=== PATIENT | male | born 1940 | race Caucasian/White ===

== ENCOUNTER 2017-07-02 15:21 | Emergency (ER) | payer MEDICARE, OTHER ==
[2017-04-26 16:37] VITALS: Ht 180.3 cm; Wt 115.0 kg
[~2017-07-02] VITALS: Ht 180.3 cm; Wt 115.0 kg
[~2017-07-02 15:21] MED LIST: ALB18R INH; ALBU2.5V36 INH; APIX5TAB PO; ASPI-1471 PO; ATOR40TA24 PO; CAR3.125 PO; CAR6.25 PO; CIPR-344 PO; CLOP75TA PO; DULO30CA35 PO; FURO-45 PO; FURO20TA19 PO; FURO40TA35 PO; GABA-549 PO; HYDR-4309 PO; IPRA0.2S8 IH; LEVE250T42 PO; LEVO-3 PO; LEVO-85 PO; LISI5TAB25 PO; METR-1 PO; METR-160 PO; NOR25 PO; OXYGENHOME INH; PANT40TA65 PO; POTA-1 PO; POTA-53 PO; PREG150C33 PO; PREG300C14 PO; TAMS0.4C25 PO; TIO18R INH
[2017-07-02] MEDS ORDERED: OXYGENHOME INH (15:34)
[2017-07-02] MEDS ORDERED: NS(*) 0.9% 500 ML BAG 500 ML IV ONE (15:44)
--- NOTE | 2017-07-02 15:58 | ER Report ---
History and Physical Time Seen By MD: 15:30 Hx. of Stated Complaint: pt reports a headcold for the past 3 weeks, congestion, reports he does not want it to turn into pneumonia HPI/ROS CHIEF COMPLAINT: Shortness of breath HISTORY OF PRESENT ILLNESS: 77-year-old male patient presents to emergency room with complaint of shortness of breath. Patient states that he's had a head cold for the past 3 weeks. He states that he has been having significant amounts of coughing. He states that he is feeling like he is hard time breathing because the congestion. He denies having any fevers, chills, nausea, vomiting or diarrhea. He states that he's been taking [id number] medication with no improvement. Patient states that he is had a rough few months, he is needing to use oxygen 24 hours today. Patient states that he is falling apart. He has not taken anything other than [id number] cold medicines which have not seemed to help. REVIEW OF SYSTEMS: Respiratory: As noted above Cardiovascular: No chest pain, no palpitations. Gastrointestinal: No vomiting, no abdominal pain. Musculoskeletal: No back pain. Allergies: Coded Allergies: Penicillins (Verified Allergy, Severe, 07/02/17) tramadol (Verified Allergy, Severe, seizure, 07/02/17) pt reported ibuprofen (Verified Allergy, Unknown, 07/02/17) STOMACH BLEEDING Home Meds Active Scripts Furosemide (LASIX) 40 Mg Tablet, 1 TAB PO BID, #60 TAB Prov:FLORINDA KAY 07/02/17 Furosemide (LASIX) 40 Mg Tablet, 1 TAB PO BID, #60 TAB Prov:PATRICIA HENRY DO 04/27/17 Reported Medications Oxygen (OXYGEN) Inha, 3 L INH QDAY, L 07/02/17 Clopidogrel Bisulfate (CLOPIDOGREL) 75 Mg Tablet, 1 TAB PO QDAY, TAB 04/26/17 Atorvastatin Calcium (LIPITOR) 40 Mg Tablet, 1 TAB PO QDAY, TAB 04/26/17 Pregabalin (LYRICA) 150 Mg Capsule, 150 MG PO TID, CAPSULE 03/24/17 Carvedilol (CARVEDILOL) 6.25 Mg Tab, 3.125 MG PO BID, TAB 03/17/17 Aspirin (ASPIR 81) 81 Mg Tablet.dr, 81 MG PO QDAY, TAB 03/17/17 Apixaban (ELIQUIS) 5 Mg Tablet, 5 MG PO BID 03/17/17 Tiotropium [place] (SPIRIVA) 18 Mcg/Cap Inh, 18 MCG INH QDAY, INH 12/30/16 Levetiracetam (LEVETIRACETAM) 250 Mg Tablet, 500 MG PO BID, TAB 12/30/16 Tamsulosin Hcl (FLOMAX) 0.4 Mg Cap.er.24h, 0.4 MG PO QDAY, CAP 12/30/16 Levothyroxine Sodium (LEVOTHYROXINE SODIUM) 100 Mcg Tablet, 100 MCG PO QDAY, TAB 12/30/16 Potassium Chloride (POTASSIUM CHLORIDE) 10 Meq Tab.er.prt, 10 MEQ PO QDAY 12/30/16 Discontinued Reported Medications Oxygen (OXYGEN) Inha, 2 L INH QHS, L 03/17/17 Discontinued Scripts Ciprofloxacin Hcl (CIPRO) 500 Mg Tablet, 500 MG PO BID, #14 TAB 0 Refills Prov:ENRIQUE WEST MD 04/28/17 Past Medical/Surgical History Patient has a past medical history of neuropathy in hands and feet, seizures, NH , A. fib, hypertension, COPD, prostate problems, eye cancer, brain cancer. Patient has a surgical history of coronary stent, appendectomy, cholecystectomy , abscess drained, C5-7 diffuse, tonsillectomy, eye surgery. Reviewed Nurses Notes: Yes Hx Smoking: Yes Smoking Status: Current: Every Day Smoker, Current: Some Days Smoker Exposure to Second Hand Smoke?: No Hx Substance Use Disorder: No Hx Alcohol Use: Yes Constitutional Vital Sign - Last 24 Hours 07/02/17 07/02/17 07/02/17 07/02/17 15:28 15:28 15:28 15:51 Temp 97.4 Pulse 92 104 Resp 16 24 B/P (MAP) 128/92 (104) 128/92 Pulse Ox 97 82 O2 Delivery Nasal Cannula O2 Flow Rate 3.0 07/02/17 07/02/17 07/02/17 07/02/17 16:00 16:11 16:21 16:30 Pulse 93 Resp 26 B/P (MAP) 128/86 (100) 114/99 (104) 101/81 (88) Pulse Ox 98 07/02/17 07/02/17 07/02/17 07/02/17 17:00 17:30 18:00 18:23 B/P (MAP) 113/84 (94) 109/78 (88) 114/95 (101) 114/95 (101) Pulse Ox 93 O2 Flow Rate 3 Intake and Output 07/02/17 07/02/17 07/03/17 15:00 23:00 07:00 Intake Total 500 ml Balance 500 ml Physical Exam General Appearance: The patient is alert, has no immediate need for airway protection and no current signs of toxicity. ENT: Tympanic membranes are pearly-temple, auditory canals are patent, mucous membranes are dry. Respiratory: Chest is non tender, lungs are clear to auscultation. Cardiac: regular rate and rhythm Gastrointestinal: Abdomen is soft and non tender, no masses, bowel sounds normal. Musculoskeletal: Neck: Neck is supple and non tender. Extremities have full range of motion and are non tender. Skin: No rashes or lesions. DIFFERENTIAL DIAGNOSIS: After history and physical exam differential diagnosis was considered for COPD exacerbation, pneumonia, bronchitis, sinusitis. Medical Decision Making Data Points Result Diagram: 07/02/17 1610 07/02/17 1610 Laboratory Hematology Test 07/02/17 16:02 07/02/17 16:10 Urine Color Yellow Urine Clarity Clear Urine pH 5.0 pH (4.8-9.5) Urine Specific [place] 1.012 Urine Protein Negative mg/dL (NEGATIVE) Urine Glucose (UA) Negative mg/dL (NEGATIVE) Urine Ketones Negative mg/dL (NEGATIVE) Urine Blood Negative (NEGATIVE) Urine Nitrite Negative (NEGATIVE) Urine Bilirubin Negative (NEGATIVE) Urine Urobilinogen 2.0 mg/dL (0.2-1.9) Urine Leukocyte Esterase Negative (NEGATIVE) Urine RBC 1 /HPF (0-2/HPF) Urine WBC 2 /HPF (0-5/HPF) Urine Squamous Epithelial Cells None /LPF (</=FEW) Urine Bacteria Few /HPF (NONE-FEW) Urine Hyaline Casts Few /LPF (NONE-FEW) Urine Mucus Few /HPF (NONE-FEW) Red Blood Count 3.98 M/uL (4.00-5.60) Mean Corpuscular Volume 100.5 fL (80.0-96.0) Mean Corpuscular Hemoglobin 33.6 pg (26.0-33.0) Mean Corpuscular Hemoglobin Concent 33.5 g/dL (32.0-36.0) Red Cell Distribution Width 16.8 % (11.5-14.5) Mean Platelet Volume 8.4 fL (7.2-11.1) Neutrophils (%) (Auto) % (39.4-72.5) Lymphocytes (%) (Auto) % (17.6-49.6) Monocytes (%) (Auto) % (4.1-12.4) Eosinophils (%) (Auto) % (0.4-6.7) Basophils (%) (Auto) % (0.3-1.4) Nucleated RBC Relative Count (auto) /100WBC Neutrophils # (Auto) K/uL (2.0-7.4) Lymphocytes # (Auto) K/uL (1.3-3.6) Monocytes # (Auto) K/uL (0.3-1.0) Eosinophils # (Auto) K/uL (0.0-0.5) Basophils # (Auto) K/uL (0.0-0.1) Nucleated RBC Absolute Count (auto) K/uL Neutrophils % (Manual) 45 % (39.4-72.5) Band Neutrophils % 6 % Lymphocytes % (Manual) 33 % (17.6-49.6) Monocytes % (Manual) 12 % (4.1-12.4) Eosinophils % (Manual) 1 % (0.4-6.7) Basophils % (Manual) 0 % (0.3-1.4) Metamyelocytes % 3 % Sodium Level 145 mmol/L (137-145) Potassium Level 3.5 mmol/L (3.5-5.0) Chloride Level 100 mmol/L (98-107) Carbon Dioxide Level 33 mmol/L (22-30) Blood Urea Nitrogen 12 mg/dl (9-21) Creatinine 0.80 mg/dl (0.66-1.25) Glomerular Filtration Rate Calc > 60.0 Random Glucose 88 mg/dl (75-110) Calcium Level 9.1 mg/dl (8.4-10.2) Total Bilirubin 3.7 mg/dl (0.2-1.3) Aspartate Amino Transf (AST/SGOT) 23 U/L (0-35) Alanine Aminotransferase (ALT/SGPT) 25 U/L (0-56) Alkaline Phosphatase 69 U/L (0-126) Troponin I 0.013 ng/ml B-Type Natriuretic Peptide 863 pg/ml (0-100) Total Protein 6.8 gm/dl (6.3-8.2) Albumin 3.7 g/dl (3.5-5.0) Chemistry Test 07/02/17 16:02 07/02/17 16:10 Urine Color Yellow Urine Clarity Clear Urine pH 5.0 pH (4.8-9.5) Urine Specific [place] 1.012 Urine Protein Negative mg/dL (NEGATIVE) Urine Glucose (UA) Negative mg/dL (NEGATIVE) Urine Ketones Negative mg/dL (NEGATIVE) Urine Blood Negative (NEGATIVE) Urine Nitrite Negative (NEGATIVE) Urine Bilirubin Negative (NEGATIVE) Urine Urobilinogen 2.0 mg/dL (0.2-1.9) Urine Leukocyte Esterase Negative (NEGATIVE) Urine RBC 1 /HPF (0-2/HPF) Urine WBC 2 /HPF (0-5/HPF) Urine Squamous Epithelial Cells None /LPF (</=FEW) Urine Bacteria Few /HPF (NONE-FEW) Urine Hyaline Casts Few /LPF (NONE-FEW) Urine Mucus Few /HPF (NONE-FEW) White Blood Count 4.0 k/uL (4.5-11.0) Red Blood Count 3.98 M/uL (4.00-5.60) Hemoglobin 13.4 g/dL (14.0-18.0) Hematocrit 40.0 % (42.0-52.0) Mean Corpuscular Volume 100.5 fL (80.0-96.0) Mean Corpuscular Hemoglobin 33.6 pg (26.0-33.0) Mean Corpuscular Hemoglobin Concent 33.5 g/dL (32.0-36.0) Red Cell Distribution Width 16.8 % (11.5-14.5) Platelet Count 306 K/uL (150-450) Mean Platelet Volume 8.4 fL (7.2-11.1) Neutrophils (%) (Auto) % (39.4-72.5) Lymphocytes (%) (Auto) % (17.6-49.6) Monocytes (%) (Auto) % (4.1-12.4) Eosinophils (%) (Auto) % (0.4-6.7) Basophils (%) (Auto) % (0.3-1.4) Nucleated RBC Relative Count (auto) /100WBC Neutrophils # (Auto) K/uL (2.0-7.4) Lymphocytes # (Auto) K/uL (1.3-3.6) Monocytes # (Auto) K/uL (0.3-1.0) Eosinophils # (Auto) K/uL (0.0-0.5) Basophils # (Auto) K/uL (0.0-0.1) Nucleated RBC Absolute Count (auto) K/uL Neutrophils % (Manual) 45 % (39.4-72.5) Band Neutrophils % 6 % Lymphocytes % (Manual) 33 % (17.6-49.6) Monocytes % (Manual) 12 % (4.1-12.4) Eosinophils % (Manual) 1 % (0.4-6.7) Basophils % (Manual) 0 % (0.3-1.4) Metamyelocytes % 3 % Glomerular Filtration Rate Calc > 60.0 Calcium Level 9.1 mg/dl (8.4-10.2) Total Bilirubin 3.7 mg/dl (0.2-1.3) Aspartate Amino Transf (AST/SGOT) 23 U/L (0-35) Alanine Aminotransferase (ALT/SGPT) 25 U/L (0-56) Alkaline Phosphatase 69 U/L (0-126) Troponin I 0.013 ng/ml B-Type Natriuretic Peptide 863 pg/ml (0-100) Total Protein 6.8 gm/dl (6.3-8.2) Albumin 3.7 g/dl (3.5-5.0) Urinalysis Test 07/02/17 16:02 Urine Color Yellow Urine Clarity Clear Urine pH 5.0 pH (4.8-9.5) Urine Specific [place] 1.012 Urine Protein Negative mg/dL (NEGATIVE) Urine Glucose (UA) Negative mg/dL (NEGATIVE) Urine Ketones Negative mg/dL (NEGATIVE) Urine Blood Negative (NEGATIVE) Urine Nitrite Negative (NEGATIVE) Urine Bilirubin Negative (NEGATIVE) Urine Urobilinogen 2.0 mg/dL (0.2-1.9) Urine Leukocyte Esterase Negative (NEGATIVE) Urine RBC 1 /HPF (0-2/HPF) Urine WBC 2 /HPF (0-5/HPF) Urine Squamous Epithelial Cells None /LPF (</=FEW) Urine Bacteria Few /HPF (NONE-FEW) Urine Hyaline Casts Few /LPF (NONE-FEW) Urine Mucus Few /HPF (NONE-FEW) EKG/Imaging EKG Interpretation 12 lead EKG: Rhythm: normal sinus rhythm [place]: Left axis deviation QRS: normal ST segments: normal Imaging INDICATION: . Respiratory distress DATE: 07/02/2017 4:54 PM. TECHNIQUE: CHEST PA AND LAT COMPARISON: April 28, 2017 FINDINGS: The cardiac silhouette remains enlarged. The interstitium remains prominent. Normal expansion. No effusion or pneumothorax. There are likely calcified granulomas at the hilum. Faint left retrocardiac opacity is noted. Anterior cervical fusion hardware is noted. IMPRESSION: Bilateral interstitial suggests chronic airways disease. Faint left retrocardiac opacity may reflect atelectasis and/or chronic interstitial findings, but mild aspiration or developing infection is not entirely excluded. This is similar to the comparison study however. Report Dictated By: Hawa Fontana MD at 07/02/2017 4:54 PM Report E-Signed By: Hawa Fontana MD at 07/02/2017 4:56 PM ED Course/Re-evaluation ED Course Patient was admitted to exam room, history and physical were obtained. Differential diagnoses were considered. On examination lungs are clear, mucus mucous membranes were incredibly dry. A CBC, CMP, BNP, troponin, EKG and chest x -ray were done. The lab results were unremarkable except for the patient's BNP which was elevated at 800. Patient last had a BNP of 400 last month. I believe that this is likely the cause of his shortness of breath. We will go ahead and give the patient 40 mg of Lasix here in the emergency room. We will then have him increase his Lasix to 40 mg twice a day. I will like him follow-up with his primary care provider in the next week. He is to get plenty of rest, limit his activity by pain. I discussed with the patient who verbalized understanding and agreement with plan. Decision to Disposition Date: Jul 02, 2017 Decision to Disposition Time: 17:49 Depart Departure Latest Vital Signs Vital Signs Date Time Temp Pulse Resp B/P (MAP) Pulse Ox O2 Delivery O2 Flow Rate FiO2 07/02/17 18:23 114/95 (101) 93 3 07/02/17 16:21 93 26 07/02/17 15:28 97.4 Nasal Cannula Impression: Primary Impression: CHF exacerbation Condition: Improved Disposition: HOME OR SELF-CARE New Scripts Furosemide (LASIX) 40 Mg Tablet 1 TAB PO BID, #60 TAB Prov: FLORINDA KAY 07/02/17 Patient Instructions: Heart Failure (ED) Additional Instructions: Follow up with Dr. Harrell in the next week, it sounds like you already have an appointment. Get plenty of rest. We are going to increase you Lasix to 40mg twice a day. Sleep with the head of your bed elevated. Return to the ER if condition worsens. Problem Qualifiers Primary Impression: CHF exacerbation Congestive heart failure type: unspecified congestive heart failure type Qualified Codes: I50.9 - Heart failure, unspecified FLORINDA KAY Jul 02, 2017 15:58
--- NOTE | 2017-07-02 15:59 | EKG ---
FACILITY: [facility] - [place] PATIENT NAME: TONY NGO : [id number] MR: [id number]: [id number] EXAM DATE: ORDERING PHYSICIAN: FLORINDA KAY TECHNOLOGIST: CARMEN Test Reason : SOB Blood Pressure : / mmHG Vent. Rate : 094 BPM Atrial Rate : 094 BPM P-R Int : 000 ms QRS Dur : 124 ms QT Int : 396 ms P-R-T Axes : 000 -49 092 degrees QTc Int : 495 ms Sinus rhythm with 1st degree AV block premature ventricular complexes Left axis deviation Inferior infarct , age undetermined Anterolateral infarct , age undetermined Abnormal ECG Confirmed by PATRICIA HENRY ([id number]) on 07/03/2017 12:34:50 AM Referred By: RAVI Confirmed By:PATRICIA HENRY
[2017-07-02 16:28] LABS: PLATELET COUNT, AUTOMATED 306 K/uL (150-450)
--- NOTE | 2017-07-02 17:00 | RADIOLOGY IMAGING REPORT ---
FACILITY: [facility] - [place] PATIENT NAME: Obey Asencio : 1940 MR: [id number] V: [id number] EXAM DATE: ORDERING PHYSICIAN: FLORINDA KAY TECHNOLOGIST: Location: [facility] Patient: Obey Asencio : 1940 Visit/Account:[id number] Date of Sevice: 07/02/2017 INDICATION: . Respiratory distress DATE: 07/02/2017 4:54 PM. TECHNIQUE: CHEST PA AND LAT COMPARISON: April 28, 2017 FINDINGS: The cardiac silhouette remains enlarged. The interstitium remains prominent. Normal expansi on. No effusion or pneumothorax. There are likely calcified granulomas at the hilum. Faint left retro cardiac opacity is noted. Anterior cervical fusion hardware is noted. IMPRESSION: Bilateral interstitial suggests chronic airways disease. Faint left retrocardiac opacity may reflect atelectasis and/or chronic interstitial findings, but mil d aspiration or developing infection is not entirely excluded. This is similar to the comparison stud y however. Report Dictated By: Hawa Fontana MD at 07/02/2017 4:54 PM Report E-Signed By: Hawa Fontana MD at 07/02/2017 4:56 PM WSN:[id number]
[2017-07-02] MEDS ORDERED: FURO40TA35 PO (17:44)
[2017-07-02] MEDS ORDERED: FUROSEMIDE 40 MG/4 ML VIAL IVP ONE (17:45)
[2017-07-02 18:23] VITALS: BP 114/95
== END 2017-07-02 18:20 | disposition home or self-care (01) ==
LOC: ER 15:28
DX: I50.9 Heart failure, unspecified (principal)
CPT/HCPCS: 71020; 81001; 83880; 84484; 85025; 93005; 96361; 96374; 99284; J1940; J7040; 82040; 82247; 82310; 82374; 82435; 82565; 82947; 84075; 84132; 84155; 84295; 84450; 84460; 84520

== ENCOUNTER 2017-07-03 10:24 | Inpatient (IN) | payer MEDICARE, OTHER ==
[~2017-07-03] VITALS: Ht 154.9 cm; Wt 116.1 kg
--- NOTE | 2017-07-03 10:37 | ER Report ---
History and Physical Time Seen By MD: 10:35 Hx. of Stated Complaint: pt has burning chest pain and difficulty breathing, in ER yesterday for concern for pneumonia, put on lasix but minimal output and nasty taste in mouth HPI/ROS CHIEF COMPLAINT: Shortness of breath and chest pain HISTORY OF PRESENT ILLNESS: 71 facial male COPD CHF comes emergency Department today with worsening shortness of breath was seen here yesterday diagnosed with CHF exacerbation increase his Lasix dose and gave him a increase home use workup was comprehensive with determined he was safe to go home however when he got home several hours later started getting worsening shortness of breath and chest discomfort orthopnea mild PND came back to the emergency room less than 24 hours later otherwise unremarkable said he has a bad taste in his mouth think she may have progressive pneumonia REVIEW OF SYSTEMS: Respiratory: No productive cough but has shortness of breath Cardiovascular: Has chest pain or palpitation Gastrointestinal: No vomiting, no abdominal pain. Musculoskeletal: No back pain. Remainder of the 14 system rev: Yes Allergies: Coded Allergies: Penicillins (Verified Allergy, Severe, 07/02/17) tramadol (Verified Allergy, Severe, seizure, 07/02/17) pt reported ibuprofen (Verified Allergy, Unknown, 07/02/17) STOMACH BLEEDING Home Meds Active Scripts Furosemide (LASIX) 40 Mg Tablet, 1 TAB PO BID, #60 TAB Prov:FLORINDA KAY 07/02/17 Furosemide (LASIX) 40 Mg Tablet, 1 TAB PO BID, #60 TAB Prov:PATRICIA HENRY DO 04/27/17 Reported Medications Oxygen (OXYGEN) Inha, 3 L INH QDAY, L 07/02/17 Clopidogrel Bisulfate (CLOPIDOGREL) 75 Mg Tablet, 1 TAB PO QDAY, TAB 04/26/17 Atorvastatin Calcium (LIPITOR) 40 Mg Tablet, 1 TAB PO QDAY, TAB 04/26/17 Pregabalin (LYRICA) 150 Mg Capsule, 150 MG PO TID, CAPSULE 03/24/17 Carvedilol (CARVEDILOL) 6.25 Mg Tab, 3.125 MG PO BID, TAB 03/17/17 Aspirin (ASPIR 81) 81 Mg Tablet.dr, 81 MG PO QDAY, TAB 03/17/17 Apixaban (ELIQUIS) 5 Mg Tablet, 5 MG PO BID 03/17/[address] [place] (SPIRIVA) 18 Mcg/Cap Inh, 18 MCG INH QDAY, INH 12/30/16 Levetiracetam (LEVETIRACETAM) 250 Mg Tablet, 500 MG PO BID, TAB 12/30/16 Tamsulosin Hcl (FLOMAX) 0.4 Mg Cap.er.24h, 0.4 MG PO QDAY, CAP 12/30/16 Levothyroxine Sodium (LEVOTHYROXINE SODIUM) 100 Mcg Tablet, 100 MCG PO QDAY, TAB 12/30/16 Potassium Chloride (POTASSIUM CHLORIDE) 10 Meq Tab.er.prt, 10 MEQ PO QDAY 12/30/16 Discontinued Reported Medications Oxygen (OXYGEN) Inha, 2 L INH QHS, L 03/17/17 Discontinued Scripts Ciprofloxacin Hcl (CIPRO) 500 Mg Tablet, 500 MG PO BID, #14 TAB 0 Refills Prov:ENRIQUE WEST MD 04/28/17 Reviewed Nurses Notes: Yes Old Medical Records Reviewed: Yes Hx Smoking: Yes Smoking Status: Current: Every Day Smoker, Current: Some Days Smoker Exposure to Second Hand Smoke?: No Hx Substance Use Disorder: No Hx Alcohol Use: Yes Constitutional Vital Sign - Last 24 Hours 07/03/17 07/03/17 10:29 10:44 Temp 97.9 Pulse 113 Resp 22 B/P (MAP) 104/89 Pulse Ox 85 O2 Delivery Room Air O2 Flow Rate 5.0 Physical Exam General Appearance: The patient is alert, has no immediate need for airway protection and no current signs of toxicity. On supplemental O2 no apparent distress Eyes: Pupils equal and round no injection. Respiratory: Distant breath sounds bibasilar crackles Cardiac: regular rate and rhythm [ ] Gastrointestinal: Abdomen is soft and non tender, no masses, bowel sounds normal. Musculoskeletal: Neck: Neck is supple and non tender. Extremities have full range of motion and are non tender. Skin: No rashes or lesions. [ ] DIFFERENTIAL DIAGNOSIS: After history and physical exam differential diagnosis was considered for CHF COPD dissection pulmonary edema aortic aneurysm myocardial infarction excessive Fluid overload pulmonary congestion Medical Decision Making Data Points Result Diagram: 07/03/17 1104 07/03/17 1104 Laboratory Hematology Test 07/03/17 11:04 07/03/17 11:10 07/03/17 11:35 Red Blood Count 4.06 M/uL (4.00-5.60) Mean Corpuscular Volume 100.1 fL (80.0-96.0) Mean Corpuscular Hemoglobin 33.6 pg (26.0-33.0) Mean Corpuscular Hemoglobin Concent 33.6 g/dL (32.0-36.0) Red Cell Distribution Width 16.6 % (11.5-14.5) Mean Platelet Volume 8.4 fL (7.2-11.1) Neutrophils (%) (Auto) 62.2 % (39.4-72.5) Lymphocytes (%) (Auto) 25.4 % (17.6-49.6) Monocytes (%) (Auto) 9.0 % (4.1-12.4) Eosinophils (%) (Auto) 2.0 % (0.4-6.7) Basophils (%) (Auto) 1.4 % (0.3-1.4) Nucleated RBC Relative Count (auto) 0.2 /100WBC Neutrophils # (Auto) 2.8 K/uL (2.0-7.4) Lymphocytes # (Auto) 1.1 K/uL (1.3-3.6) Monocytes # (Auto) 0.4 K/uL (0.3-1.0) Eosinophils # (Auto) 0.1 K/uL (0.0-0.5) Basophils # (Auto) 0.1 K/uL (0.0-0.1) Nucleated RBC Absolute Count (auto) 0.01 K/uL Peripheral Blood Smear Yes Y/N D-Dimer Quantitative (PE/DVT) 1.16 ug/ml (0-0.50) Sodium Level 142 mmol/L (137-145) Potassium Level 3.3 mmol/L (3.5-5.0) Chloride Level 102 mmol/L (98-107) Carbon Dioxide Level 28 mmol/L (22-30) Blood Urea Nitrogen 21 mg/dl (9-21) Creatinine 0.80 mg/dl (0.66-1.25) Glomerular Filtration Rate Calc > 60.0 Random Glucose 100 mg/dl (75-110) Calcium Level 9.1 mg/dl (8.4-10.2) Total Bilirubin 4.4 mg/dl (0.2-1.3) Aspartate Amino Transf (AST/SGOT) 26 U/L (0-35) Alanine Aminotransferase (ALT/SGPT) 28 U/L (0-56) Alkaline Phosphatase 76 U/L (0-126) Troponin I 0.017 ng/ml B-Type Natriuretic Peptide 904 pg/ml (0-100) Total Protein 6.8 gm/dl (6.3-8.2) Albumin 3.8 g/dl (3.5-5.0) Blood Gas Puncture Site Right radial Blood Gas Patient Temperature 97.9 DEGREES Arterial Blood pH 7.47 (7.35-7.45) Arterial Blood Partial Pressure CO2 35 mmHg (32-37) Arterial Blood Partial Pressure O2 44 mmHg (60-80) Arterial Blood HCO3 25 mmol/L (20-26) Arterial Blood Oxygen Saturation 84 % (92-100) Arterial Blood Base Excess 2.0 mmol/L Jermaine Test Acceptable Oxygen Liters/Minute 5l Urine Color Yellow Urine Clarity Clear Urine pH 5.0 pH (4.8-9.5) Urine Specific [place] 1.013 Urine Protein Negative mg/dL (NEGATIVE) Urine Glucose (UA) Negative mg/dL (NEGATIVE) Urine Ketones Negative mg/dL (NEGATIVE) Urine Blood Negative (NEGATIVE) Urine Nitrite Negative (NEGATIVE) Urine Bilirubin Negative (NEGATIVE) Urine Urobilinogen Negative mg/dL (0.2-1.9) Urine Leukocyte Esterase Negative (NEGATIVE) Urine RBC 1 /HPF (0-2/HPF) Urine WBC 2 /HPF (0-5/HPF) Urine Squamous Epithelial Cells None /LPF (</=FEW) Urine Bacteria Negative /HPF (NONE-FEW) Urine Mucus None /HPF (NONE-FEW) Chemistry Test 07/03/17 11:04 07/03/17 11:10 07/03/17 11:35 White Blood Count 4.4 k/uL (4.5-11.0) Red Blood Count 4.06 M/uL (4.00-5.60) Hemoglobin 13.6 g/dL (14.0-18.0) Hematocrit 40.6 % (42.0-52.0) Mean Corpuscular Volume 100.1 fL (80.0-96.0) Mean Corpuscular Hemoglobin 33.6 pg (26.0-33.0) Mean Corpuscular Hemoglobin Concent 33.6 g/dL (32.0-36.0) Red Cell Distribution Width 16.6 % (11.5-14.5) Platelet Count 357 K/uL (150-450) Mean Platelet Volume 8.4 fL (7.2-11.1) Neutrophils (%) (Auto) 62.2 % (39.4-72.5) Lymphocytes (%) (Auto) 25.4 % (17.6-49.6) Monocytes (%) (Auto) 9.0 % (4.1-12.4) Eosinophils (%) (Auto) 2.0 % (0.4-6.7) Basophils (%) (Auto) 1.4 % (0.3-1.4) Nucleated RBC Relative Count (auto) 0.2 /100WBC Neutrophils # (Auto) 2.8 K/uL (2.0-7.4) Lymphocytes # (Auto) 1.1 K/uL (1.3-3.6) Monocytes # (Auto) 0.4 K/uL (0.3-1.0) Eosinophils # (Auto) 0.1 K/uL (0.0-0.5) Basophils # (Auto) 0.1 K/uL (0.0-0.1) Nucleated RBC Absolute Count (auto) 0.01 K/uL Peripheral Blood Smear Yes Y/N D-Dimer Quantitative (PE/DVT) 1.16 ug/ml (0-0.50) Glomerular Filtration Rate Calc > 60.0 Calcium Level 9.1 mg/dl (8.4-10.2) Total Bilirubin 4.4 mg/dl (0.2-1.3) Aspartate Amino Transf (AST/SGOT) 26 U/L (0-35) Alanine Aminotransferase (ALT/SGPT) 28 U/L (0-56) Alkaline Phosphatase 76 U/L (0-126) Troponin I 0.017 ng/ml B-Type Natriuretic Peptide 904 pg/ml (0-100) Total Protein 6.8 gm/dl (6.3-8.2) Albumin 3.8 g/dl (3.5-5.0) Blood Gas Puncture Site Right radial Blood Gas Patient Temperature 97.9 DEGREES Arterial Blood pH 7.47 (7.35-7.45) Arterial Blood Partial Pressure CO2 35 mmHg (32-37) Arterial Blood Partial Pressure O2 44 mmHg (60-80) Arterial Blood HCO3 25 mmol/L (20-26) Arterial Blood Oxygen Saturation 84 % (92-100) Arterial Blood Base Excess 2.0 mmol/L Jermaine Test Acceptable Oxygen Liters/Minute 5l Urine Color Yellow Urine Clarity Clear Urine pH 5.0 pH (4.8-9.5) Urine Specific [place] 1.013 Urine Protein Negative mg/dL (NEGATIVE) Urine Glucose (UA) Negative mg/dL (NEGATIVE) Urine Ketones Negative mg/dL (NEGATIVE) Urine Blood Negative (NEGATIVE) Urine Nitrite Negative (NEGATIVE) Urine Bilirubin Negative (NEGATIVE) Urine Urobilinogen Negative mg/dL (0.2-1.9) Urine Leukocyte Esterase Negative (NEGATIVE) Urine RBC 1 /HPF (0-2/HPF) Urine WBC 2 /HPF (0-5/HPF) Urine Squamous Epithelial Cells None /LPF (</=FEW) Urine Bacteria Negative /HPF (NONE-FEW) Urine Mucus None /HPF (NONE-FEW) Coagulation Test 07/03/17 11:04 D-Dimer Quantitative (PE/DVT) 1.16 ug/ml Urinalysis Test 07/03/17 11:35 Urine Color Yellow Urine Clarity Clear Urine pH 5.0 pH (4.8-9.5) Urine Specific [place] 1.013 Urine Protein Negative mg/dL (NEGATIVE) Urine Glucose (UA) Negative mg/dL (NEGATIVE) Urine Ketones Negative mg/dL (NEGATIVE) Urine Blood Negative (NEGATIVE) Urine Nitrite Negative (NEGATIVE) Urine Bilirubin Negative (NEGATIVE) Urine Urobilinogen Negative mg/dL (0.2-1.9) Urine Leukocyte Esterase Negative (NEGATIVE) Urine RBC 1 /HPF (0-2/HPF) Urine WBC 2 /HPF (0-5/HPF) Urine Squamous Epithelial Cells None /LPF (</=FEW) Urine Bacteria Negative /HPF (NONE-FEW) Urine Mucus None /HPF (NONE-FEW) ED Course/Re-evaluation ED Course ED clinical course interstitial mild worsening shortness of breath seen here yesterday is supple neurovascular congestion he's got pulmonary vascular dilatation arterial consistent with pulmonary arterial hypertension COPD and CHF CHF exacerbation his BNP is down to over 900 pulmonary effusions bilaterally on his cheeks CT of his chest no obvious sign of PE. Recent double his Lasix dose did not increase his dose in the ED will be admitting him for CHF COPD and pulmonary arterial hypertension with pulmonary effusion Decision to Disposition Date: Jul 03, 2017 Decision to Disposition Time: 13:42 Depart Departure Latest Vital Signs Vital Signs Date Time Temp Pulse Resp B/P (MAP) Pulse Ox O2 Delivery O2 Flow Rate FiO2 07/03/17 10:44 5.0 07/03/17 10:29 97.9 113 22 104/89 85 Room Air Impression: Primary Impression: Pulmonary arterial hypertension Additional Impressions: Congestive heart failure Hypoxia Condition: Improved Disposition: Admitted from ER Problem Qualifiers AYO KERN MD Jul 03, 2017 10:37
--- NOTE | 2017-07-03 10:55 | EKG ---
FACILITY: [facility] - [place], [place] PATIENT NAME: TONY NGO : [id number] MR: [id number] V: [id number] EXAM DATE: ORDERING PHYSICIAN: AYO KERN TECHNOLOGIST: Test Reason : Blood Pressure : / mmHG Vent. Rate : 102 BPM Atrial Rate : 102 BPM P-R Int : 000 ms QRS Dur : 124 ms QT Int : 394 ms P-R-T Axes : 000 -33 115 degrees QTc Int : 513 ms Atrial fib/flutter with premature ventricular contractions Left axis deviation Inferior infarct (cited on or before 30-DEC-2016) Anterior infarct (cited on or before 30-DEC-2016) Abnormal ECG Confirmed by ZENY PATTON ([id number]) on 07/03/2017 1:36:04 PM Referred By: Confirmed By:ZENY PATTON
[2017-07-03 11:40] LABS: PLATELET COUNT, AUTOMATED 357 K/uL (150-450)
--- NOTE | 2017-07-03 12:16 | RADIOLOGY IMAGING REPORT ---
FACILITY: [facility] - [place] PATIENT NAME: Obey Asencio : 1940 MR: [id number] V: [id number] EXAM DATE: ORDERING PHYSICIAN: AYO KERN TECHNOLOGIST: Location: [facility] - [place] Patient: Obey Asencio : 1940 Visit/Account:[id number] Date of Sevice: 07/03/2017 EXAMINATION: Chest radiographs 2 views HISTORY: Shortness of breath. COMPARISON: 07/02/2017. FINDINGS: PA and lateral views of the chest are submitted. Lines/tubes: None. Lungs/pleura: Stable prominent interstitial markings and vasculature. No focal consolidation or pneu mothorax. Small pleural effusions. No significant change. Heart: Stable mild enlargement cardiac silhouette. Mediastinum: Negative. Bony structures/body wall: Negative. IMPRESSION: Stable cardiomegaly with small pleural effusions and possible mild interstitial edema. No significant change compared with 07/02/2017. Report Dictated By: Rajeev Tena MD at 07/03/2017 12:03 PM Report E-Signed By: Rajeev Tena MD at 07/03/2017 12:14 PM WSN:[id number]
[2017-07-03] MEDS ORDERED: NS 0.9% 50 ML VIAL 50 ML ONE (12:47)
[2017-07-03] MEDS ORDERED: NS 0.9% 50 ML VIAL 100 ML ONE (12:47)
[2017-07-03] MEDS ORDERED: IOPAMIDOL 76% 100 ML INFUS BTL 100 ML ONE (12:47)
--- NOTE | 2017-07-03 13:36 | RADIOLOGY IMAGING REPORT ---
FACILITY: [facility] - [place], [place] PATIENT NAME: Obey Asencio : 1940 MR: [id number] V: [id number] EXAM DATE: ORDERING PHYSICIAN: AYO KERN TECHNOLOGIST: [place] [facility] [place] bOey Asencio : 1940 Visit/Account:[id number] Date of Sevice: 07/03/2017 EXAMINATION: CTA of the chest with IV contrast HISTORY: Shortness of breath. COMPARISON: Chest radiograph from the same day. CTA of the chest from 03/24/2017. TECHNIQUE: Pulmonary embolus protocol - Thin-slice axial imaging of the chest was performed during maximal pulmonary arterial opacification with intravenous nonionic iodinated contrast. 3D coronal sla b MIPs and 2D reconstructions in the coronal and sagittal planes were performed to aid in pulmonary e mbolus detection. Sample Body Builder images have been stored on PACS. CONTRAST: 100 mL of IV Isovue-370 One of the following dose optimization techniques was utilized in the performance of this exam: Autom ated exposure control; adjustment of the mA and/or kV according to the patient's size; or use of an i terative reconstruction technique. Specific details can be referenced in the facility's radiology C T exam operational policy. FINDINGS: CTA CHEST: Please note that this exam is optimized for assessment of the pulmonary arteries and is not intended as a diagnostic study of the thoracic aorta, coronary arteries or venous structures. Angiographic Findings: Pulmonary arteries: There are no definite filling defects in the main, right, left, lobar, segmental or visualized sub-segmental branches of the pulmonary arterial system. There is incomplete contrast o pacification within the segmental and subsegmental branches of the bilateral posterior lower lobe pul monary artery branches. The main pulmonary artery is enlarged measuring 3.6 cm in diameter. Other vasculature: Coronary artery calcifications. Mild calcified plaque of the thoracic aorta and at the origins of the great vessels. Additional non-angiographic findings: Lungs / Pleura: Small bilateral pleural effusions. Mild compressive atelectasis along the pleural e ffusions. Mild groundglass opacity in the lungs and intralobular septal thickening suggestive of pulm onary edema. Mediastinum / Elizabeth: Negative. Heart / Pericardium: Mild cardiomegaly. Calcifications of the left ventricular apex and fatty infil tration of the ponce of the left ventricle. Musculoskeletal / Body wall: Mild multilevel degenerative changes in the thoracic spine with anteri or osteophytes. ACDF hardware is partially visualized in the lower cervical spine. Lymph node assessment: Multiple subcentimeter mediastinal lymph nodes are stable. Upper abdomen: Negative. Lower neck: Negative. IMPRESSION: No definite evidence of pulmonary embolism. Evaluation of the peripheral pulmonary artery branches in the posterior bases of both lower lobes is limited due to incomplete contrast opacification in the d istal branches. Mild enlargement of the main pulmonary artery suggests pulmonary arterial hypertension. Small bilateral pleural effusions. Pulmonary interstitial edema. Mild cardiomegaly. Chronic infarcts left ventricular infarcts. Coronary artery calcifications. Report Dictated By: Kendall Paz MD at 07/03/2017 1:10 PM Report E-Signed By: Kendall Paz MD at 07/03/2017 1:32 PM WSN:[id number]
[2017-07-03 15:32] VITALS: BP 125/100
[2017-07-03] MEDS ORDERED: FUROSEMIDE 20 MG/2 ML VIAL IVP ONE (16:25)
[2017-07-03] MEDS ORDERED: FLUSH 10 ML SYR IVP PRN (16:55)
--- NOTE | 2017-07-03 17:06 | History & Physical ---
History Home Meds Active Scripts Furosemide (LASIX) 40 Mg Tablet, 1 TAB PO BID, #60 TAB Prov:PATRICIA HENRY DO 04/27/17 Reported Medications Oxygen (OXYGEN) Inha, 3 L INH QDAY, L 07/02/17 Clopidogrel Bisulfate (CLOPIDOGREL) 75 Mg Tablet, 1 TAB PO QDAY, TAB 04/26/17 Atorvastatin Calcium (LIPITOR) 40 Mg Tablet, 1 TAB PO QDAY, TAB 04/26/17 Pregabalin (LYRICA) 150 Mg Capsule, 150 MG PO TID, CAPSULE 03/24/17 Carvedilol (CARVEDILOL) 6.25 Mg Tab, 3.125 MG PO BID, TAB 03/17/17 Aspirin (ASPIR 81) 81 Mg Tablet.dr, 81 MG PO QDAY, TAB 03/17/17 Apixaban (ELIQUIS) 5 Mg Tablet, 5 MG PO BID 03/17/17 Tiotropium [place] (SPIRIVA) 18 Mcg/Cap Inh, 18 MCG INH QDAY, INH 12/30/16 Levetiracetam (LEVETIRACETAM) 250 Mg Tablet, 500 MG PO BID, TAB 12/30/16 Tamsulosin Hcl (FLOMAX) 0.4 Mg Cap.er.24h, 0.4 MG PO QDAY, CAP 12/30/16 Levothyroxine Sodium (LEVOTHYROXINE SODIUM) 100 Mcg Tablet, 100 MCG PO QDAY, TAB 12/30/16 Potassium Chloride (POTASSIUM CHLORIDE) 10 Meq Tab.er.prt, 10 MEQ PO QDAY 12/30/16 Discontinued Reported Medications Oxygen (OXYGEN) Inha, 2 L INH QHS, L 03/17/17 Discontinued Scripts Ciprofloxacin Hcl (CIPRO) 500 Mg Tablet, 500 MG PO BID, #14 TAB 0 Refills Prov:ENRIQUE WEST MD 04/28/17 Allergies: Coded Allergies: Penicillins (Verified Allergy, Severe, 07/02/17) tramadol (Verified Allergy, Severe, seizure, 07/02/17) pt reported ibuprofen (Verified Allergy, Unknown, 07/02/17) STOMACH BLEEDING Patient History: FH: cancer MOTHER, BROTHER OR SISTER, FH: myocardial infarction FATHER, FHx: multiple sclerosis BROTHER OR SISTER Hx Smoking: Yes Smoking Status: Current: Every Day Smoker, Former Smoker, Current: Some Days Smoker Exposure to Second Hand Smoke?: No When Quit Tobacco?: 6 Months ago Caffeine Intake: Coffee, Tea Caffeine/Cups Per Day: 4 cups/day Hx Alcohol Use: Yes Hx Substance Use Disorder: No Exam Vital Signs Vital Signs Date Time Temp Pulse Resp B/P (MAP) Pulse Ox O2 Delivery O2 Flow Rate FiO2 07/04/17 10:56 97.0 93 20 97/70 (79) 99 High-Flow Nasal Cannula 5.0 Medical Decision Making Data Points Result Diagram: 07/04/17 0558 07/04/17 0558 Assessment and Plan Problems: (1) CHF exacerbation Status: Acute (2) Conjunctivitis Status: Acute (3) Pulmonary arterial hypertension Status: Chronic (4) BPH (benign prostatic hyperplasia) Status: Chronic (5) Hypothyroid Status: Chronic (6) COPD (chronic obstructive pulmonary disease) Status: Chronic (7) Essential hypertension Status: Chronic (8) Intermittent atrial fibrillation Status: Chronic (9) CAD (coronary artery disease) Status: Chronic (10) Hypercholesterolemia Status: Chronic Venous Thromboembolism VTE Risk Physician Assess for VTE Risk: Yes Patient's VTE Risk: Low VTE Diagnostic Test 2 Days Prior to Admit: No Antithrombotics Is Pt On Any Antithrombotics?: Yes Heart Failure Ejection Fraction %: 46 NYHA Class: II Is Patient on CHUCKY Inhibitor?: Yes Is Patient on Beta María?: Yes Exam Sepsis Risk: No Definite Risk Problem Qualifiers (1) CHF exacerbation: Congestive heart failure type: systolic Qualified Codes: I50.23 - Acute on chronic systolic (congestive) heart failure (2) Conjunctivitis: Conjunctivitis type: acute ZENY LOVELL MD Jul 03, 2017 17:06
[2017-07-03] MEDS: POTASSIUM CHL 20 MEQ TABCR PO SCH (17:34)
[2017-07-03] MEDS: TOBRAMYCIN 0.3% OP SOLN 5 ML OD SCH ×2 (17:35→20:17)
[2017-07-03 19:36] VITALS: BP 99/85
[2017-07-03] MEDS: PREGABALIN 50 MG CAP PO SCH (20:17)
[2017-07-03] MEDS: APIXABAN 2.5 MG TABLET PO SCH (20:17)
[2017-07-03] MEDS: CARVEDILOL 3.125 MG TAB PO SCH (20:17)
[2017-07-03] MEDS: ATORVASTATIN 40 MG TAB PO SCH (20:17)
[2017-07-03] MEDS: levETIRAcetam 500 MG TAB PO SCH (20:17)
--- NOTE | 2017-07-03 21:34 | History & Physical ---
History of Present Illness Chief Complaint Shortness of breath, worsening over the past month. History of Present Illness The patient is a 77 year old male with PMH significant for COPD, CHF and CAD who states that for the past month to month and a half, he has been more short of breath, particularly when lying in bed. For this reason, he has elevated the head of his bed about 6 inches. This has given him some relief. He has not had PND. The patient denies chest pain or diaphoresis. He does wear oxygen at home and has been chronically on 3L per [place]. The patient states that last night his symptoms were worse so he slept in his recliner. He had been in [facility] earlier in the evening and was instructed to increase his Lasix to 40mg daily. This am he did increase his Lasix but then presented once again to [facility] ER with ongoing shortness of breath shortly after taking the increased dose. He was given no treatment in the ER since he had already taken his increased dose of Lasix at home. At the time of my interview, the patient noted he was feeling much better. The patient also notes that he has had redness, swelling of his eyelids and drainage of his right eye since yesterday morning. He noted some irritation and admits that he rubbed his eye a lot prior to developing the drainage. He denies fever or chills. 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 The patient recently had surgery for gangrenous appendicitis () and had abscess formation postoperatively which was drained. He has recovered but states he has not felt well since the surgery. History Problems: (1) Pulmonary arterial hypertension Status: Chronic (2) BPH (benign prostatic hyperplasia) Status: Chronic (3) Intermittent atrial fibrillation Status: Chronic (4) Hypothyroid Status: Chronic (5) Hypercholesterolemia Status: Chronic (6) CAD (coronary artery disease) Status: Chronic (7) Essential hypertension Status: Chronic (8) COPD (chronic obstructive pulmonary disease) Status: Chronic (9) Congestive heart failure Status: Chronic (10) Atrial fibrillation Status: Chronic (11) Seizure Status: Chronic Home Meds Active Scripts Furosemide (LASIX) 40 Mg Tablet, 1 TAB PO BID, #60 TAB Prov:PATRICIA HENRY DO 04/27/17 Reported Medications Oxygen (OXYGEN) Inha, 3 L INH QDAY, L 07/02/17 Clopidogrel Bisulfate (CLOPIDOGREL) 75 Mg Tablet, 1 TAB PO QDAY, TAB 04/26/17 Atorvastatin Calcium (LIPITOR) 40 Mg Tablet, 1 TAB PO QDAY, TAB 04/26/17 Pregabalin (LYRICA) 150 Mg Capsule, 150 MG PO TID, CAPSULE 03/24/17 Carvedilol (CARVEDILOL) 6.25 Mg Tab, 3.125 MG PO BID, TAB 03/17/17 Aspirin (ASPIR 81) 81 Mg Tablet.dr, 81 MG PO QDAY, TAB 03/17/17 Apixaban (ELIQUIS) 5 Mg Tablet, 5 MG PO BID 03/17/17 Tiotropium [place] (SPIRIVA) 18 Mcg/Cap Inh, 18 MCG INH QDAY, INH 12/30/16 Levetiracetam (LEVETIRACETAM) 250 Mg Tablet, 500 MG PO BID, TAB 12/30/16 Tamsulosin Hcl (FLOMAX) 0.4 Mg Cap.er.24h, 0.4 MG PO QDAY, CAP 12/30/16 Levothyroxine Sodium (LEVOTHYROXINE SODIUM) 100 Mcg Tablet, 100 MCG PO QDAY, TAB 12/30/16 Potassium Chloride (POTASSIUM CHLORIDE) 10 Meq Tab.er.prt, 10 MEQ PO QDAY 12/30/16 Discontinued Reported Medications Oxygen (OXYGEN) Inha, 2 L INH QHS, L 03/17/17 Discontinued Scripts Ciprofloxacin Hcl (CIPRO) 500 Mg Tablet, 500 MG PO BID, #14 TAB 0 Refills Prov:ENRIQUE WEST MD 04/28/17 Allergies: Coded Allergies: Penicillins (Verified Allergy, Severe, 07/02/17) tramadol (Verified Allergy, Severe, seizure, 07/02/17) pt reported ibuprofen (Verified Allergy, Unknown, 07/02/17) STOMACH BLEEDING Patient History: FH: cancer MOTHER, BROTHER OR SISTER, FH: myocardial infarction FATHER, FHx: multiple sclerosis BROTHER OR SISTER Other Social/Family Hx . The patient lives alone and is retired. Hx Smoking: Yes Smoking Status: Former Smoker Exposure to Second Hand Smoke?: No When Quit Tobacco?: 6 Months ago Caffeine Intake: Coffee, Tea Caffeine/Cups Per Day: 4 cups/day Hx Alcohol Use: Yes Alcohol Use: Occassional Hx Substance Use Disorder: No History of IV Drug Use: No Review of Systems All Systems Reviewed/Normal: Yes, Except as Noted Constitutional: No Fever, No Chills Neurological: Weakness Eyes: Other (R eye swollen, red, draining.) Cardiovascular: No Chest Pain Respiratory: Shortness of Breath, No Cough Gastrointestinal: No Nausea, No Vomiting, No Diarrhea Genitourinary: No Dysuria Exam Vital Signs Vital Signs Date Time Temp Pulse Resp B/P (MAP) Pulse Ox O2 Delivery O2 Flow Rate FiO2 07/03/17 19:41 90 Nasal Cannula 5.0 07/03/17 19:36 97.6 89 22 99/85 (90) General Appearance: Alert, Awake, No Acute Distress Eyes: Other (L eye strabismus.) Cardiovascular: Other (Irregular. ) Respiratory: Other (Decreased BS throughout with bibasilar rales.) GI: Abd Soft and Non-Tender Extremities: Warm, Perfused, Edema Integumentary: Skin Intact without Lesion / Mass Psych: Alert & Oriented X3, Appropriate Mood & Affect Medical Decision Making Data Points Result Diagram: 07/03/17 1104 07/03/17 1104 Item Value Date Time Blood Gas Puncture Site Right radial 07/03/17 1110 Blood Gas Patient Temperature 97.9 DEGREES 07/03/17 1110 Arterial Blood pH 7.47 H 07/03/17 1110 Arterial Blood Partial Pressure CO2 35 mmHg 07/03/17 1110 Arterial Blood Partial Pressure O2 44 mmHg *L 07/03/17 1110 Arterial Blood HCO3 25 mmol/L 07/03/17 1110 Arterial Blood Oxygen Saturation 84 % L 07/03/17 1110 Arterial Blood Base Excess 2.0 mmol/L 07/03/17 1110 Jermaine Test Acceptable 07/03/17 1110 Oxygen Liters/Minute 5l 07/03/17 1110 Calcium Level 9.1 mg/dl 07/03/17 1104 Total Bilirubin 4.4 mg/dl H 07/03/17 1104 Aspartate Amino Transf (AST/SGOT) 26 U/L 07/03/17 1104 Alanine Aminotransferase (ALT/SGPT) 28 U/L 07/03/17 1104 Alkaline Phosphatase 76 U/L 07/03/17 1104 Total Protein 6.8 gm/dl 07/03/17 1104 Albumin 3.8 g/dl 07/03/17 1104 Troponin I 0.017 ng/ml 07/03/17 1104 B-Type Natriuretic Peptide 904 pg/ml H 07/03/17 1104 D-Dimer Quantitative (PE/DVT) 1.16 ug/ml H 07/03/17 1104 Urine Color Yellow 07/03/17 1135 Urine Clarity Clear 07/03/17 1135 Urine pH 5.0 pH 07/03/17 1135 Urine Specific [place] 1.013 07/03/17 1135 Urine Protein Negative mg/dL 07/03/17 1135 Urine Glucose (UA) Negative mg/dL 07/03/17 1135 Urine Ketones Negative mg/dL 07/03/17 1135 Urine Blood Negative 07/03/17 1135 Urine Nitrite Negative 07/03/17 1135 Urine Bilirubin Negative 07/03/17 1135 Urine Urobilinogen Negative mg/dL 07/03/17 1135 Urine Leukocyte Esterase Negative 07/03/17 1135 Urine RBC 1 /HPF 07/03/17 1135 Urine WBC 2 /HPF 07/03/17 1135 Urine Squamous Epithelial Cells None /LPF 07/03/17 1135 Urine Bacteria Negative /HPF 07/03/17 1135 Urine Mucus None /HPF 07/03/17 1135 EKG / Imaging EKG Interpretation FACILITY: [facility] [place] PATIENT NAME: TONY ASENCIO : [id number] MR: [id number] V: [id number] EXAM DATE: ORDERING PHYSICIAN: AYO KERN TECHNOLOGIST: Test Reason : Blood Pressure : / mmHG Vent. Rate : 102 BPM Atrial Rate : 102 BPM P-R Int : 000 ms QRS Dur : 124 ms QT Int : 394 ms P-R-T Axes : 000 -33 115 degrees QTc Int : 513 ms Atrial fib/flutter with premature ventricular contractions Left axis deviation Inferior infarct (cited on or before 30-DEC-2016) Anterior infarct (cited on or before 30-DEC-2016) Abnormal ECG Confirmed by ZENY PATTON ([id number]) on 07/03/2017 1:36:04 PM Referred By: Confirmed By:ZENY PATTON [id number] T: LAWANDA/ Imaging TECHNIQUE: Pulmonary embolus protocol - Thin-slice axial imaging of the chest was performed during maximal pulmonary arterial opacification with intravenous nonionic iodinated contrast. 3D coronal slab MIPs and 2D reconstructions in the coronal and sagittal planes were performed to aid in pulmonary embolus detection. Clinical Education Academic Coordinator images have been stored on PACS. CONTRAST: 100 mL of IV Isovue-370 One of the following dose optimization techniques was utilized in the performance of this exam: Automated exposure control; adjustment of the mA and/ or kV according to the patient's size; or use of an iterative reconstruction technique. Specific details can be referenced in the facility's radiology CT exam operational policy. FINDINGS: CTA CHEST: Please note that this exam is optimized for assessment of the pulmonary arteries and is not intended as a diagnostic study of the thoracic aorta, coronary arteries or venous structures. Angiographic Findings: Pulmonary arteries: There are no definite filling defects in the main, right, left, lobar, segmental or visualized sub-segmental branches of the pulmonary arterial system. There is incomplete contrast opacification within the segmental and subsegmental branches of the bilateral posterior lower lobe pulmonary artery branches. The main pulmonary artery is enlarged measuring 3.6 cm in diameter. Other vasculature: Coronary artery calcifications. Mild calcified plaque of the thoracic aorta and at the origins of the great vessels. Additional non-angiographic findings: Lungs / Pleura: Small bilateral pleural effusions. Mild compressive atelectasis along the pleural effusions. Mild groundglass opacity in the lungs and intralobular septal thickening suggestive of pulmonary edema. Mediastinum / Elizabeth: Negative. Heart / Pericardium: Mild cardiomegaly. Calcifications of the left ventricular apex and fatty infiltration of the ponce of the left ventricle. Musculoskeletal / Body wall: Mild multilevel degenerative changes in the thoracic spine with anterior osteophytes. ACDF hardware is partially visualized in the lower cervical spine. Lymph node assessment: Multiple subcentimeter mediastinal lymph nodes are stable. Upper abdomen: Negative. Lower neck: Negative. IMPRESSION: No definite evidence of pulmonary embolism. Evaluation of the peripheral pulmonary artery branches in the posterior bases of both lower lobes is limited due to incomplete contrast opacification in the distal branches. Mild enlargement of the main pulmonary artery suggests pulmonary arterial hypertension. Small bilateral pleural effusions. Pulmonary interstitial edema. Mild cardiomegaly. Chronic infarcts left ventricular infarcts. Coronary artery calcifications. Report Dictated By: Kendall Paz MD at 07/03/2017 1:10 PM Report E-Signed By: Kendall Paz MD at 07/03/2017 1:32 PM [id number] Patient: Tony Asencio : 1940 Visit/Account:[id number] Date of Sevice: 07/03/2017 EXAMINATION: Chest radiographs 2 views HISTORY: Shortness of breath. COMPARISON: 07/02/2017. FINDINGS: PA and lateral views of the chest are submitted. Lines/tubes: None. Lungs/pleura: Stable prominent interstitial markings and vasculature. No focal consolidation or pneumothorax. Small pleural effusions. No significant change. Heart: Stable mild enlargement cardiac silhouette. Mediastinum: Negative. Bony structures/body wall: Negative. IMPRESSION: Stable cardiomegaly with small pleural effusions and possible mild interstitial edema. No significant change compared with 07/02/2017. Report Dictated By: Rajeev Tena MD at 07/03/2017 12:03 PM Report E-Signed By: Rajeev Tena MD at 07/03/2017 12:14 PM WSN:[id number] Pre-Admit Course Medical Record Review: Yes Assessment and Plan Problems: (1) CHF exacerbation Status: Acute Assessment & Plan: Will admit and place on telemetry. Monitor daily weights. Continue Lasix at 40mg bid. Place on heart failure diet. Last echo done in October of this year shows an estimated EF of 48%. Consider repeating. (2) Conjunctivitis Status: Acute Assessment & Plan: Will place on tobramycin ophthalmic gtts. Monitor closely. (3) Intermittent atrial fibrillation Status: Chronic Assessment & Plan: He appears to be in atrial fib/flutter on EKG. Rate is controlled. He has a history of intermittent a fib and is on Eliquis. Will continue. (4) Hypothyroid Status: Chronic Assessment & Plan: Will continue levothyroxine and check a TSH. (5) Hypercholesterolemia Status: Chronic Assessment & Plan: Continue atorvastatin. (6) CAD (coronary artery disease) Status: Chronic Assessment & Plan: Continue ASA 81mg, Plavix and Eliquis. Continue carvedilol. (7) BPH (benign prostatic hyperplasia) Status: Chronic Assessment & Plan: Continue tamsulosin. (8) Essential hypertension Status: Chronic Assessment & Plan: Continue carvedilol and furosemide. (9) COPD (chronic obstructive pulmonary disease) Status: Chronic Assessment & Plan: Continue oxygen and Spiriva. (10) Seizure Status: Chronic Assessment & Plan: Continue Keppra. Time Spent on Plan of Care: < 30 min Copies to: PATRICIA STANTON MD Venous Thromboembolism VTE Risk Physician Assess for VTE Risk: Yes Patient's VTE Risk: Low VTE Diagnostic Test 2 Days Prior to Admit: No Antithrombotics Is Pt On Any Antithrombotics?: Yes Heart Failure Ejection Fraction %: 46 NYHA Class: II Is Patient on CHUCKY Inhibitor?: Yes Is Patient on Beta María?: Yes Exam Sepsis Risk: No Definite Risk Problem Qualifiers (1) CHF exacerbation: Congestive heart failure type: systolic Qualified Codes: I50.23 - Acute on chronic systolic (congestive) heart failure (2) Conjunctivitis: Conjunctivitis type: acute ZENY LOVELL MD Jul 03, 2017 21:34
[2017-07-03 23:14] VITALS: BP 100/84
[2017-07-04] MEDS: TOBRAMYCIN 0.3% OP SOLN 5 ML OD SCH ×6 (00:35→20:49)
[2017-07-04 04:19] VITALS: BP 116/89
[2017-07-04] MEDS: LEVOTHYROXINE SOD 0.1 MG TAB PO SCH (05:24)
[2017-07-04] MEDS: TIOTROPIUM BROM INH 18 MCG/CAP INH SCH (05:36)
[2017-07-04 06:37] LABS: PLATELET COUNT, AUTOMATED 337 K/uL (150-450)
[2017-07-04 07:04] VITALS: BP 118/89
[2017-07-04] MEDS: POTASSIUM CHL 20 MEQ TABCR PO SCH ×2 (08:12→16:57)
[2017-07-04] MEDS: CARVEDILOL 3.125 MG TAB PO SCH ×2 (08:15→20:46)
[2017-07-04] MEDS: PREGABALIN 50 MG CAP PO SCH ×3 (08:15→20:46)
[2017-07-04] MEDS: levETIRAcetam 500 MG TAB PO SCH ×2 (08:15→20:46)
[2017-07-04] MEDS: TAMSULOSIN HCL 0.4 MG CAP PO SCH (08:15)
[2017-07-04] MEDS: APIXABAN 2.5 MG TABLET PO SCH ×2 (08:16→20:46)
[2017-07-04] MEDS: ASPIRIN 81 MG ENTERIC COATED PO SCH (08:16)
[2017-07-04] MEDS: CLOPIDOGREL BISULFATE 75MG TAB PO SCH (08:16)
[2017-07-04] MEDS: FUROSEMIDE 40 MG TAB PO SCH ×2 (09:49→13:20)
[2017-07-04 10:10] VITALS: Ht 154.9 cm; Wt 116.1 kg
[2017-07-04 10:56] VITALS: BP 97/70
--- NOTE | 2017-07-04 12:32 | Hospitalist Progress Note ---
Subjective Progress Notes Subjective Still short of breath. Denies chest pain. Physical Exam Vital Signs Date Time Temp Pulse Resp B/P (MAP) Pulse Ox O2 Delivery O2 Flow Rate FiO2 07/04/17 10:56 97.0 93 20 97/70 (79) 99 High-Flow Nasal Cannula 5.0 Intake and Output 07/05/17 07:00 Intake Total 240 ml Balance 240 ml Intake Oral 240 ml General Appearance: Alert, Awake, Other (Mild increased work of breathing.) Neuro: No Gross deficits Eyes: PERRLA Cardiovascular: Other (Irregularly irregular.) Respiratory: Other (Decreased BS. Bibasilar rales.) GI: Soft and Non-Tender Extremities: Warm, Perfused Integumentary: Generalized Fragile Skin Psych: Appropriate Mood & Affect Result Diagram: 07/04/1755707/04/17557 Assessment and Plan Problems: (1) CHF exacerbation Status: Acute Assessment & Plan: The patient was admitted and placed on telemetry. Daily weights are ordered. Will continue Lasix at 40mg bid. He has been placed on heart failure diet. Last echo done in October of this year shows an estimated EF of 48%. Consider repeating. (2) Conjunctivitis Status: Acute Assessment & Plan: Placed on tobramycin ophthalmic gtts. Less redness, swelling and drainage today. (3) Intermittent atrial fibrillation Status: Chronic Assessment & Plan: He appears to be in atrial fib/flutter on EKG and exam. Rate is controlled. He has a history of intermittent a fib and is on Eliquis. Will continue. (4) Hypothyroid Status: Chronic Assessment & Plan: Will continue levothyroxine. TSH is 1.52. (5) Hypercholesterolemia Status: Chronic Assessment & Plan: Continue atorvastatin. (6) CAD (coronary artery disease) Status: Chronic Assessment & Plan: Continue ASA 81mg, Plavix and Eliquis. Continue carvedilol. (7) BPH (benign prostatic hyperplasia) Status: Chronic Assessment & Plan: Continue tamsulosin. (8) Essential hypertension Status: Chronic Assessment & Plan: Continue carvedilol and furosemide. (9) COPD (chronic obstructive pulmonary disease) Status: Chronic Assessment & Plan: Continue oxygen and Spiriva. (10) Seizure Status: Chronic Assessment & Plan: Continue Keppra. Time Spent on Plan of Care: < 30 min Heart Failure Ejection Fraction %: 46 NYHA Class: II Is Patient on CHUCKY Inhibitor?: Yes Is Patient on Beta María?: Yes Exam Sepsis Risk: No Definite Risk Problem Qualifiers (1) CHF exacerbation: Congestive heart failure type: systolic Qualified Codes: I50.23 - Acute on chronic systolic (congestive) heart failure (2) Conjunctivitis: Conjunctivitis type: acute ZENY LOVELL MD Jul 04, 2017 12:32
[2017-07-04 15:05] VITALS: BP 115/92
[2017-07-04 18:32] VITALS: BP 109/82
[2017-07-04] MEDS: ATORVASTATIN 40 MG TAB PO SCH (20:46)
[2017-07-05 00:11] VITALS: BP 116/80
[2017-07-05] MEDS: TOBRAMYCIN 0.3% OP SOLN 5 ML OD SCH ×4 (00:17→13:08)
[2017-07-05 05:23] VITALS: BP 110/79
[2017-07-05] MEDS: LEVOTHYROXINE SOD 0.1 MG TAB PO SCH (05:43)
[2017-07-05] MEDS: TIOTROPIUM BROM INH 18 MCG/CAP INH SCH (05:45)
[2017-07-05 06:48] LABS: PLATELET COUNT, AUTOMATED 338 K/uL (150-450)
[2017-07-05 07:35] VITALS: BP 103/83
[2017-07-05] MEDS: POTASSIUM CHL 20 MEQ TABCR PO SCH (08:37)
[2017-07-05] MEDS: PREGABALIN 50 MG CAP PO SCH ×2 (08:40→13:26)
[2017-07-05] MEDS: CARVEDILOL 3.125 MG TAB PO SCH (08:41)
[2017-07-05] MEDS: levETIRAcetam 500 MG TAB PO SCH (08:41)
[2017-07-05] MEDS: ASPIRIN 81 MG ENTERIC COATED PO SCH (08:41)
[2017-07-05] MEDS: APIXABAN 2.5 MG TABLET PO SCH (08:42)
[2017-07-05] MEDS: CLOPIDOGREL BISULFATE 75MG TAB PO SCH (08:42)
[2017-07-05] MEDS: TAMSULOSIN HCL 0.4 MG CAP PO SCH (08:42)
[2017-07-05] MEDS: FUROSEMIDE 40 MG TAB PO SCH ×2 (08:55→13:27)
[2017-07-05] MEDS ORDERED: INFLUENZA VIRUS VAC 0.5 ML SYR IM ONLY ONE (09:00)
[2017-07-05 11:23] VITALS: BP 106/76
[2017-07-05 13:28] VITALS: BP 105/85
[2017-07-05] MEDS ORDERED: POTA-53 PO (14:10)
[2017-07-05] MEDS ORDERED: TOBR5DRO OD (14:10)
--- NOTE | 2017-07-05 14:24 | Hospitalist Depart ---
Discharge Summary Reason for Hosp/Final Diag: (1) CHF exacerbation Status: Acute Hospital Course & Plan: The patient was admitted and placed on telemetry. He was initially given IV Lasix and then transitioned to Lasix 40mg PO BID. He was placed on heart failure diet and daily weights were monitored. Last echocardiogram was done in October 2016 showed an estimated EF of 48%. He was continued on his carvedilol. Clinically, he improved significantly over the first 24 hours. We did increase his potassium supplement slightly, but otherwise did not make any medication changes. He will follow up closely with Dr. Stanton. (2) Conjunctivitis Status: Acute Hospital Course & Plan: Placed on tobramycin ophthalmic drops. Less redness, swelling and drainage. He will complete a course as an outpatient. (3) Intermittent atrial fibrillation Status: Chronic Hospital Course & Plan: He is in atrial fib/flutter on EKG and exam. Rate has been controlled. He has a history of intermittent a-fib and is on Eliquis and low dose carvedilol. No changes. (4) Hypothyroid Status: Chronic Hospital Course & Plan: Will continue levothyroxine. TSH is 1.52. (5) Hypercholesterolemia Status: Chronic Hospital Course & Plan: Continue atorvastatin. (6) CAD (coronary artery disease) Status: Chronic Hospital Course & Plan: Continue ASA 81mg, Plavix and Eliquis. Continue carvedilol as well. (7) BPH (benign prostatic hyperplasia) Status: Chronic Hospital Course & Plan: Unfortunately, he had significant urinary retention and required Price catheter placement. We will continue his tamsulosin. He will be discharged with the Price catheter in place. He is comfortable with managing it himself. He will follow up with Dr. Edwards as an outpatient in approximately 7 days. (8) Essential hypertension Status: Chronic Hospital Course & Plan: Continue carvedilol and furosemide. (9) COPD (chronic obstructive pulmonary disease) Status: Chronic Hospital Course & Plan: Continue oxygen and Spiriva. (10) Seizure Status: Chronic Hospital Course & Plan: Continue Keppra. Departure Weight (Pounds): 256 Weight (Ounces): 1.0 Result Diagram: 07/05/17 0607/05/17 06 Item Value Date Time Sodium Level 142 mmol/L 07/03/17 1104 Potassium Level 3.3 mmol/L L 07/03/17 1104 Chloride Level 102 mmol/L 07/03/17 1104 Carbon Dioxide Level 28 mmol/L 07/03/17 1104 Blood Urea Nitrogen 21 mg/dl 07/03/17 1104 Creatinine 0.80 mg/dl 07/03/17 1104 Glomerular Filtration Rate Calc > 60.0 07/03/17 1104 Random Glucose 100 mg/dl 07/03/17 1104 Calcium Level 9.1 mg/dl 07/03/17 1104 Total Bilirubin 4.4 mg/dl H 07/03/17 1104 Aspartate Amino Transf (AST/SGOT) 26 U/L 07/03/17 1104 Alanine Aminotransferase (ALT/SGPT) 28 U/L 07/03/17 1104 Alkaline Phosphatase 76 U/L 07/03/17 1104 Troponin I 0.017 ng/ml 07/03/17 1104 Total Protein 6.8 gm/dl 07/03/17 1104 Albumin 3.8 g/dl 07/03/17 1104 B-Type Natriuretic Peptide 904 pg/ml H 07/03/17 1104 Thyroid Stimulating Hormone (TSH) 1.52 uIU/ml 07/04/17 0558 D-Dimer Quantitative (PE/DVT) 1.16 ug/ml H 07/03/17 1104 Oxygen Liters/Minute 5l 07/03/17 1110 Jermaine Test Acceptable 07/03/17 1110 Arterial Blood Base Excess 2.0 mmol/L 07/03/17 1110 Arterial Blood Oxygen Saturation 84 % L 07/03/17 1110 Arterial Blood HCO3 25 mmol/L 07/03/17 1110 Arterial Blood Partial Pressure O2 44 mmHg *L 07/03/17 1110 Arterial Blood Partial Pressure CO2 35 mmHg 07/03/17 1110 Arterial Blood pH 7.47 H 07/03/17 1110 Blood Gas Patient Temperature 97.9 DEGREES 07/03/17 1110 Blood Gas Puncture Site Right radial 07/03/17 1110 White Blood Count 4.4 k/uL L 07/03/17 1104 Hemoglobin 13.6 g/dL L 07/03/17 1104 Hematocrit 40.6 % L 07/03/17 1104 Platelet Count 357 K/uL 07/03/17 1104 Platelet Count 337 K/uL 07/04/17 0558 Hematocrit 40.1 % L 07/04/17 0558 Hemoglobin 13.4 g/dL L 07/04/17 0558 White Blood Count 4.6 k/uL 07/04/17 0558 Urine Mucus None /HPF 07/03/17 1135 Urine Bacteria Negative /HPF 07/03/17 1135 Urine Squamous Epithelial Cells None /LPF 07/03/17 1135 Urine WBC 2 /HPF 07/03/17 1135 Urine RBC 1 /HPF 07/03/17 1135 Urine Leukocyte Esterase Negative 07/03/17 1135 Urine Urobilinogen Negative mg/dL 07/03/17 1135 Urine Bilirubin Negative 07/03/17 1135 Urine Nitrite Negative 07/03/17 1135 Urine Blood Negative 07/03/17 1135 Urine Ketones Negative mg/dL 07/03/17 1135 Urine Glucose (UA) Negative mg/dL 07/03/17 1135 Urine Protein Negative mg/dL 07/03/17 1135 Urine Specific [place] 1.013 07/03/17 1135 Urine pH 5.0 pH 07/03/17 1135 Urine Clarity Clear 07/03/17 1135 Urine Color Yellow 07/03/17 1135 Imaging PATIENT NAME: Tony Asencio : 1940 MR: [id number] V: [id number] EXAM DATE: ORDERING PHYSICIAN: AYO KERN TECHNOLOGIST: Location: [facility] [place] Patient: Tony Asencio : 1940 Visit/Account:[id number] Date of Sevice: 07/03/2017 EXAMINATION: CTA of the chest with IV contrast HISTORY: Shortness of breath. COMPARISON: Chest radiograph from the same day. CTA of the chest from 2016. TECHNIQUE: Pulmonary embolus protocol - Thin-slice axial imaging of the chest was performed during maximal pulmonary arterial opacification with intravenous nonionic iodinated contrast. 3D coronal slab MIPs and 2D reconstructions in the coronal and sagittal planes were performed to aid in pulmonary embolus detection. [employer] images have been stored on PACS. CONTRAST: 100 mL of IV [id number] One of the following dose optimization techniques was utilized in the performance of this exam: Automated exposure control; adjustment of the mA and/ or kV according to the patient's size; or use of an iterative reconstruction technique. Specific details can be referenced in the facility's radiology CT exam operational policy. FINDINGS: CTA CHEST: Please note that this exam is optimized for assessment of the pulmonary arteries and is not intended as a diagnostic study of the thoracic aorta, coronary arteries or venous structures. Angiographic Findings: Pulmonary arteries: There are no definite filling defects in the main, right, left, lobar, segmental or visualized sub-segmental branches of the pulmonary arterial system. There is incomplete contrast opacification within the segmental and subsegmental branches of the bilateral posterior lower lobe pulmonary artery branches. The main pulmonary artery is enlarged measuring 3.6 cm in diameter. Other vasculature: Coronary artery calcifications. Mild calcified plaque of the thoracic aorta and at the origins of the great vessels. Additional non-angiographic findings: Lungs / Pleura: Small bilateral pleural effusions. Mild compressive atelectasis along the pleural effusions. Mild groundglass opacity in the lungs and intralobular septal thickening suggestive of pulmonary edema. Mediastinum / Elizabeth: Negative. Heart / Pericardium: Mild cardiomegaly. Calcifications of the left ventricular apex and fatty infiltration of the ponce of the left ventricle. Musculoskeletal / Body wall: Mild multilevel degenerative changes in the thoracic spine with anterior osteophytes. ACDF hardware is partially visualized in the lower cervical spine. Lymph node assessment: Multiple subcentimeter mediastinal lymph nodes are stable. Upper abdomen: Negative. Lower neck: Negative. IMPRESSION: No definite evidence of pulmonary embolism. Evaluation of the peripheral pulmonary artery branches in the posterior bases of both lower lobes is limited due to incomplete contrast opacification in the distal branches. Mild enlargement of the main pulmonary artery suggests pulmonary arterial hypertension. Small bilateral pleural effusions. Pulmonary interstitial edema. Mild cardiomegaly. Chronic infarcts left ventricular infarcts. Coronary artery calcifications. Report Dictated By: Kendall Paz MD at 07/03/2017 1:10 PM Report E-Signed By: Kendall Paz MD at 07/03/2017 1:32 PM WSN:[id number] PATIENT NAME: Tony Asencio : 1940 MR: [id number] V: [id number] EXAM DATE: ORDERING PHYSICIAN: AYO KERN TECHNOLOGIST: Location: [facility] [place] Patient: Tony Asencio : 1940 Visit/Account:[id number] Date of : 07/03/2017 EXAMINATION: Chest radiographs 2 views HISTORY: Shortness of breath. COMPARISON: 07/02/2017. FINDINGS: PA and lateral views of the chest are submitted. Lines/tubes: None. Lungs/pleura: Stable prominent interstitial markings and vasculature. No focal consolidation or pneumothorax. Small pleural effusions. No significant change. Heart: Stable mild enlargement cardiac silhouette. Mediastinum: Negative. Bony structures/body wall: Negative. IMPRESSION: Stable cardiomegaly with small pleural effusions and possible mild interstitial edema. No significant change compared with 07/02/2017. Report Dictated By: Rajeev Tena MD at 07/03/2017 12:03 PM Report E-Signed By: Rajeev Tena MD at 07/03/2017 12:14 PM WSN:[id number] EKG PATIENT NAME: TONY ASENCIO : [id number] MR: [id number] V: [id number] EXAM DATE: ORDERING PHYSICIAN: AYO KERN TECHNOLOGIST: Test Reason : Blood Pressure : / mmHG Vent. Rate : 102 BPM Atrial Rate : 102 BPM P-R Int : 000 ms QRS Dur : 124 ms QT Int : 394 ms P-R-T Axes : 000 -33 115 degrees QTc Int : 513 ms Atrial fib/flutter with premature ventricular contractions Left axis deviation Inferior infarct (cited on or before 30-DEC-2016) Anterior infarct (cited on or before 30-DEC-2016) Abnormal ECG Confirmed by ZENY PATTON ([id number]) on 07/03/2017 1:36:04 PM Referred By: Confirmed By:ZENY PATTON Condition: Improved Discharge: Home, Self Care Follow-Up Labs: Other (CBC, BMP with Dr. Stanton in approximately one week.) Time Spent: > 30 min Discharge Instructions Home Meds Active Scripts Tobramycin (TOBRAMYCIN) 5 Ml Drops, 0 ML OD Q4H for 5 Days, #1 BOT 0 Refills Prov:MATEO LOVELL MD 07/05/17 Potassium Chloride (POTASSIUM CHLORIDE) 10 Meq Tab.er.prt, 10 MEQ PO BID, #60 TAB 1 Refill Prov:MATEO LOVELL MD 07/05/17 Furosemide (LASIX) 40 Mg Tablet, 1 TAB PO BID, #60 TAB Prov:ELAINEPATRICIA 04/27/17 Reported Medications Oxygen (OXYGEN) Inha, 3 L INH QDAY, L 07/02/17 Clopidogrel Bisulfate (CLOPIDOGREL) 75 Mg Tablet, 1 TAB PO QDAY, TAB 04/26/17 Atorvastatin Calcium (LIPITOR) 40 Mg Tablet, 1 TAB PO QDAY, TAB 04/26/17 Pregabalin (LYRICA) 150 Mg Capsule, 150 MG PO TID, CAPSULE 03/24/17 Carvedilol (CARVEDILOL) 6.25 Mg Tab, 3.125 MG PO BID, TAB 03/17/17 Aspirin (ASPIR 81) 81 Mg Tablet.dr, 81 MG PO QDAY, TAB 03/17/17 Apixaban (ELIQUIS) 5 Mg Tablet, 5 MG PO BID 03/17/17 Tiotropium [place] (SPIRIVA) 18 Mcg/Cap Inh, 18 MCG INH QDAY, INH 12/30/16 Levetiracetam (LEVETIRACETAM) 250 Mg Tablet, 500 MG PO BID, TAB 12/30/16 Tamsulosin Hcl (FLOMAX) 0.4 Mg Cap.er.24h, 0.4 MG PO QDAY, CAP 12/30/16 Levothyroxine Sodium (LEVOTHYROXINE SODIUM) 100 Mcg Tablet, 100 MCG PO QDAY, TAB 12/30/16 Discontinued Reported Medications Oxygen (OXYGEN) Inha, 2 L INH QHS, L 03/17/17 Discontinued Scripts Ciprofloxacin Hcl (CIPRO) 500 Mg Tablet, 500 MG PO BID, #14 TAB 0 Refills Prov:ENRIQUE WEST MD 04/28/17 Follow up Referrals: Family Practice @ [facility] with Patricia Stanton Md Urology @ Urology with Darrian Edwards Md Diet: Regular, No Added Salt (EDWARD) Activity: As Tolerated, No Exertion Special Instructions: Keep follow up with Dr. Edwards - Urology on 07/12/17. Follow up with Dr. Stanton in 7-10 days or sooner if any problems. Copies to: PATRICIA STANTON MD; DARRIAN EDWARDS MD Venous Thromboembolism Antithrombotics Is Pt On Any Antithrombotics?: Yes Heart Failure Ejection Fraction %: 46 NYHA Class: II Is Patient on CHUCKY Inhibitor?: Yes Is Patient on Beta María?: Yes Problem Qualifiers (1) CHF exacerbation: Congestive heart failure type: systolic Qualified Codes: I50.23 - Acute on chronic systolic (congestive) heart failure (2) Conjunctivitis: Conjunctivitis type: acute MATEO LOVELL MD Jul 05, 2017 14:24
[2017-07-05 15:15] VITALS: BP 105/79
--- NOTE | 2017-07-05 17:13 | CONSULTATION ---
EVENT DATE: July 05, 2017 REASON FOR CONSULTATION Elevated postvoid residuals. HISTORY OF PRESENT ILLNESS Patient is a 77-year-old white male who has been followed in the Urology Clinic for the past six months for elevated postvoid residuals and elevated PSA secondary to BPH. [place] [facility] [place] a congestive heart failure exacerbation. During hospitalization he was noted to have elevated postvoid residuals and had a Price catheter placed. The patient is currently on his Flomax medicine which he had been started on in the past. CURRENT MEDICATIONS 1. Eliquis. 2. Aspirin. 3. Coreg. 4. Plavix. 5. Lasix. 6. Keppra. 7. Synthroid. 8. Lyrica. 9. Tamsulosin. 10. Tobrex. 11. Spiriva. 12. Potassium. ALLERGIES 1. PENICILLIN. 2. IBUPROFEN. 3. TRAMADOL. PAST MEDICAL HISTORY 1. Coronary artery disease. 2. COPD. 3. Hypertension. 4. Congestive heart failure. 5. Pulmonary hypertension. 6. Seizure disorder questionable secondary to a meningioma. 7. Intermittent AFib. 8. Hypothyroidism. 9. Hypercholesterolemia. 10. BPH. PAST SURGICAL HISTORY 1. Neck surgery. 2. Left eye extraction. 3. Hernia operation. 4. Bilateral vasectomy. 5. Cardiac stenting. 6. Right inguinal hernia. 7. Bilateral knee surgery. PERSONAL AND SOCIAL HISTORY Patient is a and lives in [place], [place]. FAMILY HISTORY Noncontributory. REVIEW OF SYSTEMS Patient denies current nausea and vomiting, fevers, chills, flank or abdominal pain, gross hematuria, dysuria or lower extremity weakness or paresthesias. PHYSICAL EXAMINATION GENERAL: Patient is an elderly white male in no acute distress. HEENT: Normocephalic, atraumatic, except for left eye prosthesis. CHEST: Clear to auscultation bilaterally. CARDIOVASCULAR: Regular rate and rhythm. ABDOMEN: Soft, nontender. No masses are palpated. GENITOURINARY: Exam revealed a Price catheter draining clear urine. His testes are descended bilaterally. RECTAL: Deferred. EXTREMITIES: 1+ pitting edema. NEUROLOGIC: Exam is nonfocal. IMPRESSION A 76-year-old white male with a history of elevated PSA, BPH and elevated postvoid residuals. His residuals in the office have ranged from approximately 200-600 mL, and his most recent PSAs have been in the 6-8 range. He is currently scheduled to see us in the office next week. He recently had a PSA which was 10.0. Given the fact of his ongoing diuresis and elevated postvoid residuals, agree with current Price catheter placement. RECOMMENDATIONS I would continue the patient's Price catheter at discharge. We will see him in the Urology Clinic in one week to perform a voiding trial and proceed from that result. Would continue his Flomax daily. MTDD
--- NOTE | 2017-07-06 08:47 | Medical Nutrition Therapy ---
Nutrition Anthropometrics Height (Inches): 61.00 Height (Calculated Centimeters: 154.198092 Weight (Pounds): 256 Weight (Calculated Kilograms): 116.120 BMI Calculated: 47.99 Mirza Nutrition Score: Adequate Mirza Nutrition Risk Score: 18 Dietary Referral Nutrition Risk Factors: Nutrition Risk Comment: n/a Physical Findings Physical Appearance: Morbidly Obese 40+ Skin Appearance Skin Appearance: Edema Edema Location Modifier: Both Edema Location: Lower Extremity Type of Edema: Degree of Edema: Gastrointestinal Symptoms GI Symtoms: Tube Present: Bowel Sounds: Recent Bowel Pattern: Stool Characteristics: Nutritional Diagnosis Nutritional Risk Acuity 2: CHF w/Complication Nutritional Risk Acuity 3: Morbid Obesity Nutritional Risk Acuity 4: Good Appetite Past Medical History: COPD, CHF, CAD, pulmonary arterial HTN, essential HTN, BPH, a-fib, hypothyroidism, hypercholesterolemia, seizures Nutritional Acuity: 2-Moderate Nutrition Diagnosis: Decreased Nutrient Needs Nutrition Etiology: Physiological Causes Nutrition Problem/Etiology/Sym: Decreased sodium and fluid needs r/t dx CHF AEB non-pitting lower extremity edema. Adjusted Energy Requirement Re: 2079 (Sula Paz Adj.) Protein Requirement: 93 (0.8 g/kg) Fluid Requirement: 2320 (20 ml/kg) Diet Type: CHF Diet, Fluid Restricted Nutrition Intervention: Cont diet as ordered, Encourage intake Drug: Diuretics Drug/Nutrition Recommendations: Patient Taking K+, Check Serum K+ Nutrition Monitoring & Eval Nutrition Goals: Fluid Restrictions Nutrition Follow-Up: Good Intake RD Patient Assessment Time: [address] Assessment Type: RD Assessment Patient Nutrition Acuity: 2-Moderate Follow Up Date: Jul 08, 2017 Nutritional Comment: 1/2 Pt admitted for CHF complication. Pt taking K depleting diuretic but was prescribed KCl and K+ is WNL. Other notable labs include low H/H and alb 3.4. Intake 100% of regular portion this morning at breakfast. Pt is morbidly obese at BMI 48. Will continue to monitor and encourage healthy choices. 1/3 Pt continues on CHF diet with fluid restriction. Pt averaging 100% intake of meals since admission. H/H cont low, no new alb lab available. Pt continues on K+ depleting diuretic. K+ WNL. Will continue to monitor. CHICO CAZARES Jul 05, 2017 11:21
== END 2017-07-05 17:00 | disposition home or self-care (01) | DRG 293 ==
LOC: ER 10:41 → MED 13:58 → CMPBEDREQ 14:03
PROVIDERS: ADMIT Internal Medicine; ATTEND Internal Medicine
DX: I11.0 Hypertensive heart disease with heart failure (principal); I50.23 Acute on chronic systolic (congestive) heart failure; H10.31 Unspecified acute conjunctivitis, right eye; I48.0 Paroxysmal atrial fibrillation; E03.9 Hypothyroidism, unspecified; E78.00 Pure hypercholesterolemia, unspecified; I25.10 Atherosclerotic heart disease of native coronary artery without angina pectoris; N40.1 Benign prostatic hyperplasia with lower urinary tract symptoms; R33.8 Other retention of urine; J44.9 Chronic obstructive pulmonary disease, unspecified; G40.909 Epilepsy, unspecified, not intractable, without status epilepticus; F17.210 Nicotine dependence, cigarettes, uncomplicated; R09.02 Hypoxemia; H54.62 Unqualified visual loss, left eye, normal vision right eye; I27.20 Pulmonary hypertension, unspecified; Z88.0 Allergy status to penicillin; Z79.01 Long term (current) use of anticoagulants; Z88.8 Allergy status to other drugs, medicaments and biological substances; Z95.5 Presence of coronary angioplasty implant and graft; Z99.81 Dependence on supplemental oxygen; Z90.01 Acquired absence of eye; I25.2 Old myocardial infarction; Z90.49 Acquired absence of other specified parts of digestive tract; Z98.1 Arthrodesis status
CPT/HCPCS: 36415; 36600; 71020; 71046; 71275; 81001; 82040; 82247; 82310; 82374; 82435; 82565; 82803; 82947; 83735; 83880; 84075; 84132; 84155; 84295; 84443; 84450; 84460; 84484; 84520; 85025; 85379; 93005; 94640; 96361; 96374; 99284; 99285; J1940; J3535; J7040; J7050; Q9967

== ENCOUNTER 2017-07-05 15:50 | Outpatient (RCR) | payer MEDICARE, OTHER ==
[2017-07-04 10:10] VITALS: BMI 48.0
[~2017-07-05 15:50] MED LIST changes: +TOBR5DRO OD
--- NOTE | 2017-07-06 15:43 | Transitional Care Management ---
Assessment Visit Type: Telephone Visit Spoke with: Obey Cardiac: WNL Respiratory: WNL Except Respiratory Comment: 07/06 On baseline O2 at 3L, he gets short of breath with talking. GI: Nutrition: WNL Wt Gain/Loss: WNL Except Weight Comment: 07/06 he has not weighed today. I reinforced the importance of daily weights. Constipation?: No : WNL Except Comment: 07/[address] We discussed gomez care. Musculoskeletal, Exercise: WNL Except Musculoskeletal, Excercise Com: 07/06 Activity limited by SOB. Mobility/Falls: WNL Mobility Comment: 07/06 Feels safe around the house. Integumentary: WNL Feeling of Well Being: WNL Except Feeling of Well Being Comment: 07/06 "How well can I feel with my breathing and a catheter?" Socialization: WNL Pain/Management: WNL Scheduled Follow-Up with [facility]: Yes (07/06 F/U with Jerry , Charles 07/17, area field manager 07/21) Following Discharge Instructio: Yes TCM Discharge Criteria Transitional Care Comment: 07/06 He filled his prescriptions, and is taking meds as ordered. Managing gomez well, gomez care. I will do a home visit on Monday at 1100. KHOI LYNCH Jul 06, 2017 15:43
--- NOTE | 2017-07-11 09:37 | Transitional Care Management ---
Assessment Visit Type: Home Visit Cardiac: WNL Respiratory: WNL Except Respiratory Comment: 07/06 On baseline O2 at 3L, he gets short of breath with talking. 07/10 Observing him in his home, he does not wear his O2 all the time. He decided not to wear O2 during the home visit. He can't find his oxymeter. I encouraged him to wear the O2, he didn't. He denied SOB for about 40 min. At this point his lips and fingers were pale. I pointed these out to him, but he dismissed it. GI: Nutrition: WNL Wt Gain/Loss: WNL Except Weight Comment: 07/06 he has not weighed today. I reinforced the importance of daily weights. 07/10 He has not weighed, but the edema in his legs has increased. We discussed his fluid restriction of 2L per day. He says the Dr told him to drink at least 64 oz a day. I explained how fluid works against him in regaurds to CHF. Constipation?: No : WNL Except Comment: 07/[address] We discussed gomez care. 07/10 He is not using the leg bag, he had the full size drain bag in his pant leg, with the tubing tied around his thigh. The weight of the bag was making the tubing very tight around his thigh. I suggested loosening the tubing, but he refused, because the bag will fall down. I encouraged using the leg bag, but he won't, because it fills to fast. Musculoskeletal, Exercise: WNL Except Musculoskeletal, Excercise Com: 07/06 Activity limited by SOB. Mobility/Falls: WNL Mobility Comment: 07/06 Feels safe around the house. Integumentary: WNL Feeling of Well Being: WNL Except Feeling of Well Being Comment: 07/06 "How well can I feel with my breathing and a catheter?" 07/10 He wants the catheter out, feels that it limits him more than the O2. Socialization: WNL Socialization Comment: 07/10 lives with his son. Pain/Management: WNL Scheduled Follow-Up with [facility]: Yes (07/06 F/U with Jerry 07/12, Charles 07/17, brass pourer 07/21) Questions for Future PCP Visit: 07/10 Gomez removal, clearify fluid intake intake. Following Discharge Instructio: No (07/10 goes without O2, fluid limits? Gomez use?) TCM Discharge Criteria Transitional Care Comment: 07/06 He filled his prescriptions, and is taking meds as ordered. Managing gomez well, gomez care. I will do a home visit on Monday at 1100. 07/10 Home visit, he insisted on not wearing O2, had his gomez tied by the tubing around his leg, and is making sure to drink at least 2L of fluid a day. I tried to clearify these with him, but did not make much progress. I explained the 2L restriction for CHF, but he states he should be drinking a lot to keep the gomez flushed out. He is more edematus than while in the hospital. Copies to: PATRICIA STANTON MD; NARENDRA ISAAC MD, MICHAEL K Jul 11, 2017 09:37
[2017-07-18] MEDS ORDERED: FURO80TA70 PO (13:07)
--- NOTE | 2017-07-22 15:18 | Transitional Care Management ---
Assessment Visit Type: Telephone Visit Cardiac: WNL Respiratory: WNL Except Respiratory Comment: 07/06 On baseline O2 at 3L, he gets short of breath with talking. 07/10 Observing him in his home, he does not wear his O2 all the time. He decided not to wear O2 during the home visit. He can't find his oxymeter. I encouraged him to wear the O2, he didn't. He denied SOB for about 40 min. At this point his lips and fingers were pale. I pointed these out to him, but he dismissed it. 07/22 He states that he is wearing his oxygen all of the time, denies SOB with rest, but gets winded with activity. GI: Nutrition: WNL Wt Gain/Loss: WNL Except Weight Comment: 07/06 he has not weighed today. I reinforced the importance of daily weights. 07/10 He has not weighed, but the edema in his legs has increased. We discussed his fluid restriction of 2L per day. He says the Dr told him to drink at least 64 oz a day. I explained how fluid works against him in regaurds to CHF. 07/22 250 today, 248.5 yesterday. Says he has a little swelling in his legs, but not bad. Constipation?: No : WNL Except Comment: 07/[address] We discussed gomez care. 07/10 He is not using the leg bag, he had the full size drain bag in his pant leg, with the tubing tied around his thigh. The weight of the bag was making the tubing very tight around his thigh. I suggested loosening the tubing, but he refused, because the bag will fall down. I encouraged using the leg bag, but he won't, because it fills to fast. 07/22 Taking lasix 80 mg BID, he feels as though he is urinating effectively, does not feel he is retaining urine. Musculoskeletal, Exercise: WNL Except Musculoskeletal, Excercise Com: 07/06 Activity limited by SOB. Mobility/Falls: WNL Mobility Comment: 07/06 Feels safe around the house. Integumentary: WNL Feeling of Well Being: WNL Except Feeling of Well Being Comment: 07/06 "How well can I feel with my breathing and a catheter?" 07/10 He wants the catheter out, feels that it limits him more than the O2. 07/22 Feels well, within the limits of his health. Socialization: WN Socialization Comment: 07/10 lives with his son. Pain/Management: WN Scheduled Follow-Up with Provi: Yes (07/22 Cardiology is scheduling a 24hr halter monitor.) Questions for Future PCP Visit: 07/10 Gomez removal, clearify fluid intake intake. Following Discharge Instructio: Yes (07/22 States he is following DC instructions.) TCM Discharge Criteria Medication Knowledge: 07/22 He read his medication list to me. Transitional Care Comment: 07/06 He filled his prescriptions, and is taking meds as ordered. Managing gomez well, gomez care. I will do a home visit on Monday at 1100. 07/10 Home visit, he insisted on not wearing O2, had his gomez tied by the tubing around his leg, and is making sure to drink at least 2L of fluid a day. I tried to clearify these with him, but did not make much progress. I explained the 2L restriction for CHF, but he states he should be drinking a lot to keep the gomez flushed out. He is more edematus than while in the hospital. 07/22 He feels good, wearing his O2 all the time, taking meds as ordered. He had no changes in his regimen after seeing his primary and cardiology. A 24 halter monitor is being scheduled. Copies to: PATRICIA STANTON MD, MICHAEL K Jul 22, 2017 15:18
--- NOTE | 2017-07-27 15:42 | Transitional Care Management ---
Assessment Visit Type: Telephone Visit Spoke with: Obey Cardiac: WNL Cardiac Comment: 07/27 He is in the Cardiologists office during the call. Respiratory: WNL Except Respiratory Comment: 07/06 On baseline O2 at 3L, he gets short of breath with talking. 07/10 Observing him in his home, he does not wear his O2 all the time. He decided not to wear O2 during the home visit. He can't find his oxymeter. I encouraged him to wear the O2, he didn't. He denied SOB for about 40 min. At this point his lips and fingers were pale. I pointed these out to him, but he dismissed it. 07/22 He states that he is wearing his oxygen all of the time, denies SOB with rest, but gets winded with activity. 07/27He is wearing 3-4l O2 all the time, denies SOB at rest, and only mild with activity. GI: Nutrition: WNL Wt Gain/Loss: WNL Except Weight Comment: 07/06 he has not weighed today. I reinforced the importance of daily weights. 07/10 He has not weighed, but the edema in his legs has increased. We discussed his fluid restriction of 2L per day. He says the Dr told him to drink at least 64 oz a day. I explained how fluid works against him in regaurds to CHF. 07/22 250 today, 248.5 yesterday. Says he has a little swelling in his legs, but not bad. 07/27 His weights have fluctuated some, but trending down. Constipation?: No : WNL Except Comment: 07/[address] We discussed gomez care. 07/10 He is not using the leg bag, he had the full size drain bag in his pant leg, with the tubing tied around his thigh. The weight of the bag was making the tubing very tight around his thigh. I suggested loosening the tubing, but he refused, because the bag will fall down. I encouraged using the leg bag, but he won't, because it fills to fast. 07/22 Taking lasix 80 mg BID, he feels as though he is urinating effectively, does not feel he is retaining urine. Musculoskeletal, Exercise: WNL Except Musculoskeletal, Excercise Com: 07/06 Activity limited by SOB. Mobility/Falls: WNL Mobility Comment: 07/06 Feels safe around the house. Integumentary: WNL Feeling of Well Being: WNL Except Feeling of Well Being Comment: 07/06 "How well can I feel with my breathing and a catheter?" 07/10 He wants the catheter out, feels that it limits him more than the O2. 07/22 Feels well, within the limits of his health. 07/27 He seems in high spirits. Socialization: WNL Socialization Comment: 07/10 lives with his son. Pain/Management: WNL Scheduled Follow-Up with Provi: Yes (07/22 Cardiology is scheduling a 24hr halter monitor.) Questions for Future PCP Visit: 07/10 Gomez removal, clearify fluid intake intake. Following Discharge Instructio: Yes (07/22 States he is following DC instructions.) TCM Discharge Criteria Medication Knowledge: 07/22 He read his medication list to me. Transitional Care Comment: 07/06 He filled his prescriptions, and is taking meds as ordered. Managing gomez well, gomez care. I will do a home visit on Monday at 1100. 07/10 Home visit, he insisted on not wearing O2, had his gomez tied by the tubing around his leg, and is making sure to drink at least 2L of fluid a day. I tried to clearify these with him, but did not make much progress. I explained the 2L restriction for CHF, but he states he should be drinking a lot to keep the gomez flushed out. He is more edematus than while in the hospital. 07/22 He feels good, wearing his O2 all the time, taking meds as ordered. He had no changes in his regimen after seeing his primary and cardiology. A 24 halter monitor is being scheduled. 07/27 He is in the cardiologists office during the call, so it was brief. He is feeling well, understands his fluid restriction, has reduced edema, wearing 3-4L o2. KHOI LYNCH Jul 27, 2017 15:42
--- NOTE | 2017-08-04 17:57 | Transitional Care Management ---
Assessment Visit Type: Telephone Visit Cardiac: WAGNER Cardiac Comment: 07/27 He is in the Cardiologists office during the call. 08/04 had Holter monitor and will call Monday to schedule appt with Dr Taveras to review the findings (multiple vent ectopy). States swelling is "real bad today". Lasix ordered 40 bid but he breaks up the pills to 1/2's taking the last at bedtime. REivew he could take it at 8a and 2p so he could sleep. Respiratory: WNShonda Except Respiratory Comment: 07/06 On baseline O2 at 3L, he gets short of breath with talking. 07/10 Observing him in his home, he does not wear his O2 all the time. He decided not to wear O2 during the home visit. He can't find his oxymeter. I encouraged him to wear the O2, he didn't. He denied SOB for about 40 min. At this point his lips and fingers were pale. I pointed these out to him, but he dismissed it. 07/22 He states that he is wearing his oxygen all of the time, denies SOB with rest, but gets winded with activity. 07/27He is wearing 3-4l O2 all the time, denies SOB at rest, and only mild with activity. 08/04 denies SOB, cough wheezing. Wear O2 all the time. Told him without the O2 his heart has to work harder and causes damage with se of confuse, weak and tired GI: Nutrition: WAGNER GI Comment: 08/04 states he wants to eat all the time but try to avoid NA and limit fluids Wt Gain/Loss: WNShonda Except Weight Comment: 07/06 he has not weighed today. I reinforced the importance of daily weights. 07/10 He has not weighed, but the edema in his legs has increased. We discussed his fluid restriction of 2L per day. He says the Dr told him to drink at least 64 oz a day. I explained how fluid works against him in regaurds to CHF. 07/22 250 today, 248.5 yesterday. Says he has a little swelling in his legs, but not bad. 07/27 His weights have fluctuated some, but trending down. 08/04 248# to 251#. Will call if over 3# in a day or 5# a week Constipation?: No : WAGNER Except Comment: 07/[address] We discussed gomez care. 07/10 He is not using the leg bag, he had the full size drain bag in his pant leg, with the tubing tied around his thigh. The weight of the bag was making the tubing very tight around his thigh. I suggested loosening the tubing, but he refused, because the bag will fall down. I encouraged using the leg bag, but he won't, because it fills to fast. 07/22 Taking lasix 80 mg BID, he feels as though he is urinating effectively, does not feel he is retaining urine. Musculoskeletal, Exercise: WN Except Musculoskeletal, Excercise Com: 07/06 Activity limited by SOB. 08/04 decreased mobility due to SOB Mobility/Falls: WN Mobility Comment: 07/06 Feels safe around the house. Integumentary: [facility] Integumentary Comment: 08/04 reports persistent epistaxis. review using kleenex and leaving it. not blowing, pinch nose, using ice pack. has bubbler on O2. use saline spray from [employer] Feeling of Well Being: WN Except Feeling of Well Being Comment: 07/06 "How well can I feel with my breathing and a catheter?" 07/10 He wants the catheter out, feels that it limits him more than the O2. 07/22 Feels well, within the limits of his health. 07/27 He seems in high spirits. Socialization: [facility] Socialization Comment: 07/10 lives with his son. Pain/Management: [facility] Scheduled Follow-Up with Provi: Yes (2/2 needs f/u for review of Holter results ) Personal Health Record Updated: No (2/2 will make list of all meds for dil and his wallett) Following Discharge Instructio: Yes (07/22 States he is following DC instructions.) TCM Discharge Criteria Medication Knowledge: 07/22 He read his medication list to me. 2/2 states new lasix dose. staes hes on a nebulizer bid since the fall but its not on his list, nor is his "puffers" prn. Enc him to make one with his dil or with Dr Salinas nurse next visit and ask for a copy. Disease Management/Concern/Wha: 08/04 CHF Transitional Care Comment: 07/06 He filled his prescriptions, and is taking meds as ordered. Managing gomez well, gomez care. I will do a home visit on Monday at 1100. 07/10 Home visit, he insisted on not wearing O2, had his gomez tied by the tubing around his leg, and is making sure to drink at least 2L of fluid a day. I tried to clearify these with him, but did not make much progress. I explained the 2L restriction for CHF, but he states he should be drinking a lot to keep the gomez flushed out. He is more edematus than while in the hospital. 07/22 He feels good, wearing his O2 all the time, taking meds as ordered. He had no changes in his regimen after seeing his primary and cardiology. A 24 halter monitor is being scheduled. 07/27 He is in the cardiologists office during the call, so it was brief. He is feeling well, understands his fluid restriction, has reduced edema, wearing 3-4L o2. 08/04 no SOB at rest. reports this limits his mobility. has nose bleeding presently off and on. more swelling but wt is same DAVI ZUNIGA Aug 04, 2017 17:57
--- NOTE | 2017-08-12 13:24 | Transitional Care Management ---
Assessment Cardiac: WAGNER Cardiac Comment: 07/27 He is in the Cardiologists office during the call. 08/04 had Holter monitor and will call Monday to schedule appt with Dr Taveras to review the findings (multiple vent ectopy). States swelling is "real bad today". Lasix ordered 40 bid but he breaks up the pills to 1/2's taking the last at bedtime. REivew he could take it at 8a and 2p so he could sleep. Respiratory: WNL Except Respiratory Comment: 07/06 On baseline O2 at 3L, he gets short of breath with talking. 07/10 Observing him in his home, he does not wear his O2 all the time. He decided not to wear O2 during the home visit. He can't find his oxymeter. I encouraged him to wear the O2, he didn't. He denied SOB for about 40 min. At this point his lips and fingers were pale. I pointed these out to him, but he dismissed it. 07/22 He states that he is wearing his oxygen all of the time, denies SOB with rest, but gets winded with activity. 07/27He is wearing 3-4l O2 all the time, denies SOB at rest, and only mild with activity. 08/04 denies SOB, cough wheezing. Wear O2 all the time. Told him without the O2 his heart has to work harder and causes damage with se of confuse, weak and tired GI: Nutrition: WNShonda GI Comment: 08/04 states he wants to eat all the time but try to avoid NA and limit fluids Wt Gain/Loss: WN Except Weight Comment: 07/06 he has not weighed today. I reinforced the importance of daily weights. 07/10 He has not weighed, but the edema in his legs has increased. We discussed his fluid restriction of 2L per day. He says the Dr told him to drink at least 64 oz a day. I explained how fluid works against him in regaurds to CHF. 07/22 250 today, 248.5 yesterday. Says he has a little swelling in his legs, but not bad. 07/27 His weights have fluctuated some, but trending down. 08/04 248# to 251#. Will call if over 3# in a day or 5# a week Constipation?: No : WNL Except Comment: 07/[address] We discussed gomez care. 07/10 He is not using the leg bag, he had the full size drain bag in his pant leg, with the tubing tied around his thigh. The weight of the bag was making the tubing very tight around his thigh. I suggested loosening the tubing, but he refused, because the bag will fall down. I encouraged using the leg bag, but he won't, because it fills to fast. 07/22 Taking lasix 80 mg BID, he feels as though he is urinating effectively, does not feel he is retaining urine. Musculoskeletal, Exercise: WN Except Musculoskeletal, Excercise Com: 07/06 Activity limited by SOB. 08/04 decreased mobility due to SOB Mobility/Falls: WN Mobility Comment: 07/06 Feels safe around the house. Integumentary: [facility] Integumentary Comment: 08/04 reports persistent epistaxis. review using kleenex and leaving it. not blowing, pinch nose, using ice pack. has bubbler on O2. use saline spray from [employer] Feeling of Well Being: WN Except Feeling of Well Being Comment: 07/06 "How well can I feel with my breathing and a catheter?" 07/10 He wants the catheter out, feels that it limits him more than the O2. 07/22 Feels well, within the limits of his health. 07/27 He seems in high spirits. Socialization: [facility] Socialization Comment: 07/10 lives with his son. Pain/Management: [facility] Scheduled Follow-Up with Provi: Yes (2/2 needs f/u for review of Holter results ) Personal Health Record Updated: No (2/2 will make list of all meds for dil and his wallett) Following Discharge Instructio: Yes (07/22 States he is following DC instructions.) TCM Discharge Criteria Medication Knowledge: 07/22 He read his medication list to me. 2/2 states new lasix dose. staes hes on a nebulizer bid since the fall but its not on his list, nor is his "puffers" prn. Enc him to make one with his dil or with Dr Salinas nurse next visit and ask for a copy. Disease Management/Concern/Wha: 08/04 CHF Transitional Care Comment: 07/06 He filled his prescriptions, and is taking meds as ordered. Managing gomez well, gomez care. I will do a home visit on Monday at 1100. 07/10 Home visit, he insisted on not wearing O2, had his gomez tied by the tubing around his leg, and is making sure to drink at least 2L of fluid a day. I tried to clearify these with him, but did not make much progress. I explained the 2L restriction for CHF, but he states he should be drinking a lot to keep the gomez flushed out. He is more edematus than while in the hospital. 07/22 He feels good, wearing his O2 all the time, taking meds as ordered. He had no changes in his regimen after seeing his primary and cardiology. A 24 halter monitor is being scheduled. 07/27 He is in the cardiologists office during the call, so it was brief. He is feeling well, understands his fluid restriction, has reduced edema, wearing 3-4L o2. 08/04 no SOB at rest. reports this limits his mobility. has nose bleeding presently off and on. more swelling but wt is same 08/11 Left message. 08/12 Left message. KHOI LYNCH Aug 12, 2017 13:23
--- NOTE | 2017-08-14 13:43 | Transitional Care Management ---
Assessment Cardiac: WAGNER Cardiac Comment: 07/27 He is in the Cardiologists office during the call. 08/04 had Holter monitor and will call Monday to schedule appt with Dr Taveras to review the findings (multiple vent ectopy). States swelling is "real bad today". Lasix ordered 40 bid but he breaks up the pills to 1/2's taking the last at bedtime. REivew he could take it at 8a and 2p so he could sleep. Respiratory: WNL Except Respiratory Comment: 07/06 On baseline O2 at 3L, he gets short of breath with talking. 07/10 Observing him in his home, he does not wear his O2 all the time. He decided not to wear O2 during the home visit. He can't find his oxymeter. I encouraged him to wear the O2, he didn't. He denied SOB for about 40 min. At this point his lips and fingers were pale. I pointed these out to him, but he dismissed it. 07/22 He states that he is wearing his oxygen all of the time, denies SOB with rest, but gets winded with activity. 07/27He is wearing 3-4l O2 all the time, denies SOB at rest, and only mild with activity. 08/04 denies SOB, cough wheezing. Wear O2 all the time. Told him without the O2 his heart has to work harder and causes damage with se of confuse, weak and tired GI: Nutrition: WNShonda GI Comment: 08/04 states he wants to eat all the time but try to avoid NA and limit fluids Wt Gain/Loss: WN Except Weight Comment: 07/06 he has not weighed today. I reinforced the importance of daily weights. 07/10 He has not weighed, but the edema in his legs has increased. We discussed his fluid restriction of 2L per day. He says the Dr told him to drink at least 64 oz a day. I explained how fluid works against him in regaurds to CHF. 07/22 250 today, 248.5 yesterday. Says he has a little swelling in his legs, but not bad. 07/27 His weights have fluctuated some, but trending down. 08/04 248# to 251#. Will call if over 3# in a day or 5# a week Constipation?: No : WNL Except Comment: 07/[address] We discussed gomez care. 07/10 He is not using the leg bag, he had the full size drain bag in his pant leg, with the tubing tied around his thigh. The weight of the bag was making the tubing very tight around his thigh. I suggested loosening the tubing, but he refused, because the bag will fall down. I encouraged using the leg bag, but he won't, because it fills to fast. 07/22 Taking lasix 80 mg BID, he feels as though he is urinating effectively, does not feel he is retaining urine. Musculoskeletal, Exercise: WN Except Musculoskeletal, Excercise Com: 07/06 Activity limited by SOB. 08/04 decreased mobility due to SOB Mobility/Falls: WN Mobility Comment: 07/06 Feels safe around the house. Integumentary: [facility] Integumentary Comment: 08/04 reports persistent epistaxis. review using kleenex and leaving it. not blowing, pinch nose, using ice pack. has bubbler on O2. use saline spray from [employer] Feeling of Well Being: WN Except Feeling of Well Being Comment: 07/06 "How well can I feel with my breathing and a catheter?" 07/10 He wants the catheter out, feels that it limits him more than the O2. 07/22 Feels well, within the limits of his health. 07/27 He seems in high spirits. Socialization: [facility] Socialization Comment: 07/10 lives with his son. Pain/Management: [facility] Scheduled Follow-Up with Provi: Yes (2/2 needs f/u for review of Holter results ) Personal Health Record Updated: No (2/2 will make list of all meds for dil and his wallett) Following Discharge Instructio: Yes (07/22 States he is following DC instructions.) TCM Discharge Criteria Medication Knowledge: 07/22 He read his medication list to me. 2/2 states new lasix dose. staes hes on a nebulizer bid since the fall but its not on his list, nor is his "puffers" prn. Enc him to make one with his dil or with Dr Salinas nurse next visit and ask for a copy. Disease Management/Concern/Wha: 08/04 CHF Transitional Care Comment: 07/06 He filled his prescriptions, and is taking meds as ordered. Managing gomez well, gomez care. I will do a home visit on Monday at 1100. 07/10 Home visit, he insisted on not wearing O2, had his gomez tied by the tubing around his leg, and is making sure to drink at least 2L of fluid a day. I tried to clearify these with him, but did not make much progress. I explained the 2L restriction for CHF, but he states he should be drinking a lot to keep the gomez flushed out. He is more edematus than while in the hospital. 07/22 He feels good, wearing his O2 all the time, taking meds as ordered. He had no changes in his regimen after seeing his primary and cardiology. A 24 halter monitor is being scheduled. 07/27 He is in the cardiologists office during the call, so it was brief. He is feeling well, understands his fluid restriction, has reduced edema, wearing 3-4L o2. 08/04 no SOB at rest. reports this limits his mobility. has nose bleeding presently off and on. more swelling but wt is same 08/11 Left message. 08/12 Left message. 08/14 Left message, phone went straight to voicemail. KHOI LYNCH Aug 14, 2017 13:43
[2017-08-16] MEDS ORDERED: FINA5TAB67 PO ×2 (10:15→11:14)
[2017-08-16] MEDS ORDERED: DULO60CA7 PO (10:15)
[2017-08-16] MEDS ORDERED: FURO-47 PO (10:16)
--- NOTE | 2017-08-19 11:34 | Transitional Care Management ---
Assessment Visit Type: Telephone Visit (08/19 Obey) Cardiac: WNL Cardiac Comment: 07/27 He is in the Cardiologists office during the call. 08/04 had Holter monitor and will call Monday to schedule appt with Dr Taveras to review the findings (multiple vent ectopy). States swelling is "real bad today". Lasix ordered 40 bid but he breaks up the pills to 1/2's taking the last at bedtime. REivew he could take it at 8a and 2p so he could sleep. 08/19 Denies CP Respiratory: WNL Except Respiratory Comment: 07/06 On baseline O2 at 3L, he gets short of breath with talking. 07/10 Observing him in his home, he does not wear his O2 all the time. He decided not to wear O2 during the home visit. He can't find his oxymeter. I encouraged him to wear the O2, he didn't. He denied SOB for about 40 min. At this point his lips and fingers were pale. I pointed these out to him, but he dismissed it. 07/22 He states that he is wearing his oxygen all of the time, denies SOB with rest, but gets winded with activity. 07/27He is wearing 3-4l O2 all the time, denies SOB at rest, and only mild with activity. 08/04 denies SOB, cough wheezing. Wear O2 all the time. Told him without the O2 his heart has to work harder and causes damage with se of confuse, weak and tired 08/19 using O2/4L GI: Nutrition: WNL GI Comment: 08/04 states he wants to eat all the time but try to avoid NA and limit fluids Wt Gain/Loss: WNL Except Weight Comment: 07/06 he has not weighed today. I reinforced the importance of daily weights. 07/10 He has not weighed, but the edema in his legs has increased. We discussed his fluid restriction of 2L per day. He says the Dr told him to drink at least 64 oz a day. I explained how fluid works against him in regaurds to CHF. 07/22 250 today, 248.5 yesterday. Says he has a little swelling in his legs, but not bad. 07/27 His weights have fluctuated some, but trending down. 08/04 248# to 251#. Will call if over 3# in a day or 5# a week 08/19 Wt his AM is 245# Constipation?: No : WNL Except Comment: 07/[address] We discussed gomez care. 07/10 He is not using the leg bag, he had the full size drain bag in his pant leg, with the tubing tied around his thigh. The weight of the bag was making the tubing very tight around his thigh. I suggested loosening the tubing, but he refused, because the bag will fall down. I encouraged using the leg bag, but he won't, because it fills to fast. 07/22 Taking lasix 80 mg BID, he feels as though he is urinating effectively, does not feel he is retaining urine. Musculoskeletal, Exercise: WNL Except Musculoskeletal, Excercise Com: 07/06 Activity limited by SOB. 08/04 decreased mobility due to SOB 08/19 Has been staying in room. Enc him to get out of room and go to [employer] or find a friend and go to coffee and visit. It will help him w activity and strengthening. Mobility/Falls: WNShonda Mobility Comment: 07/06 Feels safe around the house. Enc him st go out to the rest of the house when son and [id number] at work and move around. Integumentary: WNL Integumentary Comment: 08/04 reports persistent epistaxis. review using kleenex and leaving it. not blowing, pinch nose, using ice pack. has bubbler on O2. use saline spray from [employer] store Feeling of Well Being: WNShonda Except Feeling of Well Being Comment: 07/06 "How well can I feel with my breathing and a catheter?" 07/10 He wants the catheter out, feels that it limits him more than the O2. 07/22 Feels well, within the limits of his health. 07/27 He seems in high spirits. Socialization: WNL Socialization Comment: 07/10 lives with his son. Pain/Management: [facility] Scheduled Follow-Up with Provi: Yes (2/2 needs f/u for review of Holter results ) Personal Health Record Updated: No (2/2 will make list of all meds for dil and his wallett) Following Discharge Instructio: Yes (07/22 States he is following DC instructions.) TCM Discharge Criteria Medication Knowledge: 07/22 He read his medication list to me. 08/04 states new lasix dose. staes hes on a nebulizer bid since the fall but its not on his list, nor is his "puffers" prn. Enc him to make one with his dil or with Dr Salinas nurse next visit and ask for a copy. Disease Management/Concern/Wha: 08/04 CHF Transitional Care Comment: 07/06 He filled his prescriptions, and is taking meds as ordered. Managing gomez well, gomez care. I will do a home visit on Monday at 1100. 07/10 Home visit, he insisted on not wearing O2, had his gomez tied by the tubing around his leg, and is making sure to drink at least 2L of fluid a day. I tried to clearify these with him, but did not make much progress. I explained the 2L restriction for CHF, but he states he should be drinking a lot to keep the gomez flushed out. He is more edematus than while in the hospital. 07/22 He feels good, wearing his O2 all the time, taking meds as ordered. He had no changes in his regimen after seeing his primary and cardiology. A 24 halter monitor is being scheduled. 07/27 He is in the cardiologists office during the call, so it was brief. He is feeling well, understands his fluid restriction, has reduced edema, wearing 3-4L o2. 08/04 no SOB at rest. reports this limits his mobility. has nose bleeding presently off and on. more swelling but wt is same 08/11 Left message. 08/12 Left message. 08/14 Left message, phone went straight to [id number] Enc him to increase activity and move around more, increase activity. Monitor diet and wt. He has an appt on Monday. Agrees to another visit. Seems upbeat and doing ok today. AGA WINSTON Aug 19, 2017 11:34
--- NOTE | 2017-08-22 10:27 | Transitional Care Management ---
Assessment Cardiac: WNL Cardiac Comment: 07/27 He is in the Cardiologists office during the call. 08/04 had Holter monitor and will call Monday to schedule appt with Dr Taveras to review the findings (multiple vent ectopy). States swelling is "real bad today". Lasthomas ordered 40 bid but he breaks up the pills to 1/2's taking the last at bedtime. REivew he could take it at 8a and 2p so he could sleep. 08/19 Denies CP Respiratory: WNL Except Respiratory Comment: 07/06 On baseline O2 at 3L, he gets short of breath with talking. 07/10 Observing him in his home, he does not wear his O2 all the time. He decided not to wear O2 during the home visit. He can't find his oxymeter. I encouraged him to wear the O2, he didn't. He denied SOB for about 40 min. At this point his lips and fingers were pale. I pointed these out to him, but he dismissed it. 07/22 He states that he is wearing his oxygen all of the time, denies SOB with rest, but gets winded with activity. 07/27He is wearing 3-4l O2 all the time, denies SOB at rest, and only mild with activity. 08/04 denies SOB, cough wheezing. Wear O2 all the time. Told him without the O2 his heart has to work harder and causes damage with se of confuse, weak and tired 08/19 using O2/4L GI: Nutrition: WN GI Comment: 08/04 states he wants to eat all the time but try to avoid NA and limit fluids Wt Gain/Loss: WNL Except Weight Comment: 07/06 he has not weighed today. I reinforced the importance of daily weights. 07/10 He has not weighed, but the edema in his legs has increased. We discussed his fluid restriction of 2L per day. He says the Dr told him to drink at least 64 oz a day. I explained how fluid works against him in regaurds to CHF. 07/22 250 today, 248.5 yesterday. Says he has a little swelling in his legs, but not bad. 07/27 His weights have fluctuated some, but trending down. 08/04 248# to 251#. Will call if over 3# in a day or 5# a week 08/19 Wt his AM is 245# Constipation?: No : WNL Except Comment: 07/[address] We discussed gomez care. 07/10 He is not using the leg bag, he had the full size drain bag in his pant leg, with the tubing tied around his thigh. The weight of the bag was making the tubing very tight around his thigh. I suggested loosening the tubing, but he refused, because the bag will fall down. I encouraged using the leg bag, but he won't, because it fills to fast. 07/22 Taking lasix 80 mg BID, he feels as though he is urinating effectively, does not feel he is retaining urine. Musculoskeletal, Exercise: WNL Except Musculoskeletal, Excercise Com: 07/06 Activity limited by SOB. 08/04 decreased mobility due to SOB 08/19 Has been staying in room. Enc him to get out of room and go to [employer] or find a friend and go to coffee and visit. It will help him w activity and strengthening. Mobility/Falls: WNL Mobility Comment: 07/06 Feels safe around the house. Enc him st go out to the rest of the house when son and [id number] at work and move around. Integumentary: WNL Integumentary Comment: 08/04 reports persistent epistaxis. review using kleenex and leaving it. not blowing, pinch nose, using ice pack. has bubbler on O2. use saline spray from [employer] store Feeling of Well Being: WNL Except Feeling of Well Being Comment: 07/06 "How well can I feel with my breathing and a catheter?" 07/10 He wants the catheter out, feels that it limits him more than the O2. 07/22 Feels well, within the limits of his health. 07/27 He seems in high spirits. Socialization: WN Socialization Comment: 07/10 lives with his son. Pain/Management: WNL Scheduled Follow-Up with Provi: Yes (2/2 needs f/u for review of Holter results ) Personal Health Record Updated: No (2/2 will make list of all meds for dil and his wallett) Following Discharge Instructio: Yes (07/22 States he is following DC instructions.) TCM Discharge Criteria Medication Knowledge: 07/22 He read his medication list to me. 08/04 states new lasix dose. [place] hes on a nebulizer bid since the fall but its not on his list, nor is his "puffers" prn. Enc him to make one with his dil or with Dr Salinas nurse next visit and ask for a copy. Disease Management/Concern/Wha: 08/04 CHF Transitional Care Comment: 07/06 He filled his prescriptions, and is taking meds as ordered. Managing gomez well, gomez care. I will do a home visit on Monday at 1100. 07/10 Home visit, he insisted on not wearing O2, had his gomez tied by the tubing around his leg, and is making sure to drink at least 2L of fluid a day. I tried to clearify these with him, but did not make much progress. I explained the 2L restriction for CHF, but he states he should be drinking a lot to keep the gomez flushed out. He is more edematus than while in the hospital. 07/22 He feels good, wearing his O2 all the time, taking meds as ordered. He had no changes in his regimen after seeing his primary and cardiology. A 24 halter monitor is being scheduled. 07/27 He is in the cardiologists office during the call, so it was brief. He is feeling well, understands his fluid restriction, has reduced edema, wearing 3-4L o2. 08/04 no SOB at rest. reports this limits his mobility. has nose bleeding presently off and on. more swelling but wt is same 08/11 Left message. 08/12 Left message. 08/14 Left message, phone went straight to [id number] Enc him to increase activity and move around more, increase activity. Monitor diet and wt. He has an appt on Monday. Agrees to another visit. Seems upbeat and doing ok today. 08/21 left message x2. 08/22 Unable to contact. KHOI LYNCH Aug 22, 2017 10:27
--- NOTE | 2017-08-22 13:17 | Transitional Care Management ---
Assessment Visit Type: Telephone Visit Spoke with: Obey Cardiac: WNL Cardiac Comment: 07/27 He is in the Cardiologists office during the call. 08/04 had Holter monitor and will call Monday to schedule appt with Dr Taveras to review the findings (multiple vent ectopy). States swelling is "real bad today". Lasix ordered 40 bid but he breaks up the pills to 1/2's taking the last at bedtime. REivew he could take it at 8a and 2p so he could sleep. 08/19 Denies CP 08/22 Lasix 40 BID, denies any worsening of edema. Respiratory: WNL Except Respiratory Comment: 07/06 On baseline O2 at 3L, he gets short of breath with talking. 07/10 Observing him in his home, he does not wear his O2 all the time. He decided not to wear O2 during the home visit. He can't find his oxymeter. I encouraged him to wear the O2, he didn't. He denied SOB for about 40 min. At this point his lips and fingers were pale. I pointed these out to him, but he dismissed it. 07/22 He states that he is wearing his oxygen all of the time, denies SOB with rest, but gets winded with activity. 07/27He is wearing 3-4l O2 all the time, denies SOB at rest, and only mild with activity. 08/04 denies SOB, cough wheezing. Wear O2 all the time. Told him without the O2 his heart has to work harder and causes damage with se of confuse, weak and tired 08/19 using O2/4L 08/22 4L all the time. Denies SOB at rest, and mild SOB with activity. GI: Nutrition: WNL GI Comment: 08/04 states he wants to eat all the time but try to avoid NA and limit fluids Wt Gain/Loss: WNL Except Weight Comment: 07/06 he has not weighed today. I reinforced the importance of daily weights. 07/10 He has not weighed, but the edema in his legs has increased. We discussed his fluid restriction of 2L per day. He says the Dr told him to drink at least 64 oz a day. I explained how fluid works against him in regaurds to CHF. 07/22 250 today, 248.5 yesterday. Says he has a little swelling in his legs, but not bad. 07/27 His weights have fluctuated some, but trending down. 08/04 248# to 251#. Will call if over 3# in a day or 5# a week 08/19 Wt his AM is 245# 08/22 Wt today 245.5. Constipation?: No : WN Except Comment: 07/[address] We discussed gomez care. 07/10 He is not using the leg bag, he had the full size drain bag in his pant leg, with the tubing tied around his thigh. The weight of the bag was making the tubing very tight around his thigh. I suggested loosening the tubing, but he refused, because the bag will fall down. I encouraged using the leg bag, but he won't, because it fills to fast. 07/22 Taking lasix 80 mg BID, he feels as though he is urinating effectively, does not feel he is retaining urine. Musculoskeletal, Exercise: WN Except Musculoskeletal, Excercise Com: 07/06 Activity limited by SOB. 08/04 decreased mobility due to SOB 08/19 Has been staying in room. Enc him to get out of room and go to [employer] or find a friend and go to coffee and visit. It will help him w activity and strengthening. Mobility/Falls: WN Mobility Comment: 07/06 Feels safe around the house. Enc him st go out to the rest of the house when son and [id number] at work and move around. Integumentary: [facility] Integumentary Comment: 08/04 reports persistent epistaxis. review using kleenex and leaving it. not blowing, pinch nose, using ice pack. has bubbler on O2. use saline spray from [employer] Feeling of Well Being: WN Except Feeling of Well Being Comment: 07/06 "How well can I feel with my breathing and a catheter?" 07/10 He wants the catheter out, feels that it limits him more than the O2. 07/22 Feels well, within the limits of his health. 07/27 He seems in high spirits. 08/22 Feels well. Socialization: [facility] Socialization Comment: 07/10 lives with his son. Pain/Management: [facility] Personal Health Record Updated: No (2/2 will make list of all meds for dil and his wallett) Following Discharge Instructio: Yes (08/22 States he is following DC instructions.) TCM Discharge Criteria Medication Knowledge: 07/22 He read his medication list to me. 08/04 states new lasix dose. staeboni hes on a nebulizer bid since the fall but its not on his list, nor is his "puffers" prn. Enc him to make one with his dil or with Dr Salinas nurse next visit and ask for a copy. Disease Management/Concern/Wha: 08/04 CHF Transitional Care Comment: 07/06 He filled his prescriptions, and is taking meds as ordered. Managing gomez well, gomez care. I will do a home visit on Monday at 1100. 07/10 Home visit, he insisted on not wearing O2, had his gomez tied by the tubing around his leg, and is making sure to drink at least 2L of fluid a day. I tried to clearify these with him, but did not make much progress. I explained the 2L restriction for CHF, but he states he should be drinking a lot to keep the gomez flushed out. He is more edematus than while in the hospital. 07/22 He feels good, wearing his O2 all the time, taking meds as ordered. He had no changes in his regimen after seeing his primary and cardiology. A 24 halter monitor is being scheduled. 07/27 He is in the cardiologists office during the call, so it was brief. He is feeling well, understands his fluid restriction, has reduced edema, wearing 3-4L o2. 08/04 no SOB at rest. reports this limits his mobility. has nose bleeding presently off and on. more swelling but wt is same 08/11 Left message. 08/12 Left message. 08/14 Left message, phone went straight to [id number] Enc him to increase activity and move around more, increase activity. Monitor diet and wt. He has an appt on Monday. Agrees to another visit. Seems upbeat and doing ok today. 08/21 left message x2. 08/22 Unable to contact. 08/22 He feels good. We were unable to schedule a home visit today due to the time of the call for and my limited schedule tomorrow does not work for him. We reviewed his meds, S/S of CHF, 2L Fluid restriction, and need to stay active. KHOI LYNCH Aug 22, 2017 13:17
--- NOTE | 2017-08-31 14:30 | Transitional Care Management ---
Assessment Cardiac: WNL Cardiac Comment: 07/27 He is in the Cardiologists office during the call. 08/04 had Holter monitor and will call Monday to schedule appt with Dr Taveras to review the findings (multiple vent ectopy). States swelling is "real bad today". Lasix ordered 40 bid but he breaks up the pills to 1/2's taking the last at bedtime. REivew he could take it at 8a and 2p so he could sleep. 08/19 Denies CP 08/22 Lasix 40 BID, denies any worsening of edema. 08/31 increasing exercise loni. f/u q 2 weeks to monitor edema Respiratory: WNL Except Respiratory Comment: 07/06 On baseline O2 at 3L, he gets short of breath with talking. 07/10 Observing him in his home, he does not wear his O2 all the time. He decided not to wear O2 during the home visit. He can't find his oxymeter. I encouraged him to wear the O2, he didn't. He denied SOB for about 40 min. At this point his lips and fingers were pale. I pointed these out to him, but he dismissed it. 07/22 He states that he is wearing his oxygen all of the time, denies SOB with rest, but gets winded with activity. 07/27He is wearing 3-4l O2 all the time, denies SOB at rest, and only mild with activity. 08/04 denies SOB, cough wheezing. Wear O2 all the time. Told him without the O2 his heart has to work harder and causes damage with se of confuse, weak and tired 08/19 using O2/4L 08/22 4L all the time. Denies SOB at rest, and mild SOB with activity. 08/31 states "I can't leave (the house) without it" Denies worsening sob or cough GI: Nutrition: WNL GI Comment: 08/04 states he wants to eat all the time but try to avoid NA and limit fluids Wt Gain/Loss: WNL Except Weight Comment: 07/06 he has not weighed today. I reinforced the importance of daily weights. 07/10 He has not weighed, but the edema in his legs has increased. We discussed his fluid restriction of 2L per day. He says the Dr told him to drink at least 64 oz a day. I explained how fluid works against him in regaurds to CHF. 07/22 250 today, 248.5 yesterday. Says he has a little swelling in his legs, but not bad. 07/27 His weights have fluctuated some, but trending down. 08/04 248# to 251#. Will call if over 3# in a day or 5# a week 08/19 Wt his AM is 245# 08/22 Wt today 245.5. 08/31 reports wt loss of about 1# couple of times due to exercising Constipation?: No : WNL Except Comment: 07/[address] We discussed gomez care. 07/10 He is not using the leg bag, he had the full size drain bag in his pant leg, with the tubing tied around his thigh. The weight of the bag was making the tubing very tight around his thigh. I suggested loosening the tubing, but he refused, because the bag will fall down. I encouraged using the leg bag, but he won't, because it fills to fast. 07/22 Taking lasix 80 mg BID, he feels as though he is urinating effectively, does not feel he is retaining urine. Musculoskeletal, Exercise: WNL Except Musculoskeletal, Excercise Com: 07/06 Activity limited by SOB. 08/04 decreased mobility due to SOB 08/19 Has been staying in room. Enc him to get out of room and go to [facility] or find a friend and go to coffee and visit. It will help him w activity and strengthening. 08/31 reports he joined a gym and can walk 1/4 mile to 1/2 mile on a treadmill. has poor loni on a bike. wants to increase duration gradually. states a education trainer has worked with him. wants to get exercise for his shoulder to poss avoid surgery Mobility/Falls: WNL Mobility Comment: 07/06 Feels safe around the house. Enc him st go out to the rest of the house when son and [id number] at work and move around. Integumentary: WNL Integumentary Comment: 08/04 reports persistent epistaxis. review using kleenex and leaving it. not blowing, pinch nose, using ice pack. has bubbler on O2. use saline spray from [employer] store Feeling of Well Being: WNL Except Feeling of Well Being Comment: 07/06 "How well can I feel with my breathing and a catheter?" 07/10 He wants the catheter out, feels that it limits him more than the O2. 07/22 Feels well, within the limits of his health. 07/27 He seems in high spirits. 08/22 Feels well. 08/31 proud of wt loss and compliance with meds, diet and self care Socialization: [facility] Socialization Comment: 07/10 lives with his son. 08/31 getting out to gym Pain/Management: WNL Scheduled Follow-Up with [facility]: Yes (08/31 Sharri approx q 2 week, Cardio on 09/01) Personal Health Record Updated: No (08/04 will make list of all meds for dil and his wallett) Following Discharge Instructio: Yes (08/22 States he is following DC instructions.) TCM Discharge Criteria Medication Knowledge: 07/22 He read his medication list to me. 08/04 states new lasix dose. staes hes on a nebulizer bid since the fall but its not on his list, nor is his "puffers" prn. Enc him to make one with his dil or with Dr Salinas nurse next visit and ask for a copy. Disease Management/Concern/Wha: 08/04 CHF Transitional Care Comment: 07/06 He filled his prescriptions, and is taking meds as ordered. Managing gomez well, gomez care. I will do a home visit on Monday at 1100. 07/10 Home visit, he insisted on not wearing O2, had his gomez tied by the tubing around his leg, and is making sure to drink at least 2L of fluid a day. I tried to clearify these with him, but did not make much progress. I explained the 2L restriction for CHF, but he states he should be drinking a lot to keep the gomez flushed out. He is more edematus than while in the hospital. 07/22 He feels good, wearing his O2 all the time, taking meds as ordered. He had no changes in his regimen after seeing his primary and cardiology. A 24 halter monitor is being scheduled. 07/27 He is in the cardiologists office during the call, so it was brief. He is feeling well, understands his fluid restriction, has reduced edema, wearing 3-4L o2. 08/04 no SOB at rest. reports this limits his mobility. has nose bleeding presently off and on. more swelling but wt is same 08/11 Left message. 08/12 Left message. 08/14 Left message, phone went straight to [id number] Enc him to increase activity and move around more, increase activity. Monitor diet and wt. He has an appt on Monday. Agrees to another visit. Seems upbeat and doing ok today. 08/21 left message x2. 08/22 Unable to contact. 08/22 He feels good. We were unable to schedule a home visit today due to the time of the call for and my limited schedule tomorrow does not work for him. We reviewed his meds, S/S of CHF, 2L Fluid restriction, and need to stay active. 08/31 only trouble is sleeping, reviewed s/s to report, increasing activity. wants to cont. with phone calls; agree to q 2 weeks DAVI ZUNIGA Aug 31, 2017 14:30
--- NOTE | 2017-09-13 13:12 | Transitional Care Management ---
Assessment Cardiac: WNL Cardiac Comment: 07/27 He is in the Cardiologists office during the call. 08/04 had Holter monitor and will call Monday to schedule appt with Dr Taveras to review the findings (multiple vent ectopy). States swelling is "real bad today". Lasix ordered 40 bid but he breaks up the pills to 1/2's taking the last at bedtime. REivew he could take it at 8a and 2p so he could sleep. 08/19 Denies CP 08/22 Lasix 40 BID, denies any worsening of edema. 08/31 increasing exercise loni. f/u q 2 weeks to monitor edema Respiratory: WNL Except Respiratory Comment: 07/06 On baseline O2 at 3L, he gets short of breath with talking. 07/10 Observing him in his home, he does not wear his O2 all the time. He decided not to wear O2 during the home visit. He can't find his oxymeter. I encouraged him to wear the O2, he didn't. He denied SOB for about 40 min. At this point his lips and fingers were pale. I pointed these out to him, but he dismissed it. 07/22 He states that he is wearing his oxygen all of the time, denies SOB with rest, but gets winded with activity. 07/27He is wearing 3-4l O2 all the time, denies SOB at rest, and only mild with activity. 08/04 denies SOB, cough wheezing. Wear O2 all the time. Told him without the O2 his heart has to work harder and causes damage with se of confuse, weak and tired 08/19 using O2/4L 08/22 4L all the time. Denies SOB at rest, and mild SOB with activity. 08/31 states "I can't leave (the house) without it" Denies worsening sob or cough GI: Nutrition: WNL GI Comment: 08/04 states he wants to eat all the time but try to avoid NA and limit fluids Wt Gain/Loss: WNL Except Weight Comment: 07/06 he has not weighed today. I reinforced the importance of daily weights. 07/10 He has not weighed, but the edema in his legs has increased. We discussed his fluid restriction of 2L per day. He says the Dr told him to drink at least 64 oz a day. I explained how fluid works against him in regaurds to CHF. 07/22 250 today, 248.5 yesterday. Says he has a little swelling in his legs, but not bad. 07/27 His weights have fluctuated some, but trending down. 08/04 248# to 251#. Will call if over 3# in a day or 5# a week 08/19 Wt his AM is 245# 08/22 Wt today 245.5. 08/31 reports wt loss of about 1# couple of times due to exercising Constipation?: No : WNL Except Comment: 07/[address] We discussed gomez care. 07/10 He is not using the leg bag, he had the full size drain bag in his pant leg, with the tubing tied around his thigh. The weight of the bag was making the tubing very tight around his thigh. I suggested loosening the tubing, but he refused, because the bag will fall down. I encouraged using the leg bag, but he won't, because it fills to fast. 07/22 Taking lasix 80 mg BID, he feels as though he is urinating effectively, does not feel he is retaining urine. Musculoskeletal, Exercise: WNL Except Musculoskeletal, Excercise Com: 07/06 Activity limited by SOB. 08/04 decreased mobility due to SOB 08/19 Has been staying in room. Enc him to get out of room and go to [facility] or find a friend and go to coffee and visit. It will help him w activity and strengthening. 08/31 reports he joined a gym and can walk 1/4 mile to 1/2 mile on a treadmill. has poor loni on a bike. wants to increase duration gradually. states a aed trainer has worked with him. wants to get exercise for his shoulder to poss avoid surgery Mobility/Falls: WNL Mobility Comment: 07/06 Feels safe around the house. Enc him st go out to the rest of the house when son and [id number] at work and move around. Integumentary: WNL Integumentary Comment: 08/04 reports persistent epistaxis. review using kleenex and leaving it. not blowing, pinch nose, using ice pack. has bubbler on O2. use saline spray from [facility] store Feeling of Well Being: WNL Except Feeling of Well Being Comment: 07/06 "How well can I feel with my breathing and a catheter?" 07/10 He wants the catheter out, feels that it limits him more than the O2. 07/22 Feels well, within the limits of his health. 07/27 He seems in high spirits. 08/22 Feels well. 08/31 proud of wt loss and compliance with meds, diet and self care Socialization: [facility] Socialization Comment: 07/10 lives with his son. 08/31 getting out to gym Pain/Management: WNL Scheduled Follow-Up with Provi: Yes (08/31 Sharri approx q 2 week, Cardio on 09/01) Personal Health Record Updated: No (08/04 will make list of all meds for dil and his wallett) Following Discharge Instructio: Yes (08/22 States he is following DC instructions.) TCM Discharge Criteria Medication Knowledge: 07/22 He read his medication list to me. 08/04 states new lasix dose. staes hes on a nebulizer bid since the fall but its not on his list, nor is his "puffers" prn. Enc him to make one with his dil or with Dr Salinas nurse next visit and ask for a copy. Disease Management/Concern/Wha: 08/04 CHF Transitional Care Comment: 07/06 He filled his prescriptions, and is taking meds as ordered. Managing gomez well, gomez care. I will do a home visit on Monday at 1100. 07/10 Home visit, he insisted on not wearing O2, had his gomez tied by the tubing around his leg, and is making sure to drink at least 2L of fluid a day. I tried to clearify these with him, but did not make much progress. I explained the 2L restriction for CHF, but he states he should be drinking a lot to keep the gomez flushed out. He is more edematus than while in the hospital. 07/22 He feels good, wearing his O2 all the time, taking meds as ordered. He had no changes in his regimen after seeing his primary and cardiology. A 24 halter monitor is being scheduled. 07/27 He is in the cardiologists office during the call, so it was brief. He is feeling well, understands his fluid restriction, has reduced edema, wearing 3-4L o2. 08/04 no SOB at rest. reports this limits his mobility. has nose bleeding presently off and on. more swelling but wt is same 08/11 Left message. 08/12 Left message. 08/14 Left message, phone went straight to [id number] Enc him to increase activity and move around more, increase activity. Monitor diet and wt. He has an appt on Monday. Agrees to another visit. Seems upbeat and doing ok today. 08/21 left message x2. 08/22 Unable to contact. 08/22 He feels good. We were unable to schedule a home visit today due to the time of the call for and my limited schedule tomorrow does not work for him. We reviewed his meds, S/S of CHF, 2L Fluid restriction, and need to stay active. 08/31 only trouble is sleeping, reviewed s/s to report, increasing activity. wants to cont. with phone calls; agree to q 2 weeks 09/13 To ER on 09/04 after fall at fitness center. To ER on 09/06 to r/o OR and was transferred out. Unable to contact today; left voice message. DAVI ZUNIGA Sep 13, 2017 13:12
[2017-09-15] MEDS ORDERED: ATOR10TA24 PO (05:39)
[2017-09-22] MEDS ORDERED: FURO80TA70 PO (12:21)
[2017-09-22] MEDS ORDERED: POTA-23 PO (12:23)
[2017-09-22] MEDS ORDERED: DIGO125T90 PO (12:23)
--- NOTE | 2017-09-23 12:29 | Transitional Care Management ---
Assessment Cardiac: WNL Cardiac Comment: 07/27 He is in the Cardiologists office during the call. 08/04 had Holter monitor and will call Monday to schedule appt with Dr Taveras to review the findings (multiple vent ectopy). States swelling is "real bad today". Lasix ordered 40 bid but he breaks up the pills to 1/2's taking the last at bedtime. REivew he could take it at 8a and 2p so he could sleep. 08/19 Denies CP 08/22 Lasix 40 BID, denies any worsening of edema. 08/31 increasing exercise loni. f/u q 2 weeks to monitor edema Respiratory: WN Except Respiratory Comment: 07/06 On baseline O2 at 3L, he gets short of breath with talking. 07/10 Observing him in his home, he does not wear his O2 all the time. He decided not to wear O2 during the home visit. He can't find his oxymeter. I encouraged him to wear the O2, he didn't. He denied SOB for about 40 min. At this point his lips and fingers were pale. I pointed these out to him, but he dismissed it. 07/22 He states that he is wearing his oxygen all of the time, denies SOB with rest, but gets winded with activity. 07/27He is wearing 3-4l O2 all the time, denies SOB at rest, and only mild with activity. 08/04 denies SOB, cough wheezing. Wear O2 all the time. Told him without the O2 his heart has to work harder and causes damage with se of confuse, weak and tired 08/19 using O2/4L 08/22 4L all the time. Denies SOB at rest, and mild SOB with activity. 08/31 states "I can't leave (the house) without it" Denies worsening sob or cough 09/23 states sitting at table visiting w daughter and does have his O2 on "Really not able to function without it." GI: Nutrition: WNL GI Comment: 08/04 states he wants to eat all the time but try to avoid NA and limit fluids Wt Gain/Loss: WNL Except Weight Comment: 07/06 he has not weighed today. I reinforced the importance of daily weights. 07/10 He has not weighed, but the edema in his legs has increased. We discussed his fluid restriction of 2L per day. He says the Dr told him to drink at least 64 oz a day. I explained how fluid works against him in regaurds to CHF. 07/22 250 today, 248.5 yesterday. Says he has a little swelling in his legs, but not bad. 07/27 His weights have fluctuated some, but trending down. 08/04 248# to 251#. Will call if over 3# in a day or 5# a week 08/19 Wt his AM is 245# 08/22 Wt today 245.5. 08/31 reports wt loss of about 1# couple of times due to exercising 09/23 states weighted today and wt was 271# Constipation?: No : WNL Except Comment: 07/[address] We discussed gomez care. 07/10 He is not using the leg bag, he had the full size drain bag in his pant leg, with the tubing tied around his thigh. The weight of the bag was making the tubing very tight around his thigh. I suggested loosening the tubing, but he refused, because the bag will fall down. I encouraged using the leg bag, but he won't, because it fills to fast. 07/22 Taking lasix 80 mg BID, he feels as though he is urinating effectively, does not feel he is retaining urine. Musculoskeletal, Exercise: WNL Except Musculoskeletal, Excercise Com: 07/06 Activity limited by SOB. 08/04 decreased mobility due to SOB 08/19 Has been staying in room. Enc him to get out of room and go to [facility] or find a friend and go to coffee and visit. It will help him w activity and strengthening. 08/31 reports he joined a gym and can walk 1/4 mile to 1/2 mile on a treadmill. has poor loni on a bike. wants to increase duration gradually. states a development trainer has worked with him. wants to get exercise for his shoulder to poss avoid surgery 09/23 has been moving around house and hopes to regain enough strenth to go rosangela to the gym Mobility/Falls: WNL Mobility Comment: 07/06 Feels safe around the house. Enc him st go out to the rest of the house when son and [id number] at work and move around. Integumentary: WNL Integumentary Comment: 08/04 reports persistent epistaxis. review using kleenex and leaving it. not blowing, pinch nose, using ice pack. has bubbler on O2. use saline spray from hike Feeling of Well Being: [facility] Except Feeling of Well Being Comment: 07/06 "How well can I feel with my breathing and a catheter?" 07/10 He wants the catheter out, feels that it limits him more than the O2. 07/22 Feels well, within the limits of his health. 07/27 He seems in high spirits. 08/22 Feels well. 09/23 daughter chuyita Galarzao visiting and he seemed to be in high spirits. 08/31 proud of wt loss and compliance with meds, diet and self care Socialization: [facility] Socialization Comment: 07/10 lives with his son. 08/31 getting out to gym Pain/Management: [facility] Scheduled Follow-Up with Provi: Yes (08/31 [place] approx q 2 week, Cardio on 09/01) Personal Health Record Updated: No (08/04 will make list of all meds for dil and his wallett) Following Discharge Instructio: Yes (08/22 States he is following DC instructions.) TCM Discharge Criteria Medication Knowledge: 07/22 He read his medication list to me. 08/04 states new lasix dose. staes hes on a nebulizer bid since the fall but its not on his list, nor is his "puffers" prn. Enc him to make one with his dil or with Dr Salinas nurse next visit and ask for a copy. Disease Management/Concern/Wha: 08/04 CHF went over the red/yellow flags of CHF Transitional Care Comment: 07/06 He filled his prescriptions, and is taking meds as ordered. Managing gomez well, gomez care. I will do a home visit on Monday at 1100. 07/10 Home visit, he insisted on not wearing O2, had his gomez tied by the tubing around his leg, and is making sure to drink at least 2L of fluid a day. I tried to clearify these with him, but did not make much progress. I explained the 2L restriction for CHF, but he states he should be drinking a lot to keep the gomez flushed out. He is more edematus than while in the hospital. 07/22 He feels good, wearing his O2 all the time, taking meds as ordered. He had no changes in his regimen after seeing his primary and cardiology. A 24 halter monitor is being scheduled. 07/27 He is in the cardiologists office during the call, so it was brief. He is feeling well, understands his fluid restriction, has reduced edema, wearing 3-4L o2. 08/04 no SOB at rest. reports this limits his mobility. has nose bleeding presently off and on. more swelling but wt is same 08/11 Left message. 08/12 Left message. 08/14 Left message, phone went straight to [id number]/17 Enc him to increase activity and move around more, increase activity. Monitor diet and wt. He has an appt on Monday. Agrees to another visit. Seems upbeat and doing ok today. 08/21 left message x2. 08/22 Unable to contact. 08/22 He feels good. We were unable to schedule a home visit today due to the time of the call for and my limited schedule tomorrow does not work for him. We reviewed his meds, S/S of CHF, 2L Fluid restriction, and need to stay active. 08/31 only trouble is sleeping, reviewed s/s to report, increasing activity. wants to cont. with phone calls; agree to q 2 weeks 09/13 To ER on 09/04 after fall at fitness center. To ER on 09/06 to r/o [place] and was transferred out. Unable to contact today; left voice message. 09/22 visited with [facility] about Hospice. His son was in the room and they both agreed that the family has agreed that he will go home with this hospital stay "whether be 1 day or 1 month but then when comes back to hospital will come for comfort care only" He does have a DNR/DNI onhis chart. 09/23 states doing 'OK" at [facility]. Wants to sleep most of the time. Enc him to get and move around and to take deep breaths . states "My daughter from [place] is visiting and we are sitting at the tble reminesing and talking" He states that he trys very hard to stay on a low Na+ diet Copies to: PATRICIA STANTON MD, JOAN Mar 24, 2018 12:29
[2017-09-28] MEDS ORDERED: POTA20TA94 PO (09:41)
[2017-09-28] MEDS ORDERED: GABA-547 PO (09:41)
[2017-09-28] MEDS ORDERED: SPIR25TA78 PO (09:41)
== END 2017-10-04 12:09 | disposition home or self-care (01) ==
LOC: TCM 15:50
PROVIDERS: ATTEND Nurse Practitioner
DX: Z02.9 Encounter for administrative examinations, unspecified (principal)

== ENCOUNTER 2017-07-15 08:34 | Inpatient (IN) | payer MEDICARE, OTHER ==
[~2017-07-15] VITALS: Ht 180.3 cm; Wt 112.6 kg
--- NOTE | 2017-07-15 08:40 | ER Report ---
History and Physical Time Seen By MD: 08:39 HPI/ROS CHIEF COMPLAINT: Shortness of breath HISTORY OF PRESENT ILLNESS: Patient has a known history of CHF and COPD treated with a nebulizer. Today he presented to the ED with shortness of breath and complaints of orthopnea and PND. This began on Monday evening, July 14, and the only alleviating factor stated was maintaining a seated position. The patient reports increased peripheral edema even with 40 of Lasix twice daily. Has an appointment with Dr. Stanton on July 17, but presented today due to increasing weakness and dyspnea. The electronic medical record was reviewed and the patient did have a home health visit see the incisional care, below for specifics. Essentially patient seems like he is not wearing his oxygen and may be drinking more fluids than recommended. Transitional Care Comment: 07/06 He filled his prescriptions, and is taking meds as ordered. Managing gomez well, gomez care. I will do a home visit on Monday at 1100. 07/10 Home visit, he insisted on not wearing O2, had his gomez tied by the tubing around his leg, and is making sure to drink at least 2L of fluid a day. I tried to clearify these with him, but did not make much progress. I explained the 2L restriction for CHF, but he states he should be drinking a lot to keep the gomez flushed out. He is more edematus than while in the hospital. Copies to: PATRICIA STANTON MD; NARENDRA ISAAC MD REVIEW OF SYSTEMS: Constitutional: No fever, no chills. Eyes: No discharge. ENT: No sore throat. Cardiovascular: No chest pain, no palpitations. Respiratory: Orthopnea, paroxysmal nocturnal dyspnea, subjective shortness of breath Gastrointestinal: No abdominal pain, no vomiting. Genitourinary: No hematuria. Musculoskeletal: Bilateral leg swelling Skin: No rashes. Neurological: No headache. Allergies: Coded Allergies: Penicillins (Verified Allergy, Severe, 07/02/17) tramadol (Verified Allergy, Severe, seizure, 07/02/17) pt reported ibuprofen (Verified Allergy, Unknown, 07/02/17) STOMACH BLEEDING Home Meds Active Scripts Tobramycin (TOBRAMYCIN) 5 Ml Drops, 0 ML OD Q4H for 5 Days, #1 BOT 0 Refills Prov:MATEO LOVELL MD 07/05/17 Potassium Chloride (POTASSIUM CHLORIDE) 10 Meq Tab.er.prt, 10 MEQ PO BID, #60 TAB 1 Refill Prov:MATEO LOVELL MD 07/05/17 Furosemide (LASIX) 40 Mg Tablet, 1 TAB PO BID, #60 TAB Prov:ELAINEPATRICIA DO 04/27/17 Reported Medications Oxygen (OXYGEN) Inha, 3 L INH QDAY, L 07/02/17 Clopidogrel Bisulfate (CLOPIDOGREL) 75 Mg Tablet, 1 TAB PO QDAY, TAB 04/26/17 Atorvastatin Calcium (LIPITOR) 40 Mg Tablet, 1 TAB PO QDAY, TAB 04/26/17 Pregabalin (LYRICA) 150 Mg Capsule, 150 MG PO TID, CAPSULE 03/24/17 Carvedilol (CARVEDILOL) 6.25 Mg Tab, 3.125 MG PO BID, TAB 03/17/17 Aspirin (ASPIR 81) 81 Mg Tablet.dr, 81 MG PO QDAY, TAB 03/17/17 Apixaban (ELIQUIS) 5 Mg Tablet, 5 MG PO BID 03/17/17 Tiotropium [place] (SPIRIVA) 18 Mcg/Cap Inh, 18 MCG INH QDAY, INH 12/30/16 Levetiracetam (LEVETIRACETAM) 250 Mg Tablet, 500 MG PO BID, TAB 12/30/16 Tamsulosin Hcl (FLOMAX) 0.4 Mg Cap.er.24h, 0.4 MG PO QDAY, CAP 12/30/16 Levothyroxine Sodium (LEVOTHYROXINE SODIUM) 100 Mcg Tablet, 100 MCG PO QDAY, TAB 12/30/16 Past Medical/Surgical History Past medical history for COPD paroxysmal atrial fibrillation, peripheral vascular disease peripheral neuropathy, oxygen dependent, acute congestive heart failure. Hx Smoking: Yes Smoking Status: Former Smoker Exposure to Second Hand Smoke?: No Hx Substance Use Disorder: No Hx Alcohol Use: Yes Constitutional Vital Sign - Last 24 Hours 07/15/17 07/15/17 07/15/17 07/15/17 08:43 09:00 09:15 09:59 Temp 97.5 Pulse 22 95 Resp 18 23 B/P (MAP) 137/108 136/102 (113) 118/104 (109) Pulse Ox 96 96 O2 Delivery Nasal Cannula O2 Flow Rate 4.0 07/15/17 07/15/17 10:00 10:30 Pulse 94 Resp 22 B/P (MAP) 111/96 (101) Pulse Ox 99 99 Intake and Output 07/15/17 07/15/17 07/16/17 15:00 23:00 07:00 Output Total 1410 ml Balance -1410 ml Physical Exam General/Constitutional: Patient is awake, alert, nontoxic wearing his usual 3 L nasal cannula and is at baseline sat of 91-93% Head: Normocephalic and atraumatic. Eyes: Conjunctival clear, Pupils are equal and reactive to light. Extraocular muscles are intact and symmetrical. Sclera are clear and anicteric. Ears:External canals are clear. Tympanic membranes are clear with normal landmarks and light reflex. Nares: No rhinorrhea or bleeding. Turbinates are pink and moist. Oropharyngeal: Mucous membranes are moist. There is no pharyngeal erythema or exudate. There are no palatal petechiae. Uvula is midline and symmetrical. Neck: Supple, no adenopathy. Cardiovascular: Heart is regular rate and rhythm without audible murmurs, rubs or gallops. Pulmonary: Lungs are clear to auscultation bilaterally. There are no wheezes, rales, or rhonchi. Chest rise is symmetrical Abdomen: Soft, nontender, no guarding or peritoneal signs. Extremities: No gross deformities, patient is +2 pitting edema bilateral lower extremities. Neuro: Alert and oriented X3, Skin: No rashes, skin is warm dry and well perfused. Medical Decision Making Data Points Result Diagram: 07/15/17 0910 07/15/17 0910 Laboratory Hematology Test 07/15/17 09:10 07/15/17 12:10 Red Blood Count 3.77 M/uL (4.00-5.60) Mean Corpuscular Volume 98.2 fL (80.0-96.0) Mean Corpuscular Hemoglobin 33.7 pg (26.0-33.0) Mean Corpuscular Hemoglobin Concent 34.3 g/dL (32.0-36.0) Red Cell Distribution Width 16.1 % (11.5-14.5) Mean Platelet Volume 7.9 fL (7.2-11.1) Neutrophils (%) (Auto) 67.0 % (39.4-72.5) Lymphocytes (%) (Auto) 20.9 % (17.6-49.6) Monocytes (%) (Auto) 8.8 % (4.1-12.4) Eosinophils (%) (Auto) 1.6 % (0.4-6.7) Basophils (%) (Auto) 1.7 % (0.3-1.4) Nucleated RBC Relative Count (auto) 0.1 /100WBC Neutrophils # (Auto) 2.8 K/uL (2.0-7.4) Lymphocytes # (Auto) 0.9 K/uL (1.3-3.6) Monocytes # (Auto) 0.4 K/uL (0.3-1.0) Eosinophils # (Auto) 0.1 K/uL (0.0-0.5) Basophils # (Auto) 0.1 K/uL (0.0-0.1) Nucleated RBC Absolute Count (auto) 0.01 K/uL Peripheral Blood Smear Yes Y/N Prothrombin Time 17.0 seconds (12.0-14.4) Prothromb Time International Ratio 1.37 Activated Partial Thromboplast Time 37 seconds (23-35) Sodium Level 143 mmol/L (137-145) Potassium Level 3.7 mmol/L (3.5-5.0) Chloride Level 103 mmol/L (98-107) Carbon Dioxide Level 31 mmol/L (22-30) Blood Urea Nitrogen 22 mg/dl (9-21) Creatinine 0.80 mg/dl (0.66-1.25) Glomerular Filtration Rate Calc > 60.0 Random Glucose 100 mg/dl (75-110) Calcium Level 8.9 mg/dl (8.4-10.2) Total Bilirubin 2.7 mg/dl (0.2-1.3) Aspartate Amino Transf (AST/SGOT) 22 U/L (0-35) Alanine Aminotransferase (ALT/SGPT) 29 U/L (0-56) Alkaline Phosphatase 77 U/L (0-126) B-Type Natriuretic Peptide 1080 pg/ml (0-100) Total Protein 6.6 gm/dl (6.3-8.2) Albumin 3.6 g/dl (3.5-5.0) Troponin I 0.015 ng/ml Chemistry Test 07/15/17 09:10 07/15/17 12:10 White Blood Count 4.1 k/uL (4.5-11.0) Red Blood Count 3.77 M/uL (4.00-5.60) Hemoglobin 12.7 g/dL (14.0-18.0) Hematocrit 37.0 % (42.0-52.0) Mean Corpuscular Volume 98.2 fL (80.0-96.0) Mean Corpuscular Hemoglobin 33.7 pg (26.0-33.0) Mean Corpuscular Hemoglobin Concent 34.3 g/dL (32.0-36.0) Red Cell Distribution Width 16.1 % (11.5-14.5) Platelet Count 277 K/uL (150-450) Mean Platelet Volume 7.9 fL (7.2-11.1) Neutrophils (%) (Auto) 67.0 % (39.4-72.5) Lymphocytes (%) (Auto) 20.9 % (17.6-49.6) Monocytes (%) (Auto) 8.8 % (4.1-12.4) Eosinophils (%) (Auto) 1.6 % (0.4-6.7) Basophils (%) (Auto) 1.7 % (0.3-1.4) Nucleated RBC Relative Count (auto) 0.1 /100WBC Neutrophils # (Auto) 2.8 K/uL (2.0-7.4) Lymphocytes # (Auto) 0.9 K/uL (1.3-3.6) Monocytes # (Auto) 0.4 K/uL (0.3-1.0) Eosinophils # (Auto) 0.1 K/uL (0.0-0.5) Basophils # (Auto) 0.1 K/uL (0.0-0.1) Nucleated RBC Absolute Count (auto) 0.01 K/uL Peripheral Blood Smear Yes Y/N Prothrombin Time 17.0 seconds (12.0-14.4) Prothromb Time International Ratio 1.37 Activated Partial Thromboplast Time 37 seconds (23-35) Glomerular Filtration Rate Calc > 60.0 Calcium Level 8.9 mg/dl (8.4-10.2) Total Bilirubin 2.7 mg/dl (0.2-1.3) Aspartate Amino Transf (AST/SGOT) 22 U/L (0-35) Alanine Aminotransferase (ALT/SGPT) 29 U/L (0-56) Alkaline Phosphatase 77 U/L (0-126) B-Type Natriuretic Peptide 1080 pg/ml (0-100) Total Protein 6.6 gm/dl (6.3-8.2) Albumin 3.6 g/dl (3.5-5.0) Troponin I 0.015 ng/ml Coagulation Test 07/15/17 09:10 Prothrombin Time 17.0 seconds Prothromb Time International Ratio 1.37 Activated Partial Thromboplast Time 37 seconds EKG/Imaging EKG Interpretation EKG shows sinus rhythm with first-degree AV block and occasional PVCs. Monitor Interpretation: Normal Sinus Rhythm Imaging [place] [facility] [place] NAME: Obey Asencio : 1940 MR: [id number] V: [id number] EXAM DATE: ORDERING PHYSICIAN: ENRIQUE WEST TECHNOLOGIST: [place] [facility] [place] Obey Asencio : 1940 Visit/Account:[id number] Date of Sevice: 07/15/2017 Exam type: CHEST PA AND LAT History: Respiratory distress Comparison: 07/03/2017. Findings: Lungs are hyperinflated. Heart is enlarged measures point vascular prominence and cephalization suggestive of mild fluid overload slightly improved when compared to prior examination. Trace pleural effusions are noted. No pneumothorax. Heart is enlarged. The osseous structures demonstrate postoperative changes from lower cervical fusion. Degenerative changes noted in the shoulders. IMPRESSION: 1. Radiographic features suggest mild fluid overload overall slightly improved when compared to exam from 07/03/2017. Report Dictated By: Balaji Powers MD at 07/15/2017 10:01 AM Report E-Signed By: Balaji Powers MD at 07/15/2017 10:05 AM WSN:[id number] ED Course/Re-evaluation ED Course 07/15/2017 1:09:21 pm patient with shortness of breath likely related to fluid overload. Patient's chest x-ray looks unchanged from the 1st brain atretic peptide is slightly elevated. Initial and delta troponin at 3 hours are both in the negative range. Patient however is quite symptomatic while walking at 3 L nasal cannula dropping into the 80% range. He did receive 40 mg of IV Lasix followed by approximate 1500 mL of urine output. Ice complaining of some leg cramps at this point so we will dose with by mouth potassium and given a small dose of fentanyl. We will ambulate the patient once again. Patient fails ambulation testicle admitted to the hospital. 07/15/2017 1:36:01 pm patient ambulated a 2nd time with improvement in his heaviness in his legs, over patient still dyspneic with O2 sats dropping at 80% with history liters nasal cannula. Case discussed with the hospitalist who is horizontal resaw operator who will admit the patient at this time Decision to Disposition Date: Jul 15, 2017 Decision to Disposition Time: 13:52 Depart Departure Latest Vital Signs Vital Signs Date Time Temp Pulse Resp B/P (MAP) Pulse Ox O2 Delivery O2 Flow Rate FiO2 07/15/17 10:30 111/96 (101) 99 07/15/17 10:00 94 22 07/15/17 09:15 4.0 07/15/17 08:43 97.5 Nasal Cannula Impression: Primary Impression: Hypoxia Additional Impression: Congestive cardiac failure Condition: Improved Disposition: Admitted from ER (to Dr Kirkland) Problem Qualifiers Additional Impression: Congestive cardiac failure Congestive heart failure type: systolic Congestive heart failure chronicity: acute Qualified Codes: I50.21 - Acute systolic (congestive) heart failure ENRIQUE WEST MD Jul 15, 2017 08:40
[2017-07-15 09:19] LABS: PLATELET COUNT, AUTOMATED 277 K/uL (150-450)
[2017-07-15 09:27] LABS: INR 1.37
[2017-07-15] MEDS ORDERED: NITROGLYCERIN OINT 1 GM PKT TP ONE (09:50)
[2017-07-15] MEDS ORDERED: FUROSEMIDE 40 MG/4 ML VIAL IVP ONE ×2 (09:50→18:55)
--- NOTE | 2017-07-15 09:54 | EKG ---
FACILITY: [facility] [place] PATIENT NAME: TONY NGO : [id number] MR: [id number] V: [id number] EXAM DATE: ORDERING PHYSICIAN: ENRIQUE WEST TECHNOLOGIST: Pasquale Mohamud Reason : Blood Pressure : / mmHG Vent. Rate : 097 BPM Atrial Rate : 097 BPM P-R Int : 246 ms QRS Dur : 122 ms QT Int : 386 ms P-R-T Axes : 063 -42 094 degrees QTc Int : 490 ms Sinus rhythm with 1st degree AV block with premature atrial complexes Possible Left atrial enlargement Left bundle branch block Inferior infarct (cited on or before 30-DEC-2016) Abnormal ECG When compared with ECG of 03-JUL-2017 10:47, Now in a sinus rhythm Confirmed by JOSIE BELTRAN ([id number]) on 07/15/2017 10:23:55 AM Referred By: Confirmed By:JOSIE BELTRAN
--- NOTE | 2017-07-15 10:11 | RADIOLOGY IMAGING REPORT ---
FACILITY: [facility] [place] PATIENT NAME: Obey Asencio : 1940 MR: [id number] V: [id number] EXAM DATE: ORDERING PHYSICIAN: ENRIQUE WEST TECHNOLOGIST: Location: [facility] Patient: Obey Asencio : 1940 Visit/Account:[id number] Date of Sevice: 07/15/2017 Exam type: CHEST PA AND LAT History: Respiratory distress Comparison: 07/03/2017. Findings: Lungs are hyperinflated. Heart is enlarged measures point vascular prominence and cephalization sugge stive of mild fluid overload slightly improved when compared to prior examination. Trace pleural effu sions are noted. No pneumothorax. Heart is enlarged. The osseous structures demonstrate postoperative changes from lower cervical fusion. Degenerative tahmina nges noted in the shoulders. IMPRESSION: 1. Radiographic features suggest mild fluid overload overall slightly improved when compared to exam from 07/03/2017. Report Dictated By: Balaji Powers MD at 07/15/2017 10:01 AM Report E-Signed By: Balaji Powers MD at 07/15/2017 10:05 AM WSN:[id number]
[2017-07-15] MEDS ORDERED: POTASSIUM CHL 20 MEQ TABCR PO ONE (12:45)
[2017-07-15] MEDS ORDERED: fentaNYL CITR 100 MCG/2 ML AMP IVP ONE (12:45)
--- NOTE | 2017-07-15 13:01 | EKG ---
FACILITY: [facility] PATIENT NAME: TONY NGO : [id number] MR: [id number] V: [id number] EXAM DATE: ORDERING PHYSICIAN: ENRIQUE WEST TECHNOLOGIST: Pasquale Mohamud Reason : Blood Pressure : / mmHG Vent. Rate : 093 BPM Atrial Rate : 093 BPM P-R Int : 248 ms QRS Dur : 118 ms QT Int : 390 ms P-R-T Axes : 061 -43 096 degrees QTc Int : 484 ms Sinus rhythm with 1st degree AV block with occasional premature ventricular complexes and premature a trial complexes Possible Left atrial enlargement Left bundle branch block Inferior infarct (cited on or before 30-DEC-2016) When compared with ECG of 15-JUL-2017 09:23, premature ventricular complexes are now present Confirmed by JOSIE BELTRAN ([id number]) on 07/15/2017 6:32:47 PM Referred By: Confirmed By:JOSIE BELTRAN
[2017-07-15 14:19] VITALS: BP 121/96
[2017-07-15 17:25] VITALS: BP 127/101
--- NOTE | 2017-07-15 17:26 | History & Physical ---
History of Present Illness History of Present Illness The patient is a 77 year old male with PMH significant for COPD, CHF and CAD who states that for the past few days, he has been more short of breath. He saw his PCP a couple of days ago and was doing fairly well. He thinks that Coreg was stopped and he doesn't know why. For the last 2 nights, he hasn't gotten much sleep because of orthopnea. He also is getting more winded with activity, today. He denies worsening of LE edema. He admits to not checking his weights. No cp/f/c. No reported n/v/diarrhea. In the ER, he received Lasix, nitropaste and Fentanyl. He is feeling close to his baseline currently. History Problems: (1) Hypertension Status: Chronic (2) Chronic systolic heart failure Status: Chronic (3) COPD (chronic obstructive pulmonary disease) Status: Chronic (4) Essential hypertension Status: Chronic (5) CAD (coronary artery disease) Status: Chronic (6) Hypercholesterolemia Status: Chronic (7) Hypothyroid Status: Chronic (8) Intermittent atrial fibrillation Status: Chronic (9) BPH (benign prostatic hyperplasia) Status: Chronic (10) History of appendectomy Status: Chronic (11) History of coronary artery stent placement Status: Chronic Home Meds Active Scripts Potassium Chloride (POTASSIUM CHLORIDE) 10 Meq Tab.er.prt, 10 MEQ PO BID, #60 TAB 1 Refill Prov:MATEO LOVELL MD 07/05/17 Furosemide (LASIX) 40 Mg Tablet, 1 TAB PO BID, #60 TAB Prov:PATRICIA HENRY DO 04/27/17 Reported Medications Oxygen (OXYGEN) Inha, 3 L INH QDAY, L 07/02/17 Clopidogrel Bisulfate (CLOPIDOGREL) 75 Mg Tablet, 1 TAB PO QDAY, TAB 04/26/17 Atorvastatin Calcium (LIPITOR) 40 Mg Tablet, 1 TAB PO QDAY, TAB 04/26/17 Pregabalin (LYRICA) 150 Mg Capsule, 150 MG PO TID, CAPSULE 03/24/17 Carvedilol (CARVEDILOL) 6.25 Mg Tab, 3.125 MG PO BID, TAB 03/17/17 Aspirin (ASPIR 81) 81 Mg Tablet.dr, 81 MG PO QDAY, TAB 03/17/17 Apixaban (ELIQUIS) 5 Mg Tablet, 5 MG PO BID 03/17/17 Tiotropium [place] (SPIRIVA) 18 Mcg/Cap Inh, 18 MCG INH QDAY, INH 12/30/16 Levetiracetam (LEVETIRACETAM) 250 Mg Tablet, 500 MG PO BID, TAB 12/30/16 Tamsulosin Hcl (FLOMAX) 0.4 Mg Cap.er.24h, 0.4 MG PO QDAY, CAP 12/30/16 Levothyroxine Sodium (LEVOTHYROXINE SODIUM) 100 Mcg Tablet, 100 MCG PO QDAY, TAB 12/30/16 Discontinued Scripts Tobramycin (TOBRAMYCIN) 5 Ml Drops, 0 ML OD Q4H for 5 Days, #1 BOT 0 Refills Prov:MATEO LOVELL MD 07/05/17 Allergies: Coded Allergies: Penicillins (Verified Allergy, Severe, 07/02/17) tramadol (Verified Allergy, Severe, seizure, 07/02/17) pt reported ibuprofen (Verified Allergy, Unknown, 07/02/17) STOMACH BLEEDING Patient History: FH: cancer MOTHER, BROTHER OR SISTER, FH: myocardial infarction FATHER, FHx: multiple sclerosis BROTHER OR SISTER Hx Smoking: Yes Smoking Status: Former Smoker Exposure to Second Hand Smoke?: No When Quit Tobacco?: january 2017 Caffeine Intake: Coffee, Tea Caffeine/Cups Per Day: 4 cups/day Hx Alcohol Use: Yes Hx Substance Use Disorder: No Review of Systems All Systems Reviewed/Normal: Yes, Except as Noted Exam Vital Signs Vital Signs Date Time Temp Pulse Resp B/P (MAP) Pulse Ox O2 Delivery O2 Flow Rate FiO2 07/15/17 14:19 97.6 95 20 121/96 (104) 94 Nasal Cannula 4.0 General Appearance: Alert, Awake, Other (mild work of breathing) Neuro: No Gross deficits Eyes: Other (right eye with a reactive pupil. 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 laterally) Cardiovascular: Regular Rate and Rhythm (distant), No JVD Respiratory: Clear to Auscultation GI: Abd Soft and Non-Tender (obese) Extremities: Edema (Trace to 1+ pitting in shins) Integumentary: No Jaundice, No Cyanosis Medical Decision Making Data Points Result Diagram: 07/15/17 0910 07/15/17 0910 Item Value Date Time Troponin I 0.015 ng/ml 07/15/17 1210 B-Type Natriuretic Peptide 1080 pg/ml H 07/15/17 0910 Troponin I 0.018 ng/ml 07/15/17 0910 Alkaline Phosphatase 77 U/L 07/15/17 0910 Alanine Aminotransferase (ALT/SGPT) 29 U/L 07/15/17 0910 Aspartate Amino Transf (AST/SGOT) 22 U/L 07/15/17 0910 Total Bilirubin 2.7 mg/dl H 07/15/17 0910 Total Bilirubin 4.0 mg/dl H 07/04/17 0558 Blood Urea Nitrogen 22 mg/dl H 07/15/17 0910 Creatinine 0.80 mg/dl 07/15/17 0910 Blood Urea Nitrogen 18 mg/dl 07/05/17 0626 Creatinine 0.80 mg/dl 07/05/17 0626 B-Type Natriuretic Peptide 904 pg/ml H 07/03/17 1104 B-Type Natriuretic Peptide 863 pg/ml H 07/02/17 1610 Thyroid Stimulating Hormone (TSH) 1.52 uIU/ml 07/04/17 0558 Neutrophils (%) (Auto) 67.0 % 07/15/17 0910 Hemoglobin 12.7 g/dL L 07/15/17 0910 Hemoglobin 13.1 g/dL L 07/05/17 0626 White Blood Count 4.7 k/uL 07/05/17 0626 White Blood Count 4.1 k/uL L 07/15/17 0910 Neutrophils (%) (Auto) 58.8 % 07/05/17 0626 Platelet Count 338 K/uL 07/05/17 0626 Platelet Count 277 K/uL 07/15/17 0910 EKG / Imaging EKG Interpretation Vent. Rate : 097 BPM Atrial Rate : 097 BPM P-R Int : 246 ms QRS Dur : 122 ms QT Int : 386 ms P-R-T Axes : 063 -42 094 degrees QTc Int : 490 ms Sinus rhythm with 1st degree AV block with premature atrial complexes Possible Left atrial enlargement Left bundle branch block Inferior infarct (cited on or before 30-DEC-2016) Abnormal ECG When compared with ECG of 03-JUL-2017 10:47, Now in a sinus rhythm Confirmed by JOSIE BELTRAN ([id number]) on 07/15/2017 10:23:55 AM Imaging CXR - 1. Radiographic features suggest mild fluid overload overall slightly improved when compared to exam from 07/03/2017. Assessment and Plan Problems: (1) CHF exacerbation Status: Acute Assessment & Plan: He presented with 2 nights of worsening orthopnea and CONTI. Baseline EF was 48% in October of 2016. He is feeling close to baseline after getting IV Lasix in the ER, but was still having desaturations with ambulation. The patient reports that his Coreg was stopped by his PCP a couple of days ago. Will remove nitro past, put him on scheduled IV Lasix, restart Coreg, check an echo, place on heart failure diet and check daily weights. (2) COPD (chronic obstructive pulmonary disease) Status: Chronic Assessment & Plan: Lungs are clear. Continue Spiriva. (3) CAD (coronary artery disease) Status: Chronic Assessment & Plan: Continue Atorvastatin, ASA and Plavix (4) Intermittent atrial fibrillation Status: Chronic Assessment & Plan: He is in a NSR currently. Continue Eliquis. Restarting Coreg. Will watch on telemetry. (5) BPH (benign prostatic hyperplasia) Status: Chronic Assessment & Plan: Continue Tamsulosin. (6) Seizure Status: Chronic Assessment & Plan: Continue Keppra. Copies to: PATRICIA STANTON MD Venous Thromboembolism Antithrombotics Is Pt On Any Antithrombotics?: Yes Heart Failure Ejection Fraction %: 46 NYHA Class: II Is Patient on CHUCKY Inhibitor?: Yes Is Patient on Beta María?: Yes Exam Sepsis Risk: No Definite Risk Problem Qualifiers (1) CHF exacerbation: Congestive heart failure type: systolic Qualified Codes: I50.23 - Acute on chronic systolic (congestive) heart failure JOSIE BELTRAN MD Jul 15, 2017 17:26
[2017-07-15 18:41] VITALS: BP 133/104
[2017-07-15 20:04] VITALS: BP 131/96
[2017-07-15] MEDS: levETIRAcetam 500 MG TAB PO SCH (20:28)
[2017-07-15] MEDS: APIXABAN 2.5 MG TABLET PO SCH (20:30)
[2017-07-15] MEDS: CARVEDILOL 3.125 MG TAB PO SCH (20:30)
[2017-07-15] MEDS: PREGABALIN 50 MG CAP PO SCH (20:30)
[2017-07-15] MEDS: ATORVASTATIN 40 MG TAB PO SCH (20:30)
[2017-07-15 23:50] VITALS: BP 139/97
[2017-07-16 03:13] VITALS: BP 135/98
[2017-07-16] MEDS: TIOTROPIUM BROM INH 18 MCG/CAP INH SCH (05:49)
[2017-07-16] MEDS: LEVOTHYROXINE SOD 0.1 MG TAB PO SCH (06:13)
[2017-07-16 06:20] LABS: PLATELET COUNT, AUTOMATED 314 K/uL (150-450)
[2017-07-16 08:02] VITALS: BP 133/102
[2017-07-16] MEDS: ASPIRIN 81 MG ENTERIC COATED PO SCH (08:27)
[2017-07-16] MEDS: FUROSEMIDE 40 MG/4 ML VIAL IVP SCH ×2 (08:27→13:48)
[2017-07-16] MEDS: TAMSULOSIN HCL 0.4 MG CAP PO SCH (08:27)
[2017-07-16] MEDS: PREGABALIN 50 MG CAP PO SCH ×3 (08:27→20:45)
[2017-07-16] MEDS: CLOPIDOGREL BISULFATE 75MG TAB PO SCH (08:27)
[2017-07-16] MEDS: CARVEDILOL 3.125 MG TAB PO SCH ×2 (08:27→20:45)
[2017-07-16] MEDS: APIXABAN 2.5 MG TABLET PO SCH ×2 (08:27→20:45)
[2017-07-16] MEDS: levETIRAcetam 500 MG TAB PO SCH ×2 (08:27→20:45)
--- NOTE | 2017-07-16 10:03 | Hospitalist Progress Note ---
Subjective Progress Notes Subjective Still short of breath but getting better. Wondering about CPAP. Has been told be stops breathing at times. Has not had a sleep study. Physical Exam Vital Signs Date Time Temp Pulse Resp B/P (MAP) Pulse Ox O2 Delivery O2 Flow Rate FiO2 07/16/17 09:02 72 07/16/17 08:07 Nasal Cannula 3.0 07/16/17 08:02 97.9 96 20 133/102 (112) Intake and Output 07/17/17 07:00 Intake Total 236 ml Output Total 725 ml Balance -489 ml Intake Oral 236 ml Output Urine Total 725 ml General Appearance: Alert, Awake, No Acute Distress, Afebrile Neuro: No Gross deficits Eyes: Other (L eye blind.) Neck: No Masses Cardiovascular: Regular Rate and Rhythm (With ectopy.) Respiratory: Other (Decreased BS throughout with scattered wheezes.) GI: Soft and Non-Tender, Other (Obese.) Lymph: Cervical Nodes Benign Extremities: Warm, Perfused Integumentary: Generalized Fragile Skin Psych: Appropriate Mood & Affect Result Diagram: 07/16/1745 07/16/17544 Monitor Interpretation: Normal Sinus Rhythm Assessment and Plan Problems: (1) CHF exacerbation Status: Acute Assessment & Plan: He presented with 2 nights of worsening orthopnea and CONTI. Baseline EF was 48% in October of 2016. He is feeling close to baseline after getting IV Lasix in the ER, but was still having desaturations with ambulation. The patient reports that his Coreg was stopped by his PCP a couple of days ago. Will remove nitro past, put him on scheduled IV Lasix, restart Coreg, check an echo, place on heart failure diet and check daily weights. Apparently can not do echo today due to staffing. Will place on potassium as he gets leg cramps with IV Lasix. Takes potassium at home chronically. (2) COPD (chronic obstructive pulmonary disease) Status: Chronic Assessment & Plan: Wheezing today. Continue Spiriva. Will add Xopenex qid. (3) CAD (coronary artery disease) Status: Chronic Assessment & Plan: Continue Atorvastatin, ASA and Plavix (4) Intermittent atrial fibrillation Status: Chronic Assessment & Plan: He is in a NSR currently. Continue Eliquis. Restarting Coreg. Will watch on telemetry. (5) BPH (benign prostatic hyperplasia) Status: Chronic Assessment & Plan: Continue Tamsulosin. (6) Seizure Status: Chronic Assessment & Plan: Continue Keppra. Time Spent on Plan of Care: < 30 min Heart Failure Ejection Fraction %: 46 NYHA Class: II Is Patient on CHUCKY Inhibitor?: Yes Is Patient on Beta María?: Yes Exam Sepsis Risk: No Definite Risk Problem Qualifiers (1) CHF exacerbation: Congestive heart failure type: systolic Qualified Codes: I50.23 - Acute on chronic systolic (congestive) heart failure ZENY LOVELL MD Jul 16, 2017 10:03
[2017-07-16] MEDS: POTASSIUM CHL 10 MEQ TABCR PO SCH ×2 (10:04→17:12)
[2017-07-16 10:27] VITALS: Ht 180.3 cm; Wt 112.6 kg
[2017-07-16 11:28] VITALS: BP 112/85
[2017-07-16 13:48] VITALS: BP 114/84
[2017-07-16] MEDS: LEVALBUTEROL 1.25 MG/3 ML NEB NEB SCH ×3 (14:00→17:38)
[2017-07-16] MEDS: CALCIUM CARBONATE 500 MG CHEW PO PRN ×2 (14:32→21:43)
[2017-07-16] MEDS ORDERED: INFLUENZA VIRUS VAC 0.5 ML SYR IM ONLY ONE (17:00)
[2017-07-16 19:42] VITALS: BP 127/98
[2017-07-16] MEDS: ATORVASTATIN 40 MG TAB PO SCH (20:45)
[2017-07-16 23:01] VITALS: BP 130/98
[2017-07-17 03:45] VITALS: BP 118/98
[2017-07-17] MEDS: TIOTROPIUM BROM INH 18 MCG/CAP INH SCH (05:25)
[2017-07-17] MEDS: LEVALBUTEROL 1.25 MG/3 ML NEB NEB SCH ×4 (05:25→18:00)
[2017-07-17 06:10] LABS: PLATELET COUNT, AUTOMATED 306 K/uL (150-450)
[2017-07-17] MEDS: LEVOTHYROXINE SOD 0.1 MG TAB PO SCH (06:37)
[2017-07-17 07:46] VITALS: BP 120/87
[2017-07-17] MEDS: ASPIRIN 81 MG ENTERIC COATED PO SCH (09:02)
[2017-07-17] MEDS: levETIRAcetam 500 MG TAB PO SCH ×2 (09:02→20:18)
[2017-07-17] MEDS: PREGABALIN 50 MG CAP PO SCH ×3 (09:03→20:17)
[2017-07-17] MEDS: APIXABAN 2.5 MG TABLET PO SCH ×2 (09:04→20:18)
[2017-07-17] MEDS: CLOPIDOGREL BISULFATE 75MG TAB PO SCH (09:04)
[2017-07-17] MEDS: CARVEDILOL 3.125 MG TAB PO SCH ×2 (09:04→20:18)
[2017-07-17] MEDS: FUROSEMIDE 40 MG/4 ML VIAL IVP SCH ×2 (09:05→14:51)
[2017-07-17] MEDS: POTASSIUM CHL 10 MEQ TABCR PO SCH ×2 (09:05→18:13)
[2017-07-17] MEDS: TAMSULOSIN HCL 0.4 MG CAP PO SCH (09:05)
--- NOTE | 2017-07-17 12:14 | Hospitalist Progress Note ---
Subjective Progress Notes Subjective This patient was admitted for acute heart failure. He had no acute events overnight. Patient Complains of: Cardiovascular: No: Chest Pain Respiratory: No: Shortness of Breath Physical Exam Vital Signs Date Time Temp Pulse Resp B/P (MAP) Pulse Ox O2 Delivery O2 Flow Rate FiO2 07/17/17 09:32 98 Nasal Cannula 5.0 07/17/17 09:32 96 07/17/17 09:29 20 07/17/17 08:00 30.0 07/17/17 07:46 120/87 (98) 07/17/17 03:45 98.1 Intake and Output 07/18/17 07:00 Output Total 200 ml Balance -200 ml Output Urine Total 200 ml Cardiovascular: Regular Rate and Rhythm, No JVD Respiratory: Clear to Auscultation Extremities: No Edema Result Diagram: 07/17/17 0552 07/17/17 0552 Monitor Interpretation: Normal Sinus Rhythm Assessment and Plan Problems: (1) Acute systolic heart failure Status: Acute Assessment & Plan: He did present with increased shortness of breath. His BNP was significantly elevated and his chest x-ray was consistent with CHF. He was started on IV Lasix at admission. Today his shortness of breath has improved and his weight is decreased approximately 3Kg since admission. His last echocardiogram (10/2016) showed an ejection fraction of 48%, and a repeat echocardiogram is pending. He is on chronic treatment with carvedilol and Lasix. (2) COPD with exacerbation Status: Chronic Assessment & Plan: He is on chronic treatment with Spiriva, but was having increased wheezing at admission. We did start him on Xopenex nebulizers, which have helped his breathing. (3) CAD (coronary artery disease) Status: Chronic Assessment & Plan: He is on chronic treatment with aspirin, Plavix, and atorvastatin. (4) Intermittent atrial fibrillation Status: Chronic Assessment & Plan: He is currently in sinus rhythm. He is on chronic treatment with Eliquis. (5) BPH (benign prostatic hyperplasia) Status: Chronic Assessment & Plan: He is on chronic treatment with Tamsulosin. (6) Seizure disorder Assessment & Plan: He is on chronic treatment with Keppra. Heart Failure Ejection Fraction %: 46 NYHA Class: II Is Patient on CHUCKY Inhibitor?: Yes Is Patient on Beta María?: Yes Exam Sepsis Risk: Sepsis Risk PATRICIA HENRY DO Jul 17, 2017 12:14
[2017-07-17 14:43] VITALS: BP 102/78
[2017-07-17 18:46] VITALS: BP 113/85
[2017-07-17] MEDS: ATORVASTATIN 40 MG TAB PO SCH (20:18)
[2017-07-17 23:39] VITALS: BP 114/81
[2017-07-18 02:30] VITALS: BP 116/85
[2017-07-18] MEDS: LEVALBUTEROL 1.25 MG/3 ML NEB NEB SCH ×4 (05:33→17:23)
[2017-07-18] MEDS: TIOTROPIUM BROM INH 18 MCG/CAP INH SCH (05:34)
[2017-07-18] MEDS: LEVOTHYROXINE SOD 0.1 MG TAB PO SCH (07:22)
[2017-07-18 07:25] VITALS: BP 113/83
[2017-07-18] MEDS: CLOPIDOGREL BISULFATE 75MG TAB PO SCH (09:33)
[2017-07-18] MEDS: ASPIRIN 81 MG ENTERIC COATED PO SCH (09:33)
[2017-07-18] MEDS: TAMSULOSIN HCL 0.4 MG CAP PO SCH (09:33)
[2017-07-18] MEDS: PREGABALIN 50 MG CAP PO SCH ×3 (09:33→20:27)
[2017-07-18] MEDS: levETIRAcetam 500 MG TAB PO SCH ×2 (09:33→20:27)
[2017-07-18] MEDS: CARVEDILOL 3.125 MG TAB PO SCH ×2 (09:33→20:27)
[2017-07-18] MEDS: APIXABAN 2.5 MG TABLET PO SCH ×2 (09:34→20:27)
[2017-07-18] MEDS: POTASSIUM CHL 10 MEQ TABCR PO SCH ×2 (09:34→18:32)
[2017-07-18] MEDS: FUROSEMIDE 40 MG/4 ML VIAL IVP SCH (09:37)
[2017-07-18] MEDS ORDERED: FUROSEMIDE 40 MG TAB PO ONE (09:45)
[2017-07-18 10:58] VITALS: BP 107/81
--- NOTE | 2017-07-18 12:16 | Medical Nutrition Therapy ---
Nutrition Anthropometrics Height (Inches): 71.00 Height (Calculated Centimeters: [phone] Weight (Pounds): 255 Weight (Calculated Kilograms): 115.921 BMI Calculated: 36.26 Mirza Nutrition Score: Adequate Mirza Nutrition Risk Score: 17 Dietary Referral Nutrition Risk Factors: Nutrition Risk Comment: n/a Physical Findings Physical Appearance: Obese BMI 30-39 Skin Appearance Skin Appearance: Edema Edema Location Modifier: Both Edema Location: Lower Extremity Type of Edema: Degree of Edema: 1+ Gastrointestinal Symptoms GI Symtoms: Tube Present: Bowel Sounds: Recent Bowel Pattern: Stool Characteristics: Nutritional Diagnosis Nutritional Risk Acuity 2: CHF w/Complication Nutritional Risk Acuity 3: Morbid Obesity Nutritional Risk Acuity 4: Good Appetite Past Medical History: COPD, CHF, CAD, pulmonary arterial HTN, essential HTN, BPH, a-fib, hypothyroidism, hypercholesterolemia, seizures Nutritional Acuity: 2-Moderate Nutrition Diagnosis: Decreased Nutrient Needs Nutrition Etiology: Physiological Causes Nutrition Problem/Etiology/Sym: Decreased fluid and Na needs r/t CHF exacerbation AEB 1+ pitting LE edema. Energy Requirement: 2079 (Trenton Paz Adj.) Protein Requirement: 92 (0.8 g/kg) Fluid Requirement: 2000 (CHF recommendation) Diet Type: Diet as Tolerated DYLAN/REG Nutrition Intervention: Change diet Drug: Diuretics Drug/Nutrition Recommendations: Patient Taking K+ Nutrition Monitoring & Eval Nutrition Goals: Eat 75-100% Meal Nutrition Follow-Up: Good Intake RD Patient Assessment Time: [address] Assessment Type: RD Assessment Patient Nutrition Acuity: 2-Moderate Follow Up Date: Jul 20, 2017 Nutritional Comment: 07/16 Pt admitted for CHF exacerbation. Pt is on DYLAN and eating 100%. Pt may benefit from CHF diet. Pt has 1+ pitting edema LE. Anticipate wt loss when edema resolved. ALB WNR, H/H low. Pt on K+ depeting duiretic and is receiving K+ supplment. K+ is WNR. Will cont to monitor and encourage intake. 07/17 Pt continues on DYLAN with intakes averaging 100% of reg portions. Pt has lost 5 lbs in 2 days, this is expected due to edema resolving and lasix use. Pt continues on lasix and KCl, K+ WNL. Other notable labs include low H/H and BUN 29. Will continue to monitor daily wt, labs, intakes, etc. CLAUDIA VAZQUEZ Jul 17, 2017 09:30
[2017-07-18] MEDS ORDERED: FURO80TA70 PO (13:07)
--- NOTE | 2017-07-18 13:30 | Hospitalist Depart ---
Discharge Summary Reason for Hosp/Final Diag: (1) Acute systolic heart failure Status: Acute Hospital Course & Plan: He presented with 2 nights of worsening orthopnea and CONTI. His BNP was significantly elevated. Baseline EF was 48% in October of 2016. Echo this admission showed an EF of 29% with diffuse hypokinesis. He was started on IV Lasix at admission and his weight is decreased approximately 3Kg. Overall, he is feeling better and would like to go home. He reports that his Coreg was stopped by his PCP last week, but it has been restarted and we recommend he continue it. Also, his oral Lasix will be increased to 80mg twice a day. He is to get a BMP in about a week. He sees his Deputy Program Manager at the end of the week, so will get follow up on the newly decreased EF from October. (2) COPD with exacerbation Status: Chronic Hospital Course & Plan: He is on chronic treatment with Spiriva, but was having increased wheezing at admission. We did start him on Xopenex nebulizers , which have helped his breathing. (3) CAD (coronary artery disease) Status: Chronic Hospital Course & Plan: He is on chronic treatment with aspirin, Plavix, and atorvastatin. (4) Intermittent atrial fibrillation Status: Chronic Hospital Course & Plan: He is currently in sinus rhythm. He is on chronic treatment with Eliquis and Coreg. (5) BPH (benign prostatic hyperplasia) Status: Chronic Hospital Course & Plan: He is on chronic treatment with Tamsulosin. (6) Seizure disorder Hospital Course & Plan: He is on chronic treatment with Keppra. Departure Weight (Pounds): 255 Weight (Ounces): 9.0 Result Diagram: 07/17/17 0552 07/17/17 05 Item Value Date Time B-Type Natriuretic Peptide 1080 pg/ml H 07/15/17 0910 Troponin I 0.018 ng/ml 07/15/17 09 Blood Urea Nitrogen 22 mg/dl H 07/15/17 09 Creatinine 0.80 mg/dl 07/15/17 09 Calcium Level 8.9 mg/dl 07/15/17 09 Total Bilirubin 2.7 mg/dl H 07/15/17 09 Aspartate Amino Transf (AST/SGOT) 22 U/L 07/15/17 09 Alanine Aminotransferase (ALT/SGPT) 29 U/L 07/15/17 0910 Alkaline Phosphatase 77 U/L 07/15/17 0910 Troponin I 0.023 ng/ml 07/16/17 2140 B-Type Natriuretic Peptide 1610 pg/ml H 07/16/17 0545 Troponin I 0.015 ng/ml 07/15/17 1210 Calcium Level 9.1 mg/dl 07/16/17 0545 Total Bilirubin 3.4 mg/dl H 07/16/17 0545 Aspartate Amino Transf (AST/SGOT) 21 U/L 07/16/17 0545 Alanine Aminotransferase (ALT/SGPT) 28 U/L 07/16/17 0545 Blood Urea Nitrogen 29 mg/dl H 07/17/17 0552 Creatinine 0.70 mg/dl 07/17/17 0552 Blood Urea Nitrogen 21 mg/dl 07/16/17 0545 Creatinine 0.70 mg/dl 07/16/17 0545 Potassium Level 4.0 mmol/L 07/17/17 0552 Potassium Level 3.9 mmol/L 07/16/17 0545 Sodium Level 140 mmol/L 07/16/17 0545 Sodium Level 139 mmol/L 07/17/17 0552 Sodium Level 143 mmol/L 07/15/17 0910 Potassium Level 3.7 mmol/L 07/15/17 0910 Prothromb Time International Ratio 1.37 07/15/17 0910 Activated Partial Thromboplast Time 37 seconds H 07/15/17 0910 White Blood Count 4.1 k/uL L 07/15/17 0910 White Blood Count 3.9 k/uL L 07/16/17 0545 White Blood Count 4.1 k/uL L 07/17/17 0552 Hemoglobin 13.3 g/dL L 07/17/17 0552 Hemoglobin 13.0 g/dL L 07/16/17 0545 Hemoglobin 12.7 g/dL L 07/15/17 0910 Platelet Count 277 K/uL 07/15/17 0910 Platelet Count 314 K/uL 07/16/17 0545 Platelet Count 306 K/uL 07/17/17 0552 Neutrophils (%) (Auto) 67.0 % 07/15/17 0910 Neutrophils (%) (Auto) 62.2 % 07/16/17 0545 Neutrophils % (Manual) 45 % 07/17/17 0552 Band Neutrophils % 6 % 07/17/17 0552 Monocytes % (Manual) 4 % L 07/17/17 0552 Atypical Lymphocytes % 15 % 07/17/17 0552 Eosinophils % (Manual) 3 % 07/17/17 0552 Basophils % (Manual) 0 % L 07/17/17 0552 Imaging 07/17/17 Echo - Final epic director is pending 07/15/17 CXR - 1. Radiographic features suggest mild fluid overload overall slightly improved when compared to exam from 07/03/2017. EKG Vent. Rate : 093 BPM Atrial Rate : 093 BPM P-R Int : 248 ms QRS Dur : 118 ms QT Int : 390 ms P-R-T Axes : 061 -43 096 degrees QTc Int : 484 ms Sinus rhythm with 1st degree AV block with occasional premature ventricular complexes and premature atrial complexes Possible Left atrial enlargement Left bundle branch block Inferior infarct (cited on or before 30-DEC-2016) When compared with ECG of 15-JUL-2017 09:23, premature ventricular complexes are now present Confirmed by JOSIE BELTRAN ([id number]) on 07/15/2017 6:32:47 PM Vent. Rate : 097 BPM Atrial Rate : 097 BPM P-R Int : 246 ms QRS Dur : 122 ms QT Int : 386 ms P-R-T Axes : 063 -42 094 degrees QTc Int : 490 ms Sinus rhythm with 1st degree AV block with premature atrial complexes Possible Left atrial enlargement Left bundle branch block Inferior infarct (cited on or before 30-DEC-2016) Abnormal ECG When compared with ECG of 03-JUL-2017 10:47, Now in a sinus rhythm Confirmed by JOSIE BELTRAN ([id number]) on 07/15/2017 10:23:55 AM Condition: Improved Discharge: Home Discharge Instructions Home Meds Active Scripts Furosemide (FUROSEMIDE) 80 Mg Tablet, 80 MG PO BIDD, #30 Prov:JOSIE BELTRAN MD 07/18/17 Potassium Chloride (POTASSIUM CHLORIDE) 10 Meq Tab.er.prt, 10 MEQ PO BID, #60 TAB 1 Refill Prov:MATEO LOVELL MD 07/05/17 Reported Medications Oxygen (OXYGEN) Inha, 3 L INH QDAY, L 07/02/17 Clopidogrel Bisulfate (CLOPIDOGREL) 75 Mg Tablet, 1 TAB PO QDAY, TAB 04/26/17 Atorvastatin Calcium (LIPITOR) 40 Mg Tablet, 1 TAB PO QDAY, TAB 04/26/17 Pregabalin (LYRICA) 150 Mg Capsule, 150 MG PO TID, CAPSULE 03/24/17 Carvedilol (CARVEDILOL) 6.25 Mg Tab, 3.125 MG PO BID, TAB 03/17/17 Aspirin (ASPIR 81) 81 Mg Tablet.dr, 81 MG PO QDAY, TAB 03/17/17 Apixaban (ELIQUIS) 5 Mg Tablet, 5 MG PO BID 03/17/17 Tiotropium [place] (SPIRIVA) 18 Mcg/Cap Inh, 18 MCG INH QDAY, INH 12/30/16 Levetiracetam (LEVETIRACETAM) 250 Mg Tablet, 500 MG PO BID, TAB 12/30/16 Tamsulosin Hcl (FLOMAX) 0.4 Mg Cap.er.24h, 0.4 MG PO QDAY, CAP 12/30/16 Levothyroxine Sodium (LEVOTHYROXINE SODIUM) 100 Mcg Tablet, 100 MCG PO QDAY, TAB 12/30/16 Discontinued Scripts Furosemide (LASIX) 40 Mg Tablet, 1 TAB PO BID, #60 TAB Prov:PATRCIIA HENRY DO 04/27/17 Tobramycin (TOBRAMYCIN) 5 Ml Drops, 0 ML OD Q4H for 5 Days, #1 BOT 0 Refills Prov:MATEO LOVELL MD 07/05/17 Diet: Fluid Restricted, No Added Salt (EDWARD) Activity: As Tolerated Special Instructions: Weigh yourself daily and call your PCP for an increase in weight of 5 pounds from baseline. CBC/BMP in a week Follow up with your PCP in 1-2 weeks. Fluid restrict to 2 liters of all fluid in a 24 hour period. Copies to: PATRICIA STANTON MD; ERI VAZQUEZ MD Venous Thromboembolism Antithrombotics Is Pt On Any Antithrombotics?: Yes Heart Failure Ejection Fraction %: 46 NYHA Class: II Is Patient on CHUCKY Inhibitor?: Yes Is Patient on Beta María?: Yes JOSIE BELTRAN MD Jul 18, 2017 13:29
[2017-07-18] MEDS: FUROSEMIDE 80 MG TAB PO SCH (15:08)
--- NOTE | 2017-07-18 16:39 | Miscellaneous Provider Note ---
Miscellaneous Provider Note Note The patient developed epistaxis in the R nares. The bleeding persisted despite pressure and attempts and putting tissue in the nares. The bleeding is exacerbated by ASA/Plavix/Eliquis use. A "Rapid Rhino" 5 cm was placed following the standard procedure for preparation and placement. The patient feels more comfortable being watched overnight, which is justifiable based on the his risk of bleeding with the previous medications listed. JOSIE BELTRAN MD Jul 18, 2017 16:39
--- NOTE | 2017-07-18 17:16 | RADIOLOGY IMAGING REPORT ---
FACILITY: [facility] PATIENT NAME: TONY NGO : [id number] MR: [id number] V: [id number] EXAM DATE: ORDERING PHYSICIAN: PATRICIA HENRY TECHNOLOGIST: Nathen Guerrero EXAMINATION:TWO-DIMENSIONAL ECHOCARDIOGRAPH REASON:CONGESTIVE HEART FAILURE 2D Measurements (normal values in centimeters) LV endLV endRV endVent.LV PostAorticLeftPercent DiastolicSystolicDiastolicSeptumWallRootAtriumShortening (3.5-5.7)(0.9-2.6)(0.6-1.1)(0.6-1.1)(2.0-3.7)(1.9-4.0)(25-35%) [id number]% STROKE VOLUME: 72 mL ESTIMATED EJECTION FRACTION:29% PARASTERNAL LONG AXIS: All the chambers appear to be enlarged. Left sided heart chambers are severely enlarged. There is significantly decreased left ventricular ejection fraction although the endocardium was not seen well in this view. PARASTERNAL SHORT AXIS: Again somewhat difficult echocardiograph. There is a mild to moderate amount of tricuspid insufficiency present. The aortic valve is trileaflet in configuration and appears to open normally. Color examination of the aortic valve revealed a trace of aortic insufficiency present. APICAL FOUR AND TWO CHAMBER: Again somewhat difficult echocardiograph with significantly decreased left ventricular ejection fraction. Aortic valve area was measured at 2.2 cm2, mitral valve area measured at 1.9 cm2. Tricuspid regurgitation V-max is measured at 3.03 m/sec. Estimated right atrial pressure is 15 mmHg. Left atrial and right atrial volumes are severely increased at 55.5 and 58.1 ml/m2. All the chambers are enlarged. DEFINITY contrast was used. There is akinesis at the apex and along the interventricular septum and generalized hypokinesis. The TAPSE was measured at 1.7. The only wall that appears to move fairly well is the lateral wall. SUBCOSTAL VIEW: No pericardial effusion was noted. All the chambers appear to be enlarged. IVC is enlarged. The patient appears to be in a bundle branch block. Medial and lateral E prime velocities are significantly decreased at 2.92 cm/sec and 5.76 cm/sec. Doppler examination of the mitral valve in diastole does reveal the E wave more than twice the velocity of the A wave. OVERALL IMPRESSION: 1. Severely decreased left ventricular ejection fraction at approximately 29%. There is akinesis along the septal wall of the apex and the posterior wall. The lateral wall is the only wall that appears to contract although it is hypokinetic. 2. A grade 3 to 4/4 decrease in diastolic function. 3. Severe enlargement of all four heart chambers. Left atrial and right atrial volumes were severely increased in size at 55.5 and 58 ml/m2. 4. Aortic valve area and mitral valve area both measure within normal ranges. 5. A mild to moderate amount of mitral insufficiency, 6. a mild amount of tricuspid insufficiency with estimated right ventricular systolic pressures of 52 mmHg which does include an estimated right atrial pressure of 15 mmHg indicating moderate pulmonary hypertension and increased right ventricular systolic pressures. 7. A trace of aortic insufficiency. 8. A mild to moderate amount of pulmonic insufficiency present. 9. In comparison to the examination done on 10/20/16, the estimated ejection fraction is significantly decreased from 48% to 29%. Chamber sizes have also increased somewhat. The left atrial and right atrial volumes have also significantly increased. The right ventricular systolic pressure has increased from 44 to 52 mmHg. Dictated by: Randi Saldana M.D. on 07/17/2017 at 18:59 Transcribed by: WILLIAMS on 07/18/2017 at 11:59 Approved by: Randi Saldana M.D. on 07/18/2017 at 17:15 [facility]
[2017-07-18 19:49] VITALS: BP 106/81
[2017-07-18] MEDS: ATORVASTATIN 40 MG TAB PO SCH (20:27)
[2017-07-18 22:19] VITALS: BP 115/85
[2017-07-19 04:27] VITALS: BP 111/92
[2017-07-19] MEDS: LEVALBUTEROL 1.25 MG/3 ML NEB NEB SCH ×3 (05:44→13:18)
[2017-07-19] MEDS: LEVOTHYROXINE SOD 0.1 MG TAB PO SCH (07:14)
[2017-07-19] MEDS: levETIRAcetam 500 MG TAB PO SCH (08:20)
[2017-07-19] MEDS: APIXABAN 2.5 MG TABLET PO SCH (08:20)
[2017-07-19] MEDS: CLOPIDOGREL BISULFATE 75MG TAB PO SCH (08:20)
[2017-07-19] MEDS: CARVEDILOL 3.125 MG TAB PO SCH (08:20)
[2017-07-19] MEDS: TAMSULOSIN HCL 0.4 MG CAP PO SCH (08:20)
[2017-07-19] MEDS: POTASSIUM CHL 10 MEQ TABCR PO SCH (08:21)
[2017-07-19] MEDS: FUROSEMIDE 80 MG TAB PO SCH ×2 (08:21→14:17)
[2017-07-19] MEDS: ASPIRIN 81 MG ENTERIC COATED PO SCH (08:21)
[2017-07-19] MEDS: PREGABALIN 50 MG CAP PO SCH ×2 (08:22→14:17)
[2017-07-19 08:30] VITALS: BP 101/77
[2017-07-19] MEDS: TIOTROPIUM BROM INH 18 MCG/CAP INH SCH (09:30)
[2017-07-19 15:20] VITALS: BP 138/89
== END 2017-07-19 15:45 | disposition home or self-care (01) | DRG 292 ==
LOC: ER 08:47 → MED 13:55
PROVIDERS: ADMIT Internal Medicine; ATTEND Internal Medicine
PROC: 2Y41X5Z Packing of Nasal Region using Packing Material (ICD-10-PCS; principal; 2017-07-19)
PROC: 2Y51X5Z Removal of Nasal Packing Material (ICD-10-PCS; 2017-07-19)
DX: I50.23 Acute on chronic systolic (congestive) heart failure (principal); J44.1 Chronic obstructive pulmonary disease with (acute) exacerbation; E87.70 Fluid overload, unspecified; I73.9 Peripheral vascular disease, unspecified; G62.9 Polyneuropathy, unspecified; I25.10 Atherosclerotic heart disease of native coronary artery without angina pectoris; R60.0 Localized edema; E78.00 Pure hypercholesterolemia, unspecified; E03.9 Hypothyroidism, unspecified; I48.0 Paroxysmal atrial fibrillation; N40.0 Benign prostatic hyperplasia without lower urinary tract symptoms; Z95.5 Presence of coronary angioplasty implant and graft; G40.909 Epilepsy, unspecified, not intractable, without status epilepticus; R04.0 Epistaxis; Z88.0 Allergy status to penicillin; Z88.6 Allergy status to analgesic agent; Z99.81 Dependence on supplemental oxygen; Z87.891 Personal history of nicotine dependence; Z79.82 Long term (current) use of aspirin; I11.0 Hypertensive heart disease with heart failure
CPT/HCPCS: 36415; 71046; 82040; 82247; 82310; 82374; 82435; 82565; 82947; 83880; 84075; 84132; 84155; 84295; 84450; 84460; 84484; 84520; 85025; 85610; 85730; 93005; 94640; 96374; 96375; 99285; C8929; J1940; J3010; J3535; Q9957

== ENCOUNTER → 2017-07-26 | Outpatient (CLI) | payer MEDICARE, OTHER ==
[2017-07-16 10:27] VITALS: BMI 36.3
[~2017-07-26] MED LIST changes: +FURO80TA70 PO
[2017-07-26 12:08] LABS: PLATELET COUNT, AUTOMATED 303 K/uL (150-450)
--- NOTE | 2017-07-27 20:03 | RT HOLTER TEST ---
FACILITY: [facility] PATIENT NAME: TONY NGO : [id number] MR: [id number] V: [id number] EXAM DATE: ORDERING PHYSICIAN: MARYSE EASTMAN TECHNOLOGIST: mel Hook-up date: 2017-07-26 11:54:00 Duration: 27:37:00 Test Indications: cad Medications: 959859 QRS complexes 49430 Ventricular ectopics which represent 16 % of total QRS comp. 36 Supraventricular ectopics which represent <1 % of total QRS comp. * Paced QRS complexes which represent % of total QRS comp. VENTRICULAR ECTOPY 13164 Isolated 1492 Bigeminal Cycles 1379 Couplets 110 Runs 349 Beats in Runs 9 Beats LONGEST at 109 BPM at 18:28:43 2017-07-26 3 Beats FASTEST at 154 BPM at 15:00:35 2017-07-27 SUPRAVENTRICULAR ECTOPY 34 Isolated 1 Couplets 0 Runs 0 Beats in Runs * Beats LONGEST at * BPM at :: -- * Beats FASTEST at * BPM at :: -- HEART RATES 65 MIN at 06:48:53 2017-07-27 89 AVG 114 MAX at 12:06:38 2017-07-26 LONGEST RR 1.328 secs at 07:03:11 2017-07-27 Channel 2 -12.800 mm MIN at 11:54:00 2017-07-26 -12.800 mm MAX at 11:54:00 2017-07-26 Channel 3 -12.800 mm MIN at 11:54:00 2017-07-26 -12.800 mm MAX at 11:54:00 2017-07-26 The patient had a buncle branch block throughout the test. There were no reported symptoms during th e test. There was much ventricular ectopy (i.e. 16% of the QRS complexes). There was a 9 beat run and 3 beat run of ventricular tachycardia at rate s of 109 beats per minute (bpm) and 114 bpm, respectively. Confirmed by JOSIE BELTRAN ([id number]) on 07/27/2017 8:01:57 PM Referred By: Overread By: JOSIE BELTRAN
== END ==
LOC: LAB 11:17
PROVIDERS: ATTEND Internal Medicine Cardiovascular Disease
DX: I45.4 Nonspecific intraventricular block (principal); I49.3 Ventricular premature depolarization; R00.0 Tachycardia, unspecified; I25.10 Atherosclerotic heart disease of native coronary artery without angina pectoris; D72.819 Decreased white blood cell count, unspecified
CPT/HCPCS: 36415; 82310; 82374; 82435; 82565; 82947; 84132; 84295; 84520; 85025; 93225; 93226

== ENCOUNTER 2017-08-16 06:32 | Inpatient (IN) | payer MEDICARE, OTHER ==
[~2017-08-16] VITALS: Ht 180.3 cm; Wt 111.1 kg
[2017-08-16] MEDS ORDERED: FUROSEMIDE 40 MG/4 ML VIAL IVP ONE (06:45)
[2017-08-16] MEDS ORDERED: methylPREDNIS SUCC 125 MG/2ML IVP ONE (06:45)
[2017-08-16] MEDS ORDERED: ALBUTEROL/IPRATROPIUM 3 ML NEB NEB ONE (06:45)
--- NOTE | 2017-08-16 06:56 | EKG ---
FACILITY: [facility] PATIENT NAME: TONY NGO : [id number] MR: [id number] V: [id number] EXAM DATE: ORDERING PHYSICIAN: KIRK JOSEPH TECHNOLOGIST: Pasquale Mohamud Reason : Blood Pressure : / mmHG Vent. Rate : 095 BPM Atrial Rate : 095 BPM P-R Int : 250 ms QRS Dur : 118 ms QT Int : 516 ms P-R-T Axes : 061 -49 080 degrees QTc Int : 648 ms Sinus rhythm with 1st degree AV block Left axis deviation Probable left atrial enlargement Incomplete left bundle branch block Prolonged QT Abnormal ECG Confirmed by MATEO LOVELL ([id number] on 08/16/2017 2:03:08 PM Referred By: Confirmed By:MATEO LOVELL
[2017-08-16 07:25] LABS: PLATELET COUNT, AUTOMATED 304 K/uL (150-450)
--- NOTE | 2017-08-16 07:33 | ER Report ---
History and Physical Time Seen By MD: 06:45 Hx. of Stated Complaint: PATIENT STARTED HAVING SHORTNESS OF BREATH THIS MORNING, HE JUST CAN'T CATCH BREATH. HPI/ROS CHIEF COMPLAINT: Shortness of breath HISTORY OF PRESENT ILLNESS: 77 year male history of systolic CHF secondary to an [place] back in 1998 comes emergency Department today with a complaint of progressive worsening shortness of breath orthopnea PND refuses to wear a CPAP even though is recommended. Patient states was here 4 days she's had worse exertional dyspnea without associated chest pain or discomfort. Patient denies any abdominal pain nausea vomiting diarrhea fever chills. Patient states the shortness of breath is made worse with exertion he is on 3-4 L nasal cannula 2470 is about a 50+ pack year smoker but he said he quit about 4-5 years ago. Patient arrival here is chest pain-free present able to catch his breath doing some pursed lip breathing patient does have a long history of CHF with a reported ejection fraction in the mid 20s REVIEW OF SYSTEMS: Respiratory: No cough but shortness of breath Cardiovascular: No chest pain Gastrointestinal: No vomiting, no abdominal pain. Musculoskeletal: No back pain. Allergies: Coded Allergies: Penicillins (Verified Allergy, Severe, 08/16/17) tramadol (Verified Allergy, Severe, seizure, 08/16/17) pt reported ibuprofen (Verified Allergy, Unknown, 08/16/17) STOMACH BLEEDING Home Meds Active Scripts Furosemide (FUROSEMIDE) 80 Mg Tablet, 80 MG PO BIDD, #30 Prov:JOSIE BELTRAN MD 07/18/17 Potassium Chloride (POTASSIUM CHLORIDE) 10 Meq Tab.er.prt, 10 MEQ PO BID, #60 TAB 1 Refill Prov:MATEO LOVELL MD 07/05/17 Reported Medications Oxygen (OXYGEN) Inha, 3 L INH QDAY, L 07/02/17 Clopidogrel Bisulfate (CLOPIDOGREL) 75 Mg Tablet, 1 TAB PO QDAY, TAB 04/26/17 Atorvastatin Calcium (LIPITOR) 40 Mg Tablet, 1 TAB PO QDAY, TAB 04/26/17 Pregabalin (LYRICA) 150 Mg Capsule, 150 MG PO TID, CAPSULE 03/24/17 Carvedilol (CARVEDILOL) 6.25 Mg Tab, 3.125 MG PO BID, TAB 03/17/17 Aspirin (ASPIR 81) 81 Mg Tablet.dr, 81 MG PO QDAY, TAB 03/17/17 Apixaban (ELIQUIS) 5 Mg Tablet, 5 MG PO BID 03/17/17 Tiotropium [place] (SPIRIVA) 18 Mcg/Cap Inh, 18 MCG INH QDAY, INH 12/30/16 Levetiracetam (LEVETIRACETAM) 250 Mg Tablet, 500 MG PO BID, TAB 12/30/16 Tamsulosin Hcl (FLOMAX) 0.4 Mg Cap.er.24h, 0.4 MG PO QDAY, CAP 12/30/16 Levothyroxine Sodium (LEVOTHYROXINE SODIUM) 100 Mcg Tablet, 100 MCG PO QDAY, TAB 12/30/16 Reviewed Nurses Notes: Yes Old Medical Records Reviewed: Yes Hx Smoking: Yes Smoking Status: Former Smoker Exposure to Second Hand Smoke?: No Hx Substance Use Disorder: No Hx Alcohol Use: Yes Constitutional Vital Sign - Last 24 Hours 08/16/17 08/16/17 08/16/17 08/16/17 06:35 06:36 06:43 06:45 Temp 97.4 Pulse 99 97 Resp 28 40 B/P (MAP) 132/99 132/99 (110) Pulse Ox 91 O2 Delivery Nasal Cannula O2 Flow Rate 3.0 08/16/17 08/16/17 08/16/17 08/16/17 06:45 06:47 06:54 07:00 Pulse 97 95 Resp 20 B/P (MAP) 137/98 (111) Pulse Ox 93 93 O2 Delivery Nasal Cannula O2 Flow Rate 3.0 08/16/17 08/16/17 08/16/17 08/16/17 07:02 07:07 07:30 07:42 Pulse 96 94 ??? Resp 23 32 B/P (MAP) ???/??? (7097) Pulse Ox 93 08/16/17 08/16/17 08/16/17 08/16/17 07:44 07:57 08:00 08:16 Pulse 92 Resp 17 B/P (MAP) 123/95 (104) 117/90 (99) 127/93 (104) Pulse Ox 95 08/16/17 08:30 B/P (MAP) 111/87 (95) Intake and Output 08/16/17 08/16/17 08/17/17 15:00 23:00 07:00 Output Total 1000 ml Balance -1000 ml Physical Exam General Appearance: The patient is alert, has no immediate need for airway protection and no current signs of toxicity. No apparent distress no signs of respiratory compromise Eyes: Pupils equal and round no injection. Respiratory: Bibasilar crackles noted at the lung bases no wheezing no end expiratory wheezing no rhonchi no accessory muscle utilization Cardiac: regular rate and rhythm [ ] Gastrointestinal: Abdomen is soft and non tender, no masses, bowel sounds normal. Musculoskeletal: Neck: Neck is supple and non tender. Extremities have full range of motion and are non tender. Skin: No rashes or lesions. [ ] DIFFERENTIAL DIAGNOSIS: After history and physical exam differential diagnosis was considered for CHF COPD myocardial infarction pulmonary emboli Medical Decision Making Data Points Result Diagram: 08/16/17 0713 08/16/17 0713 Laboratory Hematology Test 08/16/17 07:13 08/16/17 08:05 Red Blood Count 3.96 M/uL (4.00-5.60) Mean Corpuscular Volume 99.2 fL (80.0-96.0) Mean Corpuscular Hemoglobin 32.5 pg (26.0-33.0) Mean Corpuscular Hemoglobin Concent 32.8 g/dL (32.0-36.0) Red Cell Distribution Width 16.0 % (11.5-14.5) Mean Platelet Volume 7.7 fL (7.2-11.1) Neutrophils (%) (Auto) 75.0 % (39.4-72.5) Lymphocytes (%) (Auto) 12.5 % (17.6-49.6) Monocytes (%) (Auto) 8.9 % (4.1-12.4) Eosinophils (%) (Auto) 2.2 % (0.4-6.7) Basophils (%) (Auto) 1.4 % (0.3-1.4) Nucleated RBC Relative Count (auto) 0.0 /100WBC Neutrophils # (Auto) 4.2 K/uL (2.0-7.4) Lymphocytes # (Auto) 0.7 K/uL (1.3-3.6) Monocytes # (Auto) 0.5 K/uL (0.3-1.0) Eosinophils # (Auto) 0.1 K/uL (0.0-0.5) Basophils # (Auto) 0.1 K/uL (0.0-0.1) Nucleated RBC Absolute Count (auto) 0.00 K/uL Prothrombin Time 15.8 seconds (12.0-14.4) Prothromb Time International Ratio 1.25 Activated Partial Thromboplast Time 38 seconds (23-35) D-Dimer Quantitative (PE/DVT) < 0.27 ug/ml (0-0.50) Sodium Level 136 mmol/L (137-145) Potassium Level 4.0 mmol/L (3.5-5.0) Chloride Level 98 mmol/L (98-107) Carbon Dioxide Level 29 mmol/L (22-30) Blood Urea Nitrogen 15 mg/dl (9-21) Creatinine 0.90 mg/dl (0.66-1.25) Glomerular Filtration Rate Calc > 60.0 Random Glucose 103 mg/dl (75-110) Calcium Level 9.0 mg/dl (8.4-10.2) Total Bilirubin 1.9 mg/dl (0.2-1.3) Aspartate Amino Transf (AST/SGOT) 19 U/L (0-35) Alanine Aminotransferase (ALT/SGPT) 23 U/L (0-56) Alkaline Phosphatase 69 U/L (0-126) Troponin I 0.015 ng/ml B-Type Natriuretic Peptide 1490 pg/ml (0-100) Total Protein 6.9 gm/dl (6.3-8.2) Albumin 3.7 g/dl (3.5-5.0) Serum Alcohol < 10 mg/dl Blood Gas Puncture Site Left radial Blood Gas Patient Temperature 97.4 DEGREES Arterial Blood pH 7.49 (7.35-7.45) Arterial Blood Partial Pressure CO2 41 mmHg (32-37) Arterial Blood Partial Pressure O2 68 mmHg (60-80) Arterial Blood HCO3 31 mmol/L (20-26) Arterial Blood Oxygen Saturation 95 % (92-100) Arterial Blood Base Excess 8.0 mmol/L Jermaine Test Acceptable Oxygen Liters/Minute 3l nc Chemistry Test 08/16/17 07:13 08/16/17 08:05 White Blood Count 5.6 k/uL (4.5-11.0) Red Blood Count 3.96 M/uL (4.00-5.60) Hemoglobin 12.9 g/dL (14.0-18.0) Hematocrit 39.2 % (42.0-52.0) Mean Corpuscular Volume 99.2 fL (80.0-96.0) Mean Corpuscular Hemoglobin 32.5 pg (26.0-33.0) Mean Corpuscular Hemoglobin Concent 32.8 g/dL (32.0-36.0) Red Cell Distribution Width 16.0 % (11.5-14.5) Platelet Count 304 K/uL (150-450) Mean Platelet Volume 7.7 fL (7.2-11.1) Neutrophils (%) (Auto) 75.0 % (39.4-72.5) Lymphocytes (%) (Auto) 12.5 % (17.6-49.6) Monocytes (%) (Auto) 8.9 % (4.1-12.4) Eosinophils (%) (Auto) 2.2 % (0.4-6.7) Basophils (%) (Auto) 1.4 % (0.3-1.4) Nucleated RBC Relative Count (auto) 0.0 /100WBC Neutrophils # (Auto) 4.2 K/uL (2.0-7.4) Lymphocytes # (Auto) 0.7 K/uL (1.3-3.6) Monocytes # (Auto) 0.5 K/uL (0.3-1.0) Eosinophils # (Auto) 0.1 K/uL (0.0-0.5) Basophils # (Auto) 0.1 K/uL (0.0-0.1) Nucleated RBC Absolute Count (auto) 0.00 K/uL Prothrombin Time 15.8 seconds (12.0-14.4) Prothromb Time International Ratio 1.25 Activated Partial Thromboplast Time 38 seconds (23-35) D-Dimer Quantitative (PE/DVT) < 0.27 ug/ml (0-0.50) Glomerular Filtration Rate Calc > 60.0 Calcium Level 9.0 mg/dl (8.4-10.2) Total Bilirubin 1.9 mg/dl (0.2-1.3) Aspartate Amino Transf (AST/SGOT) 19 U/L (0-35) Alanine Aminotransferase (ALT/SGPT) 23 U/L (0-56) Alkaline Phosphatase 69 U/L (0-126) Troponin I 0.015 ng/ml B-Type Natriuretic Peptide 1490 pg/ml (0-100) Total Protein 6.9 gm/dl (6.3-8.2) Albumin 3.7 g/dl (3.5-5.0) Serum Alcohol < 10 mg/dl Blood Gas Puncture Site Left radial Blood Gas Patient Temperature 97.4 DEGREES Arterial Blood pH 7.49 (7.35-7.45) Arterial Blood Partial Pressure CO2 41 mmHg (32-37) Arterial Blood Partial Pressure O2 68 mmHg (60-80) Arterial Blood HCO3 31 mmol/L (20-26) Arterial Blood Oxygen Saturation 95 % (92-100) Arterial Blood Base Excess 8.0 mmol/L Jermaine Test Acceptable Oxygen Liters/Minute 3l nc Coagulation Test 08/16/17 07:13 Prothrombin Time 15.8 seconds Prothromb Time International Ratio 1.25 Activated Partial Thromboplast Time 38 seconds D-Dimer Quantitative (PE/DVT) < 0.27 ug/ml Toxicology Test 08/16/17 07:13 Serum Alcohol < 10 mg/dl ED Course/Re-evaluation ED Course ED clinical course medical decision-making 77-year-old male history of CHF comes back to the emergency department with a CHF exacerbation cardiomegaly passive congestion hypoxic on ambulation in the mid 50s ABG otherwise unremarkable chest x-ray shows knobby no obvious infiltrate gave Lasix prior to my presentation I gave an atrial due to decreased a Wedge pressure patient resting comfortably at time of presentation will be admitting for diagnosis of CHF worsening exacerbation Decision to Disposition Date: Aug 16, 2017 Decision to Disposition Time: 08:58 Depart Departure Latest Vital Signs Vital Signs Date Time Temp Pulse Resp B/P (MAP) Pulse Ox O2 Delivery O2 Flow Rate FiO2 08/16/17 08:30 111/87 (95) 08/16/17 07:57 92 17 95 08/16/17 06:45 Nasal Cannula 3.0 08/16/17 06:35 97.4 Impression: Primary Impression: Congestive cardiac failure Condition: Improved Disposition: Admitted from ER AYO KERN MD Aug 16, 2017 07:33
[2017-08-16 07:56] LABS: INR 1.25
--- NOTE | 2017-08-16 07:57 | RADIOLOGY IMAGING REPORT ---
FACILITY: [facility] [place] PATIENT NAME: Obey Asencio : 1940 MR: [id number] V: [id number] EXAM DATE: ORDERING PHYSICIAN: KIRK JOSEPH TECHNOLOGIST: [facility] Patient: Obey Asencio : 1940 Visit/Account:[id number] Date of Sevice: 08/16/2017 Study: Frontal and lateral views of the chest Indication: Respiratory distress Comparison study: 07/15/2017 Findings: PA and lateral views of the chest demonstrate the presence of coarsened lung markings throu ghout. This is unchanged as compared to the previous study. There are signs of mild fluid overload present. These are not significantly changed from the previous study. There is no evidence of pleural effusion. The previously identified trace pleural effusions are no lo nger visualized. There is no evidence of pneumothorax. The cardiac silhouette is enlarged. This is not significantly changed from the previous study. The visualized bony structures are unremarkable. IMPRESSION: No evidence of focal infiltrate. Mild volume overload. Cardiomegaly. Report Dictated By: Wilmar Ramírez at 08/16/2017 7:50 AM Report E-Signed By: Wilmar Ramírez at 08/16/2017 7:52 AM [id number]
[2017-08-16] MEDS ORDERED: NITROGLYCERIN 0.4 MG SUBL SL ONE (08:05)
[2017-08-16 09:56] VITALS: BP 103/77
[2017-08-16] MEDS ORDERED: FINA5TAB67 PO ×2 (10:15→11:14)
[2017-08-16] MEDS ORDERED: DULO60CA7 PO (10:15)
[2017-08-16] MEDS ORDERED: FURO-47 PO (10:16)
[2017-08-16] MEDS ORDERED: FLUSH 10 ML SYR IVP PRN (10:40)
[2017-08-16] MEDS ORDERED: ACETAMINOPHEN 325 MG TAB PO PRN (10:40)
--- NOTE | 2017-08-16 11:08 | History & Physical ---
History of Present Illness Chief Complaint Short of breath History of Present Illness 77yo male with PMHx significant for systolic heart failure, BPH, UTIs. He reports onset of acute dyspnea early this AM. He states he awoke feeling extremely short of breath "like there was no oxygen". He denied any CP or palpitations. He denies any significant cough or sputum production. He denies any fevers or chills. His appetite has been good. He states his weight has not changed much. He reports taking his medications as prescribed. He denied any increase in salt/sodium intake. He was evaluated in [facility] ER and found to have evidence of pulmonary edema on CXR and his BNP was elevated >1400. His UA also had significant pyuria. He was recommended for admission. History Problems: (1) Gangrenous appendicitis Status: Resolved (2) Postoperative intra-abdominal abscess Status: Resolved (3) Atrial fibrillation Status: Chronic (4) Hypercholesterolemia Status: Chronic (5) Hypothyroid Status: Chronic (6) Chronic systolic heart failure Status: Chronic (7) COPD (chronic obstructive pulmonary disease) Status: Chronic (8) Essential hypertension Status: Chronic (9) CAD (coronary artery disease) Status: Chronic (10) BPH (benign prostatic hyperplasia) Status: Chronic (11) Seizure disorder Status: Chronic (12) Urinary tract infection Status: Acute (13) History of appendectomy Status: Resolved (14) History of coronary artery stent placement Status: Chronic Home Meds Active Scripts Potassium Chloride (POTASSIUM CHLORIDE) 10 Meq Tab.er.prt, 10 MEQ PO BID, #60 TAB 1 Refill Prov:MATEO LOVELL MD 07/05/17 Reported Medications Furosemide (FUROSEMIDE) 40 Mg Tablet, 1 TAB PO BID, TAB 08/16/17 Finasteride (FINASTERIDE) 5 Mg Tablet, 20 MG PO QDAY 08/16/17 Duloxetine HCl (Duloxetine HCl) 60 Mg Capsule.dr, 30 MG PO BID 08/16/17 Oxygen (OXYGEN) Inha, 3 L INH QDAY, L 07/02/17 Clopidogrel Bisulfate (CLOPIDOGREL) 75 Mg Tablet, 1 TAB PO QDAY, TAB 04/26/17 Atorvastatin Calcium (LIPITOR) 40 Mg Tablet, 1 TAB PO QDAY, TAB 04/26/17 Pregabalin (LYRICA) 150 Mg Capsule, 150 MG PO TID, CAPSULE 03/24/17 Carvedilol (CARVEDILOL) 6.25 Mg Tab, 3.125 MG PO BID, TAB 03/17/17 Aspirin (ASPIR 81) 81 Mg Tablet.dr, 81 MG PO QDAY, TAB 03/17/17 Apixaban (ELIQUIS) 5 Mg Tablet, 5 MG PO BID 03/17/17 Tiotropium [place] (SPIRIVA) 18 Mcg/Cap Inh, 18 MCG INH QDAY, INH 12/30/16 Levetiracetam (LEVETIRACETAM) 250 Mg Tablet, 500 MG PO BID, TAB 12/30/16 Tamsulosin Hcl (FLOMAX) 0.4 Mg Cap.er.24h, 0.4 MG PO QDAY, CAP 12/30/16 Levothyroxine Sodium (LEVOTHYROXINE SODIUM) 100 Mcg Tablet, 100 MCG PO QDAY, TAB 12/30/16 Allergies: Coded Allergies: Penicillins (Verified Allergy, Severe, 08/16/17) tramadol (Verified Allergy, Severe, seizure, 08/16/17) pt reported ibuprofen (Verified Allergy, Unknown, 08/16/17) STOMACH BLEEDING Patient History: FH: cancer MOTHER, BROTHER OR SISTER, FH: myocardial infarction FATHER, FHx: multiple sclerosis BROTHER OR SISTER Hx Smoking: Yes Smoking Status: Former Smoker Exposure to Second Hand Smoke?: No Caffeine Intake: Coffee, Tea Caffeine/Cups Per Day: 4 cups/day Hx Alcohol Use: Yes Hx Substance Use Disorder: No Review of Systems Constitutional: No Fever, No Chills, No Night Sweats Neurological: Weakness, No Syncope, No Confusion Eyes: No Vision Change, No Loss of Vision ENT: No Hearing Loss, No Sinus Congestion, No Sore Throat Cardiovascular: No Chest Pain, No Palpitations Respiratory: Shortness of Breath, No Cough, No Wheezing Gastrointestinal: No Nausea, No Vomiting, No Diarrhea, No Hematemesis, No Hematochezia, No Melena, No Abdominal Pain Genitourinary: Other (frequency), No Dysuria, No Hematuria, No Urinary Incontinence Musculoskeletal: No Pain, No Sprain Exam Vital Signs Vital Signs Date Time Temp Pulse Resp B/P (MAP) Pulse Ox O2 Delivery O2 Flow Rate FiO2 08/16/17 10:01 91 Nasal Cannula 3.0 08/16/17 09:56 97.8 94 18 103/77 (86) General Appearance: Alert, Awake, No Acute Distress Eyes: Other (left strabismus) ENT: Oropharynx Clear Neck: No Masses Cardiovascular: Other (Fairly regular with distant tones soft systolic murmur) Respiratory: Other (fairly clear with few fine rales at bases/no wheezes) Chest: No Tenderness GI: Abd Soft and Non-Tender : No CVA Tenderness Extremities: Warm, Perfused, Edema (trace pedal edema) Psych: Alert & Oriented X3 Medical Decision Making Data Points Result Diagram: 08/16/17 0708/16/17 07 Item Value Date Time Urine Mucus Few /HPF 08/16/17722 Urine Bacteria Many /HPF H 08/16/17722 Urine Transitional Epithelial Cells Many /LPF H 08/16/17722 Urine Squamous Epithelial Cells None /LPF 08/16/17722 Urine WBC Clumps Many /HPF 08/16/17722 Urine WBC 967 /HPF 08/16/17722 Urine RBC 20 /HPF 08/16/17722 Urine Leukocyte Esterase Large H 08/16/17722 Urine Urobilinogen Negative mg/dL 08/16/17722 Urine Bilirubin Negative 08/16/17722 Urine Nitrite Positive H 08/16/17722 Urine Blood Small 08/16/17722 Urine Ketones Negative mg/dL 08/16/17722 Urine Glucose (UA) Negative mg/dL 08/16/17722 Urine Protein 30 mg/dL 08/16/17 0723 Urine Specific [place] 1.010 08/16/17722 Urine pH 7.0 pH 08/16/17 0723 Urine Clarity Turbid 08/16/17722 Urine Color Yellow 08/16/17 0723 Serum Alcohol < 10 mg/dl 08/16/17 07 B-Type Natriuretic Peptide 1490 pg/ml H 08/16/17 07 Albumin 3.7 g/dl 08/16/17 07 Total Protein 6.9 gm/dl 08/16/17 07 Troponin I 0.015 ng/ml 08/16/17 0713 Alkaline Phosphatase 69 U/L 08/16/17 0713 Alanine Aminotransferase (ALT/SGPT) 23 U/L 08/16/17 0713 Aspartate Amino Transf (AST/SGOT) 19 U/L 08/16/17 07 Total Bilirubin 1.9 mg/dl H 08/16/17 0713 Calcium Level 9.0 mg/dl 08/16/17 07 D-Dimer Quantitative (PE/DVT) < 0.27 ug/ml 08/16/17 07 Oxygen Liters/Minute 3l nc 08/16/17 08 Jermaine Test Acceptable 08/16/17 08 Arterial Blood Base Excess 8.0 mmol/L 08/16/17804 Arterial Blood Oxygen Saturation 95 % 08/16/17804 Arterial Blood HCO3 31 mmol/L H 08/16/17 08 Arterial Blood Partial Pressure O2 68 mmHg 08/16/17804 Arterial Blood Partial Pressure CO2 41 mmHg H 08/16/17 08 Arterial Blood pH 7.49 H 08/16/17 08 Blood Gas Patient Temperature 97.4 DEGREES 08/16/17804 Blood Gas Puncture Site Left radial 08/16/17 08 EKG / Imaging Imaging PATIENT NAME: Obey Asencio : 1940 MR: [id number] V: [id number] EXAM DATE: ORDERING PHYSICIAN: KIRK JOSEPH TECHNOLOGIST: Location: [facility] [place] Patient: Obey Asencio : 1940 Visit/Account:[id number] Date of Sevice: 08/16/2017 Study: Frontal and lateral views of the chest Indication: Respiratory distress Comparison study: 07/15/2017 Findings: PA and lateral views of the chest demonstrate the presence of coarsened lung markings throughout. This is unchanged as compared to the previous study. There are signs of mild fluid overload present. These are not significantly changed from the previous study. There is no evidence of pleural effusion. The previously identified trace pleural effusions are no longer visualized. There is no evidence of pneumothorax. The cardiac silhouette is enlarged. This is not significantly changed from the previous study. The visualized bony structures are unremarkable. IMPRESSION: No evidence of focal infiltrate. Mild volume overload. Cardiomegaly. Report Dictated By: Wilmar Ramírez at 08/16/2017 7:50 AM Report E-Signed By: Wilmar Ramírez at 08/16/2017 7:52 AM WSN:[id number] Assessment and Plan Problems: (1) Urinary tract infection Status: Acute Assessment & Plan: It appears he has an acute UTI. Will culture his urine. Will place on IV Levaquin. Continue his BPH meds including his Flomax and Proscar. (2) Chronic systolic heart failure Status: Chronic Assessment & Plan: It appears he may have an acute exacerbation of his underlying systolic heart failure. At a minimum, he had some significant orthopnea. His last echocardiogram was done about 3 weeks ago. His EF at that time was reported as 29%. He did receive a dose of IV Lasix 80mg in the ER. He appears to have some improvement already. Will continue with some diuresis, but he will probably not need repeat dosing until tomorrow. (3) Seizure disorder Status: Chronic Assessment & Plan: Continue Keppra 500mg BID. (4) Hypothyroid Status: Chronic Assessment & Plan: Continue L-thyroxine 100mcg daily. Check TSH. (5) Atrial fibrillation Status: Chronic Assessment & Plan: He is currently in sinus rhythm. Will monitor. He is on Eliquis for prophylaxis. Copies to: PATRICIA STANTON MD Venous Thromboembolism Antithrombotics Is Pt On Any Antithrombotics?: Yes (Eliquis) Heart Failure Ejection Fraction %: 46 NYHA Class: II Is Patient on CHUCKY Inhibitor?: Yes Is Patient on Beta María?: Yes Exam Sepsis Risk: No Definite Risk MATEO LOVELL MD Aug 16, 2017 11:08
[2017-08-16] MEDS ORDERED: NS(*) 0.9% 250 ML BAG 250 ML ONE (11:50)
[2017-08-16] MEDS: LEVOFLOXACIN/D5W*500 MG/100 ML 100 ML IVPB SCH (11:53)
[2017-08-16] MEDS: PREGABALIN 50 MG CAP PO SCH ×2 (13:17→21:08)
[2017-08-16 15:05] VITALS: BP 117/72
[2017-08-16] MEDS: POTASSIUM CHL 10 MEQ TABCR PO SCH (16:21)
[2017-08-16] MEDS: levETIRAcetam 500 MG TAB PO SCH (21:00)
[2017-08-16] MEDS: DULoxetine HCL 30 MG CAPCR PO SCH (21:07)
[2017-08-16] MEDS: APIXABAN 2.5 MG TABLET PO SCH (21:07)
[2017-08-16] MEDS: CARVEDILOL 3.125 MG TAB PO SCH (21:07)
[2017-08-16 22:00] VITALS: BP 117/80
[2017-08-17] MEDS: TIOTROPIUM BROM INH 18 MCG/CAP INH SCH (06:00)
[2017-08-17] MEDS: LEVOTHYROXINE SOD 0.1 MG TAB PO SCH (06:10)
[2017-08-17 06:18] LABS: PLATELET COUNT, AUTOMATED 329 K/uL (150-450)
[2017-08-17 07:23] VITALS: BP_SYST 117; BP_SYST 130; BP_DIAS 80; BP_DIAS 98
[2017-08-17] MEDS: ATORVASTATIN 40 MG TAB PO SCH (08:22)
[2017-08-17] MEDS: TAMSULOSIN HCL 0.4 MG CAP PO SCH (08:22)
[2017-08-17] MEDS: ASPIRIN 81 MG ENTERIC COATED PO SCH (08:22)
[2017-08-17] MEDS: DULoxetine HCL 30 MG CAPCR PO SCH ×2 (08:22→20:49)
[2017-08-17] MEDS: POTASSIUM CHL 10 MEQ TABCR PO SCH ×2 (08:22→16:35)
[2017-08-17] MEDS: CARVEDILOL 3.125 MG TAB PO SCH ×2 (08:22→20:49)
[2017-08-17] MEDS: FINASTERIDE 5 MG TAB PO SCH (08:23)
[2017-08-17] MEDS: PREGABALIN 50 MG CAP PO SCH ×3 (08:24→20:49)
[2017-08-17] MEDS: CLOPIDOGREL BISULFATE 75MG TAB PO SCH (08:24)
[2017-08-17] MEDS: APIXABAN 2.5 MG TABLET PO SCH ×2 (08:24→20:50)
[2017-08-17] MEDS: levETIRAcetam 500 MG TAB PO SCH ×2 (08:26→20:49)
[2017-08-17] MEDS: FUROSEMIDE 40 MG/4 ML VIAL IVP SCH ×2 (10:04→13:31)
[2017-08-17 10:54] VITALS: Ht 180.3 cm; Wt 111.1 kg
[2017-08-17] MEDS: LEVOFLOXACIN/D5W*500 MG/100 ML 100 ML IVPB SCH (11:07)
[2017-08-17 11:14] VITALS: BP 104/76
--- NOTE | 2017-08-17 13:12 | Hospitalist Progress Note ---
Subjective Progress Notes Subjective Overall feeling much better with the SOB. No concerns from staff. Physical Exam Vital Signs Date Time Temp Pulse Resp B/P (MAP) Pulse Ox O2 Delivery O2 Flow Rate FiO2 08/17/17 11:49 93 08/17/17 11:14 97.4 24 104/76 (85) 90 Nasal Cannula 3.0 Intake and Output 08/18/17 07:00 Intake Total 1620 ml Output Total 500 ml Balance 1120 ml Intake Oral 1520 ml IV Total 100 ml Output Urine Total 500 ml # Voids 1 General Appearance: Alert, Awake, No Acute Distress Respiratory: Other (Insp crackles in the left base. Moving air well.) Extremities: No Edema Result Diagram: 08/17/17 0550 08/17/17 0550 Assessment and Plan Problems: (1) Urinary tract infection Status: Acute Assessment & Plan: Pyuria on UA. Asymptomatic. Urine culture is pending. Normal WBC, afebrile. On IV Levaquin. Continue his BPH meds including his Flomax and Proscar. (2) Chronic systolic heart failure Status: Chronic Assessment & Plan: It appears he may have an acute exacerbation of his underlying systolic heart failure. At a minimum, he had some significant orthopnea. His last echocardiogram was done about 3 weeks ago. His EF at that time was reported as 29%. He did receive a dose of IV Lasix 80mg in the ER. He appears to have some improvement already. Will continue with some IV Lasix 40mg twice daily. Follow symptoms, exam and weights. (3) Seizure disorder Status: Chronic Assessment & Plan: Continue Keppra 500mg BID. (4) Hypothyroid Status: Chronic Assessment & Plan: Continue L-thyroxine 100mcg daily. Check TSH. (5) Atrial fibrillation Status: Chronic Assessment & Plan: He is currently in sinus rhythm. Will monitor. He is on Eliquis for prophylaxis. Heart Failure Ejection Fraction %: 46 NYHA Class: II Is Patient on CHUCKY Inhibitor?: Yes Is Patient on Beta María?: Yes Exam Sepsis Risk: No Definite Risk JOSIE BELTRAN MD Aug 17, 2017 13:11
[2017-08-17 15:01] VITALS: BP 110/79
[2017-08-17 20:52] VITALS: BP 122/89
[2017-08-17 22:50] VITALS: BP 121/101
[2017-08-18 03:12] VITALS: BP 114/91
[2017-08-18] MEDS: LEVOTHYROXINE SOD 0.1 MG TAB PO SCH (05:30)
[2017-08-18] MEDS: TIOTROPIUM BROM INH 18 MCG/CAP INH SCH (06:02)
[2017-08-18 06:04] LABS: PLATELET COUNT, AUTOMATED 331 K/uL (150-450)
[2017-08-18 07:10] VITALS: BP 107/87
[2017-08-18] MEDS: DULoxetine HCL 30 MG CAPCR PO SCH (08:23)
[2017-08-18] MEDS: POTASSIUM CHL 10 MEQ TABCR PO SCH (08:23)
[2017-08-18] MEDS: FUROSEMIDE 40 MG/4 ML VIAL IVP SCH (08:23)
[2017-08-18] MEDS: ATORVASTATIN 40 MG TAB PO SCH (08:23)
[2017-08-18] MEDS: APIXABAN 2.5 MG TABLET PO SCH (08:23)
[2017-08-18] MEDS: ASPIRIN 81 MG ENTERIC COATED PO SCH (08:24)
[2017-08-18] MEDS: CLOPIDOGREL BISULFATE 75MG TAB PO SCH (08:24)
[2017-08-18] MEDS: TAMSULOSIN HCL 0.4 MG CAP PO SCH (08:24)
[2017-08-18] MEDS: FINASTERIDE 5 MG TAB PO SCH (08:24)
[2017-08-18] MEDS: CARVEDILOL 3.125 MG TAB PO SCH (08:24)
[2017-08-18] MEDS: PREGABALIN 50 MG CAP PO SCH (08:27)
[2017-08-18] MEDS ORDERED: INFLUENZA VIRUS VAC 0.5 ML SYR IM ONLY ONE (09:00)
[2017-08-18] MEDS: levETIRAcetam 500 MG TAB PO SCH (09:12)
--- NOTE | 2017-08-18 10:17 | Hospitalist Depart ---
Discharge Summary Reason for Hosp/Final Diag: (1) Acute systolic heart failure Status: Acute Hospital Course & Plan: He did present with increased shortness of breath and weight gain. An echocardiogram from earlier this year has shown an ejection fraction of 29%. We treated him with several doses of IV Lasix to good effect. He was educated on daily weight measurement and instructed to follow up with his primary physician if there is any change. He is already on chronic treatment with carvedilol and lisinopril. (2) Urinary tract infection Status: Acute Hospital Course & Plan: His urine culture was positive for Klebsiella. However , he was asymptomatic, he remained afebrile, and his WBC was normal. He did receive several doses of levofloxacin, but this has since been discontinued. (3) Seizure disorder Status: Chronic Hospital Course & Plan: He is on chronic treatment with Keppra. (4) Hypothyroid Status: Chronic Hospital Course & Plan: He is on chronic treatment with Synthroid. (5) Atrial fibrillation Status: Chronic Hospital Course & Plan: He is on chronic treatment with Eliquis. (6) CAD (coronary artery disease) Status: Chronic Hospital Course & Plan: He does have a history of coronary stents, but none in the last year. He has been on chronic treatment with aspirin and Plavix. This was in addition to the anticoagulation with Eliquis above. We will stop the aspirin to help decrease his risk of complications. Departure Latest Vital Signs Vital Signs 08/18/17 08/18/17 07:10 07:12 Temp 97.5 Pulse 89 Resp 20 B/P (MAP) 107/87 (94) Pulse Ox 90 O2 Delivery Nasal Cannula O2 Flow Rate 4.0 Weight (Pounds): 245 Weight (Ounces): 3.0 Result Diagram: 08/18/1752508/18/17525 Condition: Improved Discharge: Home, Self Care Discharge Instructions Home Meds Active Scripts Finasteride (FINASTERIDE) 5 Mg Tablet, 5 MG PO QDAY for 30 Days, TAB Prov:MATEO LOVELL MD 08/16/17 Potassium Chloride (POTASSIUM CHLORIDE) 10 Meq Tab.er.prt, 10 MEQ PO BID, #60 TAB 1 Refill Prov:MATEO LOVELL MD 07/05/17 Reported Medications Furosemide (FUROSEMIDE) 40 Mg Tablet, 1 TAB PO BID, TAB 08/16/17 Duloxetine HCl (Duloxetine HCl) 60 Mg Capsule.dr, 30 MG PO BID 08/16/17 Oxygen (OXYGEN) Inha, 3 L INH QDAY, L 07/02/17 Clopidogrel Bisulfate (CLOPIDOGREL) 75 Mg Tablet, 1 TAB PO QDAY, TAB 04/26/17 Atorvastatin Calcium (LIPITOR) 40 Mg Tablet, 1 TAB PO QDAY, TAB 04/26/17 Pregabalin (LYRICA) 150 Mg Capsule, 150 MG PO TID, CAPSULE 03/24/17 Carvedilol (CARVEDILOL) 6.25 Mg Tab, 3.125 MG PO BID, TAB 03/17/17 Apixaban (ELIQUIS) 5 Mg Tablet, 5 MG PO BID 03/17/17 Tiotropium [place] (SPIRIVA) 18 Mcg/Cap Inh, 18 MCG INH QDAY, INH 12/30/16 Levetiracetam (LEVETIRACETAM) 250 Mg Tablet, 500 MG PO BID, TAB 12/30/16 Tamsulosin Hcl (FLOMAX) 0.4 Mg Cap.er.24h, 0.4 MG PO QDAY, CAP 12/30/16 Levothyroxine Sodium (LEVOTHYROXINE SODIUM) 100 Mcg Tablet, 100 MCG PO QDAY, TAB 12/30/16 Discontinued Reported Medications Aspirin (ASPIR 81) 81 Mg Tablet.dr, 81 MG PO QDAY, TAB 03/17/17 Diet: Regular Activity: As Tolerated Copies to: PATRICIA STANTON MD Venous Thromboembolism Antithrombotics Is Pt On Any Antithrombotics?: Yes (Eliquis) Heart Failure Ejection Fraction %: 46 NYHA Class: II Is Patient on CHUCKY Inhibitor?: Yes Is Patient on Beta María?: Yes PATRICIA HENRY DO Aug 18, 2017 10:17
[2017-08-18] MEDS: LEVOFLOXACIN/D5W*500 MG/100 ML 100 ML IVPB SCH ×2 (11:30→11:40)
== END 2017-08-18 13:30 | disposition home or self-care (01) | DRG 292 ==
LOC: ER 06:40 → MED 09:16
PROVIDERS: ADMIT Internal Medicine; ATTEND Internal Medicine
DX: I11.0 Hypertensive heart disease with heart failure (principal); N39.0 Urinary tract infection, site not specified; I50.23 Acute on chronic systolic (congestive) heart failure; I48.2 Chronic atrial fibrillation; I25.10 Atherosclerotic heart disease of native coronary artery without angina pectoris; R09.02 Hypoxemia; G40.909 Epilepsy, unspecified, not intractable, without status epilepticus; E03.9 Hypothyroidism, unspecified; B96.1 Klebsiella pneumoniae [K. pneumoniae] as the cause of diseases classified elsewhere; J44.9 Chronic obstructive pulmonary disease, unspecified; N40.0 Benign prostatic hyperplasia without lower urinary tract symptoms; Z79.01 Long term (current) use of anticoagulants; Z87.891 Personal history of nicotine dependence; Z88.0 Allergy status to penicillin; Z88.8 Allergy status to other drugs, medicaments and biological substances; Z95.5 Presence of coronary angioplasty implant and graft; Z90.49 Acquired absence of other specified parts of digestive tract
CPT/HCPCS: 36415; 36600; 71046; 80320; 81001; 82040; 82247; 82310; 82374; 82435; 82565; 82803; 82947; 83880; 84075; 84132; 84155; 84295; 84443; 84450; 84460; 84484; 84520; 85025; 85379; 85610; 85730; 87077; 87088; 87186; 93005; 94640; 96374; 96375; 99285; J1940; J1956; J2930; J3535; J7050

== ENCOUNTER 2017-09-04 14:55 | Emergency (ER) | payer MEDICARE, OTHER ==
[2017-08-17 10:54] VITALS: Wt 111.2 kg
[~2017-09-04 14:55] MED LIST changes: -ATOR10TA24 PO
[2017-09-04] MEDS ORDERED: NS(*) 0.9% 500 ML BAG 500 ML IV PRN (15:15)
--- NOTE | 2017-09-04 15:34 | EKG ---
FACILITY: [facility] - [place] PATIENT NAME: TONY NGO : [id number] MR: [id number] V: [id number] EXAM DATE: ORDERING PHYSICIAN: MEGHAN PETTIT TECHNOLOGIST: NAOMI Mohamud Reason : FALL Blood Pressure : / mmHG Vent. Rate : 085 BPM Atrial Rate : 085 BPM P-R Int : 176 ms QRS Dur : 124 ms QT Int : 432 ms P-R-T Axes : 099 -53 087 degrees QTc Int : 514 ms Sinus rhythm with sinus arrhythmia with occasional premature ventricular complexes and fusion complex es Left axis deviation Inferior infarct (cited on or before 04-SEP-2017) Anterolateral infarct (cited on or before 04-SEP-2017) Abnormal ECG When compared with ECG of 16-AUG-2017 06:46, Significant changes have occurred Confirmed by PATRICIA HENRY ([id number]) on 09/05/2017 4:13:17 AM Referred By: WILVER Confirmed By:PATRICIA HENRY
[2017-09-04 15:40] LABS: PLATELET COUNT, AUTOMATED 286 K/uL (150-450)
--- NOTE | 2017-09-04 15:42 | RADIOLOGY IMAGING REPORT ---
FAC[place] [facility] [place]IENT NAME: Obey Asencio : 1940 MR: [id number] V: [id number] EXAM DATE: ORDERING PHYSICIAN: MEGHAN PETTIT TECHNOLOGIST: Location: [facility] Patient: Obey Asencio : 1940 Visit/Account:[id number] Date of Sevice: 09/04/2017 Exam type: CHEST SINGLE AP History: wheezing, dyspnea; for edema Comparison: August 16, 2017. Findings: Cardiac silhouette is enlarged but unchanged. There is no evidence of focal infiltrates, pleural eff usions or overt pulmonary edema. Central pulmonary arteries again remain prominent. Incompletely im aged are postsurgical changes lower cervical spine.. There are severe degenerative changes of the sh oulder joints IMPRESSION: 1. Cardiomegaly unchanged although no evidence of acute pulmonary consolidation Report Dictated By: Samantha Mackey MD at 09/04/2017 3:37 PM Report E-Signed By: Samantha Mackey MD at 09/04/2017 3:38 PM WSN:[email or web address]
[2017-09-04 16:45] VITALS: BP 98/74
--- NOTE | 2017-09-04 16:48 | ER Report ---
History and Physical Time Seen By MD: 14:59 Hx. of Stated Complaint: FALL AT [employer] TRYIN TO GET OUT HYDROMASSAGE HPI/ROS CHIEF COMPLAINT: Fall HISTORY OF PRESENT ILLNESS: Fell from [employer] massage machine at [employer] paramedics were called and found to be in atrial flutter with a rate of 89 repeat EKG showed rate less than 80. Strongly encouraged to come in by paramedics due to atrial flutter. 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 Near syncope. Maintains a follows. The mechanical he fell out of a [employer] machine which was calling difficult to get out of while at [employer] today. No other concerns or complaints today. REVIEW OF SYSTEMS: Constitutional: No fever, no chills. Eyes: No discharge. ENT: No sore throat. Cardiovascular: No chest pain, no palpitations. Respiratory: No cough, no shortness of breath. Gastrointestinal: No abdominal pain, no vomiting. Genitourinary: No hematuria. Musculoskeletal: No back pain. Skin: No rashes. Neurological: No headache. Allergies: Coded Allergies: Penicillins (Verified Allergy, Severe, 08/16/17) tramadol (Verified Allergy, Severe, seizure, 08/16/17) pt reported ibuprofen (Verified Allergy, Unknown, 08/16/17) STOMACH BLEEDING Home Meds Active Scripts Finasteride (FINASTERIDE) 5 Mg Tablet, 5 MG PO QDAY for 30 Days, TAB Prov:MATEO LOVELL MD 08/16/17 Potassium Chloride (POTASSIUM CHLORIDE) 10 Meq Tab.er.prt, 10 MEQ PO BID, #60 TAB 1 Refill Prov:MATEO LOVELL MD 07/05/17 Reported Medications Furosemide (FUROSEMIDE) 40 Mg Tablet, 1 TAB PO BID, TAB 08/16/17 Duloxetine HCl (Duloxetine HCl) 60 Mg Capsule.dr, 30 MG PO BID 08/16/17 Oxygen (OXYGEN) Inha, 3 L INH QDAY, L 07/02/17 Clopidogrel Bisulfate (CLOPIDOGREL) 75 Mg Tablet, 1 TAB PO QDAY, TAB 04/26/17 Atorvastatin Calcium (LIPITOR) 40 Mg Tablet, 1 TAB PO QDAY, TAB 04/26/17 Pregabalin (LYRICA) 150 Mg Capsule, 150 MG PO TID, CAPSULE 03/24/17 Carvedilol (CARVEDILOL) 6.25 Mg Tab, 3.125 MG PO BID, TAB 03/17/17 Apixaban (ELIQUIS) 5 Mg Tablet, 5 MG PO BID 03/17/17 Tiotropium [place] (SPIRIVA) 18 Mcg/Cap Inh, 18 MCG INH QDAY, INH 12/30/16 Levetiracetam (LEVETIRACETAM) 250 Mg Tablet, 500 MG PO BID, TAB 12/30/16 Tamsulosin Hcl (FLOMAX) 0.4 Mg Cap.er.24h, 0.4 MG PO QDAY, CAP 12/30/16 Levothyroxine Sodium (LEVOTHYROXINE SODIUM) 100 Mcg Tablet, 100 MCG PO QDAY, TAB 12/30/16 Hx Smoking: Yes Smoking Status: Former Smoker Exposure to Second Hand Smoke?: No Hx Substance Use Disorder: No Hx Alcohol Use: Yes Constitutional Vital Sign - Last 24 Hours 09/04/17 09/04/17 14:59 14:59 Temp 98.7 Pulse 90 Resp 22 B/P (MAP) 97/77 Pulse Ox 93 O2 Delivery Nasal Cannula O2 Flow Rate 3.0 Physical Exam General Appearance: The patient is alert, has no immediate need for airway protection and no signs of toxicity. No acute distress Eyes: Pupils equal and round no pallor or injection. ENT, Mouth: Mucous membranes are moist. Respiratory: There are no retractions, lungs are clear to auscultation. Cardiovascular: Regular rate and rhythm. No murmurs gallops or rubs Gastrointestinal: Abdomen is soft and non tender, no masses, bowel sounds normal. Neurological: Normal neuro exam Skin: Warm and dry, no rashes. Musculoskeletal: Neck is supple non tender. Extremities are nontender, nonswollen and have full range of motion. No significant worsening of his chronic edema DIFFERENTIAL DIAGNOSIS/MDM: After history and physical exam differential diagnosis was considered for fall no signs of traumatic injury cardiac workup negative no signs of heart failure hypotension is at baseline per patient report Medical Decision Making Data Points Result Diagram: 09/04/17 1508 09/04/17 1508 Laboratory Hematology Test 09/04/17 15:08 Red Blood Count 4.06 M/uL (4.00-5.60) Mean Corpuscular Volume 99.5 fL (80.0-96.0) Mean Corpuscular Hemoglobin 32.5 pg (26.0-33.0) Mean Corpuscular Hemoglobin Concent 32.7 g/dL (32.0-36.0) Red Cell Distribution Width 16.2 % (11.5-14.5) Mean Platelet Volume 8.3 fL (7.2-11.1) Neutrophils (%) (Auto) 65.8 % (39.4-72.5) Lymphocytes (%) (Auto) 19.1 % (17.6-49.6) Monocytes (%) (Auto) 9.9 % (4.1-12.4) Eosinophils (%) (Auto) 2.9 % (0.4-6.7) Basophils (%) (Auto) 2.3 % (0.3-1.4) Nucleated RBC Relative Count (auto) 0.1 /100WBC Neutrophils # (Auto) 2.8 K/uL (2.0-7.4) Lymphocytes # (Auto) 0.8 K/uL (1.3-3.6) Monocytes # (Auto) 0.4 K/uL (0.3-1.0) Eosinophils # (Auto) 0.1 K/uL (0.0-0.5) Basophils # (Auto) 0.1 K/uL (0.0-0.1) Nucleated RBC Absolute Count (auto) 0.01 K/uL Sodium Level 140 mmol/L (137-145) Potassium Level 3.9 mmol/L (3.5-5.0) Chloride Level 98 mmol/L (98-107) Carbon Dioxide Level 31 mmol/L (22-30) Blood Urea Nitrogen 20 mg/dl (9-21) Creatinine 0.90 mg/dl (0.66-1.25) Glomerular Filtration Rate Calc > 60.0 Random Glucose 99 mg/dl (75-110) Calcium Level 8.8 mg/dl (8.4-10.2) Total Bilirubin 1.3 mg/dl (0.2-1.3) Aspartate Amino Transf (AST/SGOT) 38 U/L (0-35) Alanine Aminotransferase (ALT/SGPT) 32 U/L (0-56) Alkaline Phosphatase 69 U/L (0-126) Troponin I 0.013 ng/ml B-Type Natriuretic Peptide 779 pg/ml (0-100) Total Protein 6.8 gm/dl (6.3-8.2) Albumin 3.6 g/dl (3.5-5.0) Chemistry Test 09/04/17 15:08 White Blood Count 4.2 k/uL (4.5-11.0) Red Blood Count 4.06 M/uL (4.00-5.60) Hemoglobin 13.2 g/dL (14.0-18.0) Hematocrit 40.4 % (42.0-52.0) Mean Corpuscular Volume 99.5 fL (80.0-96.0) Mean Corpuscular Hemoglobin 32.5 pg (26.0-33.0) Mean Corpuscular Hemoglobin Concent 32.7 g/dL (32.0-36.0) Red Cell Distribution Width 16.2 % (11.5-14.5) Platelet Count 286 K/uL (150-450) Mean Platelet Volume 8.3 fL (7.2-11.1) Neutrophils (%) (Auto) 65.8 % (39.4-72.5) Lymphocytes (%) (Auto) 19.1 % (17.6-49.6) Monocytes (%) (Auto) 9.9 % (4.1-12.4) Eosinophils (%) (Auto) 2.9 % (0.4-6.7) Basophils (%) (Auto) 2.3 % (0.3-1.4) Nucleated RBC Relative Count (auto) 0.1 /100WBC Neutrophils # (Auto) 2.8 K/uL (2.0-7.4) Lymphocytes # (Auto) 0.8 K/uL (1.3-3.6) Monocytes # (Auto) 0.4 K/uL (0.3-1.0) Eosinophils # (Auto) 0.1 K/uL (0.0-0.5) Basophils # (Auto) 0.1 K/uL (0.0-0.1) Nucleated RBC Absolute Count (auto) 0.01 K/uL Glomerular Filtration Rate Calc > 60.0 Calcium Level 8.8 mg/dl (8.4-10.2) Total Bilirubin 1.3 mg/dl (0.2-1.3) Aspartate Amino Transf (AST/SGOT) 38 U/L (0-35) Alanine Aminotransferase (ALT/SGPT) 32 U/L (0-56) Alkaline Phosphatase 69 U/L (0-126) Troponin I 0.013 ng/ml B-Type Natriuretic Peptide 779 pg/ml (0-100) Total Protein 6.8 gm/dl (6.3-8.2) Albumin 3.6 g/dl (3.5-5.0) ED Course/Re-evaluation ED Course Plan of care agree upon prior to orders placed All results were discussed with the patient after review home care follow-up and reasons to return were discussed. Decision to Disposition Date: Sep 04, 2017 Decision to Disposition Time: 16:46 Depart Departure Latest Vital Signs Vital Signs Date Time Temp Pulse Resp B/P (MAP) Pulse Ox O2 Delivery O2 Flow Rate FiO2 09/04/17 14:59 98.7 90 22 97/77 93 Nasal Cannula 09/04/17 14:59 3.0 Impression: Primary Impression: Accident due to mechanical fall without injury Additional Impression: Atrial flutter Condition: Improved Disposition: HOME OR SELF-CARE Departure Forms: Medications Reconciliation, Patient Portal Information, ER Transition Record Patient Instructions: Fall Prevention (ED) Problem Qualifiers Primary Impression: Accident due to mechanical fall without injury Encounter type: initial encounter Qualified Codes: W19.XXXA - Unspecified fall, initial encounter Additional Impression: Atrial flutter Atrial flutter type: unspecified Qualified Codes: I48.92 - Unspecified atrial flutter MEGHAN PETTIT MD Sep 04, 2017 16:48
== END 2017-09-04 16:55 | disposition home or self-care (01) ==
LOC: ER 15:10
DX: I48.92 Unspecified atrial flutter (principal); R94.31 Abnormal electrocardiogram [ECG] [EKG]; I25.2 Old myocardial infarction; I49.3 Ventricular premature depolarization; I49.9 Cardiac arrhythmia, unspecified; I51.7 Cardiomegaly; W18.39XA Other fall on same level, initial encounter
CPT/HCPCS: 71045; 82040; 82247; 82310; 82374; 82435; 82565; 82947; 83880; 84075; 84132; 84155; 84295; 84450; 84460; 84484; 84520; 85025; 93005; 99283

== ENCOUNTER → 2017-09-04 | Outpatient (CLI) | payer MEDICARE, OTHER ==
[2017-08-17 10:54] VITALS: BMI 34.0
[~2017-09-04] MED LIST changes: +ATOR10TA24 PO; +DULO60CA7 PO; +FINA5TAB67 PO; +FURO-47 PO
== END ==
LOC: AMB 14:08
PROVIDERS: ATTEND Nurse Practitioner
DX: R55 Syncope and collapse (principal); I48.91 Unspecified atrial fibrillation; I49.3 Ventricular premature depolarization
CPT/HCPCS: A0425; A0427

== ENCOUNTER 2017-09-06 09:54 | Emergency (ER) | payer MEDICARE, OTHER ==
[2017-08-17 10:54] VITALS: Wt 117.5 kg
[~2017-09-06 09:54] MED LIST changes: -ATOR10TA24 PO
[2017-09-06] MEDS ORDERED: DILTIAZEM 5 MG/ML 5ML IVPUSH IVP ONE (10:15)
--- NOTE | 2017-09-06 10:15 | EKG ---
FACILITY: [facility] [place] PATIENT NAME: TONY NGO : [id number] MR: [id number] V: [id number] EXAM DATE: ORDERING PHYSICIAN: AYO KERN TECHNOLOGIST: SHIRLEY Mohamud Reason : IRREG. HR Blood Pressure : / mmHG Vent. Rate : 089 BPM Atrial Rate : 267 BPM P-R Int : 000 ms QRS Dur : 126 ms QT Int : 400 ms P-R-T Axes : 091 -30 094 degrees QTc Int : 486 ms Appears to be sinus rhythm with first degree AV block Left axis deviation Nonspecific intraventricular block Abnormal ECG Confirmed by MATEO LOVELL ([id number] on 09/07/2017 5:40:25 AM Referred By: ERLIN Confirmed By:MATEO LOVELL
[2017-09-06 10:50] LABS: PLATELET COUNT, AUTOMATED 325 K/uL (150-450)
[2017-09-06] MEDS ORDERED: ONDANSETRON 4 MG/2 ML VIAL ONE (10:52)
[2017-09-06] MEDS ORDERED: ASPIRIN 81 MG CHEW PO ONE (11:05)
[2017-09-06] MEDS ORDERED: HEPARIN (PORC) 5000 UN/ML VIAL IVP ONE (11:05)
[2017-09-06 11:20] LABS: INR 1.45
[2017-09-06] MEDS ORDERED: STEMI KIT(*) 0 EA ONE (11:27)
--- NOTE | 2017-09-06 11:31 | ER Report ---
History and Physical Time Seen By MD: 10:00 Hx. of Stated Complaint: patient reports an 8 pound weight gain in 2 days. patient has a diagnosis of chf HPI/ROS CHIEF COMPLAINT: Shortness of breath HISTORY OF PRESENT ILLNESS: 77-year-old male history of CHF COPD comes in with 3 -4 days of worsening shortness of breath no orthopnea or PND exertional dyspnea is positive patient states she also noticed 4-6 pound weight gain increasing lower some peripheral edema denies any chest pain at time of presentation but says he's been significantly more dependent on his oxygen and with exertional dyspnea. REVIEW OF SYSTEMS: Respiratory: Shortness of breath no cough Cardiovascular: No chest pain, no palpitations. Gastrointestinal: No vomiting, no abdominal pain. Musculoskeletal: No back pain. Remainder of the 14 system rev: Yes Allergies: Coded Allergies: Penicillins (Verified Allergy, Severe, 08/16/17) tramadol (Verified Allergy, Severe, seizure, 08/16/17) pt reported ibuprofen (Verified Allergy, Unknown, 08/16/17) STOMACH BLEEDING Home Meds Active Scripts Finasteride (FINASTERIDE) 5 Mg Tablet, 5 MG PO QDAY for 30 Days, TAB Prov:MATEO LOVELL MD 08/16/17 Potassium Chloride (POTASSIUM CHLORIDE) 10 Meq Tab.er.prt, 10 MEQ PO BID, #60 TAB 1 Refill Prov:MATEO LOVELL MD 07/05/17 Reported Medications Furosemide (FUROSEMIDE) 40 Mg Tablet, 1 TAB PO BID, TAB 08/16/17 Duloxetine HCl (Duloxetine HCl) 60 Mg Capsule.dr, 30 MG PO BID 08/16/17 Oxygen (OXYGEN) Inha, 3 L INH QDAY, L 07/02/17 Clopidogrel Bisulfate (CLOPIDOGREL) 75 Mg Tablet, 1 TAB PO QDAY, TAB 04/26/17 Atorvastatin Calcium (LIPITOR) 40 Mg Tablet, 1 TAB PO QDAY, TAB 04/26/17 Pregabalin (LYRICA) 150 Mg Capsule, 150 MG PO TID, CAPSULE 03/24/17 Carvedilol (CARVEDILOL) 6.25 Mg Tab, 3.125 MG PO BID, TAB 03/17/17 Apixaban (ELIQUIS) 5 Mg Tablet, 5 MG PO BID 03/17/17 Tiotropium [place] (SPIRIVA) 18 Mcg/Cap Inh, 18 MCG INH QDAY, INH 12/30/16 Levetiracetam (LEVETIRACETAM) 250 Mg Tablet, 500 MG PO BID, TAB 12/30/16 Tamsulosin Hcl (FLOMAX) 0.4 Mg Cap.er.24h, 0.4 MG PO QDAY, CAP 12/30/16 Levothyroxine Sodium (LEVOTHYROXINE SODIUM) 100 Mcg Tablet, 100 MCG PO QDAY, TAB 12/30/16 Reviewed Nurses Notes: Yes Old Medical Records Reviewed: Yes Hx Smoking: Yes Smoking Status: Former Smoker Exposure to Second Hand Smoke?: No Hx Substance Use Disorder: No Hx Alcohol Use: Yes Constitutional Vital Sign - Last 24 Hours 09/06/17 09/06/17 09/06/17 09/06/17 09:58 10:01 10:05 10:09 Pulse 110 91 Resp 24 B/P (MAP) 115/99 115/99 (104) Pulse Ox 84 100 O2 Delivery Nasal Cannula O2 Flow Rate 5.0 09/06/17 09/06/17 09/06/17 09/06/17 10:21 10:24 10:34 10:39 Pulse 93 69 Resp 13 B/P (MAP) 93/76 (82) 110/77 (88) Pulse Ox 99 93 09/06/17 09/06/17 09/06/17 10:44 10:52 10:59 Pulse 70 66 Resp 14 B/P (MAP) 94/70 (78) Pulse Ox 95 92 Physical Exam General Appearance: The patient is alert, has no immediate need for airway protection and no current signs of toxicity. No distress with cyanotic Eyes: Pupils equal and round no injection. Respiratory: Chest is non tender, lungs are clear to auscultation. Cardiac: Irregular rate and rhythm atrial flutter [ ] Gastrointestinal: Abdomen is soft and non tender, no masses, bowel sounds normal. Musculoskeletal: Neck: Neck is supple and non tender. Extremities have full range of motion and are non tender. Skin: Mildly pale cyanotic around the lips diaphoretic [ ] DIFFERENTIAL DIAGNOSIS: After history and physical exam differential diagnosis was considered for acute VA aortic dissection pulmonary emboli Medical Decision Making Data Points Result Diagram: 09/06/17 1015 Laboratory Hematology Test 09/06/17 10:15 09/06/17 10:30 Prothrombin Time 17.9 seconds (12.0-14.4) Prothromb Time International Ratio 1.45 Activated Partial Thromboplast Time 38 seconds (23-35) D-Dimer Quantitative (PE/DVT) 1.14 ug/ml (0-0.50) Sodium Level 138 mmol/L (137-145) Potassium Level 4.0 mmol/L (3.5-5.0) Chloride Level 97 mmol/L (98-107) Carbon Dioxide Level 30 mmol/L (22-30) Blood Urea Nitrogen 29 mg/dl (9-21) Creatinine 1.00 mg/dl (0.66-1.25) Glomerular Filtration Rate Calc > 60.0 Random Glucose 104 mg/dl (75-110) Calcium Level 8.7 mg/dl (8.4-10.2) Total Bilirubin 1.6 mg/dl (0.2-1.3) Aspartate Amino Transf (AST/SGOT) 31 U/L (0-35) Alanine Aminotransferase (ALT/SGPT) 35 U/L (0-56) Alkaline Phosphatase 72 U/L (0-126) Troponin I 0.013 ng/ml Total Protein 7.0 gm/dl (6.3-8.2) Albumin 3.8 g/dl (3.5-5.0) Blood Gas Puncture Site Right radial Blood Gas Patient Temperature 97.9 DEGREES Arterial Blood pH 7.40 (7.35-7.45) Arterial Blood Partial Pressure CO2 45 mmHg (32-37) Arterial Blood Partial Pressure O2 87 mmHg (60-80) Arterial Blood HCO3 28 mmol/L (20-26) Arterial Blood Oxygen Saturation 97 % (92-100) Arterial Blood Base Excess 3.0 mmol/L Jermaine Test Acceptable Oxygen Liters/Minute 3l Chemistry Test 09/06/17 10:15 09/06/17 10:30 Prothrombin Time 17.9 seconds (12.0-14.4) Prothromb Time International Ratio 1.45 Activated Partial Thromboplast Time 38 seconds (23-35) D-Dimer Quantitative (PE/DVT) 1.14 ug/ml (0-0.50) Glomerular Filtration Rate Calc > 60.0 Calcium Level 8.7 mg/dl (8.4-10.2) Total Bilirubin 1.6 mg/dl (0.2-1.3) Aspartate Amino Transf (AST/SGOT) 31 U/L (0-35) Alanine Aminotransferase (ALT/SGPT) 35 U/L (0-56) Alkaline Phosphatase 72 U/L (0-126) Troponin I 0.013 ng/ml Total Protein 7.0 gm/dl (6.3-8.2) Albumin 3.8 g/dl (3.5-5.0) Blood Gas Puncture Site Right radial Blood Gas Patient Temperature 97.9 DEGREES Arterial Blood pH 7.40 (7.35-7.45) Arterial Blood Partial Pressure CO2 45 mmHg (32-37) Arterial Blood Partial Pressure O2 87 mmHg (60-80) Arterial Blood HCO3 28 mmol/L (20-26) Arterial Blood Oxygen Saturation 97 % (92-100) Arterial Blood Base Excess 3.0 mmol/L Jermaine Test Acceptable Oxygen Liters/Minute 3l Coagulation Test 09/06/17 10:15 Prothrombin Time 17.9 seconds Prothromb Time International Ratio 1.45 Activated Partial Thromboplast Time 38 seconds D-Dimer Quantitative (PE/DVT) 1.14 ug/ml ED Course/Re-evaluation ED Course ED clinical course 77 her male 1st EKG showed a flutter secondary G EKG about acute VA 2nd troponin pending 1st troponin is slightly bumped at 0.013 helicopters in the air we transferred to a higher level facility for acute cardiac evaluation possible Procedure spoke to cardiology for acceptance patient is mildly diaphoretic during his course of stay here his clinical presentation change she became diaphoretic markedly confused cyanotic held off on the chest x-ray initially repeat EKG which showed an evolving acute VA repeated troponins were ordered chest x-ray will be performed prior to admission of heparin heparin dose at 5000 will be done as per has been given DT PTT and INR is been evaluated patient be transferred via helicopter to an outside facility for acute cardiac management Decision to Disposition Date: Sep 06, 2017 Decision to Disposition Time: 11:30 Depart Departure Latest Vital Signs Vital Signs Date Time Temp Pulse Resp B/P (MAP) Pulse Ox O2 Delivery O2 Flow Rate FiO2 09/06/17 10:59 66 92 09/06/17 10:52 94/70 (78) 09/06/17 10:44 14 09/06/17 10:05 5.0 09/06/17 09:58 Nasal Cannula Impression: Primary Impression: Myocardial infarction Condition: Improved Disposition: XFER TO [facility] AYO KERN MD Sep 06, 2017 11:31
[2017-09-06] MEDS ORDERED: HEPARIN* SOD/D5W 25000 U/500ML 500 ML IV ONE (11:40)
--- NOTE | 2017-09-06 11:53 | RADIOLOGY IMAGING REPORT ---
FACILITY: [facility] PATIENT NAME: Obey Asencio : 1940 MR: [id number] V: [id number] EXAM DATE: ORDERING PHYSICIAN: AYO KERN TECHNOLOGIST: Location[place] [facility] [place] Patient: Obey Asencio : 1940 Visit/Account:[id number] Date of Sevice: 09/06/2017 Exam type: CHEST SINGLE AP History: cardiac event Comparison: September 04, 2017. Findings: Cardiac silhouette is markedly enlarged although similar to the prior study. There Is a mild increas e in the interstitial markings of the lungs worrisome for interstitial pulmonary edema. There is no evidence of pleural effusions. Postoperative changes of the cervical spine and severe degenerative c hanges of the shoulder joints again seen IMPRESSION: 1. Marked cardiomegaly similar to the prior study There has been interval development of mild interstitial prominence of the lungs likely related to in terstitial pulmonary edema Report Dictated By: Samantha Mackey MD at 09/06/2017 11:46 AM Report E-Signed By: Samantha Mackey MD at 09/06/2017 11:48 AM WSN:[id number]
[2017-09-06] MEDS ORDERED: ONDANSETRON 4 MG/2 ML VIAL IVP ONE (11:55)
[2017-09-06 12:05] VITALS: BP 96/78
--- NOTE | 2017-09-06 14:34 | EKG ---
FACILITY: [facility] [place] PATIENT NAME: TONY NGO : [id number] MR: [id number]: [id number] EXAM DATE: ORDERING PHYSICIAN: AYO KERN TECHNOLOGIST: ISSA Mohamud Reason : REPEAT Blood Pressure : / mmHG Vent. Rate : 066 BPM Atrial Rate : 264 BPM P-R Int : 000 ms QRS Dur : 126 ms QT Int : 458 ms P-R-T Axes : 089 021 094 degrees QTc Int : 480 ms Atrial flutter with 4:1 AV conduction Nonspecific intraventricular block Abnormal ECG Confirmed by MATEO LOVELL ([id number]) on 09/07/2017 5:42:05 AM Referred By: ERLIN Confirmed By:MATEO LOVELL
== END 2017-09-06 12:35 | disposition short-term general hospital (02) ==
LOC: ER 09:58
DX: I21.9 Acute myocardial infarction, unspecified (principal); I48.92 Unspecified atrial flutter
CPT/HCPCS: 36600; 71045; 82803; 83880; 84484; 85025; 85379; 85610; 85730; 93005; 96365; 96375; 99285; A9270; C1758; J1644; J2405; J3490; 82040; 82247; 82310; 82374; 82435; 82565; 82947; 84075; 84132; 84155; 84295; 84450; 84460; 84520; 96376

== ENCOUNTER → 2017-09-06 | Outpatient (REF) ==
[2017-08-17 10:54] VITALS: BMI 34.0
[~2017-09-06] MED LIST changes: +ATOR10TA24 PO
== END ==
LOC: AMB 11:45
PROVIDERS: ATTEND Nurse Practitioner
DX: Z02.9 Encounter for administrative examinations, unspecified (principal)

== ENCOUNTER 2017-09-15 05:33 | Inpatient (IN) | payer MEDICARE, OTHER ==
[2017-08-17 10:54] VITALS: Wt 124.7 kg
[2017-09-15] MEDS ORDERED: ATOR10TA24 PO (05:39)
--- NOTE | 2017-09-15 05:41 | ER Report ---
History and Physical Time Seen By MD: 05:41 (YAHAIRA HAY MD) HPI/ROS CHIEF COMPLAINT: short of breath HISTORY OF PRESENT ILLNESS: This is a 77 year old male. He is having shortness of breath. Progressive worsening associated with increasing fluid retention, ankles and abdomen especially. Was able to sleep in a recliner last night, but unable to tonight. He has worsening shortness of breath with laying flat and with exertion. Has worsening at night. Taking Lasix 40mg twice a day, but is not making him urinate anymore. Was transferred to [facility] last week due to concern for heart attack, but cardiology stated he did not have a heart attack. Patient indicates that no cath done. His primary plate former is at [facility], Dr. Crawford. He has no fevers or chills. Has some brief electric like pains occasionally in his chest. Mild cough. He wears oxygen at home, and is currently still on his usual 4 liters by nasal canula. REVIEW OF SYSTEMS: Constitutional: No fever or chills. Eyes: No vision changes. ENT: No sore throat. No congestion. Cardiovascular: As above. Respiratory: As above. Gastrointestinal: No abdominal pain. No nausea or vomiting. Genitourinary: No pain with urination. Musculoskeletal: Has some chronic low back and flank pain. Skin: No rashes. Neurological: Generalized weakness, but no focal weakness. (YAHAIRA HAY MD) Allergies: Coded Allergies: Penicillins (Verified Allergy, Severe, 09/15/17) tramadol (Verified Allergy, Severe, seizure, 09/15/17) pt reported ibuprofen (Verified Allergy, Unknown, 09/15/17) STOMACH BLEEDING Home Meds Active Scripts Digoxin (Digox) 125 Mcg Tablet, 0.125 MG PO QDAY, #30 TAB Prov:ZENY BELLO MD 09/22/17 Potassium Chloride (KLOR-CON 10) 10 Meq Tablet.er, 20 MEQ PO BIDBS, #120 TAB Prov:ZENY BELLO MD 09/22/17 Furosemide (FUROSEMIDE) 80 Mg Tablet, 80 MG PO BIDD, #60 TAB Prov:ZENY BELLO MD 09/22/17 Finasteride (FINASTERIDE) 5 Mg Tablet, 5 MG PO QDAY for 30 Days, TAB Prov:MATEO BELLO MD 08/16/17 Reported Medications Atorvastatin Calcium (LIPITOR) 10 Mg Tablet, 1 TAB PO QDAY, TAB 09/15/17 Duloxetine HCl (Duloxetine HCl) 60 Mg Capsule.dr, 30 MG PO BID 08/16/17 Oxygen (OXYGEN) Inha, 3 L INH QDAY, L 07/02/17 Clopidogrel Bisulfate (CLOPIDOGREL) 75 Mg Tablet, 1 TAB PO QDAY, TAB 04/26/17 Pregabalin (LYRICA) 150 Mg Capsule, 150 MG PO TID, CAPSULE 03/24/17 Carvedilol (CARVEDILOL) 6.25 Mg Tab, 3.125 MG PO BID, TAB 03/17/17 Apixaban (ELIQUIS) 5 Mg Tablet, 5 MG PO BID 03/17/17 Tiotropium [place] (SPIRIVA) 18 Mcg/Cap Inh, 18 MCG INH QDAY, INH 12/30/16 Levetiracetam (LEVETIRACETAM) 250 Mg Tablet, 500 MG PO BID, TAB 12/30/16 Tamsulosin Hcl (FLOMAX) 0.4 Mg Cap.er.24h, 0.4 MG PO QDAY, CAP 12/30/16 Levothyroxine Sodium (LEVOTHYROXINE SODIUM) 100 Mcg Tablet, 100 MCG PO QDAY, TAB 12/30/16 Discontinued Reported Medications Furosemide (FUROSEMIDE) 40 Mg Tablet, 1 TAB PO BID, TAB 08/16/17 Atorvastatin Calcium (LIPITOR) 40 Mg Tablet, 1 TAB PO QDAY, TAB 04/26/17 Discontinued Scripts Potassium Chloride (POTASSIUM CHLORIDE) 10 Meq Tab.er.prt, 10 MEQ PO BID, #60 TAB 1 Refill Prov:MATEO BELLO MD 07/05/17 Reviewed Nurses Notes: Yes (YAHAIRA HAY MD) Hx Smoking: Yes Smoking Status: Former Smoker Exposure to Second Hand Smoke?: No Hx Substance Use Disorder: No Hx Alcohol Use: Yes (YAHAIRA HAY MD) Constitutional Vital Sign - Last 24 Hours 09/15/17 09/15/17 09/15/17 09/15/17 05:40 05:45 06:00 06:15 Temp 97.3 Pulse 109 104 98 103 Resp 14 15 7 B/P (MAP) 100/89 Pulse Ox 93 97 96 97 O2 Delivery Room Air 09/15/17 09/15/17 09/15/17 09/15/17 06:15 06:30 06:35 06:42 Pulse 112 103 Resp 15 B/P (MAP) 106/90 (95) Pulse Ox 98 O2 Flow Rate 4.0 09/15/17 09/15/17 09/15/17 09/15/17 06:43 06:50 07:00 07:05 Pulse 101 ??? 107 Resp 14 9 B/P (MAP) 106/90 (95) 120/90 (100) Pulse Ox 97 86 O2 Delivery Nasal Cannula O2 Flow Rate 4 09/15/17 09/15/17 09/15/17 09/15/17 07:31 07:35 07:50 08:00 Pulse 101 114 Resp 10 10 B/P (MAP) 102/80 (87) 119/110 (113) Pulse Ox 99 97 09/15/17 09/15/17 09/15/17 09/15/17 08:05 08:20 08:30 08:35 Pulse 103 105 100 Resp 20 22 9 B/P (MAP) 124/96 (105) Pulse Ox 100 99 96 09/15/17 09/15/17 09/15/17 09/15/17 08:40 08:50 09:00 09:05 Pulse 101 100 Resp 0 6 B/P (MAP) 106/74 (85) 102/83 (89) 91/74 (80) Pulse Ox 98 96 09/15/17 09/15/17 09/15/17 09/15/17 09:10 09:20 09:30 09:40 Pulse 106 Resp 7 B/P (MAP) 101/82 (88) 101/83 (89) 109/83 (92) 113/87 (96) Pulse Ox 96 09/15/17 09/15/17 09/15/17 09/15/17 09:50 10:00 10:00 10:05 Temp 97.6 Pulse 90 94 Resp 0 B/P (MAP) 110/80 (90) 95/82 (86) Pulse Ox 98 09/15/17 09/15/17 10:10 10:20 Pulse 94 Resp 9 B/P (MAP) 114/88 (97) 105/84 (91) Pulse Ox 95 (ENRIQUE WEST MD) Physical Exam General Appearance: The patient is alert. No acute distress. Eyes: Pupils are equal, round. Reactive to light. No pallor, injection or icterus. Extraocular movements are intact. Amblyopia left eye. ENT: Mucous membranes are moist. Normal oral mucosa. Posterior oropharynx is normal. Neck: Supple and non tender. No lymphadenopathy. Respiratory: Lungs are diminished throughout, no rales, no wheezing. He does seem to worsen with exertion, but seems to do okay while at rest. Cardiovascular: Tachycardia, irregular. Looks like atrial flutter on the monitor. Normal capillary refill. 2+ edema in ankles and lower extremities. Gastrointestinal: Abdomen is soft and non tender. Obese with mild distension. Normal active bowel sounds. No costovertebral angle tenderness with percussion. Neurological: Alert and oriented x3. No focal neurologic deficits Skin: Warm and dry. Musculoskeletal: Extremities are nontender. No tenderness in palpation of the cervical and thoracic, but mild lumbar area pain. DIFFERENTIAL DIAGNOSIS: After history and physical exam, differential diagnosis was considered for shortness of breath including but not limited to pulmonary infectious process, COPD, asthma, pulmonary embolus and congestive heart failure. ([facility]) Medical Decision Making Data Points Result Diagram: 09/20/17 0514 09/22/17 0515 Laboratory Hematology Test 09/15/17 06:23 09/15/17 06:40 09/15/17 09:07 Red Blood Count 3.68 M/uL (4.00-5.60) Mean Corpuscular Volume 97.7 fL (80.0-96.0) Mean Corpuscular Hemoglobin 32.5 pg (26.0-33.0) Mean Corpuscular Hemoglobin Concent 33.3 g/dL (32.0-36.0) Red Cell Distribution Width 16.3 % (11.5-14.5) Mean Platelet Volume 8.4 fL (7.2-11.1) Neutrophils (%) (Auto) 66.3 % (39.4-72.5) Lymphocytes (%) (Auto) 22.0 % (17.6-49.6) Monocytes (%) (Auto) 9.2 % (4.1-12.4) Eosinophils (%) (Auto) 2.2 % (0.4-6.7) Basophils (%) (Auto) 0.3 % (0.3-1.4) Nucleated RBC Relative Count (auto) 0.2 /100WBC Neutrophils # (Auto) 2.8 K/uL (2.0-7.4) Lymphocytes # (Auto) 0.9 K/uL (1.3-3.6) Monocytes # (Auto) 0.4 K/uL (0.3-1.0) Eosinophils # (Auto) 0.1 K/uL (0.0-0.5) Basophils # (Auto) 0.0 K/uL (0.0-0.1) Nucleated RBC Absolute Count (auto) 0.01 K/uL Peripheral Blood Smear Yes Y/N Prothrombin Time 16.4 seconds (12.0-14.4) Prothromb Time International Ratio 1.30 Activated Partial Thromboplast Time 35 seconds (23-35) Sodium Level 138 mmol/L (137-145) Potassium Level 3.0 mmol/L (3.5-5.0) Chloride Level 97 mmol/L (98-107) Carbon Dioxide Level 31 mmol/L (22-30) Blood Urea Nitrogen 23 mg/dl (9-21) Creatinine 0.90 mg/dl (0.66-1.25) Glomerular Filtration Rate Calc > 60.0 Random Glucose 102 mg/dl (75-110) Calcium Level 8.3 mg/dl (8.4-10.2) Total Bilirubin 2.3 mg/dl (0.2-1.3) Aspartate Amino Transf (AST/SGOT) 31 U/L (0-35) Alanine Aminotransferase (ALT/SGPT) 35 U/L (0-56) Alkaline Phosphatase 97 U/L (0-126) B-Type Natriuretic Peptide 576 pg/ml (0-100) Total Protein 6.6 gm/dl (6.3-8.2) Albumin 3.5 g/dl (3.5-5.0) Urine Color Yellow Urine Clarity Clear Urine pH 5.0 pH (4.8-9.5) Urine Specific [place] 1.010 Urine Protein Negative mg/dL (NEGATIVE) Urine Glucose (UA) Negative mg/dL (NEGATIVE) Urine Ketones Negative mg/dL (NEGATIVE) Urine Blood Negative (NEGATIVE) Urine Nitrite Negative (NEGATIVE) Urine Bilirubin Negative (NEGATIVE) Urine Urobilinogen Negative mg/dL (0.2-1.9) Urine Leukocyte Esterase Negative (NEGATIVE) Urine RBC None /HPF (0-2/HPF) Urine WBC <1 /HPF (0-5/HPF) Urine Squamous Epithelial Cells None /LPF (</=FEW) Urine Bacteria Negative /HPF (NONE-FEW) Urine Mucus None /HPF (NONE-FEW) Troponin I 0.023 ng/ml Chemistry Test 09/15/17 06:23 09/15/17 06:40 09/15/17 09:07 White Blood Count 4.2 k/uL (4.5-11.0) Red Blood Count 3.68 M/uL (4.00-5.60) Hemoglobin 12.0 g/dL (14.0-18.0) Hematocrit 35.9 % (42.0-52.0) Mean Corpuscular Volume 97.7 fL (80.0-96.0) Mean Corpuscular Hemoglobin 32.5 pg (26.0-33.0) Mean Corpuscular Hemoglobin Concent 33.3 g/dL (32.0-36.0) Red Cell Distribution Width 16.3 % (11.5-14.5) Platelet Count 295 K/uL (150-450) Mean Platelet Volume 8.4 fL (7.2-11.1) Neutrophils (%) (Auto) 66.3 % (39.4-72.5) Lymphocytes (%) (Auto) 22.0 % (17.6-49.6) Monocytes (%) (Auto) 9.2 % (4.1-12.4) Eosinophils (%) (Auto) 2.2 % (0.4-6.7) Basophils (%) (Auto) 0.3 % (0.3-1.4) Nucleated RBC Relative Count (auto) 0.2 /100WBC Neutrophils # (Auto) 2.8 K/uL (2.0-7.4) Lymphocytes # (Auto) 0.9 K/uL (1.3-3.6) Monocytes # (Auto) 0.4 K/uL (0.3-1.0) Eosinophils # (Auto) 0.1 K/uL (0.0-0.5) Basophils # (Auto) 0.0 K/uL (0.0-0.1) Nucleated RBC Absolute Count (auto) 0.01 K/uL Peripheral Blood Smear Yes Y/N Prothrombin Time 16.4 seconds (12.0-14.4) Prothromb Time International Ratio 1.30 Activated Partial Thromboplast Time 35 seconds (23-35) Glomerular Filtration Rate Calc > 60.0 Calcium Level 8.3 mg/dl (8.4-10.2) Total Bilirubin 2.3 mg/dl (0.2-1.3) Aspartate Amino Transf (AST/SGOT) 31 U/L (0-35) Alanine Aminotransferase (ALT/SGPT) 35 U/L (0-56) Alkaline Phosphatase 97 U/L (0-126) B-Type Natriuretic Peptide 576 pg/ml (0-100) Total Protein 6.6 gm/dl (6.3-8.2) Albumin 3.5 g/dl (3.5-5.0) Urine Color Yellow Urine Clarity Clear Urine pH 5.0 pH (4.8-9.5) Urine Specific [place] 1.010 Urine Protein Negative mg/dL (NEGATIVE) Urine Glucose (UA) Negative mg/dL (NEGATIVE) Urine Ketones Negative mg/dL (NEGATIVE) Urine Blood Negative (NEGATIVE) Urine Nitrite Negative (NEGATIVE) Urine Bilirubin Negative (NEGATIVE) Urine Urobilinogen Negative mg/dL (0.2-1.9) Urine Leukocyte Esterase Negative (NEGATIVE) Urine RBC None /HPF (0-2/HPF) Urine WBC <1 /HPF (0-5/HPF) Urine Squamous Epithelial Cells None /LPF (</=FEW) Urine Bacteria Negative /HPF (NONE-FEW) Urine Mucus None /HPF (NONE-FEW) Troponin I 0.023 ng/ml Coagulation Test 09/15/17 06:23 Prothrombin Time 16.4 seconds Prothromb Time International Ratio 1.30 Activated Partial Thromboplast Time 35 seconds Urinalysis Test 09/15/17 06:40 Urine Color Yellow Urine Clarity Clear Urine pH 5.0 pH (4.8-9.5) Urine Specific [place] 1.010 Urine Protein Negative mg/dL (NEGATIVE) Urine Glucose (UA) Negative mg/dL (NEGATIVE) Urine Ketones Negative mg/dL (NEGATIVE) Urine Blood Negative (NEGATIVE) Urine Nitrite Negative (NEGATIVE) Urine Bilirubin Negative (NEGATIVE) Urine Urobilinogen Negative mg/dL (0.2-1.9) Urine Leukocyte Esterase Negative (NEGATIVE) Urine RBC None /HPF (0-2/HPF) Urine WBC <1 /HPF (0-5/HPF) Urine Squamous Epithelial Cells None /LPF (</=FEW) Urine Bacteria Negative /HPF (NONE-FEW) Urine Mucus None /HPF (NONE-FEW) (ENRIQUE WEST MD) EKG/Imaging EKG Interpretation 12 lead EKG: Rhythm: Atrial flutter, variable AV block with aberrantly conducted complexes, rate 106 [place]: normal QRS: Nonspecific block ST segments: Nonspecific changes, difficult to interpret with the aberrantly conducted complexes, does not look like acute ischemia. (YAHAIRA HAY MD) Imaging FACILITY: PATIENT NAME: Obey Asencio : 1940 MR: [id number] V: [id number] EXAM DATE: ORDERING PHYSICIAN: YAHAIRA HAY TECHNOLOG[place] [facility] [place] Obey Asenc[place] : 1940 Visit/Account:[id number] Date of Sevice: 09/15/2017 2 VIEWS CHEST INDICATION: Shortness of breath COMPARISON: September 06, 2017 FINDINGS: Cardiomegaly, grossly unchanged No focal consolidation, there is increased perihilar markings with mild vascular congestion. Probable small left pleural effusion and/or atelectasis. No gross right pleural effusion. Right basilar atelectasis and/or scarring. No visualized pneumothorax. Note is made of cervical fusion hardware. Moderate degenerative changes within the right glenohumeral joint. IMPRESSION: 1. Probable mild interstitial edema. 2. Small left pleural effusion and/or atelectasis. Report Dictated By: Damaso Rutherford MD at 09/15/2017 6:59 AM Report E-Signed By: Damaso Rutherford MD at 09/15/2017 7:01 AM WSN:[id number] (ENRIQUE WEST MD) ED Course/Re-evaluation Clinical Indication for ER IV: IV Access ED Course 09/15/2017 7:41:48 am accept care of patient at 7 AM. I briefly this is a 77 from male with chief complaint of increasing positional dyspnea. He is chronically on O2 at 3 L nasal cannula but has increased his O2 requirement of 4 L secondary to his dyspnea. Reports worsening orthopnea and paroxysmal nocturnal dyspnea over the past few days he has been taking Lasix 40 mg twice a day but states that his urine output has decreased over that time. Further he was unable to sleep even in his recliner last evening. Past medical history is significant for systolic heart failure history of benign prostatic hypertrophy, frequent UTIs. History of COPD and chronic atrial fibrillation currently anticoagulated on request. Patient had a recent transfer on September 06 for chest pain to [place] for possible acute ID. During that admission he states that he "ruled out" for heart attack and was discharged home. Patient notes increasing weight gain over the past week. He had been following in transitional care and doing well up until his admission on the . Since that time his exercise tolerance has decreased. On exam the patient seems to oxygenate any well while in the seated and upright position. But having the patient go from sitting to standing his oxygen saturation decreased to 82%. IV access was obtained in the emergency department he was given 40 mg of IV Lasix. Chest x-ray shows acute pulmonary edema BNP is elevated at 500. Troponin is negative at 0.019. EKG appears unchanged from 09/06/2017 and shows atrial flutter with variable block and premature ventricular contractions. Patient's blood pressure has been hanging between 100-110 systolic. For this reason we will hold off on giving any nitroglycerin. 09/15/2017 8:08:32 am call for admission to the hospitalist at this time. I was informed that they have 23 patient's with 3 and the ICU and currently are unable to take admissions at this time. I called the house servant who is aware of the problem at this time. Patient is currently hemodynamically stable but I believe will require admission. Waiting to hear back from administration with regard to how to best care and disposition this patient. 09/15/2017 8:41:14 am was informed by the house servant that we are for the time being on "hospitalist divert". They asked that we keep the patient and medically managed him in the emergency department for the time being. She further informed me that approximately 4 pads should be opening up some point today. I informed the house servant that this is the beds are available to have the hospitalist page or call emergency department so that we can discuss admission on this patient. Decision to Disposition Date: Sep 15, 2017 Decision to Disposition Time: 10:00 (ENRIQUE WEST MD) Depart Departure Latest Vital Signs Vital Signs Date Time Temp Pulse Resp B/P (MAP) Pulse Ox O2 Delivery O2 Flow Rate FiO2 09/15/17 10:20 94 9 105/84 (91) 95 09/15/17 10:00 97.6 09/15/17 06:43 Nasal Cannula 4 (ENRIQUE WEST MD) Impression: Primary Impression: Acute systolic heart failure Condition: Improved Disposition: Admitted from ER (to Dr Bello) New Scripts Digoxin (Digox) 125 Mcg Tablet 0.125 MG PO QDAY, #30 TAB Prov: ZENY BELLO MD 09/22/17 Potassium Chloride (KLOR-CON 10) 10 Meq Tablet.er 20 MEQ PO BIDBS, #120 TAB Prov: ZENY BELLO MD 09/22/17 Furosemide (FUROSEMIDE) 80 Mg Tablet 80 MG PO BIDD, #60 TAB Prov: ZENY BELLO MD 09/22/17 YAHAIRA HAY MD Sep 15, 2017 05:41 ENRIQUE WEST MD Sep 15, 2017 07:34
--- NOTE | 2017-09-15 06:16 | EKG ---
FACILITY: [facility] [place] PATIENT NAME: TONY NGO : [id number] MR: [id number] V: [id number] EXAM DATE: ORDERING PHYSICIAN: YAHAIRA HAY TECHNOLOGIST: ELLA Test Reason : DYSPNEA Blood Pressure : / mmHG Vent. Rate : 106 BPM Atrial Rate : 271 BPM P-R Int : 000 ms QRS Dur : 126 ms QT Int : 388 ms P-R-T Axes : 090 -10 095 degrees QTc Int : 515 ms Atrial flutter with variable AV block and PVC's Left bundle branch block Abnormal ECG When compared with ECG of 06-SEP-2017 10:55, Vent. rate has increased BY 40 BPM Now with PVC's Confirmed by JOSIE BELTRAN ([id number]) on 09/15/2017 7:03:39 AM Referred By: Confirmed By:JOSIE BELTRAN
[2017-09-15 06:32] LABS: PLATELET COUNT, AUTOMATED 295 K/uL (150-450)
[2017-09-15 06:41] LABS: INR 1.3
--- NOTE | 2017-09-15 07:07 | RADIOLOGY IMAGING REPORT ---
FACILITY: [facility] [place] PATIENT NAME: Obey Asencio : 1940 MR: [id number] V: [id number] EXAM DATE: ORDERING PHYSICIAN: YAHAIRA HAY TECHNOLOGIST: Location: [facility] Patient: Obey Asencio : 1940 Visit/Account:[id number] Date of Sevice: 09/15/2017 2 VIEWS CHEST INDICATION: Shortness of breath COMPARISON: September 06, 2017 FINDINGS: Cardiomegaly, grossly unchanged No focal consolidation, there is increased perihilar markings with mild vascular congestion. Probable small left pleural effusion and/or atelectasis. No gross right pleural effusion. Right basilar atele ctasis and/or scarring. No visualized pneumothorax. Note is made of cervical fusion hardware. Moderate degenerative changes within the right glenohumeral joint. IMPRESSION: 1. Probable mild interstitial edema. 2. Small left pleural effusion and/or atelectasis. Report Dictated By: Damaso Rutherford MD at 09/15/2017 6:59 AM Report E-Signed By: Damaso Rutherford MD at 09/15/2017 7:01 AM WSN:[id number]
[2017-09-15] MEDS ORDERED: FUROSEMIDE 40 MG/4 ML VIAL IVP STA (07:31)
[2017-09-15] MEDS ORDERED: POTASSIUM CHL 20 MEQ TABCR PO SCH (07:35)
[2017-09-15] MEDS ORDERED: NITROGLYCERIN OINT 1 GM PKT TP ONE (08:25)
[2017-09-15 11:30] VITALS: BP 104/75
[2017-09-15] MEDS ORDERED: ACETAMINOPHEN 325 MG TAB PO PRN (13:05)
[2017-09-15] MEDS ORDERED: FLUSH 10 ML SYR IVP PRN (13:05)
--- NOTE | 2017-09-15 13:39 | History & Physical ---
History of Present Illness Chief Complaint Short of breath History of Present Illness 77yo male with PMHx significant for systolic heart failure with EF ~29%. He reports recurring dyspnea with virtually any activities as well as orthopnea occurring every night when he tries to sleep. He reports occasional "shock" like pains in his chest and arms. He denies any fevers or chills. No sputum production. He believes his weight has increased several pounds. He was evaluated and found to have evidence of some pulmonary edema on CXR. His BNP was elevated, but no to previous levels. He was recommended for admission. History Problems: (1) Seizure Status: Chronic (2) COPD (chronic obstructive pulmonary disease) Status: Chronic (3) Essential hypertension Status: Chronic (4) Hypercholesterolemia Status: Chronic (5) BPH (benign prostatic hyperplasia) Status: Chronic (6) Seizure disorder Status: Chronic (7) Postoperative intra-abdominal abscess Status: Resolved (8) Hypothyroid Status: Chronic (9) Chronic systolic heart failure Status: Chronic (10) Gangrenous appendicitis Status: Resolved (11) CAD (coronary artery disease) Status: Chronic (12) Atrial flutter Status: Chronic Home Meds Active Scripts Finasteride (FINASTERIDE) 5 Mg Tablet, 5 MG PO QDAY for 30 Days, TAB Prov:MATEO LOVELL MD 08/16/17 Potassium Chloride (POTASSIUM CHLORIDE) 10 Meq Tab.er.prt, 10 MEQ PO BID, #60 TAB 1 Refill Prov:MATEO LOVELL MD 07/05/17 Reported Medications Atorvastatin Calcium (LIPITOR) 10 Mg Tablet, 1 TAB PO QDAY, TAB 09/15/17 Furosemide (FUROSEMIDE) 40 Mg Tablet, 1 TAB PO BID, TAB 08/16/17 Duloxetine HCl (Duloxetine HCl) 60 Mg Capsule.dr, 30 MG PO BID 08/16/17 Oxygen (OXYGEN) Inha, 3 L INH QDAY, L 07/02/17 Clopidogrel Bisulfate (CLOPIDOGREL) 75 Mg Tablet, 1 TAB PO QDAY, TAB 04/26/17 Pregabalin (LYRICA) 150 Mg Capsule, 150 MG PO TID, CAPSULE 03/24/17 Carvedilol (CARVEDILOL) 6.25 Mg Tab, 3.125 MG PO BID, TAB 03/17/17 Apixaban (ELIQUIS) 5 Mg Tablet, 5 MG PO BID 03/17/17 Tiotropium Jay (SPIRIVA) 18 Mcg/Cap Inh, 18 MCG INH QDAY, INH 12/30/16 Levetiracetam (LEVETIRACETAM) 250 Mg Tablet, 500 MG PO BID, TAB 12/30/16 Tamsulosin Hcl (FLOMAX) 0.4 Mg Cap.er.24h, 0.4 MG PO QDAY, CAP 12/30/16 Levothyroxine Sodium (LEVOTHYROXINE SODIUM) 100 Mcg Tablet, 100 MCG PO QDAY, TAB 12/30/16 Discontinued Reported Medications Atorvastatin Calcium (LIPITOR) 40 Mg Tablet, 1 TAB PO QDAY, TAB 04/26/17 Allergies: Coded Allergies: Penicillins (Verified Allergy, Severe, 09/15/17) tramadol (Verified Allergy, Severe, seizure, 09/15/17) pt reported ibuprofen (Verified Allergy, Unknown, 09/15/17) STOMACH BLEEDING Patient History: FH: cancer MOTHER, BROTHER OR SISTER, FH: myocardial infarction FATHER, FHx: multiple sclerosis BROTHER OR SISTER Hx Smoking: Yes Smoking Status: Former Smoker Exposure to Second Hand Smoke?: No Caffeine Intake: Coffee, Tea Caffeine/Cups Per Day: 4 cups/day Hx Alcohol Use: Yes Hx Substance Use Disorder: No Review of Systems Constitutional: No Fever, No Chills, No Night Sweats Neurological: No Syncope, No Confusion, No Weakness, No Dizziness Eyes: No Vision Change, No Loss of Vision ENT: No Hearing Loss, No Sore Throat Cardiovascular: Chest Pain Respiratory: Shortness of Breath, Cough Gastrointestinal: No Nausea, No Vomiting, No Diarrhea, No Hematemesis, No Hematochezia, No Melena, No Abdominal Pain Genitourinary: No Dysuria, No Hematuria, No Urinary Incontinence Exam Vital Signs Vital Signs Date Time Temp Pulse Resp B/P (MAP) Pulse Ox O2 Delivery O2 Flow Rate FiO2 09/15/17 11:52 94 Nasal Cannula 4.0 09/15/17 11:30 97.7 109 20 104/75 (85) General Appearance: Alert, Awake Neuro: No Gross deficits Eyes: PERRLA ENT: Oropharynx Clear Neck: No Masses, Other (short/thick) Cardiovascular: Other (Irregularwith distant tones soft systolic murmur) Respiratory: Other (few rales at both bases/no wheezes) Chest: No Tenderness GI: Abd Soft and Non-Tender : No CVA Tenderness Extremities: Warm, Perfused, Edema, Other (ecchymoses right ankle) Integumentary: Skin Intact without Lesion / Mass Psych: Alert & Oriented X3 Medical Decision Making Data Points Result Diagram: 09/15/17 0623 09/15/17 0623 Item Value Date Time Albumin 3.5 g/dl 09/15/17 0623 Total Protein 6.6 gm/dl 09/15/17 0623 Troponin I 0.019 ng/ml 09/15/17 0623 Alkaline Phosphatase 97 U/L 09/15/17 0623 Alanine Aminotransferase (ALT/SGPT) 35 U/L 09/15/17 0623 Aspartate Amino Transf (AST/SGOT) 31 U/L 09/15/17 0623 Total Bilirubin 2.3 mg/dl H 09/15/17 0623 Calcium Level 8.3 mg/dl L 09/15/17 0623 Troponin I 0.023 ng/ml 09/15/17 0907 B-Type Natriuretic Peptide 576 pg/ml H 09/15/17 0623 Urine Mucus None /HPF 09/15/17 0640 Urine Bacteria Negative /HPF 09/15/17 0640 Urine Squamous Epithelial Cells None /LPF 09/15/17 0640 Urine WBC <1 /HPF 09/15/17 0640 Urine RBC None /HPF 09/15/17 0640 Urine Leukocyte Esterase Negative 09/15/17 0640 Urine Urobilinogen Negative mg/dL 09/15/17 0640 Urine Bilirubin Negative 09/15/17 0640 Urine Nitrite Negative 09/15/17 0640 Urine Blood Negative 09/15/17 0640 Urine Ketones Negative mg/dL 09/15/17 0640 Urine Glucose (UA) Negative mg/dL 09/15/17 0640 Urine Protein Negative mg/dL 09/15/17 0640 Urine Specific [place] 1.010 09/15/17 0640 Urine pH 5.0 pH 09/15/17 0640 Urine Clarity Clear 09/15/17 0640 Urine Color Yellow 09/15/17 0640 EKG / Imaging EKG Interpretation PATIENT NAME: TONY ASENCIO : [id number] MR: [id number] V: [id number] EXAM DATE: ORDERING PHYSICIAN: YAHAIRA HAY TECHNOLOGIST: DMW Test Reason : DYSPNEA Blood Pressure : / mmHG Vent. Rate : 106 BPM Atrial Rate : 271 BPM P-R Int : 000 ms QRS Dur : 126 ms QT Int : 388 ms P-R-T Axes : 090 -10 095 degrees QTc Int : 515 ms Atrial flutter with variable AV block and PVC's Left bundle branch block Abnormal ECG When compared with ECG of 06-SEP-2017 10:55, Vent. rate has increased BY 40 BPM Now with PVC's Confirmed by JOSIE BELTRAN ([id number]) on 09/15/2017 7:03:39 AM Referred By: Confirmed By:JOSIE BELTRAN Imaging PATIENT NAME: Tony Asencio : 1940 MR: [id number] V: [id number] EXAM DATE: [id number] ORDERING PHYSICIAN: YAHAIRA HAY TECHNOLOGIST: Location: [facility] Patient: Tony Asencio : 1940 Visit/Account:[id number] Date of Sevice: 09/15/2017 2 VIEWS CHEST INDICATION: Shortness of breath COMPARISON: September 06, 2017 FINDINGS: Cardiomegaly, grossly unchanged No focal consolidation, there is increased perihilar markings with mild vascular congestion. Probable small left pleural effusion and/or atelectasis. No gross right pleural effusion. Right basilar atelectasis and/or scarring. No visualized pneumothorax. Note is made of cervical fusion hardware. Moderate degenerative changes within the right glenohumeral joint. IMPRESSION: 1. Probable mild interstitial edema. 2. Small left pleural effusion and/or atelectasis. Report Dictated By: Damaso Rutherford MD at 09/15/2017 6:59 AM Report E-Signed By: Damaso Rutherford MD at 09/15/2017 7:01 AM [id number] Assessment and Plan Problems: (1) Acute systolic heart failure Status: Acute Assessment & Plan: He appears to have an acute exacerbation of his underlying chronic systolic heart failure. Will admit for ongoing diuresis. Continue carvedilol. Watch daily weights and I/Os. Apparently, he has been advised he has ZEFERINO and should wear BiPAP, but he cannot tolerate. I advised him that this may help keep him from having recurring problems, but he still refuses due to claustrophobia. (2) Atrial flutter Status: Chronic Assessment & Plan: Chronic. He is on Eliquis and carvedilol. He appears to have fairly good rate control. (3) Hypothyroid Status: Chronic Assessment & Plan: Continue replacement. Check TSH. (4) Seizure disorder Status: Chronic Assessment & Plan: Continue Keppra. Copies to: PATRICIA STANTON MD Venous Thromboembolism Antithrombotics Is Pt On Any Antithrombotics?: Yes Heart Failure Ejection Fraction %: 46 NYHA Class: II Is Patient on CHUCKY Inhibitor?: Yes Is Patient on Beta María?: Yes Exam Sepsis Risk: No Definite Risk MATEO LOVELL MD Sep 15, 2017 13:39
[2017-09-15] MEDS: PREGABALIN 50 MG CAP PO SCH ×2 (14:16→20:53)
[2017-09-15 16:12] VITALS: BP 113/91
[2017-09-15] MEDS: POTASSIUM CHL 10 MEQ TABCR PO SCH (17:17)
[2017-09-15 19:10] VITALS: BP 124/92
[2017-09-15] MEDS: DULoxetine HCL 30 MG CAPCR PO SCH (20:53)
[2017-09-15] MEDS: CARVEDILOL 3.125 MG TAB PO SCH (20:53)
[2017-09-15] MEDS: levETIRAcetam 500 MG TAB PO SCH (20:53)
[2017-09-15] MEDS: APIXABAN 2.5 MG TABLET PO SCH (20:53)
[2017-09-15] MEDS: FUROSEMIDE 40 MG TAB PO SCH (20:53)
[2017-09-15 23:10] VITALS: BP 129/99
[2017-09-16 03:10] VITALS: BP 133/91
[2017-09-16] MEDS: TIOTROPIUM BROM INH 18 MCG/CAP INH SCH (05:13)
[2017-09-16] MEDS: LEVALBUTEROL 1.25 MG/3 ML NEB NEB PRN ×4 (05:13→20:37)
[2017-09-16] MEDS: LEVOTHYROXINE SOD 0.1 MG TAB PO SCH (05:36)
[2017-09-16 06:34] LABS: PLATELET COUNT, AUTOMATED 338 K/uL (150-450)
[2017-09-16 08:20] VITALS: BP 114/84
[2017-09-16] MEDS: PREGABALIN 50 MG CAP PO SCH ×3 (09:00→21:41)
[2017-09-16] MEDS: CARVEDILOL 3.125 MG TAB PO SCH ×2 (09:00→23:05)
[2017-09-16] MEDS: CLOPIDOGREL BISULFATE 75MG TAB PO SCH (09:00)
[2017-09-16] MEDS: FUROSEMIDE 40 MG TAB PO SCH (09:00)
[2017-09-16] MEDS: TAMSULOSIN HCL 0.4 MG CAP PO SCH (09:01)
[2017-09-16] MEDS: levETIRAcetam 500 MG TAB PO SCH ×2 (09:01→21:40)
[2017-09-16] MEDS: POTASSIUM CHL 10 MEQ TABCR PO SCH ×2 (09:01→17:39)
[2017-09-16] MEDS: DULoxetine HCL 30 MG CAPCR PO SCH ×2 (09:01→21:41)
[2017-09-16] MEDS: ATORVASTATIN 10 MG TAB PO SCH (09:01)
[2017-09-16] MEDS: APIXABAN 2.5 MG TABLET PO SCH ×2 (09:02→21:41)
[2017-09-16] MEDS ORDERED: CARVEDILOL 3.125 MG TAB PO ONE (09:50)
[2017-09-16] MEDS: FUROSEMIDE 40 MG/4 ML VIAL IVP SCH ×2 (10:20→14:36)
[2017-09-16] MEDS: FINASTERIDE 5 MG TAB PO SCH (10:26)
--- NOTE | 2017-09-16 12:11 | Medical Nutrition Therapy ---
Nutrition Anthropometrics Weight (Pounds): 265 Weight (Calculated Kilograms): 120.287 BMI Calculated: 34.03 Mirza Nutrition Score: Adequate Mirza Nutrition Risk Score: 18 Dietary Referral Nutrition Risk Factors: Nutrition Risk Comment: n/a Nutritional Diagnosis Nutritional Risk Acuity 2: CHF w/Complication Nutritional Risk Acuity 3: Morbid Obesity Nutritional Risk Acuity 4: Good Appetite Past Medical History: COPD, CHF, CAD, pulmonary arterial HTN, essential HTN, BPH, a-fib, hypothyroidism, hypercholesterolemia, seizures Nutritional Acuity: 2-Moderate Adjusted Energy Requirement Re: 2400 (20 kcal/kg) Protein Requirement: 95 (.8 gm/kg) Fluid Requirement: 2400 (20 ml/kg) Diet Type: CHF Diet Nutrition Intervention: Cont diet as ordered, Encourage intake Drug: Diuretics Nutrition Monitoring & Eval Nutrition Goals: Fluid Restrictions RD Patient Assessment Time: [address] Assessment Type: RD Assessment Patient Nutrition Acuity: 2-Moderate Follow Up Date: Sep 21, 2017 Nutritional Comment: 09/16 Pt admitted with CHF. Pt on CHF diet and eating 75-100% of meals. pt thinkd he had gained some wt. Pt has 2+ edema to legs and is curretnly receiving a K+ depleting duiretic. K+ is WNR. Anticipate wt loss when edema resolved. Will cont to monitor and encourage intake. CHICO CAZARES Sep 16, 2017 12:11
[2017-09-16 13:16] VITALS: BP 104/72
--- NOTE | 2017-09-16 13:55 | Hospitalist Progress Note ---
Subjective Progress Notes Subjective Overall, he is reporting improvement in his wob, but not to baseline. He did get some sleep during the night. His heart rate has been in the low 100's. Physical Exam Vital Signs Date Time Temp Pulse Resp B/P (MAP) Pulse Ox O2 Delivery O2 Flow Rate FiO2 09/16/17 13:16 97.5 100 18 104/72 (83) 90 Nasal Cannula 3.0 Intake and Output 09/17/17 07:00 Intake Total 360 ml Output Total 775 ml Balance -415 ml Intake Oral 360 ml Output Urine Total 775 ml General Appearance: Alert, Awake, Other (Mild work of breathing) Respiratory: Clear to Auscultation (but doesn't move air well to the bases) Extremities: Edema (1+ pitting in shins) Result Diagram: 09/16/17 0550 09/16/17 0550 Assessment and Plan Problems: (1) Acute systolic heart failure Status: Acute Assessment & Plan: He appears to have an acute exacerbation of his underlying chronic systolic heart failure. Getting IV Lasix. Continue carvedilol. Watch daily weights and I/Os. Apparently, he has been advised he has ZEFERINO and should wear BiPAP, but he cannot tolerate. Dr. Bello advised him that this may help keep him from having recurring problems, but he still refuses due to claustrophobia. (2) Atrial flutter Status: Chronic Assessment & Plan: Chronic. He is on Eliquis and carvedilol. Heart rate in the low 100's, will follow. (3) Hypothyroid Status: Chronic Assessment & Plan: TSH a bit elevated at 6.12, but was 0.99 a month ago. Concerned about compliance with medications. Will continue current dose and have a recheck in 4-6 weeks. (4) Seizure disorder Status: Chronic Assessment & Plan: Continue Keppra. Heart Failure Ejection Fraction %: 46 NYHA Class: II Is Patient on CHUCKY Inhibitor?: Yes Is Patient on Beta María?: Yes Exam Sepsis Risk: No Definite Risk JOSIE BELTRAN MD Sep 16, 2017 13:55
[2017-09-16 15:56] VITALS: BP 106/83
[2017-09-16] MEDS ORDERED: CARVEDILOL 6.25 MG TAB PO SCH (21:00)
[2017-09-16 21:33] VITALS: BP 100/83
[2017-09-16 22:49] VITALS: BP 98/83
[2017-09-17] VITALS (8 sets, daily range): BP systolic 93–111; BP diastolic 57–90
--- NOTE | 2017-09-17 00:15 | EKG ---
FACILITY: [facility] PATIENT NAME: TONY NGO : [id number] MR: [id number] V: [id number] EXAM DATE: ORDERING PHYSICIAN: JOSIE BELTRAN TECHNOLOGIST: Pasquale Mohamud Reason : Blood Pressure : / mmHG Vent. Rate : 099 BPM Atrial Rate : 264 BPM P-R Int : 000 ms QRS Dur : 116 ms QT Int : 378 ms P-R-T Axes : 000 -25 098 degrees QTc Int : 485 ms Atrial flutter with variable AV block Left bundle branch block Relatively unchanged from previous, but now without the PVC's Confirmed by JOSIE BELTRAN ([id number]) on 09/17/2017 6:53:39 AM Referred By: Confirmed By:JOSIE BELTRAN
[2017-09-17] MEDS: LEVALBUTEROL 1.25 MG/3 ML NEB NEB PRN ×3 (01:34→14:58)
[2017-09-17] MEDS: TIOTROPIUM BROM INH 18 MCG/CAP INH SCH (05:09)
[2017-09-17] MEDS: LEVOTHYROXINE SOD 0.1 MG TAB PO SCH (06:02)
[2017-09-17 06:44] LABS: PLATELET COUNT, AUTOMATED 326 K/uL (150-450)
[2017-09-17] MEDS ORDERED: INFLUENZA VIRUS VAC 0.5 ML SYR IM ONLY ONE (09:00)
[2017-09-17] MEDS: CLOPIDOGREL BISULFATE 75MG TAB PO SCH (09:13)
[2017-09-17] MEDS: TAMSULOSIN HCL 0.4 MG CAP PO SCH (09:13)
[2017-09-17] MEDS: ATORVASTATIN 10 MG TAB PO SCH (09:13)
[2017-09-17] MEDS: APIXABAN 2.5 MG TABLET PO SCH ×2 (09:13→20:44)
[2017-09-17] MEDS: CARVEDILOL 3.125 MG TAB PO SCH ×2 (09:13→20:44)
[2017-09-17] MEDS: DULoxetine HCL 30 MG CAPCR PO SCH ×2 (09:14→20:44)
[2017-09-17] MEDS: FINASTERIDE 5 MG TAB PO SCH (09:14)
[2017-09-17] MEDS: POTASSIUM CHL 10 MEQ TABCR PO SCH ×2 (09:14→17:37)
[2017-09-17] MEDS: levETIRAcetam 500 MG TAB PO SCH ×2 (09:14→20:44)
[2017-09-17] MEDS: PREGABALIN 50 MG CAP PO SCH ×3 (09:14→20:45)
[2017-09-17] MEDS ORDERED: MAGNESIUM HYDROXIDE* 30ML UDCP PO PRN (09:35)
[2017-09-17] MEDS: DOCUSATE SODIUM 100 MG CAP PO SCH (10:16)
[2017-09-17] MEDS: FUROSEMIDE 80 MG TAB PO SCH (10:16)
--- NOTE | 2017-09-17 11:38 | Hospitalist Progress Note ---
Subjective Progress Notes Subjective This patient was admitted for acute heart failure. He had no acute events overnight. Patient Complains of: Cardiovascular: No: Chest Pain Respiratory: No: Shortness of Breath Physical Exam Vital Signs Date Time Temp Pulse Resp B/P (MAP) Pulse Ox O2 Delivery O2 Flow Rate FiO2 09/17/17 07:57 97.9 106 22 111/88 (96) 96 Nasal Cannula 4.0 Intake and Output 09/18/17 07:00 Intake Total 440 ml Balance 440 ml Intake Oral 440 ml Neuro: No Gross deficits Eyes: PERRLA Cardiovascular: Regular Rate and Rhythm, Other (JVD present.) Respiratory: Clear to Auscultation Extremities: Edema Integumentary: No Cyanosis Result Diagram: 09/17/1752909/17/17529 Assessment and Plan Problems: (1) Acute systolic heart failure Status: Acute Assessment & Plan: He presented with an acute exacerbation of his underlying chronic systolic heart failure. He has been treated with several doses of IV Lasix to good effect, although his weights show an increase since admission. He is already on chronic treatment with carvedilol and oral Lasix. We have increased his oral Lasix dose. His last echocardiogram in our records show an ejection fraction of 29%, but the patient reports that he was told that it decreased to 10% on an echocardiogram at the [place] last week. (2) Atrial flutter Status: Chronic Assessment & Plan: He is on Eliquis and carvedilol. (3) Hypothyroid Status: Chronic Assessment & Plan: He is on chronic treatment with Synthroid, but his TSH was slightly elevated. He will require a repeat TSH in 4-6 weeks. (4) Seizure disorder Status: Chronic Assessment & Plan: He is on chronic treatment with Keppra. Heart Failure Ejection Fraction %: 46 NYHA Class: II Is Patient on CHUCKY Inhibitor?: Yes Is Patient on Beta María?: Yes Exam Sepsis Risk: No Definite Risk PATRICIA HENRY DO Sep 17, 2017 11:38
[2017-09-18] VITALS (7 sets, daily range): BP systolic 83–111; BP diastolic 66–87
[2017-09-18] MEDS: LEVALBUTEROL 1.25 MG/3 ML NEB NEB PRN ×2 (04:58→22:23)
[2017-09-18] MEDS: TIOTROPIUM BROM INH 18 MCG/CAP INH SCH (05:30)
[2017-09-18] MEDS: LEVOTHYROXINE SOD 0.1 MG TAB PO SCH (06:15)
[2017-09-18] MEDS: POTASSIUM CHL 10 MEQ TABCR PO SCH ×2 (08:55→16:41)
[2017-09-18] MEDS: TAMSULOSIN HCL 0.4 MG CAP PO SCH (08:57)
[2017-09-18] MEDS: PREGABALIN 50 MG CAP PO SCH ×3 (08:57→21:26)
[2017-09-18] MEDS: DOCUSATE SODIUM 100 MG CAP PO SCH (08:57)
[2017-09-18] MEDS: CARVEDILOL 3.125 MG TAB PO SCH ×2 (08:57→21:26)
[2017-09-18] MEDS: APIXABAN 2.5 MG TABLET PO SCH ×2 (08:57→21:26)
[2017-09-18] MEDS: ATORVASTATIN 10 MG TAB PO SCH (08:57)
[2017-09-18] MEDS: CLOPIDOGREL BISULFATE 75MG TAB PO SCH (08:57)
[2017-09-18] MEDS: levETIRAcetam 500 MG TAB PO SCH ×2 (08:57→21:26)
[2017-09-18] MEDS: DULoxetine HCL 30 MG CAPCR PO SCH ×2 (08:57→21:26)
[2017-09-18] MEDS: FINASTERIDE 5 MG TAB PO SCH (08:57)
[2017-09-18] MEDS: FUROSEMIDE 80 MG TAB PO SCH (08:57)
--- NOTE | 2017-09-18 13:43 | Hospitalist Progress Note ---
Subjective Progress Notes Subjective Patient states he feels he is not at his baseline yet. He states he still has a hard time breathing. Patient Complains of: Cardiovascular: No: Chest Pain Respiratory: Shortness of Breath Physical Exam Vital Signs Date Time Temp Pulse Resp B/P (MAP) Pulse Ox O2 Delivery O2 Flow Rate FiO2 09/18/17 13:30 98.0 115 24 111/82 (92) 97 Nasal Cannula 4.0 Intake and Output 09/19/17 07:00 Intake Total 480 ml Output Total 425 ml Balance 55 ml Intake Oral 480 ml Output Urine Total 425 ml General Appearance: Alert, Awake, No Acute Distress, Afebrile Cardiovascular: Regular Rate and Rhythm Respiratory: No Respiratory Distress, Clear to Auscultation GI: Other (Abdomen firm upon palpation) Extremities: No Edema Psych: Alert & Oriented X3, Appropriate Mood & Affect Result Diagram: 09/17/17 0530 09/18/17 0528 Assessment and Plan Problems: (1) Acute systolic heart failure Status: Acute Assessment & Plan: He presented with an acute exacerbation of his underlying chronic systolic heart failure. He has been treated with several doses of IV Lasix to good effect, although his weights show an increase since admission. He is already on chronic treatment with carvedilol and oral Lasix. We have increased his oral Lasix dose again today. His last echocardiogram in our records show an ejection fraction of 29%, but the patient reports that he was told that it decreased to 10% on an echocardiogram at the [place] last week. (2) Atrial flutter Status: Chronic Assessment & Plan: He is on Eliquis and carvedilol. (3) Hypothyroid Status: Chronic Assessment & Plan: He is on chronic treatment with Synthroid, but his TSH was slightly elevated. He will require a repeat TSH in 4-6 weeks. (4) Seizure disorder Status: Chronic Assessment & Plan: He is on chronic treatment with Keppra. Heart Failure Ejection Fraction %: 46 NYHA Class: II Is Patient on CHUCKY Inhibitor?: Yes Is Patient on Beta María?: Yes Exam Sepsis Risk: No Definite Risk TONIA HUGO [facility] Sep 18, 2017 13:43
[2017-09-18] MEDS ORDERED: FUROSEMIDE 40 MG TAB PO SCH (14:00)
[2017-09-19 02:06] VITALS: BP 107/76
[2017-09-19] MEDS: LEVOTHYROXINE SOD 0.1 MG TAB PO SCH (05:51)
[2017-09-19] MEDS: TIOTROPIUM BROM INH 18 MCG/CAP INH SCH (05:55)
[2017-09-19 07:26] VITALS: BP 109/86
[2017-09-19] MEDS: POTASSIUM CHL 10 MEQ TABCR PO SCH ×2 (08:05→17:18)
[2017-09-19] MEDS: PREGABALIN 50 MG CAP PO SCH ×3 (08:27→21:01)
[2017-09-19] MEDS: DULoxetine HCL 30 MG CAPCR PO SCH ×2 (08:27→21:01)
[2017-09-19] MEDS: FUROSEMIDE 80 MG TAB PO SCH (08:27)
[2017-09-19] MEDS: levETIRAcetam 500 MG TAB PO SCH ×2 (08:27→21:01)
[2017-09-19] MEDS: ATORVASTATIN 10 MG TAB PO SCH (08:27)
[2017-09-19] MEDS: TAMSULOSIN HCL 0.4 MG CAP PO SCH (08:27)
[2017-09-19] MEDS: CLOPIDOGREL BISULFATE 75MG TAB PO SCH (08:28)
[2017-09-19] MEDS: CARVEDILOL 3.125 MG TAB PO SCH ×2 (08:28→21:01)
[2017-09-19] MEDS: APIXABAN 2.5 MG TABLET PO SCH ×2 (08:28→21:01)
[2017-09-19] MEDS: FINASTERIDE 5 MG TAB PO SCH (08:28)
[2017-09-19] MEDS: DOCUSATE SODIUM 100 MG CAP PO SCH (08:28)
[2017-09-19] MEDS ORDERED: DIGOXIN 0.5 MG/2 ML AMP IVP ONE ×2 (10:57→18:00)
[2017-09-19 11:21] VITALS: BP 96/73
[2017-09-19] MEDS: FUROSEMIDE 40 MG/4 ML VIAL IVP SCH (13:18)
[2017-09-19 15:01] VITALS: BP 106/92
--- NOTE | 2017-09-19 16:35 | Hospitalist Progress Note ---
Subjective Progress Notes Subjective He is reporting continued dyspnea and difficulty sleeping secondary to it. Physical Exam Vital Signs Date Time Temp Pulse Resp B/P (MAP) Pulse Ox O2 Delivery O2 Flow Rate FiO2 09/19/17 15:01 98.1 106 20 106/92 (97) 95 Nasal Cannula 4.5 Intake and Output 09/20/17 07:00 Intake Total 1080 ml Output Total 2655 ml Balance -1575 ml Intake Oral 1080 ml Output Urine Total 2655 ml # Voids 7 General Appearance: Alert, Awake, Other (mild to moderate work of breathing.) Cardiovascular: Other (tachy, regular) Respiratory: Other (diffuse exp wheezes) Extremities: Edema (1+ pitting in shins bilaterally) Result Diagram: 09/17/17 0530 09/19/17 0513 Assessment and Plan Problems: (1) Acute systolic heart failure Status: Acute Assessment & Plan: He presented with an acute exacerbation of his underlying chronic systolic heart failure. He has been treated with several doses of IV Lasix to good effect, although his weights show an increase since admission. He was already on chronic treatment with carvedilol and oral Lasix. Despite titration of Lasix, his symptoms seem to be worsening and his weight is up. His last echocardiogram in our records show an ejection fraction of 29%, but the patient reports that he was told that it decreased to 10% on an echocardiogram at the [facility] last week. (Records from [facility] do not show that an echo was done). Will start Lasix 40mg IV bid. (2) Atrial flutter Status: Chronic Assessment & Plan: He is on Eliquis and carvedilol. His rate is consistently about 100-116. Will give a dose of Digoxin IV, repeat in 6 hours and then start oral. Check a digoxin level in the morning. (3) Hypothyroid Status: Chronic Assessment & Plan: TSH a bit elevated at 6.12, but was 0.99 a month ago. Concerned about compliance with medications. Will continue current dose and have a recheck in 4-6 weeks. (4) Seizure disorder Status: Chronic Assessment & Plan: He is on chronic treatment with Keppra. Heart Failure Ejection Fraction %: 46 NYHA Class: II Is Patient on CHUCKY Inhibitor?: Yes Is Patient on Beta María?: Yes Exam Sepsis Risk: No Definite Risk JOSIE BELTRAN MD Sep 19, 2017 16:35
[2017-09-19 19:18] VITALS: BP 103/79
[2017-09-19 23:35] VITALS: BP 100/79
[2017-09-20] VITALS (7 sets, daily range): BP systolic 86–114; BP diastolic 66–102
[2017-09-20] MEDS: TIOTROPIUM BROM INH 18 MCG/CAP INH SCH (05:36)
[2017-09-20 06:00] LABS: PLATELET COUNT, AUTOMATED 282 K/uL (150-450)
[2017-09-20] MEDS: LEVOTHYROXINE SOD 0.1 MG TAB PO SCH (07:50)
[2017-09-20] MEDS: levETIRAcetam 500 MG TAB PO SCH ×2 (08:21→20:52)
[2017-09-20] MEDS: CARVEDILOL 3.125 MG TAB PO SCH ×2 (08:21→20:52)
[2017-09-20] MEDS: CLOPIDOGREL BISULFATE 75MG TAB PO SCH (08:21)
[2017-09-20] MEDS: POTASSIUM CHL 10 MEQ TABCR PO SCH ×2 (08:21→16:35)
[2017-09-20] MEDS: TAMSULOSIN HCL 0.4 MG CAP PO SCH (08:22)
[2017-09-20] MEDS: FINASTERIDE 5 MG TAB PO SCH (08:22)
[2017-09-20] MEDS: DULoxetine HCL 30 MG CAPCR PO SCH ×2 (08:22→20:52)
[2017-09-20] MEDS: DIGOXIN 0.125 MG TAB PO SCH (08:22)
[2017-09-20] MEDS: PREGABALIN 50 MG CAP PO SCH ×3 (08:22→20:52)
[2017-09-20] MEDS: FUROSEMIDE 40 MG/4 ML VIAL IVP SCH ×2 (08:22→14:02)
[2017-09-20] MEDS: APIXABAN 2.5 MG TABLET PO SCH ×2 (08:23→20:52)
[2017-09-20] MEDS: DOCUSATE SODIUM 100 MG CAP PO SCH (08:23)
[2017-09-20] MEDS: ATORVASTATIN 10 MG TAB PO SCH (08:23)
--- NOTE | 2017-09-20 14:57 | Hospitalist Progress Note ---
Subjective Progress Notes Subjective He reports some minor improvements. He is still very dyspneic with almost any activity. Physical Exam Vital Signs Date Time Temp Pulse Resp B/P (MAP) Pulse Ox O2 Delivery O2 Flow Rate FiO2 09/20/17 13:47 106/92 (97) 09/20/17 11:40 81 09/20/17 11:04 97.8 20 98 Nasal Cannula 5.0 Intake and Output 09/21/17 07:00 Intake Total 960 ml Balance 960 ml Intake Oral 960 ml # Voids 2 # Bowel Movements 1 General Appearance: Alert, Awake Cardiovascular: Other (Irregular with distant tones soft systolic murmur) Respiratory: Other (few rales at bases/diminished breath sounds bilaterally) GI: Soft and Non-Tender Extremities: Warm, Perfused, Edema Psych: Alert & Oriented X3 Result Diagram: 09/20/1751309/20/17513 Assessment and Plan Problems: (1) Acute systolic heart failure Status: Acute Assessment & Plan: He presented with an acute exacerbation of his underlying chronic systolic heart failure. He has been treated with several doses of IV Lasix to good effect, although his weights show an increase since admission. He was already on chronic treatment with carvedilol and oral Lasix. Despite titration of Lasix, his symptoms seemed to be worsening. His last echocardiogram in our records show an ejection fraction of 29%, but the patient reports that he was told that it decreased to 10% on an echocardiogram at the [facility] last week. (Records from [facility] do not show that an echo was done). We have started Lasix 40mg IV BID with some improvement in the effect and in his symptoms. We had a lengthy discussion regarding his current status and prognosis. He understands that he will most likely not make much more improvement and will be chronically intolerant of activities. He has been thinking about transitioning more towards his comfort care rather than aggressive interventions and further hospitalizations. He would like to discuss the option of Hospice type care. This certainly seems reasonable. Will have SW arrange a consult with [facility]. (2) Atrial flutter Status: Chronic Assessment & Plan: He is on Eliquis and carvedilol. His rate had been consistently about 100-116. He has been loaded with digoxin and has a slight improvement in his rate. (3) Hypothyroid Status: Chronic Assessment & Plan: TSH was a bit elevated at 6.12, but was 0.99 a month ago. Concerned about compliance with medications. Will continue his current dose and have a recheck in 4-6 weeks. (4) Seizure disorder Status: Chronic Assessment & Plan: He is on chronic treatment with Keppra. Heart Failure Ejection Fraction %: 46 NYHA Class: II Is Patient on CHUCKY Inhibitor?: Yes Is Patient on Beta María?: Yes Exam Sepsis Risk: No Definite Risk MATEO LOVELL MD Sep 20, 2017 14:57
[2017-09-21] VITALS (8 sets, daily range): BP systolic 90–116; BP diastolic 58–88
[2017-09-21] MEDS: TIOTROPIUM BROM INH 18 MCG/CAP INH SCH (04:34)
[2017-09-21] MEDS: POTASSIUM CHL 10 MEQ TABCR PO SCH ×2 (08:41→18:27)
[2017-09-21] MEDS: DIGOXIN 0.125 MG TAB PO SCH (08:54)
[2017-09-21] MEDS: CARVEDILOL 3.125 MG TAB PO SCH ×2 (08:54→21:20)
[2017-09-21] MEDS: ATORVASTATIN 10 MG TAB PO SCH (08:56)
[2017-09-21] MEDS: APIXABAN 2.5 MG TABLET PO SCH ×2 (08:56→21:19)
[2017-09-21] MEDS: DULoxetine HCL 30 MG CAPCR PO SCH ×2 (08:56→21:20)
[2017-09-21] MEDS: CLOPIDOGREL BISULFATE 75MG TAB PO SCH (08:56)
[2017-09-21] MEDS: FINASTERIDE 5 MG TAB PO SCH (08:56)
[2017-09-21] MEDS: TAMSULOSIN HCL 0.4 MG CAP PO SCH (08:56)
[2017-09-21] MEDS: DOCUSATE SODIUM 100 MG CAP PO SCH (08:56)
[2017-09-21] MEDS: PREGABALIN 50 MG CAP PO SCH ×3 (08:56→21:20)
[2017-09-21] MEDS: levETIRAcetam 500 MG TAB PO SCH ×2 (08:56→21:19)
[2017-09-21] MEDS: LEVOTHYROXINE SOD 0.1 MG TAB PO SCH (08:57)
[2017-09-21] MEDS ORDERED: FUROSEMIDE 40 MG/4 ML VIAL IVP SCH (09:00)
--- NOTE | 2017-09-21 12:03 | Hospitalist Progress Note ---
Subjective Progress Notes Subjective This patient was admitted for heart failure. He had no acute events overnight. Patient Complains of: Cardiovascular: No: Chest Pain Respiratory: No: Shortness of Breath Physical Exam Vital Signs Date Time Temp Pulse Resp B/P (MAP) Pulse Ox O2 Delivery O2 Flow Rate FiO2 09/21/17 11:05 98.7 88 16 90/67 (75) 97 Nasal Cannula 4.0 Intake and Output 09/22/17 07:00 Intake Total 400 ml Balance 400 ml Intake Oral 400 ml Cardiovascular: Other (Edema and JVD present.) Respiratory: Clear to Auscultation Extremities: Edema Result Diagram: 09/20/17 0514 09/21/17 0520 Assessment and Plan Problems: (1) Acute systolic heart failure Status: Acute Assessment & Plan: He presented with an acute exacerbation of his underlying chronic systolic heart failure. He has been treated with several doses of IV Lasix to good effect, although his weights show an increase since admission. He was already on chronic treatment with carvedilol and oral Lasix. Despite titration of Lasix, his symptoms seemed to be worsening. His last echocardiogram in our records show an ejection fraction of 29%. He has been on Lasix, but his weight has actually increased through this admission. We have increased his Lasix dose today. (2) Atrial flutter Status: Chronic Assessment & Plan: He is on chronic treatment with Eliquis and carvedilol. Digoxin was added yesterday. (3) Hypothyroid Status: Chronic Assessment & Plan: His TSH is elevated at 6.12, but was 0.99 a month ago. Concerned about compliance with medications. Will continue his current dose and have a recheck in 4-6 weeks. (4) Seizure disorder Status: Chronic Assessment & Plan: He is on chronic treatment with Keppra. Heart Failure Ejection Fraction %: 46 NYHA Class: II Is Patient on CHUCKY Inhibitor?: Yes Is Patient on Beta María?: Yes Exam Sepsis Risk: No Definite Risk PATRICIA HENRY DO Sep 21, 2017 12:03
[2017-09-21] MEDS: FUROSEMIDE 40 MG/4 ML VIAL IVP SCH (13:18)
[2017-09-22 02:46] VITALS: BP 117/89
[2017-09-22] MEDS: LEVOTHYROXINE SOD 0.1 MG TAB PO SCH (05:15)
[2017-09-22] MEDS: TIOTROPIUM BROM INH 18 MCG/CAP INH SCH (06:04)
[2017-09-22 07:39] VITALS: BP 109/84
[2017-09-22] MEDS: POTASSIUM CHL 10 MEQ TABCR PO SCH (07:45)
[2017-09-22] MEDS: FUROSEMIDE 40 MG/4 ML VIAL IVP SCH (08:34)
[2017-09-22] MEDS: DULoxetine HCL 30 MG CAPCR PO SCH (08:37)
[2017-09-22] MEDS: FINASTERIDE 5 MG TAB PO SCH (08:37)
[2017-09-22] MEDS: ATORVASTATIN 10 MG TAB PO SCH (08:37)
[2017-09-22] MEDS: PREGABALIN 50 MG CAP PO SCH (08:37)
[2017-09-22] MEDS: DOCUSATE SODIUM 100 MG CAP PO SCH (08:37)
[2017-09-22] MEDS: CLOPIDOGREL BISULFATE 75MG TAB PO SCH (08:37)
[2017-09-22] MEDS: APIXABAN 2.5 MG TABLET PO SCH (08:37)
[2017-09-22] MEDS: DIGOXIN 0.125 MG TAB PO SCH (08:38)
[2017-09-22] MEDS: CARVEDILOL 3.125 MG TAB PO SCH (08:38)
[2017-09-22] MEDS: TAMSULOSIN HCL 0.4 MG CAP PO SCH (08:38)
[2017-09-22] MEDS: levETIRAcetam 500 MG TAB PO SCH (08:42)
[2017-09-22] MEDS ORDERED: FURO80TA70 PO (12:21)
[2017-09-22] MEDS ORDERED: POTA-23 PO (12:23)
[2017-09-22] MEDS ORDERED: DIGO125T90 PO (12:23)
--- NOTE | 2017-09-22 12:37 | Hospitalist Depart ---
Discharge Summary Reason for Hosp/Final Diag: (1) Acute systolic heart failure Status: Acute Hospital Course & Plan: He presented with an acute exacerbation of his underlying chronic systolic heart failure. He was treated with several doses of IV Lasix to good effect, although his weights showed an increase since admission which was questionable because clinically he felt better and he also showed a negative fluid balance. His last echocardiogram in our records showed an ejection fraction of 29%. He was already on chronic treatment with carvedilol and oral Lasix. The patient felt better on 09/22. His edema was improved and his lungs were clear on exam. He was discharged on Lasix 80mg bid. The patient and family decided that with the [facility] they would like the patient to be comfort care. His living will was presented and he requested to be a DNI/DNR as well. (2) Atrial flutter Status: Chronic Hospital Course & Plan: He was on chronic treatment with Eliquis and carvedilol. Those medications were continued. Digoxin was added on 09/20 for better rate control. (3) Hypothyroid Status: Chronic Hospital Course & Plan: His TSH was elevated at 6.12, but was 0.99 a month ago. There was concern about compliance with medications. His current dose of levothyroxine was continued with plans to have a recheck in 4-6 weeks. (4) Seizure disorder Status: Chronic Hospital Course & Plan: He was continued on chronic treatment with Keppra. Departure Weight (Pounds): 275 Weight (Ounces): 0.1 Result Diagram: 09/20/17 0514 09/22/17 0515 Condition: Improved Discharge: Home, Self Care Time Spent: < 30 min Discharge Instructions Home Meds Active Scripts Digoxin (Digox) 125 Mcg Tablet, 0.125 MG PO QDAY, #30 TAB Prov:ZENY LOVELL MD 09/22/17 Potassium Chloride (KLOR-CON 10) 10 Meq Tablet.er, 20 MEQ PO BIDBS, #120 TAB Prov:ZENY LOVELL MD 09/22/17 Furosemide (FUROSEMIDE) 80 Mg Tablet, 80 MG PO BIDD, #60 TAB Prov:ZENY LOVELL MD 09/22/17 Finasteride (FINASTERIDE) 5 Mg Tablet, 5 MG PO QDAY for 30 Days, TAB Prov:MATEO LOVELL MD 08/16/17 Reported Medications Atorvastatin Calcium (LIPITOR) 10 Mg Tablet, 1 TAB PO QDAY, TAB 09/15/17 Duloxetine HCl (Duloxetine HCl) 60 Mg Capsule.dr, 30 MG PO BID 08/16/17 Oxygen (OXYGEN) Inha, 3 L INH QDAY, L 07/02/17 Clopidogrel Bisulfate (CLOPIDOGREL) 75 Mg Tablet, 1 TAB PO QDAY, TAB 04/26/17 Pregabalin (LYRICA) 150 Mg Capsule, 150 MG PO TID, CAPSULE 03/24/17 Carvedilol (CARVEDILOL) 6.25 Mg Tab, 3.125 MG PO BID, TAB 03/17/17 Apixaban (ELIQUIS) 5 Mg Tablet, 5 MG PO BID 03/17/17 Tiotropium [place] (SPIRIVA) 18 Mcg/Cap Inh, 18 MCG INH QDAY, INH 12/30/16 Levetiracetam (LEVETIRACETAM) 250 Mg Tablet, 500 MG PO BID, TAB 12/30/16 Tamsulosin Hcl (FLOMAX) 0.4 Mg Cap.er.24h, 0.4 MG PO QDAY, CAP 12/30/16 Levothyroxine Sodium (LEVOTHYROXINE SODIUM) 100 Mcg Tablet, 100 MCG PO QDAY, TAB 12/30/16 Discontinued Reported Medications Furosemide (FUROSEMIDE) 40 Mg Tablet, 1 TAB PO BID, TAB 08/16/17 Atorvastatin Calcium (LIPITOR) 40 Mg Tablet, 1 TAB PO QDAY, TAB 04/26/17 Discontinued Scripts Potassium Chloride (POTASSIUM CHLORIDE) 10 Meq Tab.er.prt, 10 MEQ PO BID, #60 TAB 1 Refill Prov:MATEO LOVELL MD 07/05/17 Follow up Referrals: Family Practice @ [facility] with Patricia Harrell Md Special Instructions: Continue heart failure diet. Copies to: PATRICIA HARRELL MD Venous Thromboembolism Antithrombotics Is Pt On Any Antithrombotics?: Yes Heart Failure Ejection Fraction %: 46 NYHA Class: II Is Patient on CHUCKY Inhibitor?: Yes Is Patient on Beta María?: Yes ZENY LOVELL MD Sep 22, 2017 12:37
[2017-09-22] MEDS ORDERED: FUROSEMIDE 80 MG TAB PO SCH (14:00)
== END 2017-09-22 16:00 | disposition home or self-care (01) | DRG 292 ==
LOC: ER 05:36 → MED 10:27
PROVIDERS: ADMIT Internal Medicine; ATTEND Internal Medicine
DX: I11.0 Hypertensive heart disease with heart failure (principal); I48.92 Unspecified atrial flutter; I50.23 Acute on chronic systolic (congestive) heart failure; N40.0 Benign prostatic hyperplasia without lower urinary tract symptoms; I25.10 Atherosclerotic heart disease of native coronary artery without angina pectoris; E03.9 Hypothyroidism, unspecified; G40.909 Epilepsy, unspecified, not intractable, without status epilepticus; E78.00 Pure hypercholesterolemia, unspecified; G47.33 Obstructive sleep apnea (adult) (pediatric); F40.240 Claustrophobia; Z66 Do not resuscitate; Z90.49 Acquired absence of other specified parts of digestive tract; Z88.0 Allergy status to penicillin; Z88.8 Allergy status to other drugs, medicaments and biological substances; Z87.891 Personal history of nicotine dependence; Z79.01 Long term (current) use of anticoagulants; Z91.19 Patient's noncompliance with other medical treatment and regimen; Z95.5 Presence of coronary angioplasty implant and graft
CPT/HCPCS: 36415; 71046; 80162; 81001; 82040; 82247; 82310; 82374; 82435; 82565; 82947; 83880; 84075; 84132; 84155; 84295; 84443; 84450; 84460; 84484; 84520; 85025; 85610; 85730; 87088; 93005; 94640; 96374; 97161; 97165; 99285; J1160; J1940; J3535

== ENCOUNTER 2017-09-24 17:11 | Inpatient (IN) | payer MEDICARE, OTHER ==
[2017-08-17 10:54] VITALS: Ht 180.3 cm; Wt 122.5 kg
[~2017-09-24] VITALS: Ht 180.3 cm; Wt 122.5 kg
[~2017-09-24 17:11] MED LIST changes: +ATOR10TA24 PO; +DIGO125T90 PO; +POTA-23 PO
[2017-09-24] MEDS ORDERED: METOPROLOL TART 5 MG/5 ML VIAL IVP ONE (17:25)
--- NOTE | 2017-09-24 17:38 | ER Report ---
History and Physical Time Seen By MD: 17:15 Hx. of Stated Complaint: "CAN'R BREATHE" bEEN GETTING WORSE ALL DAY (MANJULAJASWINDER Sangeeta WELLS) HPI/ROS CHIEF COMPLAINT: sob HISTORY OF PRESENT ILLNESS: Pt was d/c from hospital on Friday 09/22 for CHF. Pt states he felt okay on Monday but Monday afternoon started again with sob. + increased swelling to his legs "i can t get my socks on". Pt states he has felt hot but no documented fevers. + cough but states he cant get his phlem up. PT is on home oxygen 5 liters. pt has had burning in his chest. pt blood pressure on arrival is elevated. States he did not take any of his medications today accept for lasix and potassium due to did not fell REVIEW OF SYSTEMS: Constitutional: No fever, no chills. Eyes: No discharge. ENT: No sore throat. Cardiovascular: + chest pain, no palpitations. Respiratory: + cough, + shortness of breath. Gastrointestinal: No abdominal pain, no vomiting. Genitourinary: No hematuria. Musculoskeletal: No back pain. Skin: No rashes. Neurological: No headache. (MANJULALINDAJASWINDER Sangeeta WELLS) Allergies: Coded Allergies: Penicillins (Verified Allergy, Severe, 09/24/17) tramadol (Verified Allergy, Severe, seizure, 09/24/17) pt reported ibuprofen (Verified Allergy, Unknown, 09/24/17) STOMACH BLEEDING Home Meds Active Scripts Digoxin (Digox) 125 Mcg Tablet, 0.125 MG PO QDAY, #30 TAB Prov:ZENY LOVELL MD 09/22/17 Potassium Chloride (KLOR-CON 10) 10 Meq Tablet.er, 20 MEQ PO BIDBS, #120 TAB Prov:ZENY LOVELL MD 09/22/17 Furosemide (FUROSEMIDE) 80 Mg Tablet, 80 MG PO BIDD, #60 TAB Prov:ZENY LOVELL MD 09/22/17 Finasteride (FINASTERIDE) 5 Mg Tablet, 5 MG PO QDAY for 30 Days, TAB Prov:MATEO LOVELL MD 08/16/17 Reported Medications Atorvastatin Calcium (LIPITOR) 10 Mg Tablet, 1 TAB PO QDAY, TAB 09/15/17 Duloxetine HCl (Duloxetine HCl) 60 Mg Capsule.dr, 30 MG PO BID 08/16/17 Oxygen (OXYGEN) Inha, 3 L INH QDAY, L 07/02/17 Clopidogrel Bisulfate (CLOPIDOGREL) 75 Mg Tablet, 1 TAB PO QDAY, TAB 04/26/17 Pregabalin (LYRICA) 150 Mg Capsule, 150 MG PO TID, CAPSULE 03/24/17 Carvedilol (CARVEDILOL) 6.25 Mg Tab, 3.125 MG PO BID, TAB 03/17/17 Apixaban (ELIQUIS) 5 Mg Tablet, 5 MG PO BID 03/17/17 Tiotropium [place] (SPIRIVA) 18 Mcg/Cap Inh, 18 MCG INH QDAY, INH 12/30/16 Levetiracetam (LEVETIRACETAM) 250 Mg Tablet, 500 MG PO BID, TAB 12/30/16 Tamsulosin Hcl (FLOMAX) 0.4 Mg Cap.er.24h, 0.4 MG PO QDAY, CAP 12/30/16 Levothyroxine Sodium (LEVOTHYROXINE SODIUM) 100 Mcg Tablet, 100 MCG PO QDAY, TAB 12/30/16 Discontinued Reported Medications Furosemide (FUROSEMIDE) 40 Mg Tablet, 1 TAB PO BID, TAB 08/16/17 Discontinued Scripts Potassium Chloride (POTASSIUM CHLORIDE) 10 Meq Tab.er.prt, 10 MEQ PO BID, #60 TAB 1 Refill Prov:MATEO LOVELL MD 07/05/17 Past Medical/Surgical History Pmhx: aflutter, cad, chf, seizure, copd, htn, hyperlipid, hypothyroid Pshx: appy (JASWINDER FAIR DO) Reviewed Nurses Notes: Yes Old Medical Records Reviewed: Yes (JASWINDER FAIR DO) Hx Smoking: Yes Smoking Status: Former Smoker Exposure to Second Hand Smoke?: No Hx Substance Use Disorder: No Hx Alcohol Use: Yes (JASWINDER FAIR DO) Constitutional Vital Sign - Last 24 Hours 09/24/17 09/24/17 17:15 17:22 Temp 97.5 Pulse 100 Resp 20 B/P (MAP) 127/108 Pulse Ox 94 O2 Delivery Nasal Cannula O2 Flow Rate 3.0 Physical Exam General Appearance: The patient is alert, has no immediate need for airway protection and no signs of toxicity. Eyes: Pupils equal and round no pallor or injection, EOMI ENT: no pharyngeal erythema or exudates, Mucous membranes are moist Respiratory: There are no retractions, decreased breath sounds Cardiovascular: Irregular rate and rhythm. pulses are equal and symmetrical Gastrointestinal: Abdomen is soft and non tender, no masses, bowel sounds normal, no guarding, no rigidity or rebound Neurological: Cranial nerves II-XII grossly intact, no sensory or motor loss Skin: Warm and dry, no rashes. Musculoskeletal: Neck is supple non tender, no vertebral tenderness Extremities are nontender but with +3 pitting edema DIFFERENTIAL DIAGNOSIS: After history and physical exam differential diagnosis was considered for copd, chf, acs, influenza, pneumonia (LAURORA,JASWINDER V DO) Constitutional Vital Sign - Last 24 Hours 09/24/17 09/24/17 09/24/17 09/24/17 17:11 17:15 17:16 17:22 Temp 97.5 Pulse ??? 100 Resp 20 B/P (MAP) 127/108 127/108 (114) Pulse Ox 94 O2 Delivery Nasal Cannula O2 Flow Rate 3.0 09/24/17 09/24/17 09/24/17 09/24/17 17:26 17:38 17:41 17:50 Pulse 85 84 Resp 26 22 B/P (MAP) 113/92 (99) 112/92 (99) Pulse Ox 97 98 09/24/17 09/24/17 09/24/17 09/24/17 17:56 18:00 18:11 18:16 Pulse 78 88 ??? Resp 21 20 B/P (MAP) 128/92 (104) Pulse Ox 96 93 09/24/17 09/24/17 09/24/17 09/24/17 18:30 18:31 18:46 19:00 Pulse 82 87 Resp 7 20 B/P (MAP) 130/103 (112) 129/92 (104) Pulse Ox 100 95 ([facility]) Medical Decision Making Data Points Result Diagram: 09/24/17175609/24/171756 Laboratory Hematology Test 09/24/17 00:00 09/24/17 17:37 09/24/17 17:57 Digoxin Level 0.7 ng/ml Digoxin Last Dose Date unk Digoxin Last Dose Time unk Influenza Virus Type A (PCR) Negative (NEGATIVE) Influenza Virus Type B (PCR) Negative (NEGATIVE) Red Blood Count 3.81 M/uL (4.00-5.60) Mean Corpuscular Volume 96.4 fL (80.0-96.0) Mean Corpuscular Hemoglobin 32.7 pg (26.0-33.0) Mean Corpuscular Hemoglobin Concent 33.9 g/dL (32.0-36.0) Red Cell Distribution Width 16.1 % (11.5-14.5) Mean Platelet Volume 7.7 fL (7.2-11.1) Neutrophils (%) (Auto) 68.5 % (39.4-72.5) Lymphocytes (%) (Auto) 15.5 % (17.6-49.6) Monocytes (%) (Auto) 11.9 % (4.1-12.4) Eosinophils (%) (Auto) 1.8 % (0.4-6.7) Basophils (%) (Auto) 2.3 % (0.3-1.4) Nucleated RBC Relative Count (auto) 0.1 /100WBC Neutrophils # (Auto) 3.0 K/uL (2.0-7.4) Lymphocytes # (Auto) 0.7 K/uL (1.3-3.6) Monocytes # (Auto) 0.5 K/uL (0.3-1.0) Eosinophils # (Auto) 0.1 K/uL (0.0-0.5) Basophils # (Auto) 0.1 K/uL (0.0-0.1) Nucleated RBC Absolute Count (auto) 0.00 K/uL Prothrombin Time 16.8 seconds (12.0-14.4) Prothromb Time International Ratio 1.34 Activated Partial Thromboplast Time 34 seconds (23-35) Sodium Level 137 mmol/L (137-145) Potassium Level 3.8 mmol/L (3.5-5.0) Chloride Level 97 mmol/L (98-107) Carbon Dioxide Level 30 mmol/L (22-30) Blood Urea Nitrogen 19 mg/dl (9-21) Creatinine 0.80 mg/dl (0.66-1.25) Glomerular Filtration Rate Calc > 60.0 Random Glucose 107 mg/dl (75-110) Calcium Level 8.5 mg/dl (8.4-10.2) Total Bilirubin 2.4 mg/dl (0.2-1.3) Aspartate Amino Transf (AST/SGOT) 29 U/L (0-35) Alanine Aminotransferase (ALT/SGPT) 54 U/L (0-56) Alkaline Phosphatase 99 U/L (0-126) Troponin I 0.028 ng/ml B-Type Natriuretic Peptide 839 pg/ml (0-100) Total Protein 6.7 gm/dl (6.3-8.2) Albumin 3.5 g/dl (3.5-5.0) Chemistry Test 09/24/17 00:00 09/24/17 17:37 09/24/17 17:57 Digoxin Level 0.7 ng/ml Digoxin Last Dose Date unk Digoxin Last Dose Time unk Influenza Virus Type A (PCR) Negative (NEGATIVE) Influenza Virus Type B (PCR) Negative (NEGATIVE) White Blood Count 4.4 k/uL (4.5-11.0) Red Blood Count 3.81 M/uL (4.00-5.60) Hemoglobin 12.4 g/dL (14.0-18.0) Hematocrit 36.7 % (42.0-52.0) Mean Corpuscular Volume 96.4 fL (80.0-96.0) Mean Corpuscular Hemoglobin 32.7 pg (26.0-33.0) Mean Corpuscular Hemoglobin Concent 33.9 g/dL (32.0-36.0) Red Cell Distribution Width 16.1 % (11.5-14.5) Platelet Count 326 K/uL (150-450) Mean Platelet Volume 7.7 fL (7.2-11.1) Neutrophils (%) (Auto) 68.5 % (39.4-72.5) Lymphocytes (%) (Auto) 15.5 % (17.6-49.6) Monocytes (%) (Auto) 11.9 % (4.1-12.4) Eosinophils (%) (Auto) 1.8 % (0.4-6.7) Basophils (%) (Auto) 2.3 % (0.3-1.4) Nucleated RBC Relative Count (auto) 0.1 /100WBC Neutrophils # (Auto) 3.0 K/uL (2.0-7.4) Lymphocytes # (Auto) 0.7 K/uL (1.3-3.6) Monocytes # (Auto) 0.5 K/uL (0.3-1.0) Eosinophils # (Auto) 0.1 K/uL (0.0-0.5) Basophils # (Auto) 0.1 K/uL (0.0-0.1) Nucleated RBC Absolute Count (auto) 0.00 K/uL Prothrombin Time 16.8 seconds (12.0-14.4) Prothromb Time International Ratio 1.34 Activated Partial Thromboplast Time 34 seconds (23-35) Glomerular Filtration Rate Calc > 60.0 Calcium Level 8.5 mg/dl (8.4-10.2) Total Bilirubin 2.4 mg/dl (0.2-1.3) Aspartate Amino Transf (AST/SGOT) 29 U/L (0-35) Alanine Aminotransferase (ALT/SGPT) 54 U/L (0-56) Alkaline Phosphatase 99 U/L (0-126) Troponin I 0.028 ng/ml B-Type Natriuretic Peptide 839 pg/ml (0-100) Total Protein 6.7 gm/dl (6.3-8.2) Albumin 3.5 g/dl (3.5-5.0) Coagulation Test 09/24/17 17:57 Prothrombin Time 16.8 seconds Prothromb Time International Ratio 1.34 Activated Partial Thromboplast Time 34 seconds Toxicology Test 09/24/17 00:00 Digoxin Level 0.7 ng/ml Digoxin Last Dose Date unk Digoxin Last Dose Time unk (YAHAIRA HAY MD) EKG/Imaging EKG Interpretation aflutter @ 84 with Lbbb when compared to relativevly unchanged accept now rate controlled (LAURORA,JASWINDER V DO) Imaging CHEST PA AND LAT Additional pertinent History: Chest pain COMPARISON STUDIES: 09/15/2017 FINDINGS: Support lines and catheters: None Lungs and Pleura: Generalized perihilar interstitial infiltrative change likely representing pulmonary edema changes about compensated nature similar to the previous examination. A vague chronic compensated state. Heart and vasculature: Heart is enlarged. Central vasculature is mildly engorged Elizabeth and Mediastinum: Negative. Bones and Chest wall: Negative. Upper Abdomen: Negative. IMPRESSION: 1. Stable chest. No interval change when compared to previous study likely representing mild compensated congestive state. Report Dictated By: Chao Bassett MD at 09/24/2017 7:14 PM (YAHAIRA HAY MD) ED Course/Re-evaluation Clinical Indication for ER IV: IV Access ED Course Will check labs, xray and ekg 09/24/2017 6:00:16 pm Pt did not take his bp medication so lopresser was given in ED. PT signed out to dr. hay pending labs and imaging (JASWINDER FAIR DO) Clinical Indication for ER IV: IV Access ED Course I assumed care of this patient at sign out with Dr. Fair at shift change. Labs and chest x-ray were done. BNP is elevated in the 800s. White count is a little low. Mild anemia with H/H of 12.5/36.7. Electrolytes are normal. Troponin negative. EKG with atrial flutter, but no other signs of ischemia. Patient short of breath even with walking short distance to bathroom, on usual 5 liters by nasal canula. Speaking in short sentences, about 3-4 breaths to complete one sentence. Discussed with Dr. Kirkland who accepted the patient for admission for heart failure exacerbation. Decision to Disposition Date: Sep 24, 2017 Decision to Disposition Time: 20:05 (YAHAIRA HAY MD) Depart Departure Latest Vital Signs Vital Signs Date Time Temp Pulse Resp B/P (MAP) Pulse Ox O2 Delivery O2 Flow Rate FiO2 09/24/17 17:22 3.0 09/24/17 17:15 97.5 100 20 127/108 94 Nasal Cannula (JASWINDER FAIR DO) Latest Vital Signs Vital Signs Date Time Temp Pulse Resp B/P (MAP) Pulse Ox O2 Delivery O2 Flow Rate FiO2 09/24/17 19:00 129/92 (104) 09/24/17 18:46 87 20 95 09/24/17 17:22 3.0 09/24/17 17:15 97.5 Nasal Cannula (YAHAIRA HAY MD) Impression: Primary Impression: CHF exacerbation Condition: Condition Unchanged Disposition: Admitted from ER Referrals: PATRICIA STANTON MD (PCP) Problem Qualifiers Primary Impression: CHF exacerbation Heart failure type: systolic Qualified Codes: I50.23 - Acute on chronic systolic (congestive) heart failure JASWINDER FAIR DO Sep 24, 2017 17:38 YAHAIRA HAY MD Sep 24, 2017 18:14
--- NOTE | 2017-09-24 18:03 | EKG ---
FACILITY: [facility] [place] PATIENT NAME: TONY NGO : [id number] MR: [id number] V: [id number] EXAM DATE: ORDERING PHYSICIAN: JASWINDER FAIR TECHNOLOGIST: CARMEN Test Reason : SOB Blood Pressure : / mmHG Vent. Rate : 084 BPM Atrial Rate : 264 BPM P-R Int : 000 ms QRS Dur : 122 ms QT Int : 392 ms P-R-T Axes : 093 -13 101 degrees QTc Int : 463 ms Atrial flutter with variable AV block with premature ventricular or aberrantly conducted complexes Left bundle branch block Left axis Abnormal ECG Similar to prvious EKGs Confirmed by MATEO LOVELL ([id number]) on 09/24/2017 6:47:14 PM Referred By: MANJULA Confirmed By:MATEO LOVELL
[2017-09-24 18:04] LABS: PLATELET COUNT, AUTOMATED 326 K/uL (150-450)
[2017-09-24 18:25] LABS: INR 1.34
--- NOTE | 2017-09-24 19:21 | RADIOLOGY IMAGING REPORT ---
FACILITY: [facility] PATIENT NAME: Obey Asencio : 1940 MR: [id number] V: [id number] EXAM DATE: ORDERING PHYSICIAN: JASWINDER FAIR TECHNOLOGIST: Location: [facility] Patient: Obey Asencio : 1940 Visit/Account:[id number] Date of Sevice: 09/24/2017 CHEST PA AND LAT Additional pertinent History: Chest pain COMPARISON STUDIES: 09/15/2017 FINDINGS: Support lines and catheters: None Lungs and Pleura: Generalized perihilar interstitial infiltrative change likely representing pulmona ry edema changes about compensated nature similar to the previous examination. A vague chronic compen sated state. Heart and vasculature: Heart is enlarged. Central vasculature is mildly engorged Elizabeth and Mediastinum: Negative. Bones and Chest wall: Negative. Upper Abdomen: Negative. IMPRESSION: 1. Stable chest. No interval change when compared to previous study likely representing mild compensa bowen congestive state. Report Dictated By: Chao Bassett MD at 09/24/2017 7:14 PM Report E-Signed By: Chao Bassett MD at 09/24/2017 7:16 PM WSN:[id number]
[2017-09-24] MEDS ORDERED: FUROSEMIDE 40 MG/4 ML VIAL IVP ONE (20:35)
[2017-09-24] MEDS ORDERED: ACETAMINOPHEN 325 MG TAB PO PRN (20:45)
[2017-09-24] MEDS ORDERED: INFLUENZA VIRUS VAC 0.5 ML SYR IM ONLY ONE (20:45)
[2017-09-24] MEDS ORDERED: ALBUTEROL 2.5 MG/3 ML NEB NEB PRN (20:55)
[2017-09-24 21:03] VITALS: BP 115/92
--- NOTE | 2017-09-24 21:06 | History & Physical ---
History of Present Illness History of Present Illness 77yo male with reduced EF HF and COPD who came to the ER for worsening SOB. He was discharged from [facility] 2 days ago for a CHF exacerbation. He was diuresed with IV Lasix and also started on Digoxin on that visit. He went home feeling well, but last night he woke up frequently to urinate and he was having orthopnea. Today, he was more SOB and had CONTI. For the last 24 hours, he has had some chest burning on the left side that extends to the LUQ of the abdomen. It is 3/10 at it's worst without any aggravating or alleviating factors. In the ER, he was given 2 doses of IV Metoprolol for elevated BP. History Problems: (1) COPD (chronic obstructive pulmonary disease) Status: Chronic (2) Essential hypertension Status: Chronic (3) CAD (coronary artery disease) Status: Chronic (4) Hypercholesterolemia Status: Chronic (5) Seizure Status: Chronic (6) Chronic systolic heart failure Status: Chronic (7) BPH (benign prostatic hyperplasia) Status: Chronic (8) Atrial flutter Status: Chronic (9) Hypothyroid Status: Chronic (10) History of coronary artery stent placement Status: Chronic Home Meds Active Scripts Digoxin (Digox) 125 Mcg Tablet, 0.125 MG PO QDAY, #30 TAB Prov:ZENY LOVELL MD 09/22/17 Potassium Chloride (KLOR-CON 10) 10 Meq Tablet.er, 20 MEQ PO BIDBS, #120 TAB Prov:ZENY LOVELL MD 09/22/17 Furosemide (FUROSEMIDE) 80 Mg Tablet, 80 MG PO BIDD, #60 TAB Prov:ZENY LOVELL MD 09/22/17 Finasteride (FINASTERIDE) 5 Mg Tablet, 5 MG PO QDAY for 30 Days, TAB Prov:MATEO LOVELL MD 08/16/17 Reported Medications Atorvastatin Calcium (LIPITOR) 10 Mg Tablet, 1 TAB PO QDAY, TAB 09/15/17 Duloxetine HCl (Duloxetine HCl) 60 Mg Capsule.dr, 30 MG PO BID 08/16/17 Oxygen (OXYGEN) Inha, 3 L INH QDAY, L 07/02/17 Clopidogrel Bisulfate (CLOPIDOGREL) 75 Mg Tablet, 1 TAB PO QDAY, TAB 04/26/17 Pregabalin (LYRICA) 150 Mg Capsule, 150 MG PO TID, CAPSULE 9/22/17 Carvedilol (CARVEDILOL) 6.25 Mg Tab, 3.125 MG PO BID, TAB 03/17/17 Apixaban (ELIQUIS) 5 Mg Tablet, 5 MG PO BID 03/17/17 Tiotropium [place] (SPIRIVA) 18 Mcg/Cap Inh, 18 MCG INH QDAY, INH 12/30/16 Levetiracetam (LEVETIRACETAM) 250 Mg Tablet, 500 MG PO BID, TAB 12/30/16 Tamsulosin Hcl (FLOMAX) 0.4 Mg Cap.er.24h, 0.4 MG PO QDAY, CAP 12/30/16 Levothyroxine Sodium (LEVOTHYROXINE SODIUM) 100 Mcg Tablet, 100 MCG PO QDAY, TAB 12/30/16 Discontinued Reported Medications Furosemide (FUROSEMIDE) 40 Mg Tablet, 1 TAB PO BID, TAB 08/16/17 Discontinued Scripts Potassium Chloride (POTASSIUM CHLORIDE) 10 Meq Tab.er.prt, 10 MEQ PO BID, #60 TAB 1 Refill Prov:MATEO LOVELL MD 07/05/17 Allergies: Coded Allergies: Penicillins (Verified Allergy, Severe, 09/24/17) tramadol (Verified Allergy, Severe, seizure, 09/24/17) pt reported ibuprofen (Verified Allergy, Unknown, 09/24/17) STOMACH BLEEDING Patient History: FH: cancer MOTHER, BROTHER OR SISTER, FH: myocardial infarction FATHER, FHx: multiple sclerosis BROTHER OR SISTER Hx Smoking: Yes Smoking Status: Former Smoker Exposure to Second Hand Smoke?: No Caffeine Intake: Coffee, Tea Caffeine/Cups Per Day: 4 cups/day Hx Alcohol Use: Yes Hx Substance Use Disorder: No Review of Systems All Systems Reviewed/Normal: Yes, Except as Noted Exam Vital Signs Vital Signs Date Time Temp Pulse Resp B/P (MAP) Pulse Ox O2 Delivery O2 Flow Rate FiO2 09/24/17 20:35 90 15 98 09/24/17 20:30 137/99 (112) 09/24/17 17:22 3.0 09/24/17 17:15 97.5 Nasal Cannula General Appearance: Alert, Awake, Other (Mild work of breathing. He has good color in his face.) Neuro: No Gross deficits Cardiovascular: Regular Rate and Rhythm, No JVD (, but an obese neck) Respiratory: Clear to Auscultation GI: Abd Soft and Non-Tender Extremities: Edema (2+ pitting in shins.) Integumentary: No Jaundice, No Cyanosis Medical Decision Making Data Points Result Diagram: 09/24/17175609/24/171756 Item Value Date Time Neutrophils (%) (Auto) 68.5 % 09/24/171756 Lymphocytes (%) (Auto) 15.5 % L 09/24/171756 Monocytes (%) (Auto) 11.9 % 09/24/171756 Eosinophils (%) (Auto) 1.8 % 09/24/171756 Basophils (%) (Auto) 2.3 % H 09/24/171756 Prothromb Time International Ratio 1.34 09/24/171756 B-Type Natriuretic Peptide 839 pg/ml H 09/24/171756 Total Bilirubin 2.4 mg/dl H 09/24/171756 Aspartate Amino Transf (AST/SGOT) 29 U/L 09/24/171756 Alanine Aminotransferase (ALT/SGPT) 54 U/L 09/24/171756 Alkaline Phosphatase 99 U/L 09/24/171756 Troponin I 0.028 ng/ml 09/24/171756 Digoxin Level 0.7 ng/ml 09/24/17 0000 Influenza Virus Type A (PCR) Negative 09/24/171736 Influenza Virus Type B (PCR) Negative 09/24/171736 EKG / Imaging EKG Interpretation Vent. Rate : 084 BPM Atrial Rate : 264 BPM P-R Int : 000 ms QRS Dur : 122 ms QT Int : 392 ms P-R-T Axes : 093 -13 101 degrees QTc Int : 463 ms Atrial flutter with variable AV block with premature ventricular or aberrantly conducted complexes Left bundle branch block Left axis Abnormal ECG Similar to prvious EKGs Imaging CXR - 1. Stable chest. No interval change when compared to previous study likely representing mild compensated congestive state. Assessment and Plan Problems: (1) CHF exacerbation Status: Acute Assessment & Plan: He presented with about 24 hours of increasing SOB, orthopnea and worsening LE edema 2 days after a discharge for CHF exacerbation. He denies excessive fluid intake or salt intake at home. He will be started on IV Lasix again twice daily at 40mg and is to get a dose in the ER before coming to the floor. Will recheck an echo to compare to July. Daily weights and heart failure diet. Continue Coreg. (2) Atrial flutter Status: Chronic Assessment & Plan: Rate controlled on Coreg and Digoxin, which will be continued. He is on Eliquis for stroke prophylaxis, which will be continued. (3) COPD (chronic obstructive pulmonary disease) Status: Chronic Assessment & Plan: Lungs are clear. Will continue chronic Spiriva (4) CAD (coronary artery disease) Status: Chronic Assessment & Plan: Continue Atorvastatin and Plavix. (5) BPH (benign prostatic hyperplasia) Status: Chronic Assessment & Plan: Continue Proscar and Flomax. (6) Hypothyroid Status: Chronic Assessment & Plan: Continue levothyroxine. (7) Seizure disorder Status: Chronic Assessment & Plan: Continue Keppra. Copies to: PATRICIA STANTON MD Venous Thromboembolism Antithrombotics Is Pt On Any Antithrombotics?: Yes Heart Failure Ejection Fraction %: 46 NYHA Class: II Is Patient on CHUCKY Inhibitor?: Yes Is Patient on Beta María?: Yes Exam Sepsis Risk: No Definite Risk Problem Qualifiers (1) CHF exacerbation: Heart failure type: systolic Qualified Codes: I50.23 - Acute on chronic systolic (congestive) heart failure JOSIE BELTRAN MD Sep 24, 2017 21:06
[2017-09-24] MEDS: PREGABALIN 50 MG CAP PO SCH (21:42)
[2017-09-24] MEDS: APIXABAN 2.5 MG TABLET PO SCH (21:42)
[2017-09-24] MEDS: CARVEDILOL 6.25 MG TAB PO SCH (21:43)
[2017-09-24] MEDS: levETIRAcetam 500 MG TAB PO SCH (22:02)
[2017-09-25 00:23] VITALS: BP 104/80
[2017-09-25 03:41] VITALS: BP 106/85
[2017-09-25 05:48] LABS: PLATELET COUNT, AUTOMATED 310 K/uL (150-450)
[2017-09-25] MEDS: LEVOTHYROXINE SOD 0.1 MG TAB PO SCH (06:00)
[2017-09-25] MEDS: FINASTERIDE 5 MG TAB PO SCH (08:51)
[2017-09-25] MEDS: CARVEDILOL 6.25 MG TAB PO SCH ×2 (08:52→21:47)
[2017-09-25] MEDS: DIGOXIN 0.125 MG TAB PO SCH (08:53)
[2017-09-25] MEDS: CLOPIDOGREL BISULFATE 75MG TAB PO SCH (08:53)
[2017-09-25] MEDS: TAMSULOSIN HCL 0.4 MG CAP PO SCH (08:53)
[2017-09-25] MEDS: PREGABALIN 50 MG CAP PO SCH ×3 (08:54→21:47)
[2017-09-25] MEDS: DULoxetine HCL 30 MG CAPCR PO SCH (08:54)
[2017-09-25] MEDS: POTASSIUM CHL 10 MEQ TABCR PO SCH ×2 (08:54→16:31)
[2017-09-25] MEDS: ATORVASTATIN 10 MG TAB PO SCH (08:54)
[2017-09-25] MEDS ORDERED: TIOTROPIUM BROM INH 18 MCG/CAP INH SCH (09:00)
[2017-09-25] MEDS: APIXABAN 2.5 MG TABLET PO SCH ×2 (09:00→21:48)
[2017-09-25] MEDS: FUROSEMIDE 40 MG/4 ML VIAL IVP SCH ×2 (09:54→15:07)
[2017-09-25] MEDS: levETIRAcetam 500 MG TAB PO SCH ×2 (09:54→21:47)
--- NOTE | 2017-09-25 10:18 | Hospitalist Progress Note ---
Subjective Progress Notes Subjective This patient was readmitted after being discharged last week. He reports that he could not manage at home. Patient Complains of: Cardiovascular: No: Chest Pain Respiratory: No: Shortness of Breath Physical Exam Vital Signs Date Time Temp Pulse Resp B/P (MAP) Pulse Ox O2 Delivery O2 Flow Rate FiO2 09/25/17 08:53 85 09/25/17 03:41 98.0 24 106/85 (92) 97 Nasal Cannula 3.0 Neuro: Other (Left facial droop.) Cardiovascular: Regular Rate and Rhythm Respiratory: Clear to Auscultation Extremities: Edema Integumentary: No Cyanosis Result Diagram: 09/25/17 0515 09/25/1715 Assessment and Plan Problems: (1) CHF exacerbation Status: Acute Assessment & Plan: He presented with about 24 hours of increasing SOB, orthopnea, and worsening LE edema. However, his weights are actually less than his discharge weight from last week. He is on IV Lasix. A repeat echocardiogram has shown a decrease in his ejection fraction from 29% to 22%. (2) Atrial flutter Status: Chronic Assessment & Plan: He is on chronic treatment with Coreg, digoxin, and Eliquis. (3) COPD (chronic obstructive pulmonary disease) Status: Chronic Assessment & Plan: He is on chronic treatment with Spiriva. (4) CAD (coronary artery disease) Status: Chronic Assessment & Plan: He is on chronic treatment with Atorvastatin and Plavix. (5) BPH (benign prostatic hyperplasia) Status: Chronic Assessment & Plan: He is on chronic treatment with Proscar and Flomax. (6) Hypothyroid Status: Chronic Assessment & Plan: He is on chronic treatment with levothyroxine. (7) Seizure disorder Status: Chronic Assessment & Plan: He is on chronic treatment with Keppra. Heart Failure Ejection Fraction %: 46 NYHA Class: II Is Patient on CHUCKY Inhibitor?: Yes Is Patient on Beta María?: Yes Exam Sepsis Risk: No Definite Risk Problem Qualifiers (1) CHF exacerbation: Heart failure type: systolic Qualified Codes: I50.23 - Acute on chronic systolic (congestive) heart failure PATRICIA HENRY DO Sep 25, 2017 10:18
--- NOTE | 2017-09-25 11:09 | RADIOLOGY IMAGING REPORT ---
[place] [facility] [place]IENT NAME: Obey Asencio : 1940 MR: [id number] V: [id number] EXAM DATE: ORDERING PHYSICIAN: PATRICIA HENRY TECHNOLOGIST: Location: [facility] [place] Patient: Obey Asencio : 1940 Visit/Account:[id number] Date of Sevice: 09/25/2017 CT Head without contrast Indication: Left facial droop Comparison: None available Technique: Axial CT images were obtained through the brain from the skull base to the vertex without administration of IV contrast. Reformatted coronal and sagittal images were also obtained. One of the following dose optimization techniques was utilized in the performance of this exam: Automated ex posure control; adjustment of the mA and/or kV according to the patient's size; or use of an iterativ e reconstruction technique. Specific details can be referenced in the facility's radiology CT exam operational policy. Findings: The ventricular system has a normal size and configuration. There is no evidence of hydrocephalus, m ass effect, midline shift, ischemic infarct, abnormal extra-axial fluid collection or intraparenchyma l hemorrhage. There is abnormal soft tissue prominence in the superior right aspect of the pituitary gland. The soft tissue extends above the suprasellar fossa on the sagittal images. No discrete les ion. Calvarium is intact with well pneumatized mastoid air cells. There is calcifications and abnormal th e form morphology of the left globe. Correlate with history or any prior trauma. Right globe appear s unremarkable. IMPRESSION: 1. No acute intracranial abnormality. 2. Incidental note of mild asymmetric soft tissue prominence in the right superior lateral pituitary gland extending above the suprasellar cistern. Underlying lesion within the pituitary gland is with in the differential. Recommend dedicated MRI pituitary gland. Report Dictated By: Fred Boswell MD at 09/25/2017 10:51 AM Report E-Signed By: Fred Boswell MD at 09/25/2017 11:05 AM WSN:[email or web address]
--- NOTE | 2017-09-25 14:29 | Medical Nutrition Therapy ---
Nutrition Anthropometrics Height (Inches): 71.00 Height (Calculated Centimeters: 180.386435 Weight (Pounds): 271 Weight (Calculated Kilograms): 122.924 BMI Calculated: 34.03 Mirza Nutrition Score: Adequate Mirza Nutrition Risk Score: 20 Dietary Referral Nutrition Risk Factors: Special Diet Nutrition Risk Comment: low salt Nutritional Diagnosis Nutritional Risk Acuity 2: CHF w/Complication Nutritional Risk Acuity 3: Morbid Obesity Nutritional Risk Acuity 4: Good Appetite Past Medical History: COPD, CHF, CAD, pulmonary arterial HTN, essential HTN, BPH, a-fib, hypothyroidism, hypercholesterolemia, seizures Nutrition Diagnosis: Decreased Nutrient Needs Nutrition Etiology: Physiological Causes Nutrition Problem/Etiology/Sym: Decreased fluid, Na needs R/t dx CHF AEB 2+ edema LE, BNO 839. Adjusted Energy Requirement Re: 2400 (20kcal/kg) Protein Requirement: 97 (.8gm/kg) Fluid Requirement: 2400 (20ml/kg) Diet Type: CHF Diet Nutrition Intervention: Cont diet as ordered, Encourage intake Drug: Diuretics Drug/Nutrition Recommendations: Patient Taking K+ Nutritional Education Nutrition Education Topic: Congested Heart Failure Learning Readiness: Little Interest Teaching Methods: Discussion, Handout Response to Teaching: Verbalize understanding, Reinforcement needed Teaching Recipient: Patient Nutrition Counseling: Pt states limits salt at home. Does not use salt shaker. Admitted to eating salty snack and we reviewed lower salt options to try. Discussed portion sizes and how he may be getting more Na than he realizes with larger portions of foods. Encouraged pt to eat more natural and less processed foods. Pt asked that I talk with his DIL who does cooking. Will try to contact DIL and review diet. Nutrition Monitoring & Eval RD Patient Assessment Time: [address] Assessment Type: RD Re-Assessment Patient Nutrition Acuity: 2-Moderate Follow Up Date: Sep 29, 2017 Nutritional Comment: 09/25 Reviewed CF diet with pt. Pt eating 100% of meals. Pt on K+ depleting duiretic with K+ of 3.4. Pt is recieving K+ supplement. Pt has 2+ edema LE. Anticipate wt loss when edema resolved. Alb 3.4, BNP 839. Will cont to monitor and encourage healthy intake. CHICO CAZARES Sep 25, 2017 14:29
[2017-09-25 16:29] VITALS: BP 100/72
[2017-09-25 18:38] VITALS: BP 117/66
--- NOTE | 2017-09-25 21:16 | RADIOLOGY IMAGING REPORT ---
FACILITY: [facility] PATIENT NAME: TONY NGO : [id number] MR: [id number] V: [id number] EXAM DATE: ORDERING PHYSICIAN: PATRICIA HENRY TECHNOLOGIST: Lizette Donald PROCEDURE: ECHOCARDIOGRAM 2 D LIMITED WITH CONTRAST COMPARISON: None. INDICATIONS: CHF EXACERBATION 2D Measurements (normal values in centimeters) LV end LV end RV end Vent LV Post Aortic Left Percent Diastolic Systolic Diastolic Septum Wall Root Atrium Shortening (3.5-5.7) (0.9-2.6) (0.6-1.1) (0.6-1.1) (2.0-3.7) (1.9-4.0) (25-35%) 7.8 6.8 3.9 1.0 0.97 1.6 5.0 17% STROKE VOLUME: 124ml ESTIMATED EJECTION FRACTION: 23% FINDINGS: PARASTERNAL LONG AXIS: All the chambers appear to be grossly enlarged. Color examination of the valves reveals some tricuspid & mitral insufficiency present. The left ventricular systolic function is markedly decreased. At least a moderate amount of mitral insufficiency is noted. PARASTERNAL SHORT AXIS: Significantly decreased left ventricular function with akinesis along the interventricular septum & probably also the apex of the left ventricle. Other ponce are hypokinetic. Aortic valve is trileaflet in configuration. The pulmonic valve appears to open normally. Mild to moderate amount of pulmonic insufficiency is noted. APICAL FOUR & TWO CHAMBER: Mild amount of tricuspid insufficiency is noted. The tricuspid regurgitation Vmax measured at 3.4m/sec. Patient is in atrial fibrillation flutter. No thrombi are noted and the left atrial appendage is not seen. Definity contrast was used. Akinesis at the apex & the interventricular septum. No thrombi were noted in the apex of the left ventricle. Chambers are grossly enlarged. Left atrial volume & right atrial volume are severely enlarged at 48 & 45ml/m2. IMPRESSION: 1. Significantly decreased left ventricular systolic function. Estimated ejection fraction of about 23%. We were unable to accurately assess his diastolic function as the patient appears to be in atrial fibrillation flutter. It is decreased. There is no significant respiratory variation. 2. Severe enlargement of all the chambers. Left atrial & right atrial volumes are severely increased at 48 & 45ml/m2. Left ventricular function show akinesis at the interventricular septum as well as at the apex. Hypokinesis of the other ponce. Definity contrast was used & no thrombi were noted in any of the chambers including the left ventricle & the apex but the left atrial appendage was not seen. 3. A trileaflet aortic valve which appears to open normally. 4. A mild to moderate amount of pulmonic insufficiency, a moderate amount of mitral insufficiency & a mild to moderate amount of tricuspid insufficiency. The estimated right ventricular systolic pressure is approximately 50mm Hg which does include an estimated right atrial pressure of 8mm Hg. indicating moderate pul. Htn and increased rv pressures 5. In comparison to the examination done on 07/17/17, left ventricular systolic function is slightly decreased from 29 to 23%. Patient is now in atrial fibrillation flutter. The left atrial & right atrial volumes have mildly decreased in size. The right ventricular systolic pressures are approximately the same. No new wall motion abnormalities are noted. Dictated by: Randi Saldana M.D. on 09/25/2017 at 10:34 Transcribed by: MILLA on 09/25/2017 at 13:02 Approved by: Randi Saldana M.D. on 09/25/2017 at 21:15 [facility]
[2017-09-26 00:43] VITALS: BP 112/81
[2017-09-26 03:32] VITALS: BP 106/87
[2017-09-26] MEDS: TIOTROPIUM BROM INH 18 MCG/CAP INH SCH (04:52)
[2017-09-26] MEDS: LEVOTHYROXINE SOD 0.1 MG TAB PO SCH (06:49)
[2017-09-26 07:30] VITALS: BP 118/85
[2017-09-26] MEDS: POTASSIUM CHL 20 MEQ TABCR PO SCH ×2 (08:41→17:08)
--- NOTE | 2017-09-26 09:31 | Hospitalist Progress Note ---
Subjective Progress Notes Subjective 77yo male with PMH of COPD, HTN, CAD s/p Stent, CHF, Dyslipidemia, Seizure Disorder. BPH, Atrial Flutter, Hypothyroidism. He has reduced LVEF 23% by Echo who came to the ER for worsening SOB. He was discharged from [facility] 2 days ago for a CHF exacerbation. He was diuresed with IV Lasix and also started on Digoxin on that visit. He went home feeling well. He represented himself with worsening dyspnea. In the ER, he was given 2 doses of IV Metoprolol for elevated BP and he has received IV lasix and Digoxin during this admission. 09/26: He is feeling better today but he gets CONTI. His I/O was positive last night and his BNP is 839. His K level is also low 3.4. Patient Complains of: Neurological: No: Confusion, Weakness, Dizziness Cardiovascular: Orthostatic Hypotension, No: Chest Pain, Palpitations Respiratory: Shortness of Breath, No: Cough, Congestion, Wheezing Gastrointestinal: No Nausea, No Vomiting Genitourinary: No Dysuria, No Hematuria Musculoskeletal: No: Pain, Sprain, Strain Physical Exam Vital Signs Date Time Temp Pulse Resp B/P (MAP) Pulse Ox O2 Delivery O2 Flow Rate FiO2 09/26/17 08:19 93 Nasal Cannula 2.0 09/26/17 07:30 97.7 14 118/85 (96) 09/26/17 04:51 77 Intake and Output 09/27/17 07:00 Intake Total 390 ml Balance 390 ml Intake Oral 390 ml General Appearance: Alert, Awake, No Acute Distress, Afebrile Neuro: No Gross deficits Eyes: PERRLA ENT: Normal Neck: No Masses Cardiovascular: Other (A. Flutter) Chest: No Masses GI: Soft and Non-Tender Extremities: Soft and Non Tender, Edema Integumentary: Skin Intact without Lesion / Mass Psych: Alert & Oriented X3, Appropriate Mood & Affect Result Diagram: 09/25/1751409/25/17514 Monitor Interpretation: Atrial Flutter Assessment and Plan Problems: (1) CHF exacerbation Status: Acute Assessment & Plan: He presented with about 24 hours of increasing SOB, orthopnea, and worsening LE edema. However, his weights are actually less than his discharge weight from last week. He is on IV Lasix. A repeat echocardiogram has shown a decrease in his ejection fraction from 29% to 22%. 09/26: I will increase his Lasix from 40mg to 80mg IV bid I will increase his KCL to 40meq po bid for his low K level 3.4 I advised him to ambulate today I will check his BMP and BNP in am (2) Atrial flutter Status: Chronic Assessment & Plan: He is on chronic treatment with Coreg, digoxin, and Eliquis. (3) COPD (chronic obstructive pulmonary disease) Status: Chronic Assessment & Plan: He is on chronic treatment with Spiriva. (4) CAD (coronary artery disease) Status: Chronic Assessment & Plan: He is on chronic treatment with Atorvastatin and Plavix. (5) BPH (benign prostatic hyperplasia) Status: Chronic Assessment & Plan: He is on chronic treatment with Proscar and Flomax. (6) Hypothyroid Status: Chronic Assessment & Plan: He is on chronic treatment with levothyroxine. (7) Seizure disorder Status: Chronic Assessment & Plan: He is on chronic treatment with Keppra. Condition stable Time Spent on Plan of Care: < 30 min Copies to: PATRICIA STANTON MD Heart Failure Ejection Fraction %: 46 (current LVEF by Echo s 23%) NYHA Class: II Is Patient on CHUCKY Inhibitor?: Yes Is Patient on Beta María?: Yes Exam Sepsis Risk: No Definite Risk Problem Qualifiers (1) CHF exacerbation: Heart failure type: systolic Qualified Codes: I50.23 - Acute on chronic systolic (congestive) heart failure PEARL KAHN MD Sep 26, 2017 09:31
[2017-09-26] MEDS: FUROSEMIDE 40 MG/4 ML VIAL IVP SCH ×2 (09:43→14:42)
[2017-09-26] MEDS: APIXABAN 2.5 MG TABLET PO SCH ×2 (09:44→21:05)
[2017-09-26] MEDS: FINASTERIDE 5 MG TAB PO SCH (09:44)
[2017-09-26] MEDS: levETIRAcetam 500 MG TAB PO SCH ×2 (09:44→21:05)
[2017-09-26] MEDS: DULoxetine HCL 30 MG CAPCR PO SCH (09:44)
[2017-09-26] MEDS: PREGABALIN 50 MG CAP PO SCH ×3 (09:45→21:06)
[2017-09-26] MEDS: DIGOXIN 0.125 MG TAB PO SCH (09:45)
[2017-09-26] MEDS: CLOPIDOGREL BISULFATE 75MG TAB PO SCH (09:46)
[2017-09-26] MEDS: TAMSULOSIN HCL 0.4 MG CAP PO SCH (09:46)
[2017-09-26] MEDS: ATORVASTATIN 10 MG TAB PO SCH (09:46)
[2017-09-26] MEDS: CARVEDILOL 6.25 MG TAB PO SCH ×2 (09:46→21:06)
[2017-09-26 11:00] VITALS: BP 124/83
[2017-09-26 19:27] VITALS: BP 105/66
[2017-09-26 23:29] VITALS: BP 101/82
[2017-09-27] VITALS (7 sets, daily range): BP systolic 101–114; BP diastolic 73–90
[2017-09-27] MEDS: TIOTROPIUM BROM INH 18 MCG/CAP INH SCH (05:34)
[2017-09-27] MEDS: LEVOTHYROXINE SOD 0.1 MG TAB PO SCH (05:42)
[2017-09-27] MEDS: POTASSIUM CHL 20 MEQ TABCR PO SCH ×2 (08:00→16:46)
--- NOTE | 2017-09-27 09:37 | Hospitalist Progress Note ---
Subjective Progress Notes Subjective 77yo male with PMH of COPD, HTN, CAD s/p Stent, CHF, Dyslipidemia, Seizure Disorder. BPH, Atrial Flutter, Hypothyroidism. He has reduced LVEF 23% by Echo who came to the ER for worsening SOB. He was discharged from [facility] 2 days ago for a CHF exacerbation. He was diuresed with IV Lasix and also started on Digoxin on that visit. He went home feeling well. He represented himself with worsening dyspnea. In the ER, he was given 2 doses of IV Metoprolol for elevated BP and he has received IV lasix and Digoxin during this admission. 09/26: He is feeling better today but he gets CONTI. His I/O was positive last night and his BNP is 839. His K level is also low 3.4. 09/27: He is doing better with less LE edema after using high dose lasix. He still feels CONTI. He is afebrile and he is hemodynamically stable. Patient Complains of: Neurological: No: Confusion, Weakness, Dizziness Cardiovascular: No: Chest Pain, Palpitations Respiratory: Shortness of Breath, No: Cough, Congestion, Wheezing Gastrointestinal: No Nausea, No Vomiting Genitourinary: No Dysuria, No Hematuria Musculoskeletal: Impaired Mobility, No: Pain, Sprain, Strain Physical Exam Vital Signs Date Time Temp Pulse Resp B/P (MAP) Pulse Ox O2 Delivery O2 Flow Rate FiO2 09/27/17 07:50 90 09/27/17 07:44 88 Nasal Cannula 3.0 09/27/17 07:42 98.3 20 114/83 (93) General Appearance: Alert, Awake, No Acute Distress, Afebrile Neuro: No Gross deficits Eyes: PERRLA ENT: Normal Cardiovascular: Normal Rhythm & Peripheral Pulses Respiratory: No Respiratory Distress GI: Soft and Non-Tender Extremities: Soft and Non Tender, Edema (but less) Psych: Alert & Oriented X3, Appropriate Mood & Affect Result Diagram: 09/25/17 0515 09/27/17 0602 Monitor Interpretation: Atrial Flutter Assessment and Plan Problems: (1) CHF exacerbation Status: Acute Assessment & Plan: He presented with about 24 hours of increasing SOB, orthopnea, and worsening LE edema. However, his weights are actually less than his discharge weight from last week. He is on IV Lasix. A repeat echocardiogram has shown a decrease in his ejection fraction from 29% to 22%. 09/26: I will increase his Lasix from 40mg to 80mg IV bid I will increase his KCL to 40meq po bid for his low K level 3.4 I advised him to ambulate today I will check his BMP and BNP in am 09/27: I will start him on Spiranolactone 25mg daily for his CHF Digoxin 0.125mg daily Coreg small dose Lasix 80mg bid KCL 20meq bid ambulation today with PT Possible d/c home in am (2) Atrial flutter Status: Chronic Assessment & Plan: He is on chronic treatment with Coreg, digoxin, and Eliquis. (3) COPD (chronic obstructive pulmonary disease) Status: Chronic Assessment & Plan: He is on chronic treatment with Spiriva. (4) CAD (coronary artery disease) Status: Chronic Assessment & Plan: He is on chronic treatment with Atorvastatin and Plavix. (5) BPH (benign prostatic hyperplasia) Status: Chronic Assessment & Plan: He is on chronic treatment with Proscar and Flomax. (6) Hypothyroid Status: Chronic Assessment & Plan: He is on chronic treatment with levothyroxine. (7) Seizure disorder Status: Chronic Assessment & Plan: He is on chronic treatment with Keppra. Condition improving Time Spent on Plan of Care: < 30 min Copies to: PATRICIA STANTON MD Heart Failure Ejection Fraction %: 46 (current LVEF by Echo s 23%) NYHA Class: II Is Patient on CHUCKY Inhibitor?: Yes Is Patient on Beta María?: Yes Exam Sepsis Risk: No Definite Risk Problem Qualifiers (1) CHF exacerbation: Heart failure type: systolic Qualified Codes: I50.23 - Acute on chronic systolic (congestive) heart failure PEARL KAHN MD Sep 27, 2017 09:37
[2017-09-27] MEDS: levETIRAcetam 500 MG TAB PO SCH ×2 (10:19→21:06)
[2017-09-27] MEDS: CARVEDILOL 6.25 MG TAB PO SCH ×2 (10:19→21:06)
[2017-09-27] MEDS: CLOPIDOGREL BISULFATE 75MG TAB PO SCH (10:19)
[2017-09-27] MEDS: FINASTERIDE 5 MG TAB PO SCH (10:20)
[2017-09-27] MEDS: DIGOXIN 0.125 MG TAB PO SCH (10:20)
[2017-09-27] MEDS: TAMSULOSIN HCL 0.4 MG CAP PO SCH (10:20)
[2017-09-27] MEDS: SPIRONOLACTONE 25 MG TAB PO SCH (10:20)
[2017-09-27] MEDS: DULoxetine HCL 30 MG CAPCR PO SCH (10:20)
[2017-09-27] MEDS: APIXABAN 2.5 MG TABLET PO SCH ×2 (10:21→21:06)
[2017-09-27] MEDS: ATORVASTATIN 10 MG TAB PO SCH (10:21)
[2017-09-27] MEDS: PREGABALIN 50 MG CAP PO SCH ×3 (10:43→21:07)
[2017-09-27] MEDS: FUROSEMIDE 40 MG/4 ML VIAL IVP SCH ×2 (10:44→13:59)
[2017-09-28 03:34] VITALS: BP 104/68
[2017-09-28] MEDS: TIOTROPIUM BROM INH 18 MCG/CAP INH SCH (05:27)
[2017-09-28] MEDS: LEVOTHYROXINE SOD 0.1 MG TAB PO SCH (05:45)
[2017-09-28 07:10] VITALS: BP 135/103
[2017-09-28] MEDS: POTASSIUM CHL 20 MEQ TABCR PO SCH (07:19)
[2017-09-28] MEDS: PREGABALIN 50 MG CAP PO SCH ×2 (08:51→14:08)
[2017-09-28] MEDS: CLOPIDOGREL BISULFATE 75MG TAB PO SCH (08:52)
[2017-09-28] MEDS: ATORVASTATIN 10 MG TAB PO SCH (08:52)
[2017-09-28] MEDS: FINASTERIDE 5 MG TAB PO SCH (08:52)
[2017-09-28] MEDS: DULoxetine HCL 30 MG CAPCR PO SCH (08:52)
[2017-09-28] MEDS: levETIRAcetam 500 MG TAB PO SCH (08:53)
[2017-09-28] MEDS: TAMSULOSIN HCL 0.4 MG CAP PO SCH (08:53)
[2017-09-28] MEDS: DIGOXIN 0.125 MG TAB PO SCH (08:53)
[2017-09-28] MEDS: CARVEDILOL 6.25 MG TAB PO SCH (08:53)
[2017-09-28] MEDS: SPIRONOLACTONE 25 MG TAB PO SCH (08:53)
[2017-09-28] MEDS: APIXABAN 2.5 MG TABLET PO SCH (08:53)
[2017-09-28] MEDS: FUROSEMIDE 40 MG/4 ML VIAL IVP SCH (08:55)
[2017-09-28] MEDS ORDERED: GABAPENTIN 100 MG CAP PO SCH (09:00)
[2017-09-28] MEDS ORDERED: POTA20TA94 PO (09:41)
[2017-09-28] MEDS ORDERED: SPIR25TA78 PO (09:41)
[2017-09-28] MEDS ORDERED: GABA-547 PO (09:41)
--- NOTE | 2017-09-28 09:45 | Hospitalist Depart ---
Discharge Summary Reason for Hosp/Final Diag: (1) CHF exacerbation Status: Acute Hospital Course & Plan: He presented with about 24 hours of increasing SOB, orthopnea, and worsening edema. However, his weights are actually less than his discharge weight from last week. A repeat echocardiogram has shown a decrease in his ejection fraction from 29% to 22%. He was treated with IV Lasix , and has now been converted back to oral dosing. He has also been started on spironolactone. (2) Atrial flutter Status: Chronic Hospital Course & Plan: He is on chronic treatment with Coreg, digoxin, and Eliquis. (3) COPD (chronic obstructive pulmonary disease) Status: Chronic Hospital Course & Plan: He is on chronic treatment with Spiriva. (4) CAD (coronary artery disease) Status: Chronic Hospital Course & Plan: He is on chronic treatment with Atorvastatin and Plavix. (5) BPH (benign prostatic hyperplasia) Status: Chronic Hospital Course & Plan: He is on chronic treatment with Proscar and Flomax. (6) Hypothyroid Status: Chronic Hospital Course & Plan: He is on chronic treatment with levothyroxine. (7) Seizure disorder Status: Chronic Hospital Course & Plan: He is on chronic treatment with Keppra. (8) Peripheral neuropathy Hospital Course & Plan: He has been started on low dose gabapentin. Departure Latest Vital Signs Vital Signs 09/28/17 09/28/17 09/28/17 07:10 08:53 09:35 Temp 97.4 Pulse 79 Resp 24 B/P (MAP) 135/103 (114) Pulse Ox 97 O2 Delivery Nasal Cannula O2 Flow Rate 3.0 Weight (Pounds): 270 Weight (Ounces): 6.0 Result Diagram: 09/25/17 0515 09/27/17 0602 Condition: Improved PT/OT Follow Up For: PT For Strengthening Home Health RN Follow Up For: Cardiac Assessment, Nursing Assessment Home Health FACE PAINTER Follow Up For: ADL Assistance Discharge Instructions Home Meds Active Scripts Digoxin (Digox) 125 Mcg Tablet, 0.125 MG PO QDAY, #30 TAB Prov:ZENY LOVELL MD 09/22/17 Potassium Chloride (KLOR-CON 10) 10 Meq Tablet.er, 20 MEQ PO BIDBS, #120 TAB Prov:ZENY LOVELL MD 09/22/17 Furosemide (FUROSEMIDE) 80 Mg Tablet, 80 MG PO BIDD, #60 TAB Prov:ZENY LOVELL MD 09/22/17 Finasteride (FINASTERIDE) 5 Mg Tablet, 5 MG PO QDAY for 30 Days, TAB Prov:MATEO LOVELL MD 08/16/17 Reported Medications Atorvastatin Calcium (LIPITOR) 10 Mg Tablet, 1 TAB PO QDAY, TAB 09/15/17 Duloxetine HCl (Duloxetine HCl) 60 Mg Capsule.dr, 30 MG PO BID 08/16/17 Oxygen (OXYGEN) Inha, 3 L INH QDAY, L 07/02/17 Clopidogrel Bisulfate (CLOPIDOGREL) 75 Mg Tablet, 1 TAB PO QDAY, TAB 04/26/17 Pregabalin (LYRICA) 150 Mg Capsule, 150 MG PO TID, CAPSULE 03/24/17 Carvedilol (CARVEDILOL) 6.25 Mg Tab, 3.125 MG PO BID, TAB 03/17/17 Apixaban (ELIQUIS) 5 Mg Tablet, 5 MG PO BID 03/17/17 Tiotropium [place] (SPIRIVA) 18 Mcg/Cap Inh, 18 MCG INH QDAY, INH 12/30/16 Levetiracetam (LEVETIRACETAM) 250 Mg Tablet, 500 MG PO BID, TAB 12/30/16 Tamsulosin Hcl (FLOMAX) 0.4 Mg Cap.er.24h, 0.4 MG PO QDAY, CAP 12/30/16 Levothyroxine Sodium (LEVOTHYROXINE SODIUM) 100 Mcg Tablet, 100 MCG PO QDAY, TAB 12/30/16 Discontinued Reported Medications Furosemide (FUROSEMIDE) 40 Mg Tablet, 1 TAB PO BID, TAB 08/16/17 Discontinued Scripts Potassium Chloride (POTASSIUM CHLORIDE) 10 Meq Tab.er.prt, 10 MEQ PO BID, #60 TAB 1 Refill Prov:MATEO LOVELL MD 07/05/17 Diet: Regular, Fluid Restricted Activity: As Tolerated Copies to: PTARICIA STANTON MD Venous Thromboembolism Antithrombotics Is Pt On Any Antithrombotics?: Yes Heart Failure Ejection Fraction %: 46 (current LVEF by Echo s 23%) NYHA Class: II Is Patient on CHUCKY Inhibitor?: Yes Is Patient on Beta María?: Yes Etdw-co-[id number] Certification Face to Face Home Health Certification Institutional Provider conducted the [id number] encounter. Electronic Undersigning Physician Certifies Home Health. I certify that the patient has been under my care and that I had a [id number] encounter that meets the physician [id number] encounter requirements with this patient. This patient is home-bound due to safety issues and continues to require assistance with ADL's. I certify that based on my findings, that Nursing, Aides and the following Home Health services are medically necessary: Medical Necessity: Nursing, Rehab Date Face to Face Conducted: Sep 28, 2017 Problem Qualifiers (1) CHF exacerbation: Heart failure type: systolic Qualified Codes: I50.23 - Acute on chronic systolic (congestive) heart failure PATRICIA HENRY DO Sep 28, 2017 09:45
[2017-09-28 11:56] VITALS: BP 107/83
== END 2017-09-28 15:30 | disposition home health service (06) | DRG 292 ==
LOC: ER 17:23 → UNDOADMIN 20:38 → MED 20:38
PROVIDERS: ADMIT Internal Medicine; ATTEND Internal Medicine
DX: I11.0 Hypertensive heart disease with heart failure (principal); I48.92 Unspecified atrial flutter; I50.23 Acute on chronic systolic (congestive) heart failure; I25.10 Atherosclerotic heart disease of native coronary artery without angina pectoris; N40.0 Benign prostatic hyperplasia without lower urinary tract symptoms; J44.9 Chronic obstructive pulmonary disease, unspecified; E03.9 Hypothyroidism, unspecified; G40.909 Epilepsy, unspecified, not intractable, without status epilepticus; G62.9 Polyneuropathy, unspecified; E78.5 Hyperlipidemia, unspecified; D64.9 Anemia, unspecified; Z88.0 Allergy status to penicillin; Z79.01 Long term (current) use of anticoagulants; Z88.8 Allergy status to other drugs, medicaments and biological substances; Z87.891 Personal history of nicotine dependence; Z99.81 Dependence on supplemental oxygen; Z95.5 Presence of coronary angioplasty implant and graft; Z90.49 Acquired absence of other specified parts of digestive tract; Z85.840 Personal history of malignant neoplasm of eye; Z98.1 Arthrodesis status; Z85.841 Personal history of malignant neoplasm of brain
CPT/HCPCS: 36415; 70450; 71046; 80162; 82040; 82247; 82310; 82374; 82435; 82565; 82947; 83880; 84075; 84132; 84155; 84295; 84450; 84460; 84484; 84520; 85025; 85610; 85730; 87502; 93005; 94640; 96374; 96375; 97161; 97165; 99285; C8924; J1940; J3490; J3535; Q9957

== ENCOUNTER → 2017-10-23 | Outpatient (CLI) | payer MEDICARE, OTHER ==
[2017-08-17 10:54] VITALS: BMI 34.0
[~2017-10-23] MED LIST changes: +GABA-547 PO; +POTA20TA94 PO; +SPIR25TA78 PO
== END ==
LOC: LAB 17:28
PROVIDERS: ATTEND Urology
DX: R97.20 Elevated prostate specific antigen [PSA] (principal)
CPT/HCPCS: 36415; 84153

== ENCOUNTER 2017-11-06 11:00 | Outpatient (RCR) | payer MEDICARE, OTHER ==
[2017-08-17 10:54] VITALS: BMI 34.0
[2017-10-11 15:56] VITALS: BP 114/72
[2017-10-11 15:57] VITALS: BP 102/64
--- NOTE | 2017-10-11 16:45 | CARDIAC REHAB PLAN OF CARE ---
Physician: MD Sharri Patient is being seen: Saundra Montes Medical Diagnosis: CHF Date of Initial Evaluation: 10/11/17 INTERVENTIONS: SHORT TERM GOALS Short Term Goals Due Date: 11/10/17 Short Term Goals: Short terms goals include gradually increasing total exercise time and overall exercise tolerance. He will begin low levels of exercise for a total of 15 minutes--if needed breaking into 3 x 5 minute bursts. Our goal will be to maintain a moderate heart rate. Since the patient's heart rate accelerates quickly (e.g. 113bpm upon standing) our goal for him to maintain during exercise will be between 100-125bpm while maintaining a SPO2 level above 85%.By the end of the next month our goal will be to achieve 30 minutes of total exercise, with at least 15 minutes of that being continuous. Short Term Goals Met: Short Term Goals Not Met Due To: [facility] GOALS Simulation Specialist Goal Due Date: 12/11/17 Simulation Specialist Goals: Our primary halfway goal will be to increase exercise tolerance. The patient will aim to complete a total duration of exercise closer to the standard of 150 min/week of moderate intensity exercise. While most of this exercise will not be continuous to start, we will work towards achieve 20 minutes continuous exercise per session. Another halfway goal will be to help the patient lose weight. We can hope to influence behavior change towards achieving this goal by providing information on leisure activity and diet change. Outside of the rehab clinic it will be a goal to help increase the amount of leisure activity spent in activity, primarily walking. Simulation Specialist Goals Met: Fpc Goals Not Met Due To: PATIENT'S GOALS Patient Goals Due Date: 11/10/17 Patient Goals: Patient's goal include losing weight and gaining strength in his legs. He would ideally like to weigh between 220-230lbs, which would require him to lose a minimum of 20lbs. He would also like to gain strength in his legs to help him maintain his levels of independence and ability to walk. Patient Goals Met: Patient Goals Not Met Due To: Cardiac Rehabilitation Plan of Care Comment: Over the next few months we will continue to monitor the patient before, during, and after exercise via blood pressure, heart rate, pulse oximetry, and telemetry. We will use the information gathered to provide an individualized exercise prescription aimed towards improving exercise tolerance. During his exercise time we will provide the patient with health information pertaining towards diet change and overall active behavior change. We will also help support his emotional needs by providing a positive and safe environment where he feels comfortable to ask questions and work along side the staff to better his own individual health. KARISSA
[2017-10-13 13:20] VITALS: BP 116/72
[2017-10-13 13:21] VITALS: BP 110/60
[2017-10-16 13:02] VITALS: BP 120/70
[2017-10-16 13:06] VITALS: BP 92/60
[2017-10-18 13:07] VITALS: BP 100/72
[2017-10-18 13:08] VITALS: BP 92/58
[2017-10-23 13:08] VITALS: BP 102/70
[2017-10-23 13:12] VITALS: BP 100/64
[2017-10-25 12:43] VITALS: BP 112/72
[2017-10-27 13:14] VITALS: BP 120/72
[2017-10-27 13:15] VITALS: BP 126/70
[2017-10-30 13:10] VITALS: BP 130/76
[2017-10-30 13:11] VITALS: BP 124/68
[2017-11-01 13:06] VITALS: BP 120/74
[2017-11-01 13:07] VITALS: BP 115/56
[2017-11-03 17:00] VITALS: BP 124/72
[2017-11-03 17:01] VITALS: BP 118/68
[2017-11-06 13:42] VITALS: BP 98/78
[2017-11-06 17:03] VITALS: BP 102/72
== END 2017-11-06 18:00 | disposition home or self-care (01) ==
LOC: PT 11:00
PROVIDERS: ATTEND Family Medicine
DX: I50.42 Chronic combined systolic (congestive) and diastolic (congestive) heart failure (principal); I25.2 Old myocardial infarction; I48.91 Unspecified atrial fibrillation; I10 Essential (primary) hypertension; M19.011 Primary osteoarthritis, right shoulder; M19.012 Primary osteoarthritis, left shoulder; Z87.891 Personal history of nicotine dependence; Z96.659 Presence of unspecified artificial knee joint; R07.9 Chest pain, unspecified
CPT/HCPCS: 93798

== ENCOUNTER 2017-11-06 15:41 | Inpatient (IN) | payer MEDICARE, OTHER ==
[~2017-11-06] VITALS: Ht 180.3 cm; Wt 118.4 kg
--- NOTE | 2017-11-06 15:52 | ER Report ---
History and Physical Time Seen By MD: 15:52 Hx. of Stated Complaint: PT REPORTS SOB FOR THE PAST 2 DAYS, INCREASED OXYGEN FROM 3 TO 4 L PAST 4 DAYS HPI/ROS CHIEF COMPLAINT: shortness of breath HISTORY OF PRESENT ILLNESS: This is a 77 year old male. He has a history of frequent admissions for CHF exacerbation. He had an ejection fraction of 22% on his last visit. He expressed a desire to be comfort care in the future. He has been more short of breath. Having difficulty even with mild exertion and short walk to the bathroom. He had a fall 2 days ago. His oxygen had become unhooked while walking and he passed out. His family has noted he is having cyanosis of the lips and face more often over the last few days. He is still taking his Lasix 80mg twice a day, but is not urinating much despite taking this. He is wanting to be admitted for comfort care. No fevers or chills. Chest congestion with non-productive cough, clear sputum. Having increased edema in his legs. REVIEW OF SYSTEMS: Constitutional: No fever or chills. Eyes: No vision changes. ENT: No sore throat. No congestion. Cardiovascular: As above. Respiratory: As above. Gastrointestinal: No abdominal pain. No nausea or vomiting. Genitourinary: No dysuria. Musculoskeletal: No back pain. Skin: No rash Neurological: No headache. Having occasional dizziness. Allergies: Coded Allergies: Penicillins (Verified Allergy, Severe, 11/06/17) tramadol (Verified Allergy, Severe, seizure, 11/06/17) pt reported ibuprofen (Verified Allergy, Unknown, 11/06/17) STOMACH BLEEDING Home Meds Active Scripts Spironolactone (SPIRONOLACTONE) 25 Mg Tablet, 25 MG PO QDAY, #30 TAB Prov:PATRICIA HENRY DO 09/28/17 Potassium Chloride (POTASSIUM CHLORIDE) 20 Meq Tab.er.prt, 20 MEQ PO BIDBS, #60 TAB Prov:PATRICIA HENRY DO 09/28/17 Gabapentin (GABAPENTIN) 100 Mg Capsule, 100 MG PO BID, #60 CAPSULE Prov:PATRICIA HENRY DO 09/28/17 Digoxin (Digox) 125 Mcg Tablet, 0.125 MG PO QDAY, #30 TAB Prov:ZENY BELLO MD 09/22/17 Potassium Chloride (KLOR-CON 10) 10 Meq Tablet.er, 20 MEQ PO BIDBS, #120 TAB Prov:ZENY BELLO MD 09/22/17 Furosemide (FUROSEMIDE) 80 Mg Tablet, 80 MG PO BIDD, #60 TAB Prov:ZENY BELLO MD 09/22/17 Finasteride (FINASTERIDE) 5 Mg Tablet, 5 MG PO QDAY for 30 Days, TAB Prov:MATEO BELLO MD 08/16/17 Reported Medications Atorvastatin Calcium (LIPITOR) 10 Mg Tablet, 1 TAB PO QDAY, TAB 09/15/17 Duloxetine HCl (Duloxetine HCl) 60 Mg Capsule.dr, 30 MG PO BID 08/16/17 Oxygen (OXYGEN) Inha, 3 L INH QDAY, L 07/02/17 Clopidogrel Bisulfate (CLOPIDOGREL) 75 Mg Tablet, 1 TAB PO QDAY, TAB 04/26/17 Pregabalin (LYRICA) 150 Mg Capsule, 150 MG PO TID, CAPSULE 03/24/17 Carvedilol (CARVEDILOL) 6.25 Mg Tab, 3.125 MG PO BID, TAB 03/17/17 Apixaban (ELIQUIS) 5 Mg Tablet, 5 MG PO BID 03/17/17 Tiotropium [place] (SPIRIVA) 18 Mcg/Cap Inh, 18 MCG INH QDAY, INH 12/30/16 Levetiracetam (LEVETIRACETAM) 250 Mg Tablet, 500 MG PO BID, TAB 12/30/16 Tamsulosin Hcl (FLOMAX) 0.4 Mg Cap.er.24h, 0.4 MG PO QDAY, CAP 12/30/16 Levothyroxine Sodium (LEVOTHYROXINE SODIUM) 100 Mcg Tablet, 100 MCG PO QDAY, TAB 12/30/16 Reviewed Nurses Notes: Yes Hx Smoking: Yes Smoking Status: Former Smoker Exposure to Second Hand Smoke?: No Hx Substance Use Disorder: No Hx Alcohol Use: Yes Constitutional Vital Sign - Last 24 Hours 11/06/17 11/06/17 11/06/17 11/06/17 15:47 15:47 15:48 15:56 Temp 97.9 Pulse 92 90 Resp 18 12 B/P (MAP) 111/83 111/83 (92) Pulse Ox 96 96 O2 Delivery Nasal Cannula O2 Flow Rate 4.0 11/06/17 11/06/17 11/06/17 11/06/17 16:00 16:11 16:26 16:30 Pulse 95 88 Resp 34 25 B/P (MAP) 102/79 (87) 108/84 (92) Pulse Ox 97 97 11/06/17 11/06/17 11/06/17 11/06/17 16:56 17:00 17:11 17:26 Pulse 89 92 94 Resp 14 12 20 B/P (MAP) 95/77 (83) Pulse Ox 94 97 97 11/06/17 11/06/17 17:30 17:35 Pulse 84 Resp 18 B/P (MAP) 108/86 (93) 108/85 (93) Pulse Ox 97 O2 Delivery Nasal Cannula O2 Flow Rate 4 Physical Exam General Appearance: The patient is alert. No acute distress. Eyes: Pupils are equal, round. No pallor, injection or icterus. ENT: Mucous membranes are moist. Normal oral mucosa. Posterior oropharynx is normal. Neck: Supple and non tender. Respiratory: Lungs diminished. No rales, wheezing or rhonchi. Cardiovascular: Irregular rhythm. 2+ edema in ankles and lower legs. Gastrointestinal: Abdomen is soft and non tender. Nondistended. Normal active bowel sounds. Neurological: Alert and oriented x3. Skin: Warm and dry. DIFFERENTIAL DIAGNOSIS: After history and physical exam, differential diagnosis was considered for congestive heart failur with worsening edema and shortness of breath. Medical Decision Making Data Points Result Diagram: 11/06/17 1558 11/06/17 1558 Laboratory Hematology Test 11/06/17 15:58 Red Blood Count 4.04 M/uL (4.00-5.60) Mean Corpuscular Volume 93.1 fL (80.0-96.0) Mean Corpuscular Hemoglobin 31.2 pg (26.0-33.0) Mean Corpuscular Hemoglobin Concent 33.5 g/dL (32.0-36.0) Red Cell Distribution Width 17.2 % (11.5-14.5) Mean Platelet Volume 8.2 fL (7.2-11.1) Neutrophils (%) (Auto) 57.9 % (39.4-72.5) Lymphocytes (%) (Auto) 21.9 % (17.6-49.6) Monocytes (%) (Auto) 16.7 % (4.1-12.4) Eosinophils (%) (Auto) 1.4 % (0.4-6.7) Basophils (%) (Auto) 2.1 % (0.3-1.4) Nucleated RBC Relative Count (auto) 0.2 /100WBC Neutrophils # (Auto) 1.9 K/uL (2.0-7.4) Lymphocytes # (Auto) 0.7 K/uL (1.3-3.6) Monocytes # (Auto) 0.6 K/uL (0.3-1.0) Eosinophils # (Auto) 0.0 K/uL (0.0-0.5) Basophils # (Auto) 0.1 K/uL (0.0-0.1) Nucleated RBC Absolute Count (auto) 0.01 K/uL Peripheral Blood Smear Yes Y/N Sodium Level 143 mmol/L (137-145) Potassium Level 3.9 mmol/L (3.5-5.0) Chloride Level 98 mmol/L (98-107) Carbon Dioxide Level 30 mmol/L (22-30) Blood Urea Nitrogen 26 mg/dl (9-21) Creatinine 1.00 mg/dl (0.66-1.25) Glomerular Filtration Rate Calc > 60.0 Random Glucose 130 mg/dl (75-110) Lactate 1.0 mmol/L (0.7-2.1) Calcium Level 9.1 mg/dl (8.4-10.2) Total Bilirubin 1.5 mg/dl (0.2-1.3) Aspartate Amino Transf (AST/SGOT) 30 U/L (0-35) Alanine Aminotransferase (ALT/SGPT) 20 U/L (0-56) Alkaline Phosphatase 68 U/L (0-126) Troponin I 0.014 ng/ml B-Type Natriuretic Peptide 347 pg/ml (0-100) Total Protein 6.9 gm/dl (6.3-8.2) Albumin 3.8 g/dl (3.5-5.0) Chemistry Test 11/06/17 15:58 White Blood Count 3.3 k/uL (4.5-11.0) Red Blood Count 4.04 M/uL (4.00-5.60) Hemoglobin 12.6 g/dL (14.0-18.0) Hematocrit 37.7 % (42.0-52.0) Mean Corpuscular Volume 93.1 fL (80.0-96.0) Mean Corpuscular Hemoglobin 31.2 pg (26.0-33.0) Mean Corpuscular Hemoglobin Concent 33.5 g/dL (32.0-36.0) Red Cell Distribution Width 17.2 % (11.5-14.5) Platelet Count 260 K/uL (150-450) Mean Platelet Volume 8.2 fL (7.2-11.1) Neutrophils (%) (Auto) 57.9 % (39.4-72.5) Lymphocytes (%) (Auto) 21.9 % (17.6-49.6) Monocytes (%) (Auto) 16.7 % (4.1-12.4) Eosinophils (%) (Auto) 1.4 % (0.4-6.7) Basophils (%) (Auto) 2.1 % (0.3-1.4) Nucleated RBC Relative Count (auto) 0.2 /100WBC Neutrophils # (Auto) 1.9 K/uL (2.0-7.4) Lymphocytes # (Auto) 0.7 K/uL (1.3-3.6) Monocytes # (Auto) 0.6 K/uL (0.3-1.0) Eosinophils # (Auto) 0.0 K/uL (0.0-0.5) Basophils # (Auto) 0.1 K/uL (0.0-0.1) Nucleated RBC Absolute Count (auto) 0.01 K/uL Peripheral Blood Smear Yes Y/N Glomerular Filtration Rate Calc > 60.0 Lactate 1.0 mmol/L (0.7-2.1) Calcium Level 9.1 mg/dl (8.4-10.2) Total Bilirubin 1.5 mg/dl (0.2-1.3) Aspartate Amino Transf (AST/SGOT) 30 U/L (0-35) Alanine Aminotransferase (ALT/SGPT) 20 U/L (0-56) Alkaline Phosphatase 68 U/L (0-126) Troponin I 0.014 ng/ml B-Type Natriuretic Peptide 347 pg/ml (0-100) Total Protein 6.9 gm/dl (6.3-8.2) Albumin 3.8 g/dl (3.5-5.0) EKG/Imaging EKG Interpretation 12 lead EKG: Rhythm: Atrial flutter, occasional PVCs Steele: normal QRS: normal ST segments: Nonspecific Imaging Technique: CHEST PA AND LAT HISTORY: short of breath Comparison studies: Chest radiographs September 24, 2017 FINDINGS: There remains mild central vascular congestion. No lobar airspace consolidation. No large pleural effusion. The cardiac silhouette is unchanged. IMPRESSION: 1. No significant interval change with findings compatible with mild central vascular congestion. Report Dictated By: Frankie Saldaña DO at 11/06/2017 4:56 PM ED Course/Re-evaluation Clinical Indication for ER IV: IV Access ED Course Discussed the case with Dr. Bello after labs were obtained. Labs do not look as bad as they have in the past, but the patient is certainly having more of a struggle. We will admit the patient and have further discussion regarding getting him set up with hospice or comfort care here. Decision to Disposition Date: November 06, 2017 Decision to Disposition Time: 17:38 Depart Departure Latest Vital Signs Vital Signs Date Time Temp Pulse Resp B/P (MAP) Pulse Ox O2 Delivery O2 Flow Rate FiO2 11/06/17 17:35 84 18 108/85 (93) 97 Nasal Cannula 4 11/06/17 15:47 97.9 Impression: Primary Impression: CHF exacerbation Condition: Condition Unchanged Disposition: Admitted from ER Referrals: PATRICIA STANTON MD (PCP) Problem Qualifiers Primary Impression: CHF exacerbation Heart failure type: systolic Qualified Codes: I50.23 - Acute on chronic systolic (congestive) heart failure YAHAIRA HAY MD November 06, 2017 15:52
--- NOTE | 2017-11-06 16:21 | EKG ---
[facility] PATIENT NAME: TONY NGO : [id number] MR: [id number] V: [id number] EXAM DATE: ORDERING PHYSICIAN: YAHAIRA HAY TECHNOLOGIST: Pasquale Mohamud Reason : Blood Pressure : / mmHG Vent. Rate : 090 BPM Atrial Rate : 256 BPM P-R Int : 000 ms QRS Dur : 118 ms QT Int : 380 ms P-R-T Axes : 084 -22 107 degrees QTc Int : 464 ms Atrial flutter with variable AV block with premature ventricular or aberrantly conducted complexes Left axis Left bundle branch block Abnormal ECG Confirmed by MATEO LOVELL ([id number] on 11/07/2017 5:50:23 AM Referred By: Confirmed By:MATEO LOVELL
[2017-11-06 16:28] LABS: PLATELET COUNT, AUTOMATED 260 K/uL (150-450)
--- NOTE | 2017-11-06 17:02 | RADIOLOGY IMAGING REPORT ---
FACILITY: [facility] [place] PATIENT NAME: Obey Asencio : 1940 MR: [id number] V: [id number] EXAM DATE: ORDERING PHYSICIAN: YAHAIRA HAY TECHNOLOGIST: Location: [facility] [place] Patient: Obey Asencio : 1940 Visit/Account:[id number] Date of Sevice: 11/06/2017 Technique: CHEST PA AND LAT HISTORY: short of breath Comparison studies: Chest radiographs September 24, 2017 FINDINGS: There remains mild central vascular congestion. No lobar airspace consolidation. No large pleural effusion. The cardiac silhouette is unchanged. IMPRESSION: 1. No significant interval change with findings compatible with mild central vascular congestion. Report Dictated By: Frankie Saldaña DO at 11/06/2017 4:56 PM Report E-Signed By: Frankie Saldaña DO at 11/06/2017 4:58 PM [id number]
[2017-11-06 18:00] VITALS: BP 108/72
[2017-11-06] MEDS ORDERED: ACETAMINOPHEN 325 MG TAB PO PRN (18:45)
--- NOTE | 2017-11-06 19:08 | History & Physical ---
History of Present Illness Chief Complaint Short of breath History of Present Illness 77yo male with PMHx significant for systolic heart failure with EF 23% on echocardiogram 08/2017. He additionally has a history of CAD s/p stent placement , atrial flutter, COPD, and seizure disorder. He reports increasing dyspnea with lower levels of activity. He states it is "a struggle" to get around his house. He previously had been going to cardiac rehab, but cannot make it there any longer. He has been having more lower extremity edema and orthopnea. He was evaluated in the ER and found to have elevated BNP at 347 and mild anemia. His CXR shows cardiomegaly with vascular congestion. He states he does not want to pursue any further aggressive evaluation or treatment of his medical problems. He now thinks he would like to pursue only comfort measures. He has discussed this with his family (son and [id number]) and they are agreeable to his wishes. History Problems: (1) Hypertension Status: Chronic (2) COPD with exacerbation Status: Chronic (3) Congestive cardiac failure Status: Chronic (4) Atrial fibrillation Status: Chronic (5) Postoperative intra-abdominal abscess Status: Resolved (6) Gangrenous appendicitis Status: Resolved (7) Hypercholesterolemia Status: Chronic (8) Chronic systolic heart failure Status: Chronic (9) COPD (chronic obstructive pulmonary disease) Status: Chronic (10) Essential hypertension Status: Chronic (11) CAD (coronary artery disease) Status: Chronic (12) Seizure disorder Status: Chronic (13) Hypothyroid Status: Chronic (14) BPH (benign prostatic hyperplasia) Status: Chronic (15) Peripheral neuropathy (16) History of coronary artery stent placement Status: Chronic (17) History of appendectomy Status: Resolved Home Meds Active Scripts Spironolactone (SPIRONOLACTONE) 25 Mg Tablet, 25 MG PO QDAY, #30 TAB Prov:PATRICIA HENRY DO 09/28/17 Potassium Chloride (POTASSIUM CHLORIDE) 20 Meq Tab.er.prt, 20 MEQ PO BIDBS, #60 TAB Prov:PATRICIA HENRY DO 09/28/17 Gabapentin (GABAPENTIN) 100 Mg Capsule, 100 MG PO BID, #60 CAPSULE Prov:PATRICIA HENRY DO 09/28/17 Digoxin (Digox) 125 Mcg Tablet, 0.125 MG PO QDAY, #30 TAB Prov:ZENY LOVELL MD 09/22/17 Potassium Chloride (KLOR-CON 10) 10 Meq Tablet.er, 20 MEQ PO BIDBS, #120 TAB Prov:ZENY LOVELL MD 09/22/17 Furosemide (FUROSEMIDE) 80 Mg Tablet, 80 MG PO BIDD, #60 TAB Prov:ZENY LOVELL MD 09/22/17 Finasteride (FINASTERIDE) 5 Mg Tablet, 5 MG PO QDAY for 30 Days, TAB Prov:MATEO LOVELL MD 08/16/17 Reported Medications Atorvastatin Calcium (LIPITOR) 10 Mg Tablet, 1 TAB PO QDAY, TAB 09/15/17 Duloxetine HCl (Duloxetine HCl) 60 Mg Capsule.dr, 30 MG PO BID 08/16/17 Oxygen (OXYGEN) Inha, 3 L INH QDAY, L 07/02/17 Clopidogrel Bisulfate (CLOPIDOGREL) 75 Mg Tablet, 1 TAB PO QDAY, TAB 04/26/17 Pregabalin (LYRICA) 150 Mg Capsule, 150 MG PO TID, CAPSULE 03/24/17 Carvedilol (CARVEDILOL) 6.25 Mg Tab, 3.125 MG PO BID, TAB 03/17/17 Apixaban (ELIQUIS) 5 Mg Tablet, 5 MG PO BID 03/17/17 Tiotropium [place] (SPIRIVA) 18 Mcg/Cap Inh, 18 MCG INH QDAY, INH 12/30/16 Levetiracetam (LEVETIRACETAM) 250 Mg Tablet, 500 MG PO BID, TAB 12/30/16 Tamsulosin Hcl (FLOMAX) 0.4 Mg Cap.er.24h, 0.4 MG PO QDAY, CAP 12/30/16 Levothyroxine Sodium (LEVOTHYROXINE SODIUM) 100 Mcg Tablet, 100 MCG PO QDAY, TAB 12/30/16 Allergies: Coded Allergies: Penicillins (Verified Allergy, Severe, 11/06/17) tramadol (Verified Allergy, Severe, seizure, 11/06/17) pt reported ibuprofen (Verified Allergy, Unknown, 11/06/17) STOMACH BLEEDING Patient History: FH: cancer MOTHER, BROTHER OR SISTER, FH: myocardial infarction FATHER, FHx: multiple sclerosis BROTHER OR SISTER Hx Smoking: Yes Smoking Status: Former Smoker Exposure to Second Hand Smoke?: No Caffeine Intake: Coffee, Tea Caffeine/Cups Per Day: 4 cups/day Hx Alcohol Use: Yes Hx Substance Use Disorder: No Review of Systems Constitutional: No Fever, No Chills Neurological: Weakness, No Syncope Eyes: Loss of Vision (left eye) Cardiovascular: No Chest Pain Respiratory: Shortness of Breath, Cough, Wheezing Gastrointestinal: No Nausea, No Vomiting, No Diarrhea, No Hematemesis, No Hematochezia, No Melena, No Abdominal Pain Genitourinary: No Dysuria, No Hematuria Musculoskeletal: Pain (diffuse arthralgias) Psychiatric: No Depression, No Anxiety Exam Vital Signs Vital Signs Date Time Temp Pulse Resp B/P (MAP) Pulse Ox O2 Delivery O2 Flow Rate FiO2 11/06/17 17:35 84 18 108/85 (93) 97 Nasal Cannula 4 11/06/17 15:47 97.9 General Appearance: Alert, Awake Neuro: Other (no focal motor deficits) Eyes: Other (left eye smaller/shrunken) ENT: Oropharynx Clear Cardiovascular: Other (Irregular with distant tones and systolic murmur) Respiratory: Other (rales at both bases slight prolonged expiratory phase) Chest: No Tenderness GI: Abd Soft and Non-Tender (obese/BS present) : No CVA Tenderness Lymph: No Adenopathy Extremities: Warm, Perfused, Edema (2+ both lower extremities to above knees) Integumentary: Generalized Fragile Skin Psych: Alert & Oriented X3 Medical Decision Making Data Points Result Diagram: 11/06/17 1558 11/06/17 1558 Item Value Date Time B-Type Natriuretic Peptide 347 pg/ml H 11/06/17 1558 Albumin 3.8 g/dl 11/06/17 1558 Total Protein 6.9 gm/dl 11/06/17 1558 Troponin I 0.014 ng/ml 11/06/17 1558 Alkaline Phosphatase 68 U/L 11/06/17 1558 Alanine Aminotransferase (ALT/SGPT) 20 U/L 11/06/17 1558 Aspartate Amino Transf (AST/SGOT) 30 U/L 11/06/17 1558 Total Bilirubin 1.5 mg/dl H 11/06/17 1558 EKG / Imaging Imaging ATIENT NAME: Obey Asencio : 1940 MR: [id number] V: [id number] EXAM DATE: ORDERING PHYSICIAN: YAHAIRA HAY TECHNOLOGIST: Location: [facility] [place] Patient: Obey Asencio : 1940 Visit/Account:[id number] Date of Sevice: 11/06/2017 Technique: CHEST PA AND LAT HISTORY: short of breath Comparison studies: Chest radiographs September 24, 2017 FINDINGS: There remains mild central vascular congestion. No lobar airspace consolidation. No large pleural effusion. The cardiac silhouette is unchanged. IMPRESSION: 1. No significant interval change with findings compatible with mild central vascular congestion. Report Dictated By: Frankie Saldaña DO at 11/06/2017 4:56 PM Report E-Signed By: Frankie Saldaña DO at 11/06/2017 4:58 PM WSN:[facility] Assessment and Plan Problems: (1) Acute on chronic congestive heart failure Status: Acute Assessment & Plan: He has very poor EF at lower than 25%. His activity tolerance has declined significantly. Mr. Asencio has now decided he does not want to pursue any aggressive evaluation or treatment of his heart failure/ heart disease. He would prefer to stop most of his medications and purse comfort measures and allow his medical problems to follow their natural course. He has designated himself DNR/DNI. His family is supportive of his decisions. I have agreed to abide by his decision. Will have morphine, lorazepam, Phenergan available for noxious symptoms. (2) Seizure disorder Status: Chronic Assessment & Plan: Will continue his Keppra for now. He may decide to withdraw this in future as well. Copies to: PATRICIA STANTON MD Venous Thromboembolism Antithrombotics Is Pt On Any Antithrombotics?: No Prophylaxis Tx Contraindicated Pharmacological Contraindicati: Comfort Measure Heart Failure Ejection Fraction %: 46 NYHA Class: II Is Patient on CHUCKY Inhibitor?: Yes Is Patient on Beta María?: Yes Exam Sepsis Risk: No Definite Risk MATEO LOVELL MD November 06, 2017 19:08
[2017-11-06 19:23] VITALS: BP 119/79
[2017-11-06] MEDS ORDERED: GABAPENTIN 100 MG CAP PO SCH (21:00)
[2017-11-07] MEDS: levETIRAcetam 500 MG TAB PO SCH ×3 (01:15→20:35)
[2017-11-07] MEDS: MORPHINE 4 MG/ML SDV IVP PRN ×6 (05:29→22:07)
[2017-11-07] MEDS ORDERED: GABAPENTIN 300 MG CAP PO ONE (08:05)
[2017-11-07 08:41] VITALS: BP 116/84
--- NOTE | 2017-11-07 10:03 | Hospitalist Progress Note ---
Subjective Progress Notes Subjective He has complaints of increased neuropathy pain to bilateral feet. Physical Exam Vital Signs Date Time Temp Pulse Resp B/P (MAP) Pulse Ox O2 Delivery O2 Flow Rate FiO2 11/07/17 08:41 97.6 91 20 116/84 (95) 99 Nasal Cannula 4.0 Intake and Output 11/08/17 00:59 Intake Total 1300 ml Output Total 480 ml Balance 820 ml Intake Oral 1300 ml Output Urine Total 480 ml General Appearance: Alert, Awake, No Acute Distress, Afebrile Cardiovascular: Regular Rate and Rhythm Respiratory: No Respiratory Distress, Other (bilateral expiratory wheezes) GI: Soft and Non-Tender Extremities: Edema (2+ edema bilaterally) Psych: Alert & Oriented X3, Appropriate Mood & Affect Result Diagram: 11/06/17 1558 11/06/17 1558 Assessment and Plan Problems: (1) Acute on chronic congestive heart failure Status: Acute Assessment & Plan: He has very poor EF at lower than 25%. His activity tolerance has declined significantly. Mr. Asencio has now decided he does not want to pursue any aggressive evaluation or treatment of his heart failure/ heart disease. He would prefer to stop most of his medications and purse comfort measures and allow his medical problems to follow their natural course. He has designated himself DNR/DNI. His family is supportive of his decisions. He will have morphine, lorazepam, Phenergan available for noxious symptoms. He has increased neruopathy pain this morning. I have increased his gabapentin from 100mg BID to 300mg daily. I will increase the Gabapentin to 300mg BID tomorrow if tolerated well today. (2) Seizure disorder Status: Chronic Assessment & Plan: Will continue his Keppra for now. He may decide to withdraw this in future as well. Heart Failure Ejection Fraction %: 46 NYHA Class: II Is Patient on CHUCKY Inhibitor?: Yes Is Patient on Beta María?: Yes Exam Sepsis Risk: No Definite Risk TONIA HUGO ENVIRONMENTAL COORDINATOR November 07, 2017 10:03
[2017-11-07] MEDS: PROMETHAZINE 25 MG/ML 1 ML AMP IVP PRN ×2 (11:28→17:48)
[2017-11-07 12:04] VITALS: Ht 180.3 cm; Wt 118.4 kg
[2017-11-07 14:41] VITALS: BP 127/95
[2017-11-07 19:42] VITALS: BP 119/95
[2017-11-08] MEDS: MORPHINE 4 MG/ML SDV IVP PRN ×3 (00:12→03:34)
[2017-11-08 02:04] VITALS: BP 124/84
[2017-11-08] MEDS: PROMETHAZINE 25 MG/ML 1 ML AMP IVP PRN (04:58)
[2017-11-08] MEDS: LORazepam 2 MG/ML VIAL IVP PRN ×2 (07:50→22:03)
[2017-11-08] MEDS: GABAPENTIN 300 MG CAP PO SCH ×3 (08:29→20:22)
[2017-11-08] MEDS: levETIRAcetam 500 MG TAB PO SCH ×3 (08:29→20:22)
--- NOTE | 2017-11-08 10:10 | Hospitalist Progress Note ---
Subjective Progress Notes Subjective He has complaints of chest pain this morning. Patient Complains of: Cardiovascular: Chest Pain Respiratory: No: Shortness of Breath Physical Exam Vital Signs Date Time Temp Pulse Resp B/P (MAP) Pulse Ox O2 Delivery O2 Flow Rate FiO2 11/08/17 09:17 98 Nasal Cannula 4.0 11/08/17 02:04 87 20 124/84 (97) 11/07/17 19:42 98.4 Intake and Output 11/09/17 01:00 Intake Total 1280 ml Output Total 850 ml Balance 430 ml Intake Oral 1280 ml Output Urine Total 850 ml General Appearance: Alert, Awake, No Acute Distress, Afebrile Neuro: No Gross deficits Cardiovascular: Regular Rate and Rhythm Respiratory: No Respiratory Distress, Clear to Auscultation GI: Soft and Non-Tender Extremities: Edema (2+ pitting edema) Psych: Alert & Oriented X3, Appropriate Mood & Affect Result Diagram: 11/06/17 1558 11/06/17 2168 Assessment and Plan Problems: (1) Acute on chronic congestive heart failure Status: Acute Assessment & Plan: He has very poor EF at lower than 25%. His activity tolerance has declined significantly. Mr. Asencio has now decided he does not want to pursue any aggressive evaluation or treatment of his heart failure/ heart disease. He would prefer to stop most of his medications and purse comfort measures and allow his medical problems to follow their natural course. He has designated himself DNR/DNI. His family is supportive of his decisions. He will have Dilaudid, lorazepam, Phenergan available for noxious symptoms. He has noted chest pain this morning. The patient assured me he doesn't want treatment for his chest pain, just pain medication. He mentioned he was itchy after his last morphine administration. I have switched Morphine to Dilaudid to see how he does with this pain medication. (2) Seizure disorder Status: Chronic Assessment & Plan: Will continue his Keppra for now. He may decide to withdraw this in future as well. Heart Failure Ejection Fraction %: 46 NYHA Class: II Is Patient on CHUCKY Inhibitor?: Yes Is Patient on Beta María?: Yes Exam Sepsis Risk: No Definite Risk TONIA HUGO JUMPBASTING [employer] B[employer]ER November 08, 2017 10:10
[2017-11-08 11:45] VITALS: BP 118/92
--- NOTE | 2017-11-08 14:58 | Medical Nutrition Therapy ---
Nutrition Anthropometrics Height (Inches): 71.00 Height (Calculated Centimeters: 180.841211 Weight (Pounds): 261 Weight (Calculated Kilograms): 118.558 BMI Calculated: 36.40 Mirza Nutrition Score: Adequate Mirza Nutrition Risk Score: 17 Dietary Referral Nutrition Risk Factors: Special Diet Nutrition Risk Comment: low salt Nutritional Diagnosis Nutritional Risk Acuity 2: CHF w/Complication Nutritional Risk Acuity 3: Morbid Obesity Nutritional Risk Acuity 4: Good Appetite Past Medical History: COPD, CHF, CAD, pulmonary arterial HTN, essential HTN, BPH, a-fib, hypothyroidism, hypercholesterolemia, seizures Nutritional Acuity: 2-Moderate Nutrition Diagnosis: Decreased Nutrient Needs Nutrition Etiology: Physiological Causes Nutrition Problem/Etiology/Sym: Decrease sodium and fluid needs realated to CHF complications AEB an EF of 25%. Energy Requirement: 2773 ([place] 1938 X1.3 AF 2521 X SF 1.1 ) Protein Requirement: 119 (1g/kg 1X118.5) Fluid Requirement: 2773 (1ml/kg Monitor fluids. fluid restriction ) Nutrition Intervention: Cont diet as ordered, Encourage intake Diet Comment To RSA: Nutrition Monitoring & Eval Nutrition Goals: Fluid Restrictions RD Patient Assessment Time: [address] Assessment Type: RD Assessment Patient Nutrition Acuity: 2-Moderate Follow Up Date: November 11, 2017 Nutritional Comment: 11/07 Pt was admitted for CHF exacerbation. Pt is experincing shortness of breath and chest pain. Pt has edema in ankle and legs. Pt diet order is DYLAN/REG and consuming 100% of his meals. Pt would benefit from CHF diet, due to his hx of CHF and may help edema, however pt is requesting comfort measures only. Pt had elevated BUN 26, elevated random blood glucose 130 and troponin .014. Continue to monitor pt progress and diet advancement.- GA 11/08: Pt would like to continue comfort care and no aggressive treatment. No new lab values at this time. Pt continues on DYLAN/REG consuming 75-100% meals. Continue to monitor pt progress and encourage intake. -MK DONALDSON November 08, 2017 14:33
[2017-11-08] MEDS: HYDROmorphone HCL 2 MG/ML SDV IVP PRN ×2 (18:50→21:00)
[2017-11-08 19:51] VITALS: BP 123/94
[2017-11-09 08:38] VITALS: BP 120/86
[2017-11-09] MEDS: GABAPENTIN 300 MG CAP PO SCH (08:42)
[2017-11-09] MEDS: levETIRAcetam 500 MG TAB PO SCH (08:42)
--- NOTE | 2017-11-09 09:10 | Hospitalist Depart ---
Discharge Summary Reason for Hosp/Final Diag: (1) Acute on chronic congestive heart failure Status: Acute Hospital Course & Plan: He has very poor EF at lower than 25%. His activity tolerance has declined significantly. Mr. Asencio has now decided he does not want to pursue any aggressive evaluation or treatment of his heart failure/ heart disease. He would prefer to stop most of his medications and purse comfort measures and allow his medical problems to follow their natural course. He has designated himself DNR/DNI. His family is supportive of his decisions. He will have Dilaudid, lorazepam, Phenergan available for noxious symptoms. He will go to ECF today for further comfort care. (2) Seizure disorder Status: Chronic Hospital Course & Plan: Will continue his Keppra for now. He may decide to withdraw this in future as well. Departure Latest Vital Signs Vital Signs 11/09/17 08:38 Temp 98.0 Pulse 97 Resp 12 B/P (MAP) 120/86 (97) Pulse Ox 97 O2 Delivery Nasal Cannula O2 Flow Rate 4.0 Weight (Pounds): 261 Weight (Ounces): 6.0 Result Diagram: 11/06/17 1558 11/06/17 1558 Condition: No Change Discharge: [facility] Discharge Instructions Home Meds Active Scripts Spironolactone (SPIRONOLACTONE) 25 Mg Tablet, 25 MG PO QDAY, #30 TAB Prov:PATRICIA HENRY DO 09/28/17 Potassium Chloride (POTASSIUM CHLORIDE) 20 Meq Tab.er.prt, 20 MEQ PO BIDBS, #60 TAB Prov:PATRICIA HENRY DO 09/28/17 Gabapentin (GABAPENTIN) 100 Mg Capsule, 100 MG PO BID, #60 CAPSULE Prov:PATRICIA HENRY DO 09/28/17 Digoxin (Digox) 125 Mcg Tablet, 0.125 MG PO QDAY, #30 TAB Prov:ZENY LOVELL MD 09/22/17 Potassium Chloride (KLOR-CON 10) 10 Meq Tablet.er, 20 MEQ PO BIDBS, #120 TAB Prov:ZENY LOVELL MD 09/22/17 Furosemide (FUROSEMIDE) 80 Mg Tablet, 80 MG PO BIDD, #60 TAB Prov:ZENY LOVELL MD 09/22/17 Finasteride (FINASTERIDE) 5 Mg Tablet, 5 MG PO QDAY for 30 Days, TAB Prov:MATEO LOVELL MD 08/16/17 Reported Medications Atorvastatin Calcium (LIPITOR) 10 Mg Tablet, 1 TAB PO QDAY, TAB 09/15/17 Duloxetine HCl (Duloxetine HCl) 60 Mg Capsule.dr, 30 MG PO BID 08/16/17 Oxygen (OXYGEN) Inha, 3 L INH QDAY, L 07/02/17 Clopidogrel Bisulfate (CLOPIDOGREL) 75 Mg Tablet, 1 TAB PO QDAY, TAB 04/26/17 Pregabalin (LYRICA) 150 Mg Capsule, 150 MG PO TID, CAPSULE 03/24/17 Carvedilol (CARVEDILOL) 6.25 Mg Tab, 3.125 MG PO BID, TAB 03/17/17 Apixaban (ELIQUIS) 5 Mg Tablet, 5 MG PO BID 03/17/17 Tiotropium [place] (SPIRIVA) 18 Mcg/Cap Inh, 18 MCG INH QDAY, INH 12/30/16 Levetiracetam (LEVETIRACETAM) 250 Mg Tablet, 500 MG PO BID, TAB 12/30/16 Tamsulosin Hcl (FLOMAX) 0.4 Mg Cap.er.24h, 0.4 MG PO QDAY, CAP 12/30/16 Levothyroxine Sodium (LEVOTHYROXINE SODIUM) 100 Mcg Tablet, 100 MCG PO QDAY, TAB 12/30/16 Diet: Regular Activity: As Tolerated Copies to: PATRICIA STANTON MD Venous Thromboembolism Antithrombotics Is Pt On Any Antithrombotics?: No Heart Failure Ejection Fraction %: 46 NYHA Class: II Is Patient on CHUCKY Inhibitor?: Yes Is Patient on Beta María?: Yes TONIA HUGO November 09, 2017 09:10
[2017-11-09] MEDS: HYDROmorphone HCL 2 MG/ML SDV IVP PRN (09:31)
== END 2017-11-09 10:38 | DRG 293 ==
LOC: ER 15:48 → MED 17:38
PROVIDERS: ADMIT Family Medicine; ATTEND Family Medicine
DX: I11.0 Hypertensive heart disease with heart failure (principal); I50.23 Acute on chronic systolic (congestive) heart failure; I25.10 Atherosclerotic heart disease of native coronary artery without angina pectoris; Z66 Do not resuscitate; Z51.5 Encounter for palliative care; I48.2 Chronic atrial fibrillation; J44.9 Chronic obstructive pulmonary disease, unspecified; G40.909 Epilepsy, unspecified, not intractable, without status epilepticus; D64.9 Anemia, unspecified; E78.00 Pure hypercholesterolemia, unspecified; E03.9 Hypothyroidism, unspecified; N40.0 Benign prostatic hyperplasia without lower urinary tract symptoms; G62.9 Polyneuropathy, unspecified; Z88.0 Allergy status to penicillin; Z95.5 Presence of coronary angioplasty implant and graft; Z88.8 Allergy status to other drugs, medicaments and biological substances; Z87.891 Personal history of nicotine dependence; Z90.49 Acquired absence of other specified parts of digestive tract; Z98.1 Arthrodesis status
CPT/HCPCS: 71046; 82040; 82247; 82310; 82374; 82435; 82565; 82947; 83605; 83880; 84075; 84132; 84155; 84295; 84450; 84460; 84484; 84520; 85025; 93005; 99285; J1170; J2060; J2270; J2550

== ENCOUNTER 2017-11-09 10:37 | Inpatient (IN) | payer MEDICARE, OTHER ==
[2017-11-07 12:04] VITALS: Ht 180.3 cm
[2017-11-09] MEDS ORDERED: FLUSH 10 ML SYR IV PRN (11:10)
[2017-11-09] MEDS ORDERED: ACETAMINOPHEN 325 MG TAB PO PRN (11:58)
[2017-11-09] MEDS ORDERED: PROMETHAZINE 25 MG/ML 1 ML AMP IVP PRN (11:58)
--- NOTE | 2017-11-09 12:19 | Consultant Pharmacy Review ---
[employer] Helper Review Medication Review Do All Mecications have a Diag: Yes Beers Criteria Medication 2014 Proton Pump Inhibitors: Pantoprazole Other General Cautions PATIENT IS COMFORT CARE. PAIN AND NAUSEA MEDICATIONS ARE AVAILABLE WELL SCHEDULED KEPPRA FOR SEIZURES. NO MEDICATION CONCERNS AT THIS TIME. Pneumococcal Vaccine HX Pneumo Vac (Lfpcucl06): Yes (05/03/16) HX Pneumo Vac (Pneumovax): Yes (04/18/00) MD Notified? MD Notified?: No JOEL AMAYA November 09, 2017 12:19
[2017-11-09] MEDS ORDERED: SCOPOLAMINE 1.5 MG PATCH TD PRN (13:00)
[2017-11-09] MEDS: HYDROmorphone HCL 2 MG/ML SDV IVP PRN ×2 (15:21→16:54)
--- NOTE | 2017-11-09 15:23 | ECF H&P BLANK ---
F H&P UPDATE History of Present Illness Chief Complaint Short of breath History of Present Illness 77yo male with PMHx significant for systolic heart failure with EF 23% on echocardiogram 08/2017. He additionally has a history of CAD s/p stent placement , atrial flutter, COPD, and seizure disorder. He reports increasing dyspnea with lower levels of activity. He states it is "a struggle" to get around his house. He previously had been going to cardiac rehab, but cannot make it there any longer. He has been having more lower extremity edema and orthopnea. He was evaluated in the ER and found to have elevated BNP at 347 and mild anemia. His CXR shows cardiomegaly with vascular congestion. He states he does not want to pursue any further aggressive evaluation or treatment of his medical problems. He now thinks he would like to pursue only comfort measures. He has discussed this with his family (son and [id number]) and they are agreeable to his wishes. History Problems: (1) Hypertension Status: Chronic (2) COPD with exacerbation Status: Chronic (3) Congestive cardiac failure Status: Chronic (4) Atrial fibrillation Status: Chronic (5) Postoperative intra-abdominal abscess Status: Resolved (6) Gangrenous appendicitis Status: Resolved (7) Hypercholesterolemia Status: Chronic (8) Chronic systolic heart failure Status: Chronic (9) COPD (chronic obstructive pulmonary disease) Status: Chronic (10) Essential hypertension Status: Chronic (11) CAD (coronary artery disease) Status: Chronic (12) Seizure disorder Status: Chronic (13) Hypothyroid Status: Chronic (14) BPH (benign prostatic hyperplasia) Status: Chronic (15) Peripheral neuropathy (16) History of coronary artery stent placement Status: Chronic (17) History of appendectomy Status: Resolved Home Meds Active Scripts Spironolactone (SPIRONOLACTONE) 25 Mg Tablet, 25 MG PO QDAY, #30 TAB Prov:PATRICIA HENRY DO 09/28/17 Potassium Chloride (POTASSIUM CHLORIDE) 20 Meq Tab.er.prt, 20 MEQ PO BIDBS, #60 TAB Prov:PATRICIA HENRY DO 09/28/17 Gabapentin (GABAPENTIN) 100 Mg Capsule, 100 MG PO BID, #60 CAPSULE Prov:PATRICIA HENRY DO 09/28/17 Digoxin (Digox) 125 Mcg Tablet, 0.125 MG PO QDAY, #30 TAB Prov:ZENY LOVELL MD 09/22/17 Potassium Chloride (KLOR-CON 10) 10 Meq Tablet.er, 20 MEQ PO BIDBS, #120 TAB Prov:ZENY LOVELL MD 09/22/17 Furosemide (FUROSEMIDE) 80 Mg Tablet, 80 MG PO BIDD, #60 TAB Prov:ZENY LOVELL MD 09/22/17 Finasteride (FINASTERIDE) 5 Mg Tablet, 5 MG PO QDAY for 30 Days, TAB Prov:MATEO LOVELL MD 08/16/17 Reported Medications Atorvastatin Calcium (LIPITOR) 10 Mg Tablet, 1 TAB PO QDAY, TAB 09/15/17 Duloxetine HCl (Duloxetine HCl) 60 Mg Capsule.dr, 30 MG PO BID 08/16/17 Oxygen (OXYGEN) Inha, 3 L INH QDAY, L 07/02/17 Clopidogrel Bisulfate (CLOPIDOGREL) 75 Mg Tablet, 1 TAB PO QDAY, TAB 04/26/17 Pregabalin (LYRICA) 150 Mg Capsule, 150 MG PO TID, CAPSULE 03/24/17 Carvedilol (CARVEDILOL) 6.25 Mg Tab, 3.125 MG PO BID, TAB 03/17/17 Apixaban (ELIQUIS) 5 Mg Tablet, 5 MG PO BID 03/17/17 Tiotropium [place] (SPIRIVA) 18 Mcg/Cap Inh, 18 MCG INH QDAY, INH 12/30/16 Levetiracetam (LEVETIRACETAM) 250 Mg Tablet, 500 MG PO BID, TAB 12/30/16 Tamsulosin Hcl (FLOMAX) 0.4 Mg Cap.er.24h, 0.4 MG PO QDAY, CAP 12/30/16 Levothyroxine Sodium (LEVOTHYROXINE SODIUM) 100 Mcg Tablet, 100 MCG PO QDAY, TAB 12/30/16 Allergies: Coded Allergies: Penicillins (Verified Allergy, Severe, 11/06/17) tramadol (Verified Allergy, Severe, seizure, 11/06/17) pt reported ibuprofen (Verified Allergy, Unknown, 11/06/17) STOMACH BLEEDING Patient History: FH: cancer MOTHER, BROTHER OR SISTER, FH: myocardial infarction FATHER, FHx: multiple sclerosis BROTHER OR SISTER Hx Smoking: Yes Smoking Status: Former Smoker Exposure to Second Hand Smoke?: No Caffeine Intake: Coffee, Tea Caffeine/Cups Per Day: 4 cups/day Hx Alcohol Use: Yes Hx Substance Use Disorder: No Review of Systems Constitutional: No Fever, No Chills Neurological: Weakness, No Syncope Eyes: Loss of Vision (left eye) Cardiovascular: No Chest Pain Respiratory: Shortness of Breath, Cough, Wheezing Gastrointestinal: No Nausea, No Vomiting, No Diarrhea, No Hematemesis, No Hematochezia, No Melena, No Abdominal Pain Genitourinary: No Dysuria, No Hematuria Musculoskeletal: Pain (diffuse arthralgias) Psychiatric: No Depression, No Anxiety Exam Vital Signs Vital Signs Date Time Temp Pulse Resp B/P (MAP) Pulse Ox O2 Delivery O2 Flow Rate FiO2 11/06/17 17:35 84 18 108/85 (93) 97 Nasal Cannula 4 11/06/17 15:47 97.9 General Appearance: Alert, Awake Neuro: Other (no focal motor deficits) Eyes: Other (left eye smaller/shrunken) ENT: Oropharynx Clear Cardiovascular: Other (Irregular with distant tones and systolic murmur) Respiratory: Other (rales at both bases slight prolonged expiratory phase) Chest: No Tenderness GI: Abd Soft and Non-Tender (obese/BS present) : No CVA Tenderness Lymph: No Adenopathy Extremities: Warm, Perfused, Edema (2+ both lower extremities to above knees) Integumentary: Generalized Fragile Skin Psych: Alert & Oriented X3 Medical Decision Making Data Points Result Diagram: 11/06/17 1558 11/06/17 1558 Item Value Date Time B-Type Natriuretic Peptide 347 pg/ml H 11/06/17 1558 Albumin 3.8 g/dl 11/06/17 1558 Total Protein 6.9 gm/dl 11/06/17 1558 Troponin I 0.014 ng/ml 11/06/17 1558 Alkaline Phosphatase 68 U/L 11/06/17 1558 Alanine Aminotransferase (ALT/SGPT) 20 U/L 11/06/17 1558 Aspartate Amino Transf (AST/SGOT) 30 U/L 11/06/17 1558 Total Bilirubin 1.5 mg/dl H 11/06/17 1558 EKG / Imaging Imaging ATIENT NAME: Obey Asencio : 1940 MR: [id number] V: [id number] EXAM DATE: ORDERING PHYSICIAN: YAHAIRA HAY TECHNOLOGIST: Location: [facility] Patient: Obey Asencio : 1940 Visit/Account:[id number] Date of Sevice: 11/06/2017 Technique: CHEST PA AND LAT HISTORY: short of breath Comparison studies: Chest radiographs September 24, 2017 FINDINGS: There remains mild central vascular congestion. No lobar airspace consolidation. No large pleural effusion. The cardiac silhouette is unchanged. IMPRESSION: 1. No significant interval change with findings compatible with mild central vascular congestion. Report Dictated By: Frankie Saldaña DO at 11/06/2017 4:56 PM Report E-Signed By: Frankie Saldaña DO at 11/06/2017 4:58 PM WSN:[facility] Assessment and Plan Problems: (1) Acute on chronic congestive heart failure Status: Acute Assessment & Plan: He has very poor EF at lower than 25%. His activity tolerance has declined significantly. Mr. Asencio has now decided he does not want to pursue any aggressive evaluation or treatment of his heart failure/ heart disease. He would prefer to stop most of his medications and purse comfort measures and allow his medical problems to follow their natural course. He has designated himself DNR/DNI. His family is supportive of his decisions. I have agreed to abide by his decision. Will have Dilaudid, lorazepam, Phenergan available for noxious symptoms. (2) Seizure disorder Status: Chronic Assessment & Plan: Will continue his Keppra for now. He may decide to withdraw this in future as well. Copies to: PATRICIA STANTON MD Venous Thromboembolism Antithrombotics Is Pt On Any Antithrombotics?: No Prophylaxis Tx Contraindicated Pharmacological Contraindicati: Comfort Measure Heart Failure Ejection Fraction %: 46 NYHA Class: II Is Patient on CHUCKY Inhibitor?: Yes Is Patient on Beta María?: Yes Exam Sepsis Risk: No Definite Risk MATEO LOVELL MD November 06, 2017 19:08 <Electronically signed by MATEO LOVELL MD> D/ 12 07 07 [facility]/ CC: PATRICIA STANTON MD, [facility] November 09, 2017 15:23
[2017-11-09] MEDS: LORazepam 2 MG/ML VIAL IVP PRN (18:32)
[2017-11-09 19:05] VITALS: BP 116/79
[2017-11-09] MEDS: levETIRAcetam 500 MG TAB PO SCH (21:00)
[2017-11-09] MEDS: GABAPENTIN 300 MG CAP PO SCH (21:00)
[2017-11-10] MEDS: HYDROmorphone HCL 2 MG/ML SDV IVP PRN ×2 (04:01→06:46)
[2017-11-10] MEDS: GABAPENTIN 300 MG CAP PO SCH ×2 (09:21→20:24)
[2017-11-10] MEDS: levETIRAcetam 500 MG TAB PO SCH ×2 (09:21→20:24)
[2017-11-10] MEDS: LORazepam 2 MG/ML VIAL IVP PRN ×2 (10:00→23:34)
[2017-11-10] MEDS: MEPERIDINE 50 MG/ML SYR IVP PRN ×5 (12:34→22:31)
[2017-11-11] MEDS: MEPERIDINE 50 MG/ML SYR IVP PRN ×7 (01:02→16:41)
[2017-11-11] MEDS: LORazepam 2 MG/ML VIAL IVP PRN ×4 (04:33→21:08)
[2017-11-11] MEDS: levETIRAcetam 500 MG TAB PO SCH ×2 (08:34→21:02)
[2017-11-11] MEDS: GABAPENTIN 300 MG CAP PO SCH ×2 (08:34→21:02)
--- NOTE | 2017-11-11 11:00 | Medical Nutrition Therapy ---
Nutrition Anthropometrics Height (Inches): 71 Weight (Pounds): 261 BMI Calculated: 36.40 Mirza Nutrition Score: Probably Inadequate Mirza Nutrition Risk Score: 16 Dietary Referral Nutrition Risk Factors: Special Diet Nutrition Risk Comment: low salt Physical Findings Physical Appearance: Morbidly Obese 40+ Skin Appearance Skin Appearance: Edema Edema Location Modifier: Both Edema Location: Upper Extremity Type of Edema: Degree of Edema: 2+ Gastrointestinal Symptoms GI Symtoms: Tube Present: Bowel Sounds: Recent Bowel Pattern: Stool Characteristics: Nutritional Diagnosis Nutritional Risk Acuity 2: CHF w/Complication Nutritional Risk Acuity 3: Morbid Obesity Nutritional Risk Acuity 4: Good Appetite Past Medical History: COPD, CHF, CAD, pulmonary arterial HTN, essential HTN, BPH, a-fib, hypothyroidism, hypercholesterolemia, seizures Nutritional Acuity: 4-Low Nutrition Etiology: End of Life Care Adjusted Energy Requirement Re: 2520 (3735-5170 kcal) Protein Requirement: 119 (1 g/kg) Fluid Requirement: 2500 Diet Type: Diet as Tolerated DYLAN/REG Nutrition Intervention: Cont diet as ordered, Encourage intake Nutrition Monitoring & Eval RD Patient Assessment Time: [address] Assessment Type: RD Assessment Patient Nutrition Acuity: 4-Low Follow Up Date: November 14, 2017 Nutritional Comment: 11/11 Pt admitted with CHF and COPD exacerbation and was transferred to ECF unit for comfort care. Currently on DYLAN with intake ranging from bites to 100% of meals. No new labs. Will cont to provide food and nourishment as appropriate for comfort care. ABELINO CRUZ November 11, 2017 11:00
[2017-11-11] MEDS ORDERED: MORPHINE 1 MG/ML 30 ML PCA IV PRN ×2 (18:30→19:45)
[2017-11-11] MEDS ORDERED: diphenhydrAMINE 50 MG/ML VIAL IVP PRN (18:30)
[2017-11-11 20:25] VITALS: BP 112/82
[2017-11-12] MEDS: LORazepam 2 MG/ML VIAL IVP PRN ×5 (01:20→20:51)
[2017-11-12] MEDS: GABAPENTIN 300 MG CAP PO SCH ×2 (09:00→21:00)
[2017-11-12] MEDS: levETIRAcetam 500 MG TAB PO SCH ×2 (09:00→21:00)
[2017-11-12] MEDS ORDERED: PATCH REMOVAL 1 EA TP PRN (13:00)
[2017-11-12] MEDS ORDERED: MORPHINE 1 MG/ML 30 ML PCA IV PRN (14:05)
--- NOTE | 2017-12-13 14:22 | Death Summary ---
Pronounced Date: November 13, 2017 (I am dictating his summary today on ) Pronounced Time: 005 Preliminary Cause of : Cardiopulmonary Arrest End Stage Congestive Heart Failure COPD Assessment: Coronary Artery Disease Seizure Disorder Atrial Fibrillation History of Present Illness Please see admission history and physical for details. Hospital Course Mr. Asencio is a 77yo male with PMHx significant for systolic heart failure with LVEF 23% on echocardiogram 08/2017. He additionally has a history of CAD s/ p stent placement, atrial flutter, COPD, BPH and seizure disorder. He reports increasing dyspnea with lower levels of activity. He states it is "a struggle" to get around his house. He previously had been going to cardiac rehab, but cannot make it there any longer. He has been having more lower extremity edema and orthopnea. He was evaluated in the ER and found to have elevated BNP at 347 and mild anemia. His CXR shows cardiomegaly with vascular congestion. He states he does not want to pursue any further aggressive evaluation or treatment of his medical problems. He now thinks he would like to pursue only comfort measures. He has discussed this with his family (son and [id number]) and they are agreeable to his wishes. Plan: He has very poor EF at lower than 25%. His activity tolerance has declined significantly. Mr. Asencio has now decided he does not want to pursue any aggressive evaluation or treatment of his heart failure/heart disease. He would prefer to stop most of his medications and purse comfort measures and allow his medical problems to follow their natural course. He has designated himself DNR/ DNI. His family is supportive of his decisions. I have agreed to abide by his decision. Will have Dilaudid, lorazepam, Phenergan available for noxious symptoms. Will continue his Keppra for now. He may decide to withdraw this in future as well. Copies to: PATRICIA STANTON MD Medical Records to be sent: Summary PEARL KAHN MD Dec 13, 2017 14:22
== END 2017-11-13 00:58 | disposition expired | DRG 951 ==
LOC: ECF 10:37
PROVIDERS: ADMIT Specialist; ATTEND Specialist
DX: Z51.5 Encounter for palliative care (principal); I50.23 Acute on chronic systolic (congestive) heart failure; I11.0 Hypertensive heart disease with heart failure; Z66 Do not resuscitate; I25.10 Atherosclerotic heart disease of native coronary artery without angina pectoris; I46.9 Cardiac arrest, cause unspecified; J44.9 Chronic obstructive pulmonary disease, unspecified; G40.909 Epilepsy, unspecified, not intractable, without status epilepticus; I48.2 Chronic atrial fibrillation; N40.0 Benign prostatic hyperplasia without lower urinary tract symptoms; D64.9 Anemia, unspecified; E78.00 Pure hypercholesterolemia, unspecified; E03.9 Hypothyroidism, unspecified; G62.9 Polyneuropathy, unspecified; Z88.0 Allergy status to penicillin; Z95.5 Presence of coronary angioplasty implant and graft; Z88.8 Allergy status to other drugs, medicaments and biological substances; I25.2 Old myocardial infarction; Z90.49 Acquired absence of other specified parts of digestive tract
CPT/HCPCS: J1170; J2060; J2175; J2270